=== PATIENT | male | born 1970 | race Two or more races ===

== ENCOUNTER 2023-09-15 13:00 | Emergency (ER) | payer SELFPAY ==
[2023-09-15 13:06] VITALS: BP 174/97; PULSE 98; RESP 18; TEMP 36.6; O2SAT 98; BMI 37.0
--- NOTE | 2023-09-15 13:21 | XR_ITS ---
[address] [address] Patient Name: SRIDEVI US MRN: [id number] date: 1970 Sex: M Assigned Patient Location: ER Current Patient Location: ER Accession/Order Number: [id number] Exam Date: 09/15/2023 13:40 Report Date: 09/15/2023 14:25 At the request of: SAM SPARKS Procedure: XR lumbar spine 2-3V IMAGES REVIEWED: XR lumbar spine 2-3V COMPARISON: None available. CLINICAL INDICATION: atraumatic left lower back pain FINDINGS/IMPRESSION: 1. Moderate degenerative disc disease from L4 through S1. 2. No evidence of acute osseous abnormality. 3. No spondylolisthesis. Electronically authenticated by: IONA REGAN Date: 09/15/2023 14:25
--- NOTE | 2023-09-15 13:22 | ED_ITS ---
HPI - Back Pain/Injury General Chief Complaint: Back Pain/Injury Stated Complaint: BACK PAIN Time Seen by Provider: 09/15/23 13:03 Source: patient Mode of arrival: Wheelchair History of Present Illness HPI Narrative: 53-year-old male presents for left lower back pain. It started about three days ago. Three weeks ago he was doing a lot of heavy lifting. He did not fall and nothing struck him in his back. It doesn't seem to radiate and it's worse in certain positions. No dysuria or hematuria. Related Data Home Medications Medication Instructions Recorded Confirmed metformin 500 mg tablet,extended 500 mg PO Q24H 09/15/23 09/15/23 release 24 hr Previous Rx's Medication Instructions Recorded hydrocodone 5 mg-acetaminophen 325 1 tab PO Q6H PRN pain 5 days #20 09/15/23 mg tablet tabs methocarbamol 750 mg tablet 750 mg PO Q6H pain #20 tabs 09/15/23 Allergies Allergy/AdvReac Type Severity Reaction Status Date / Time nalbuphine [From Nubain] Allergy Severe Verified 09/15/23 13:06 Review of Systems ROS Narrative A ten point review of systems is negative except as noted above. Exam Narrative Exam Narrative: Nurses note and vital signs reviewed and patient is not hypoxic. General: The patient appears well and in no apparent distress. Patient is resting comfortably on cart. Skin: Warm, dry, no pallor noted. There is no rash noted. Head: Normocephalic, atraumatic Eye: Normal conjunctiva, no drainage Ears, Nose, Mouth, and Throat: oral mucosa is moist. Nares patent. Cardiovascular: Regular Rate and Rhythm Respiratory: Patient is in no distress, no accessory muscle use, lungs are clear to auscultation, no wheezing, rales or rhonchi Back: no bruise on his back. He has no palpable tenderness. there is an erythematous rectangular area where he had a patch on. GI: soft and nontender Musculoskeletal: The patient has no evidence of calf tenderness, no pitting edema, symmetrical pulses noted bilaterally Neurological: A&O, normal speech Psychiatric: Cooperative Constitutional Vital Signs, click to edit/add: Last Vital Signs Temp 97.8 F 09/15/23 13:06 Pulse 98 H 09/15/23 13:06 Resp 18 09/15/23 13:06 BP 174/97 H 09/15/23 13:06 Pulse Ox 98 09/15/23 13:06 O2 Del Method Room Air 09/15/23 13:06 Course Vital Signs Vital signs: Vital Signs Temperature 97.8 F 09/15/23 13:06 Pulse Rate 98 H 09/15/23 13:06 Respiratory Rate 18 09/15/23 13:06 Blood Pressure 174/97 H 09/15/23 13:06 Pulse Oximetry 98 09/15/23 13:06 Oxygen Delivery Method Room Air 09/15/23 13:06 Temperature 97.8 F 09/15/23 13:06 Pulse Rate 98 H 09/15/23 13:06 Respiratory Rate 18 09/15/23 13:06 Blood Pressure 174/97 H 09/15/23 13:06 Pulse Oximetry 98 09/15/23 13:06 Oxygen Delivery Method Room Air 09/15/23 13:06 MDM - Back Pain/Injury MDM Narrative Medical decision making narrative: workup is negative. Blood sugar is somewhat elevated but his physician is aware and they are working on that issue. workup is otherwise negative and he'll be treated symptomatically. Treatment diagnosis and follow-up were discussed with the patient. Differential Diagnosis Differential diagnosis: Likely strain of lumbar region, renal colic and other (lumbar fracture, compression fracture) Lab Data Attestation: I reviewed the patient's lab results. Labs: Lab Results 09/15/23 09/15/23 Range/Units 13:17 13:42 WBC 8.1 (4.0-11.0) 10^3/uL RBC 5.09 (4.70-6.10) 10^6/uL Hgb 15.3 (14.0-18.0) g/dL Hct 45.0 (42.0-54.0) % MCV 88.4 (80.0-94.0) fL MCH 30.1 (25.9-34.0) pg MCHC 34.0 (29.9-35.2) g/dL RDW 12.9 (11.0-15.0) % Plt Count 256 (150-450) 10^3/uL MPV 10.1 (9.5-13.5) fL Neut % (Auto) 69.0 (43.0-75.0) % Lymph % (Auto) 22.1 (20.5-60.0) % Bartholomew % (Auto) 7.0 (1.7-12.0) % Eos % (Auto) 0.5 L (0.9-7.0) % Baso % (Auto) 0.5 (0.2-2.0) % Neut # (Auto) 5.6 (1.4-6.5) 10^3/uL Lymph # (Auto) 1.8 (1.2-3.8) 10^3/uL Bartholomew # (Auto) 0.6 (0.3-0.8) 10^3/uL Eos # (Auto) 0.0 (0.0-0.7) 10^3/uL Baso # (Auto) 0.0 (0.0-0.1) 10^3/uL Abs Immat Gran (auto) 0.07 H (0.00-0.03) 10^3/uL Imm/Tot Granulo (auto) 0.9 H (0.0-0.5) % Sodium 137 (136-145) mmol/L Potassium 4.3 (3.5-5.1) mmol/L Chloride 102 (98-107) mmol/L Carbon Dioxide 26.4 (21.0-32.0) mmol/L Anion Gap 12.9 BUN 18.0 (7.0-18.0) mg/dL Creatinine 0.81 (0.70-1.30) mg/dL Est GFR ( Amer) >60 (>=60) Est GFR (Non-Af Amer) >60 (>=60) BUN/Creatinine Ratio 22.2 Glucose 200 H (74-106) mg/dL Calcium 8.5 (8.5-10.1) mg/dL Urine Color Yellow (YELLOW) Urine Clarity Clear (CLEAR) Urine pH 5.5 (5.0-9.0) Ur Specific [place] >=1.030 A (1.005-1.025) Urine Protein Trace (NEG/TRACE) mg/dL Urine Glucose (UA) 500 A (NEGATIVE) mg/dL Urine Ketones Negative (NEGATIVE) mg/dL Urine Occult Blood Small A (NEGATIVE) Urine Nitrite Negative (NEGATIVE) Urine Bilirubin Negative (NEGATIVE) Urine Urobilinogen 0.2 (0.2-1.0) EU/dL Ur Leukocyte Esterase Negative (NEGATIVE) Urine RBC 2-5 A (0-2) #/HPF Urine WBC 0-2 A (NONE SEEN) #/HPF Ur Squamous Epith Cells Rare (NONE/RARE) #/LPF Urine Crystals None seen (None Seen) #/HPF Urine Bacteria None seen (NONE SEEN) #/HPF Urine Casts Seen A (NONE SEEN) #/LPF Hyaline Casts Rare Urine Mucus Small A (NONE SEEN) Imaging Data lumbar x-rays: Radiologist's impression: Procedure: XR lumbar spine 2-3V IMAGES REVIEWED: XR lumbar spine 2-3V COMPARISON: None available. CLINICAL INDICATION: atraumatic left lower back pain FINDINGS/IMPRESSION: 1. Moderate degenerative disc disease from L4 through S1. 2. No evidence of acute osseous abnormality. 3. No spondylolisthesis. Electronically authenticated by: IONA REGAN Date: 09/15/2023 14:25 Discharge Plan Discharge Chief Complaint: Back Pain/Injury Clinical Impression: Strain of lumbar region Patient Disposition: Home, Self-Care Time of Disposition Decision: 14:43 Condition: Good Mode of Transportation: Private Vehicle Prescriptions / Home Meds: New hydrocodone-acetaminophen 5-325 mg tablet 1 tab PO Q6H PRN (Reason: pain) 5 Days Qty: 20 0RF methocarbamol 750 mg tablet 750 mg PO Q6H Qty: 20 0RF No Action metformin 500 mg tablet extended release 24 hr 500 mg PO Q24H Instructions: Low Back Strain (ED) Stand Alone Forms: Portal Instructions Referrals: Physician,Non-Staff, MD [Primary Care Provider] - 1 week
[2023-09-15 13:28] LABS: Basophils Percent Auto 0.5 % (0.2-2.0); Eosinophils Percent Auto 0.5 % (0.9-7.0); Hemoglobin 15.3 g/dL (14.0-18.0); Immature Granulocytes Abs Auto 0.07 10^3/uL (0.00-0.03); Immature Granulocytes Pct Auto 0.9 % (0.0-0.5); Lymphocytes Absolute Auto 1.8 10^3/uL (1.2-3.8); Lymphocytes Percent Auto 22.1 % (20.5-60.0); Mean Corpuscular Hemoglobin 30.1 pg (25.9-34.0); Mean Corpuscular Volume 88.4 fL (80.0-94.0); Mean Platelet Volume 10.1 fL (9.5-13.5); Monocytes Absolute Auto 0.6 10^3/uL (0.3-0.8); Neutrophils Absolute Auto 5.6 10^3/uL (1.4-6.5); Platelet Count 256 10^3/uL (150-450); Red Blood Count 5.09 10^6/uL (4.70-6.10); Red Cell Distribution Width 12.9 % (11.0-15.0); White Blood Count 8.1 10^3/uL (4.0-11.0)
[2023-09-15] MEDS: ORPHENADRINE 60 MG/ 2 ML VIAL IV (13:34)
[2023-09-15] MEDS: KETOROLAC TROMETHAMINE 30 MG/ML VIAL IVP (13:34)
[2023-09-15 13:41] LABS: Anion Gap 12.9; BUN Creatinine Ratio 22.2; Calcium 8.5 mg/dL (8.5-10.1); Carbon Dioxide 26.4 mmol/L (21.0-32.0); Chloride 102 mmol/L (98-107); Estimated GFR (African America >60 (>=60); Estimated GFR (Non-African Ame >60 (>=60); Glucose 200 mg/dL (74-106); Potassium 4.3 mmol/L (3.5-5.1); Sodium 137 mmol/L (136-145)
[2023-09-15 13:49] LABS: Bilirubin Urine NEGATIVE (NEGATIVE); Blood Urine SMALL (NEGATIVE); Clarity Urine CLEAR (CLEAR); Color Urine YELLOW (YELLOW); Glucose Urine UA 500 mg/dL (NEGATIVE); Ketones Urine NEGATIVE (NEGATIVE); Leukocyte Esterase Urine NEGATIVE (NEGATIVE); Nitrite Urine NEGATIVE (NEGATIVE); Protein Urine TRACE mg/dL (NEG/TRACE); Specific Gravity Urine >=1.030 (1.005-1.025); Urobilinogen Urine 0.2 EU/dL (0.2-1.0); pH Urine 5.5 (5.0-9.0)
[2023-09-15 13:58] LABS: Bacteria Urine NONE SEEN #/HPF (NONE SEEN); Cast Seen? SEEN #/LPF (NONE SEEN); Crystals Seen? None Seen #/HPF (None Seen); Hyaline Casts Urine RARE; Mucus Urine SMALL (NONE SEEN); Squamous Epithelial Cell Urine RARE #/LPF (NONE/RARE); WBC Urine 0-2 #/HPF (NONE SEEN)
[2023-09-15] MEDS: HYDROCODONE/ACET 5-325 MG TABLET 1 TAB PO (14:59)
[2023-09-15] MEDS: MORPHINE SULFATE 4 MG/ML VIAL IV (14:59)
[2023-09-15 15:12] VITALS: BP 166/86; PULSE 86; RESP 16; O2SAT 98
== END 2023-09-15 15:14 | disposition home or self-care (01) ==
PROVIDERS: Emergency Provider Emergency Medicine
DX: S39.012A Strain of muscle, fascia and tendon of lower back, initial encounter (principal); X50.0XXA Overexertion from strenuous movement or load, initial encounter; Z79.84 Long term (current) use of oral hypoglycemic drugs
CPT/HCPCS: 36415; 72100; 80048; 81001; 85025; 96374; 96375; 99285

== ENCOUNTER 2024-04-19 10:38 | Outpatient (RCR) | payer OTHER, SELFPAY | END 2024-06-07 13:32 | disposition home or self-care (01) | LOC: PT 10:38 | DX: M16.12 Unilateral primary osteoarthritis, left hip (principal); R42 Dizziness and giddiness | CPT/HCPCS: 97110; 97112; 97162; 97530 ==

== ENCOUNTER 2024-06-26 16:31 | Outpatient (OUT) | payer OTHER, SELFPAY ==
--- NOTE | 2024-06-26 | XR_ITS ---
The [address] [address] Patient Name: SRIDEVI US MRN: [id number] date: 1970 Sex: M Assigned Patient Location: [facility] Current Patient Location: Accession/Order Number: [id number] Exam Date: 06/26/2024 16:45 Report Date: 06/27/2024 09:45 At the request of: ROCKY LEMON Procedure: XR lumbar spine 2-3V EXAM: XR lumbar spine 2-3V HISTORY: Lumber back pain M54.50 COMPARISON: Lumbar spine series dated 09/15/2023. TECHNIQUE: AP, lateral and coned-down lateral views of the lumbar spine performed. FINDINGS: The alignment is anatomic. There is no fracture. The vertebral body heights are normal. Stable mild discogenic degenerative changes with small endplate spurs at T12-L1 through L3-4. Stable mild to moderate discogenic degenerative changes at L4-5 and L5-S1 with disc space narrowing and endplate spurs. There is vacuum disc phenomenon at L4-5. The facet joints are unremarkable. The pedicles are intact. The sacrum and the bilateral sacral joints are unremarkable. XR/XR lumbar spine 2-3V IMPRESSION: There is no acute process. Stable discogenic degenerative changes, mild at T12-L1 through L3-4 and mild to moderate at L4-5 and L5-S1. Electronically authenticated by: ALLY PARKER Date: 06/27/2024 09:45
--- OUTSIDE RECORDS SUMMARY | 2024-06-26 16:49 | XMS_ITS | CCD ---
Author Organization [facility] Care Team Providers Care Acute Care Physician Name Role Phone DR ROCKY LEMON Primary Care Unavailable SAM SPARKS Attending Unavailable SAM SPARKS Admitting Unavailable TRICIA STERLING Consulting Unavailable Yao Strong Consulting Unavailable REQUEST, NONE LISTED Attending Unavaila memo REQUEST, NONE LISTED Consulting Unavaila memo LEMON, DR HIDALGO Primary Care Unavailable REQUEST, DR CASAS LISTED Admitting Unavaila Rocky Aguirre Unavailable Manuelito Arana Unavailable DO Rocky Lemon Primary Care Provider [phone] DO Rocky Lemon Attending Provider FELIX WRIGHT MD Attending Unavailable KIYA TORIBIO MD Consulting Unavailable FELIX WRIGHT MD Admitting Unavailable FELIX WRIGHT MD Attending Unavailable ADRIANA DASILVA, FELIX Attending Unavailable FELIX WRIGHT MD Referring Unavailable Rocky Lemon Admitting Unavailable Rocky Lemon Attending Unavailable Rocky Lemon Primary Care Unavailable Allergies Allergy Classification Reported Allergen(s) Allergy Type Date of Onset Reaction(s) Facility (20 sources) Nalbuphine Drug Allergy vomiting [facility] Repository (1 source) Nalbuphine Drug Allergy 12-12-2023 [facility] Repository Medications Current Medications Medication Drug Class(es) Dates Sig (Normalized) Sig (Original) acetaminophen 325 mg / HYDROcodone bitartrate 7.5 mg oral tablet (20 sources) Opioid Agonist Start: 12-12-2023 End: 03-26-2024 Hydrocodone-Acetam inophen Active 1 TAB PO .COMPLEX 13 05March 26, 2024 take 1 tablet by mouth every 8-12 hours as needed for pain Start: 03-15-2023 HYDROcodone-Ac etaminophen 7.5-325 MG take 1 tablet Orally q8- 12 hrs prn February, Active Start: 02-04-2023 HYDROcodone-Ac etaminophen 5-325 MG take 1 tablet Orally q8-12 hrs prn Jan, Active Start: 08-27-2021 HYDROcodone-Ac etaminophen 5-325 MG take 1 tablet Orally q8-12 hrs prn for 7 days prn Aug, Active amoxicillin 875 mg / clavulanate 125 mg oral tablet (2 sources) Penicillin-class Antibacterial Start: 12-29-2022 take 1 tablet by mouth every twelve hours Amoxicillin-Pot Clavulanate 875-125 MG 1 tablet Orally twice a day for 10 days Dec, Active aspirin 81 mg delayed release oral tablet (20 sources) Platelet Aggregation Inhibitor, Nonsteroidal Anti-inflammatory Drug Start: 12-12-2023 End: 03-26-2024 take 81 mg by mouth once daily Aspirin Active 81 MG PO Daily March 26, 2024 5:44pm take 1 tablet by chiara th every twenty-four hours Aspirin 81 81 MG 1 tablet Orally Once a day for 30 day(s) in the AM Active take 1 tablet by chiara th once daily in the morning Aspirin 81 81 MG 1 tablet Orally Once a day for 30 day(s) in the AM Active Losartan (9 sources) Angiotensin 2 Receptor Tashia Start: 02-20-2024 take 1 tablet by mouth once daily Losartan Active 0 .ROUTE .COMPLEX February 20, 2024 2:54pm TAKE 1 TABLET BY MOUTH DAILY Start: 12-12-2023 End: 02-20-2024 take 100 mg by mouth once daily Losartan Discontinued 100 MG PO Daily December 12, 2023 1:00am February 20, 2024 2:55pm Start: 02-10-2023 take 1 tablet by chiara th every twenty-four hours Losartan Potassium 100 MG 1 tablet Orally Once a day Jan, Active Start: 02-10-2023 take 1 tablet by chiara th every twenty-four hours Losartan Potassium 25 MG 1 tablet Orally Once a day for 30 days Jan, Active 24 hr metFORMIN hydrochloride 500 mg extended release oral tablet (20 sources) Biguanide Start: 02-08-2024 take 500 mg by mouth once daily in the morning Metformin Active 500 MG PO Every morning February 08, 2024 9:21am Start: 12-20-2023 End: 02-08-2024 take 1 tablet by mouth once daily in the morning Metformin Discontinued 0 .ROUTE .COMPLEX December 20, 2023 5:21pm February 08, 2024 9:23am TAKE 1 TABLET BY MOUTH EVERY MORNING WITH BREAKFAST Start: 08-24-2021 End: 12-20-2023 take 500 mg by mouth once daily Metformin Discontinued 500 MG PO Daily November 23, 2021 1:00am December 20, 2023 5:22pm tiZANidine 4 mg oral tablet (1 source) Central alpha-2 Adrenergic Agonist Start: 09-02-2023 take 1 tablet by mouth once daily at bedtime as needed for muscle spasms Zanaflex 4 MG 1 tablet Orally qd hs prn muscle spasm Aug, Active Completed/Discontinued Medications Medication Drug Class(es) Dates Sig (Normalized) Sig (Original) [id number] 200 actuat albuterol 0.09 mg/actuat metered dose inhaler (20 sources) beta2-Adrenergic Agonist Start: 12-12-2023 End: 03-26-2024 Albuterol Sulfate (Ventolin Hfa) 90 mcg/actuation HFA aerosol inhaler Discontinued INHALATION December 12, 2023 1:00am March 26, 2024 5:44pm FreeTextSi inhalations Inhalation q4 hrs prn; Note: Source Status: Not-Taking\PRNprn; Refills: 1; Provider: Mitch Hernandez Start: 12-12-2023 Albuterol Sulf ate (Ventolin Hfa) 90 mcg/actuation HFA aerosol inhaler Active INHALATION December 12, 2023 1:00am FreeTextSi inhalations Inhalation q4 hrs prn; Note: Source Status: Not-Taking\PRNprn; Refills: 1; Provider: Mitch Hernandez Start: 09-10-2020 Ventolin HFA 1 08 (90 Base) MCG/ACT 2 inhalations Inhalation q4 hrs prn prn Aug, Not-Taking/PRN azithromycin 250 mg oral tablet (7 sources) Macrolide Antimicrobial Start: 11-23-2021 End: 12-12-2023 Azithromycin Discontinued MG TABLET November 23, 2021 1:00am December 12, 2023 11:40am Start: 01-29-2019 Zithromax Z-Pa k 250 MG 2 tablets on the first day, then 1 tablet daily for 4 days Orally Once a day for 5 day(s) Jan, Active cefdinir 300 mg oral capsule (6 sources) Cephalosporin Antibacterial Start: 10-08-2022 take 2 capsules by mouth once daily at mealtime Cefdinir 300 MG 2 capsules Orally qd with food for 10 days Sep, Not-Taking gabapentin 600 mg oral tablet (20 sources) Anti-epileptic Agent Start: 02-08-2024 End: 02-08-2024 take 600 mg by mouth three times daily Gabapentin Discontinued 600 MG PO Three times daily February 08, 2024 9:20am February 08, 2024 9:54am Start: 12-20-2023 End: 02-08-2024 take 1 tablet by mouth three times daily Gabapentin Discontinued 0 .ROUTE .COMPLEX 90 December 20, 2023 5:21pm February 08, 2024 9:23am TAKE 1 TABLET BY MOUTH THREE TIMES DAILY Start: 12-12-2023 End: 12-20-2023 take 600 mg by mouth every twelve hours Gabapentin Discontinued 600 MG PO Every 12 hours December 12, 2023 11:40am December 20, 2023 5:22pm Start: 12-12-2023 End: 12-12-2023 take 1 tablet by mouth three times daily Gabapentin Discontinued 600 MG PO December 12, 2023 1:00am December 12, 2023 11:43am FreeTextSig: TAKE 1 TABLET BY MOUTH THREE TIMES DAILY; Note: Source Status: Taking; Refills: 2; Qty: 90 Tablet; Provider: Mitch Hidalgo ( ) Start: 11-23-2021 End: 12-12-2023 Gabapentin Discontinued MG J anuary 2021 1:00am December 12, 2023 11:42am Start: 08-17-2021 Gabapentin 100 MG 1 capsule in the AM, 1 capsule in the mid-afternoon Orally and take 3 capsules at bedtime Jul, Active take 1 tablet by chiara th three times daily Gabapentin 600 mg TAKE 1 TABLET BY MOUTH THREE TIMES DAILY for 30 Active take 1 capsule by mo uth three times daily Gabapentin 300 MG TAKE 1 CAPSULE BY MOUTH THREE TIMES DAILY for 30 day(s) Active meloxicam 15 mg oral tablet (15 sources) Nonsteroidal Anti-inflammatory Drug Start: 12-12-2023 End: 12-12-2023 take 1 tablet by mouth once daily at mealtime Meloxicam Discontinued 15 MG PO Daily December 12, 2023 1:00am December 12, 2023 11:43am FreeTextSig: TAKE 1 TABLET BY MOUTH ONCE DAILY WITH FOOD; Note: Source Status: Taking; Refills: 2; Qty: 30 Tablet; Provider: Mitch Hidalgo ( ) Start: 08-31-2022 take 1 tablet by chiara th once daily at mealtime Meloxicam 15 MG 1 tablet Orally once a day with food for 30 day(s) Aug, Active methocarbamol 750 mg oral tablet (5 sources) Muscle Relaxant Start: 12-12-2023 End: 02-08-2024 take 1 tablet by mouth every six hours as needed Methocarbamol Discontinued 750 MG PO Every 6 hours February 08, 2024 9:22am February 08, 2024 9:55am 1 tablet Orally q6 hrs prn; Note: Source Status: Start; Refills: 0; Provider: Mitch Hernandez Start: 11-07-2023 take 1 tablet by chiara th every six hours as needed Methocarbamol 750 MG 1 tablet Orally q6 hrs prn Oct, Active methylPREDNISolone 4 mg oral tablet (4 sources) Corticosteroid Start: 12-12-2023 End: 02-08-2024 take 1 tablet by mouth once at mealtime Methylprednisolone (Medrol (Zafar)) 4 mg tablets,dose pack Discontinued 0 PO per package directions December 12, 2023 12:20pm February 08, 2024 9:55am PO PER PKG DIR for 6 days with food predniSONE 20 mg oral tablet (16 sources) Start: 06-17-2023 predniSONE 20 MG 2 tablets Orally x5 days and then take 1 tablet a day x5 days with food or milk for 10 days May, Not-Taking/PRN Start: 10-08-2022 take 1 tablet by chiara th every twenty-four hours predniSONE 10 MG 1 tablet Orally Once a day for 7 days Sep, Not-Taking Start: 11-23-2021 End: 12-12-2023 Prednisone Discontinued MG T ABLET November 23, 2021 1:00am December 12, 2023 11:43am Start: 01-19-2021 predniSONE 20 MG take 3 tablets Orally x3 days, then 2 tabs x3 days then 1 tab a day x3 days with food or milk for 9 days Dec, Active sildenafil 100 mg oral tablet (20 sources) Phosphodiesterase 5 Inhibitor Start: 12-12-2023 End: 02-08-2024 take 1 tablet by mouth every hour, then take 1 tablet by mouth every twenty-four hours Sildenafil (Viagra) 100 mg tablet Discontinued 100 MG PO February 08, 2024 9:22am February 08, 2024 9:55am 1 tablet 1 hour prior to sexual activity Orally max 1 in 24 hours; Note: Source Status: Not-Taking\PRN; Refills: 5; Provider: Mitch Hernandez Start: 07-09-2022 take 1 tablet by chiara th every hour as needed, then take 1 tablet by mouth every twenty-four hours as needed Viagra 100 MG 1 tablet 1 hour prior to sexual activity Orally max 1 in 24 hours Jun, Not-Taking/PRN SZSTANDARD1-Topical Cream Baclofen 2%, Cyclobenzaprine HCL 2%, Diclofenac Na 3%, Gabapentin 6%, Lidocaine HCL 2% Cream (20 sources) Start: 10-26-2021 SZSTANDARD1-To pical Cream Baclofen 2%, Cyclobenzaprine HCL 2%, Diclofenac Na 3%, Gabapentin 6%, Lidocaine HCL 2% Cream NEEDED TOPICALLY APPLY 1-2 GRAMS FOR 2-3 MINUTES EVERY 6-8 HOURS for 30 days Oct, Not-Taking Start: 10-26-2021 SZSTANDARD1-To pical Cream Baclofen 2%, Cyclobenzaprine HCL 2%, Diclofenac Na 3%, Gabapentin 6%, Lidocaine HCL 2% Cream NEEDED TOPICALLY APPLY 1-2 GRAMS FOR 2-3 MINUTES EVERY 6-8 HOURS for 30 days Oct, Active Problems Active Problems Problem Classification Problem Date Documented Da te Episodic/Chronic Conditions associated with dizziness or vertigo (1 source) Dizziness and giddiness Episodic Diabetes mellitus with complications (5 sources) Type II diabetes mellitus uncontrolled; Translations: [Uncontrolled type 2 diabetes mellitus] 02-08-2024 Chronic Diabetes mellitus without complication (14 sources) Hyperglycemia, unspecified; Translations: [Acute hyperglycemia] Onset: 12-29-2021 Resolved: 07-09-2022 Episodic Essential hypertension (20 sources) Hypertensive disorder; Translations: [Essential (primary) hypertension] Chronic Headache; including migraine (4 sources) Headache; including migraine; Translations: [HEADACHE UNSPECIFIED] Onset: 08-10-2021 Osteoarthritis (20 sources) Osteoarthritis of left knee joint; Translations: [Unilateral primary osteoarthritis, left knee] 12-12-2023 Chronic Other and unspecified benign neoplasm (2 sources) Melanocytic nevi, unspecified Episodic Other circulatory disease (1 source) Elevated blood-pressure reading, without diagnosis of hypertension Episodic Other connective tissue disease (2 sources) Equipment finding; Translations: [Presence of other bone and tendon implants] 12-12-2023 Chronic Other connective tissue disease (2 sources) Pain in lower limb; Translations: [Pain in leg, unspecified] 12-12-2023 Episodic Other ear and sense organ disorders (12 sources) Otitis externa; Translations: [Unspecified otitis externa, unspecified ear] Chronic Other ear and sense organ disorders (2 sources) Unspecified otitis externa, unspecified ear Chronic Other ear and sense organ disorders (20 sources) Otalgia; Translations: [Otalgia, right ear] Episodic Other gastrointestinal disorders (1 source) Abdominal distension (gaseous) Episodic Other male genital disorders (20 sources) Male erectile dysfunction, unspecified; Translations: [Erectile dysfunction] Onset: 07-09-2022 Resolved: 07-09-2022 Chronic Other nervous system disorders (20 sources) Neuropathy; Translations: [Polyneuropathy, unspecified] 12-12-2023 Chronic Other nervous system disorders (20 sources) Chronic pain; Translations: [Other chronic pain] 12-12-2023 Chronic Other nervous system disorders (3 sources) Other chronic pain; Translations: [Other chronic pain] Onset: 10-26-2021 Resolved: 10-26-2021 Chronic Other nervous system disorders (6 sources) Polyneuropathy, unspecified; Translations: [Mononeuritis of unspecified site] Onset: 07-09-2022 Resolved: 07-09-2022 Chronic Other nervous system disorders (1 source) Paresthesia of skin; Translations: [PARESTHESIA OF SKIN] Onset: 10-20-2021 Episodic Other non-traumatic joint disorders (11 sources) Pain in left hip; Translations: [Pain in joint, pelvic region and thigh] Onset: 07-09-2022 Resolved: 07-09-2022 Episodic Other non-traumatic joint disorders (4 sources) Pain in left knee; Translations: [Left knee pain] Episodic Other non-traumatic joint disorders (2 sources) Hip pain; Translations: [Pain in left hip] 12-12-2023 Episodic Other screening for suspected conditions (not mental disorders or infectious disease) (6 sources) Encounter for screening for malignant neoplasm of colon; Translations: [Electrocardiogram abnormal] Episodic Other upper respiratory infections (2 sources) Viral upper respiratory tract infection; Translations: [Acute upper respiratory infection, unspecified] 11-23-2021 Episodic Poisoning by nonmedicinal substances (1 source) Toxic effect of unspecified spider venom, accidental (unintentional), initial encounter Episodic Residual codes; unclassified (6 sources) Amnesia; Translations: [Other amnesia] Episodic Residual codes; unclassified (2 sources) Other amnesia Episodic Residual codes; unclassified (2 sources) Memory impairment; Translations: [Other amnesia] 12-12-2023 Episodic Spondylosis; intervertebral disc disorders; other back problems (20 sources) Cervical spondylosis; Translations: [Spondylosis without myelopathy or radiculopathy, cervical region] Onset: 10-26-2021 Resolved: 05-03-2022 Chronic Spondylosis; intervertebral disc disorders; other back problems (20 sources) Neck pain; Translations: [Cervicalgia] Onset: 10-26-2021 Resolved: 10-26-2021 Episodic Past or Other Problems Problem Classification Problem Date Documented Da te Episodic/Chronic Acute bronchitis (1 source) Acute bronchitis, unspecified Onset: 11-19-2021 Resolved: 11-19-2021 Episodic Other connective tissue disease (2 sources) Pain in leg, unspecified; Translations: [Pain in limb] Onset: 12-19-2023 12-12-2023 Episodic Other connective tissue disease (1 source) Pain in left lower limb; Translations: [Pain in left leg] Onset: 12-19-2023 Episodic Other nutritional; endocrine; and metabolic disorders (1 source) Abnormal weight loss Onset: 04-08-2022 Resolved: 04-08-2022 Episodic Otitis media and related conditions (1 source) Other specified disorders of Eustachian tube, unspecified ear Onset: 11-19-2021 Resolved: 11-19-2021 Episodic Results Test Name Value Interpretation Reference Range Facility SURGICAL PATH REPORTon 04-21 SURGICAL PATH REPORT [facility] Department of Pathology [address] [place] [address] Name: DALI HUFFMAN : 1970 [facility] [id number] Number: [facility]; J532; 01 : n: Admit 54 years Attending FELIX WRIGHT MD Age: Provider: Ordering FELIX WRIGHT MD Provider: Consulti Surgical Pathology Report ng: ACCESSION: COLLECTED DATE/TIME: RECEIVED DATE/TIME: PATHOLOGIST: [id number] 04/17/2024 09:33 EDT 04/17/2024 10:48 EDT EVE CARVALHO MD Final Diagnosis LEFT FEMORAL HEAD BONE AND TISSUE; TOTAL HIP REPLACEMENT: - OSTEOCARTILAGE AND BONE MARROW TISSUE, WITH MILD DEGENERATIVE CHANGES. EVE CARVALHO PATHOLOGIST (Electronic Signature) Date Verified 04/21/2024 EK Clinical Data PREOP DIAGNOSIS: UNILATERAL PRIMARY OSTEOARTHRITIS LEFT HIP POSTOP DIAGNOSIS: UNILATERAL PRIMARY OSTEOARTHRITIS LEFT HIP PROCEDURE: LEFT TOTAL HIP REPLACEMENT SPECIMEN: LEFT HIP BONE AND TISSUE Gross Description Labeled left hip bone and tissue. Received in formalin is a 5.5 x 5.0 x 5.0 cm partially flattened femoral head and attached neck with a smooth resection margin. The articular surface is covered by irregularly surfaced cartilage with areas of cartilaginous loss and eburnation of the underlying bone. The eburnation is eccentric and measures up to 1.5 cm in greatest dimension. Multiple peripheral osteophytes are present. There are no areas of soft tissue present within the bone segment. Recovery Agent sections are submitted in two cassettes after decalcification. 04/17/2024 12:49:55 EDT Microscopic Diagnosis The final diagnosis is based on a microscopic exam of tour sales representative sections. ____ ____ Print 04/21/2024 11:16 EDT Number: Date/Time: [facility] Department of Pathology [id number] [place] [address] [phone] Name: DALI HUFFMAN : 1970 [facility] [id number] Number: Gender Male [facility]; J532; 01 : n: Admit 54 years Attending FELIX WRIGHT MD Age: Provider: Ordering FELIX WRIGHT MD Provider: Amisha Surgical Pathology Report ng: ACCESSION: COLLECTED DATE/TIME: RECEIVED DATE/TIME: PATHOLOGIST: [id number] 04/17/2024 09:33 EDT 04/17/2024 10:48 EDT MAIA DASILVA [facility] Codes CPT CODE: 98767, 34009 ____ ____ Print 04/21/2024 11:16 EDT Number: Date/Time: [facility] Comment on above: Performed By: #### 9 [id number] ####[facility] [id number] [place] [address] Medical Director: MD Zay Webb 04-18-2024 Calcium [Mass/Vol] 8.3 mg/dL Low 8.7-10.4 [facility] Comment on above: Performed By: #### 1 [id number], [id number] ####[facility] [address] [place] [address] Medical Director: Selvin Dillon MD Chloride [Moles/Vol] 108 mmol/L High 98-107 [facility] Comment on above: Performed By: #### 1 [id number], [id number] ####[facility] [address] [place], [place] [id number]) [phone] Director: Selvin Dillon MD CO2 [Moles/Vol] 25.0 mmol/L Normal 20.0-31.0 [facility] Comment on above: Performed By: #### 1 [id number], [id number] ####[facility] [address] [place], [place] [id number]) [phone] Director: Selvin Dillon MD Creatinine [Mass/Vol] 0.8 mg/dL Normal 0.6-1.1 [facility] Comment on above: Performed By: #### 1 50102, [id number] ####[facility] [address] [place] [address] Medical Director: Selvin Dillon MD GFR AA >60 Normal [facility] Comment on above: Result Comment: Afri can French GFR Calc Medical judgement is necessary to interpret GFR. The calculated GFR may not accurately reflect renal status in patients >70 years, women, acutely ill hospitalized patients and patients with acute renal failure or known renal disease. The MDRD GFR formula is valid only for adults greater than 18 years of age. Note: Creatinine clearance (not GFR) should be used for drug dosing. Performed By: #### 1 [id number], [id number] ####[facility] [address] [place], [place] [id number]) [phone] Director: Selvin Dillon MD Glomerular Filtration Rate >60 Normal [facility] Comment on above: Result Comment: Non- GFR Calc Medical judgement is necessary to interpret GFR. The calculated GFR may not accurately reflect renal status in patients >70 years, women, acutely ill hospitalized patients and patients with acute renal failure or known renal disease. The MDRD GFR formula is valid only for adults greater than 18 years of age. Note: Creatinine clearance (not GFR) should be used for drug dosing. Performed By: #### 1 [id number], [id number] ####[facility] [address] [place] [address] Medical Director: Selvin Dillon MD Glucose [Mass/Vol] 183 mg/dL High 74-106 [facility] Comment on above: Performed By: #### 1 [id number], [id number] ####[facility] [address] [place] [address] Medical Director: Selvin Dillon MD Osmolality [Osmolality] 286 mosm/kg Normal 275-295 [facility] Comment on above: Performed By: #### 1 69628, [id number] ####[facility] [address] [place] [address] Medical Director: Selvin Dillon MD Potassium [Moles/Vol] 4.2 mmol/L Normal 3.5-5.1 [facility] Comment on above: Performed By: #### 1 [id number], [id number] ####[facility] [address] [place] [address] Medical Director: Selvin Dillon MD Sodium [Moles/Vol] 140 mmol/L Normal 135-145 [facility] Comment on above: Performed By: #### 1 42757, [id number] ####[facility] [address] [place] [address] Medical Director: Selvin Dillon MD Urea nitrogen [Mass/Vol] 17 mg/dL Normal 9-23 [facility] Comment on above: Result Comment: - Ve nipuncture should occur prior to N-Acetyl Cysteine (NAC) or Metamizole (Sulpyrine) administration due to the potential for falsely depressed results. - Blood samples from some patients with monoclonal gammopathies may produce falsely elevated results Performed By: #### 1 07938, [id number] ####[facility] [address] [place] [address] Medical Director: Selvin Dillon MD Urea nitrogen/Creatinine [Mass ratio] 21.2 mg/mg Normal [facility] Comment on above: Performed By: #### 1 50400, [id number] ####[facility] [address] [place] [address] Medical Director: Selvin Dillon MD CBCNDon 04-18-2024 Erythrocyte distribution width (RBC) [Ratio] 14.2 % Normal 11.5-14.5 [facility] Comment on above: Performed By: #### 1 92995, [id number] ####[facility] [address] [place] [address] Medical Director: Selvin Dillon MD Hematocrit (Bld) [Volume fraction] 32.8 % Low 41.0-52.0 [facility] Comment on above: Performed By: #### 1 17818, [id number] ####[facility] [address] [place] [address] Medical Director: Selvin Dillon MD Hemoglobin (Bld) [Mass/Vol] 11.2 g/dL Low 13.5-17.5 [facility] Comment on above: Performed By: #### 1 53943, [id number] ####[facility] [address] [place] [address] Medical Director: Selvin Dillon MD Instr WBC ND 7.7 Normal [facility] Comment on above: Performed By: #### 1 62910, [id number] ####[facility] [address] [place] [address] Medical Director: Selvin Dillon MD MCH (RBC) [Entitic mass] 30.4 pg Normal 27.0-34.0 [facility] Comment on above: Performed By: #### 1 77916, [id number] ####[facility] [address] [place] [address] Medical Director: Selvin Dillon MD MCHC (RBC) [Mass/Vol] 34.1 g/dL Normal 32.0-37.0 [facility] Comment on above: Performed By: #### 1 [id number], [id number] ####[facility] [address] [place] [address] Medical Director: Selvin Dillon MD MCV (RBC) [Entitic vol] 89.1 fL Normal 80.0-100.0 [facility] Comment on above: Performed By: #### 1 57212, [id number] ####[facility] [address] [place] [address] Medical Director: Selvin Dillon MD Platelet 202 x10 Normal 150-450 [facility] Comment on above: Performed By: #### [id number], [id number] ####[facility] [id number] [place] [address] Medical Director: Selvin Dillon MD Platelet mean volume (Bld) [Entitic vol] 8.7 fL Normal 7.4-10.4 [facility] Comment on above: Performed By: #### 1 [id number], [id number] ####[facility] [id number] [place] [address] Medical Director: Selvin Dillon MD RBC 3.68 x10 Low 4.70-6.10 [facility] Comment on above: Result Comment: Note : RBC morphology is normal unless otherwise stated. Evaluation performed only if differential is requested. Performed By: #### 1 [id number], [id number] ####[facility] [id number] [place] [address] Medical Director: Selvin Dillon MD WBC 7.7 x10 Normal 4.5-11.0 [facility] Comment on above: Performed By: #### 1 [id number], [id number] ####[facility] [id number] [place] [address] Medical Director: Selvin Dillon MD HYDROCODONE 5MG/APAP 325MGon 06-26-2024 HYDROCODONE 5MG/APAP 325MG PRN Response Entered On: 04/18/2024 13:51 EDT Performed On: 04/18/2024 13:51 EDT by Sharmila Pantoja LPN Intervention Information: acetaminophen-hydrocod one Performed by Sharmila Pantoja LPN on 04/18/2024 13:46:00 EDT acetaminophen-hydrocod one,1tabs ORAL,Mild Pain(c) PRN Medication Response PRN Medication used for : Pain PRN Medication Effectiveness : Discharged PRN Response Pain Scales : Numeric (8yrs & older) Numeric Pain Scale Age : Numeric (8yrs & older) Actual time of reassessment : Yes Sharmila Pantoja LPN - 04/18/2024 13:51 EDT Numeric Pain Scale Numeric Pain Scale : 3 = Mild Pain Numeric Pain Score : 3 Sharmila Pantoja LPN - 04/18/2024 13:51 EDT [facility] Comment on above: Order Comment: For p ain level 1-3; May decrease to 1 tab if patient exhibits increased lethargy. IF ORDERED, DISCONTINUE AROUND THE CLOCK TYLENOL.Check for other orders containing acetaminophen before administering. Max total daily amount is 4000 mg. HYDROCODONE 5MG/APAP 325MG PRN Response Entered On: 04/18/2024 12:53 EDT Performed On: 04/18/2024 10:22 EDT by Sharmila Pantoja LPN Intervention Information: acetaminophen-hydrocod one Performed by Sharmila Pantoja LPN on 04/18/2024 09:22:00 EDT acetaminophen-hydrocod one,2tabs ORAL,Mild Pain PRN Medication Response PRN Medication used for : Pain PRN Medication Effectiveness : Yes PRN Response Pain Scales : Numeric (8yrs & older) Numeric Pain Scale Age : Numeric (8yrs & older) Actual time of reassessment : No (not needed time is correct) Sharmila Pantoja LPN - 04/18/2024 12:53 EDT Numeric Pain Scale Numeric Pain Scale : 3 = Mild Pain Numeric Pain Score : 3 Sharmila Pantoja LPN - 04/18/2024 12:53 EDT [facility] Comment on above: Order Comment: For p ain level 1-3; May decrease to 1 tab if patient exhibits increased lethargy. IF ORDERED, DISCONTINUE AROUND THE CLOCK TYLENOL.Check for other orders containing acetaminophen before administering. Max total daily amount is 4000 mg. HYDROCODONE 5MG/APAP 325MG PRN Response Entered On: 04/18/2024 6:08 EDT Performed On: 04/18/2024 5:26 EDT by Mervin Kinney RN Intervention Information: acetaminophen-hydrocod one Performed by Mervin Kinney RN on 04/18/2024 04:26:00 EDT acetaminophen-hydrocod one,2tabs ORAL,Mild Pain PRN Medication Response PRN Medication used for : Pain PRN Medication Effectiveness : Yes PRN Response Pain Scales : Numeric (8yrs & older) Numeric Pain Scale Age : Numeric (8yrs & older) Actual time of reassessment : No (not needed time is correct) Mervin Kinney RN - 04/18/2024 6:08 EDT Numeric Pain Scale Numeric Pain Scale : 3 = Mild Pain Numeric Pain Score : 3 Mervin Kinney RN - 04/18/2024 6:08 EDT [facility] Comment on above: Order Comment: For p ain level 1-3; May decrease to 1 tab if patient exhibits increased lethargy. IF ORDERED, DISCONTINUE AROUND THE CLOCK TYLENOL.Check for other orders containing acetaminophen before administering. Max total daily amount is 4000 mg. HYDROCODONE 5MG/APAP 325MG PRN Response Entered On: 04/18/2024 2:03 EDT Performed On: 04/18/2024 1:27 EDT by Mervin Kinney RN Intervention Information: acetaminophen-hydrocod one Performed by Mervin Kinney RN on 04/18/2024 00:27:00 EDT acetaminophen-hydrocod one,2tabs ORAL,Mild Pain PRN Medication Response PRN Medication used for : Pain PRN Medication Effectiveness : Yes PRN Response Pain Scales : Numeric (8yrs & older) Numeric Pain Scale Age : Numeric (8yrs & older) Actual time of reassessment : No (not needed time is correct) Mervin Kinney RN - 04/18/2024 2:03 EDT Numeric Pain Scale Numeric Pain Scale : 4 = Moderate Pain Numeric Pain Score : 4 Mervin Kinney RN - 04/18/2024 2:03 EDT [facility] Comment on above: Order Comment: For p ain level 1-3; May decrease to 1 tab if patient exhibits increased lethargy. IF ORDERED, DISCONTINUE AROUND THE CLOCK TYLENOL.Check for other orders containing acetaminophen before administering. Max total daily amount is 4000 mg. IBUPROFEN 600MG TABLETon IBUPROFEN 600MG TABLET PRN Response Entered On: 04/18/2024 13:13 EDT Performed On: 04/18/2024 13:13 EDT by Sharmila Pantoja LPN Intervention Information: ibuprofen Performed by Sharmila Pantoja LPN on 04/18/2024 12:16:00 EDT ibuprofen = Motrin, Advil,600mg ORAL PRN Medication Response PRN Medication used for : Pain PRN Medication Effectiveness : Yes PRN Response Pain Scales : Numeric (8yrs & older) Numeric Pain Scale Age : Numeric (8yrs & older) Actual time of reassessment : Yes Sharmila Pantoja LPN - 04/18/2024 13:13 EDT Numeric Pain Scale Numeric Pain Scale : 2 = Mild Pain Numeric Pain Score : 2 Sharmila Pantoja LPN - 04/18/2024 13:13 EDT Normal [facility] Comment on above: Order Comment: for i nflammation x 48 hours. Start after Toradol (Ketoralac) is discontinued Inpatient Patient Summaryon 04-18-2024 Inpatient Patient Summary [facility] Discharge Instructions [id number] [place] [address] (Patient Copy) Name: DALI HUFFMAN : 1970 Diagnosis: Acute post-operative pain; Diabetes; Unilateral primary osteoarthritis, left hip Allergies: Nikos Registration Date: 04/17/24 [facility]#: [id number] Current Date Time: 04/18/2024 13:16:16 Address: [place] [address] Phone: [phone] Primary Care Provider: Name: Phone: Thank you for choosing [facility] for your care. You are very important to us. Our goal is to demonstrate our high quality medical care and provide you with a very good patient experience. You may receive a survey about our service. Please take the time to complete the survey and return it so we can continue to enhance our service. Thank you again for allowing [facility] to care for your medical needs. If you have any questions about your care or follow up information please contact your doctor. Follow-up Instructions The following Appointments have been made for you: Please Note: the first letters listed in the order is the location code, followed by the appointment date, and scheduled provider Future Appointments [place] [facility] Appt. Date: 04/24/2024 2:30 PM Scheduled Provider: JUAN MANUEL Smith 1 ([place]) Phone: -- Fax: -- Provider Follow Ups: With: Address: When: FELIX WRIGHT, Orthopedic Surgery [address] [facility], [address] [place] [address] KeyMe (1) Comments: Follow up with therapy as scheduled at . Bring your prescription with you to your first outpatient appointment. Follow up with vascular lab as scheduled Follow up for staple removal in your doctor?s office 12-14 days from the date of your surgery ? call for appointment. Continue exercises as directed 3x daily - refer to [facility] binder for directions as well as therapy instructions Continue dressing changes daily as shown ? keep incision dry until after salma are removed ([facility] is ok with patients showering if dressing stays on and is wrapped with saran wrap and tape or press and seal saran wrap. After showering, remove wrap and dressing and put on a clean, dry dressing.) Continue to wear compression stockings for 1-2 weeks post-operatively, until mobility is no longer reduced. Wear throughout the day and night, removing for a few hours daily as needed. Apply ice to incision as directed (do not place on bare skin,) and use breathing mushroom grower as instructed Continue to follow precautions as instructed and use walker for safety until progressed by your therapy after discharge Refer to [facility] instructions sheet provided in blue folder Any questions or concerns, please call Dr. Wright If you have had an intravenous catheter (IV) during your stay, keep the dressing dry and do not remove it from the site for at least 24 hours or as instructed by your provider to prevent problems. Medication Information Only Take The Medicines On This List. Keep This List and Bring It To Your Next Appointment. Medicines To Take At Home: Medicine Name (Generic Name) Amount to Take How to Take it How Often to Take it Additional Instructions Next Dose Due [place] 5 mg-325 mg oral tablet * (acetaminophen-hydroco done) 1-2 tablets po q4-6 hrs prn orally Disclaimer- may need more than 30MED due to major orthopedic surgery 7 day supply hasn't gotten any prescribed since beginning of March and only 7 days worth. Take as needed for pain aspirin 81 mg oral delayed release tablet * (aspirin) 81 mg By Mouth DAILY WITH BREAKFAST take one tablet dialy for 30 days do not crush or chew losartan 100 mg oral tablet (losartan) 100 mg By Mouth DAILY MetFORMIN (Eqv-Glumetza) 500 mg oral tablet, extended release (metformin = glucophage) 500 mg By Mouth DAILY Centrum Silver oral tablet (multivitamin with minerals) 1 tabs By Mouth DAILY Ultram 50 mg oral tablet * (tramadol) 1-2 po 6 hrs prn pain Orally Disclaimer- Patient may require more than 30MED due to major Orthopedic surgery. 7 day supply Take as needed for Moderate Breakthrough Pain Understanding your home medicine is important to keeping you healthy. If you are taking medications that are not on the preceding list, please call your doctor to see if you are to continue taking that medication. It is important that you do not skip or make up doses. If you are ordered an antibiotic, finish taking all the medicine unless your doctor tells you otherwise. Call your doctor if you have any questions or problems. Take the medicine list with you to all follow up appointments. Patient education materials, if any, will display below Learning About Using an Incentive Spirometer What is an incentive spirometer? An incentive spirometer is a handheld device that exercises your lungs and measures how much air you can breathe in. It tells you and your doctor how well your lungs are (more content not included)... Normal [facility] Inpt OT Jnt Replacement Prot ocol-Texton 04-18-2024 Inpt OT Jnt Replacement Protocol-Text Inpatient OT Joint Replacement Protocol Entered On: 04/18/2024 12:05 EDT Performed On: 04/18/2024 10:18 EDT by Sofi Velez Joint Protocol OT Joint Replacement Protocol OT Session 1 OT Session 2 Date/Time : 04/17/2024 13:28 EDT 04/18/2024 10:18 EDT Pain : 5/10 4/10 Weight Bearing : FWB L LE FWB L LE Bed Mobility : supervision Transfers : Mod I Chair : CGA with FWW Mod I using FWW Toilet : CGA with FWW Mod I using 3:1 over standard commode, pt voicing no need to void Tub/Shower : NT. Pt uses walk-in shower with grab bars and hand held shower head. NT - pt declined trial, has walk-in shower and stating no concerns ADL : set up for grooming while seated. Grooming in standing at sink to complete hand hygiene at Mod I using FWW, G balance noted OT UB ADL : set up Set up to don shirt while seated LB ADL : Threads BLEs into shorts with supervision while seated using collection teller to comply with THP. CGA For clothing management up over hips in standing. Thread L LE through pants using collection teller while seated, hip/knee flexion to thread R, advance over B hips in standing at Mod I using FWW. Doff/don hospital socks at Mod I using collection teller/sock aid. Doff compression socks at Mod A using collection teller, don at Max A (Comment: (pt and spouse say plan is for spouse to assist donning/doffing compression socks). [Sofi Velez - 04/18/2024 11:58 EDT] ) Review Precautions : reviewed THP Reviewed Adaptive Equipment : Has: collection teller, FWW, crutches, toilet and shower grabbars, and ADA toilet. Needs sock aid, long shoe horn, and long handled sponge. Has: collection teller, FWW, crutches, toilet and shower grabbars, and ADA toilet Provided: Sock aid, LH shoe horn, LH sponge Recommendations : family assist PRN Family Assist OT Film Recordist : Sofi Velez OT Therapist 1 : Zee Rojas Randi - 04/18/2024 11:58 EDT Sofi Velez - 04/18/2024 11:58 EDT Additional Information OT : Pt seated in chair on arrival, pleasant and agreeable to therapy this AM. Spouse present throughout. Reviewed THP prior to activity, pt verbalized understanding. Sit<->Stand from chair and functional mobility in room at Mod I using FWW, no overt LOB or buckle observed. Educated pt on animal management, home/shower safety, pt verbalized understanding. Provided pt with LH shoe horn, LH sponge and sock aid in order to maximize independence/safety with ADLs upon home going, pt has collection teller. Pt returned to recliner at end of session with call light within reach, ice applied to L hip and all needs met post tx, nursing updated. [facility] 04/18[facility] 11:58 EDT AM-PAC 6 clicks Daily Activity How much help from another person does the patient currently need... Putting on and taking off regular lower body clothing? : A Little Bathing (including washing, rinsing, drying)? : A Little Toileting, which includes using toilet, bedpan, or urinal? : None Putting on and taking off regular upper body clothing? : None Taking care of personal grooming such as brushing teeth? : None Eating meals? : None [facility] 04/18/2024 11:58 EDT AM-PAC Raw Score : 22 Sofi Velez 04/18/2024 11:58 EDT Education OT Responsible Learner/s Present : Living Situation: Home Independently Performed by: Idania PT-Student [facility] 04/17/2024 13:28 Discharge To: Outpatient therapy Performed by: Sharmila Pantoja LPN 04/18/2024 10:00 Home Caregiver Name/Relationship: patient Performed by: Sharmila Pantoja LPN 04/18/2024 10:00 Price Learner/Caregiver Present for Session : Yes Barriers to Learning : None evident TeachBack Methodology : TeachBack, Demonstration, Explanation Sofi Velez 04/18/2024 11:58 EDT Occupational Therapy Education Grid Activity of Daily Living Training : Demonstrates Adaptive Equipment/DME : Demonstrates Home Safety : Verbalizes understanding Plan of Care : Verbalizes understanding Precautions : Verbalizes understanding Surgical Precautions : Verbalizes understanding Toilet Transfers : Demonstrates Tub / Shower Transfers : Needs practice/supervision Weightbearing Precautions : Verbalizes understanding Sofi Velez 04/18/2024 11:58 EDT Additional Session Learner/s Present : Spouse Sofi Velez 04/18/2024 11:58 EDT Time Spent with Patient OT Time In : 10:18 EST OT Time Out : 10:56 EST OT Self Care, Home Management Time : 38 minutes 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, Home Management Units : 3 units OT Total Timed Code Treatment Units : 3 units OT Total Timed Code Treatment Minutes : 38 minutes 8 Min Rule Unit Check OT IP : 3 units OT Total Treatment Time Rehab : 38 minutes 8 Min Rule Unit Difference OT IP : 0 PMR Chart Review - OT : Yes Sofi Velez - 04/18/2024 12:20 EDT Normal [facility] Intake and Output-Texton Intake and Output-Text Intake and Output Entered On: 04/18/2024 8:32 EDT Performed On: 04/18/2024 8:32 EDT by Joan Kaur I&O Urine Voided : 475 mL Joan Kaur - 04/18/2024 8:32 EDT Normal [facility] KETOROLAC 30MG/1ML INJon KETOROLAC 30MG/1ML INJ PRN Response Entered On: 04/18/2024 10:40 EDT Performed On: 04/18/2024 7:12 EDT by Sharmila Pantoja LPN Intervention Information: ketorolac Performed by Mervin Kinney RN on 04/18/2024 06:12:00 EDT ketorolac = Toradol,30mg IV Push,Left Arm PRN Medication Response PRN Medication used for : Pain PRN Medication Effectiveness : Yes PRN Response Pain Scales : Numeric (8yrs & older) Numeric Pain Scale Age : Numeric (8yrs & older) Actual time of reassessment : No (not needed time is correct) Sharmila Pantoja LPN - 04/18/2024 10:40 EDT Numeric Pain Scale Numeric Pain Scale : 3 = Mild Pain Numeric Pain Score : 3 Sharmila Pantoja LPN - 04/18/2024 10:40 EDT Normal [facility] Comment on above: Order Comment: Dose decreased by pharmacist to 15mg same schedule if renal function less than 30mL / min., age greater than 64 or weight less than 50 kgs. DO NOT GIVE CONCURRENTLY WITH OTHER NSAIDS, DO NOT GIVE IF PATIENT HAS CREATINE CLEARANCE LESS THAN 20 mL/min. KETOROLAC 30MG/1ML INJ PRN Response Entered On: 04/18/2024 2:03 EDT Performed On: 04/18/2024 1:27 EDT by Mervin Kinney RN Intervention Information: ketorolac Performed by Mervin Kinney RN on 04/18/2024 00:27:00 EDT ketorolac = Toradol,30mg IV Push,Left Arm PRN Medication Response PRN Medication used for : Pain PRN Medication Effectiveness : Yes PRN Response Pain Scales : Numeric (8yrs & older) Numeric Pain Scale Age : Numeric (8yrs & older) Actual time of reassessment : No (not needed time is correct) Mervin Kinney RN - 04/18/2024 2:02 EDT Numeric Pain Scale Numeric Pain Scale : 4 = Moderate Pain Numeric Pain Score : 4 Mervin Kinney RN - 04/18/2024 2:02 EDT Normal [facility] Comment on above: Order Comment: Dose decreased by pharmacist to 15mg same schedule if renal function less than 30mL / min., age greater than 64 or weight less than 50 kgs. DO NOT GIVE CONCURRENTLY WITH OTHER NSAIDS, DO NOT GIVE IF PATIENT HAS CREATINE CLEARANCE LESS THAN 20 mL/min. Neurovascular Assessment Low er Extremityon 04-18-2024 Neurovascular Assessment Lower Extremity Neurovascular Data Lower Extremity Entered On: 04/18/2024 12:53 EDT Performed On: 04/18/2024 12:53 EDT by Sharmila Pantoja LPN Lower Extremity Nail Bed Color Feet Grid Left Foot : [place] Right Foot : [place] Sharmila Pantoja LPN - 04/18/2024 12:53 EDT Capillary Refill Feet Grid Left Foot : Less than 2 seconds Right Foot : Less than 2 seconds Sharmila Pantoja LPN - 04/18/2024 12:53 EDT NV Lower Extremity Color Grid Left : [place] Right : [place] Sharmila Pantoja LPN - 04/18/2024 12:53 EDT NV Lower Extremity Temperature Grid Left : Warm Right : Warm Sharmila Pantoja LPN - 04/18/2024 12:53 EDT Lower Extremity Peripheral Pulses Grid Dorsalis Pedis Pulse, Left : 2+ Normal Dorsalis Pedis Pulse, Right : 2+ Normal Sharmila Pantoja LPN - 04/18/2024 12:53 EDT Lower Extremity II Lower Extremity Sensation NV Grid Medial/Lateral Surfaces Sole of Left Foot : Intact Medial/Lateral Surfaces Sole of Right Foot : Intact Web Space Between Great and Second Toe Left Foot : Intact Web Space Between Great and Second Toe Right Foot : Intact Scarlett VICENTENSharmila 04/18/2024 12:53 EDT Lower Extremity Strength NV Grid Plantar Flexion Left Foot : Normal 5 Plantar Flexion Right Foot : Normal 5 Dorsiflex Foot/Extend Toes Left : Normal 5 Dorsiflex Foot/Extend Toes Right : Normal 5 HeatLuz andersen LPNyl 04/18/2024 12:53 EDT NV Lower Extremity Edema Grid Pedal Edema Bilateral : None HeatLuz andersen LPNyl 04/18/2024 12:53 EDT Normal [facility] Neurovascular Assessment Lower Extremity Neurovascular Data Lower Extremity Entered On: 04/18/2024 10:43 EDT Performed On: 04/18/2024 9:00 EDT by Sharmila Pantoja LPN Lower Extremity Nail Bed Color Feet Grid Left Foot : [place] Right Foot : [place] SheltonLuz andersen LPNyl 04/18/2024 10:43 EDT Capillary Refill Feet Grid Left Foot : Less than 2 seconds Right Foot : Less than 2 seconds HeatLuz andersen LPNyl 04/18/2024 10:43 EDT NV Lower Extremity Color Grid Left : [place] Right : [place] Scarlett VICENTENishant Sharmila 04/18/2024 10:43 EDT NV Lower Extremity Temperature Grid Left : Warm Right : Warm Scarlett TELLEZLuzyl 04/18/2024 10:43 EDT Lower Extremity Peripheral Pulses Grid Dorsalis Pedis Pulse, Left : 2+ Normal Dorsalis Pedis Pulse, Right : 2+ Normal Heatganesh SEASONER HANDLuz Dillardyl 04/18/2024 10:43 EDT Lower Extremity II Lower Extremity Sensation NV Grid Medial/Lateral Surfaces Sole of Left Foot : Intact Medial/Lateral Surfaces Sole of Right Foot : Intact Web Space Between Great and Second Toe Left Foot : Intact Web Space Between Great and Second Toe Right Foot : Intact Heater Luz TELLEZyl 04/18/2024 10:43 EDT Lower Extremity Strength NV Grid Plantar Flexion Left Foot : Normal 5 Plantar Flexion Right Foot : Normal 5 Dorsiflex Foot/Extend Toes Left : Normal 5 Dorsiflex Foot/Extend Toes Right : Normal 5 Heater Luz TELLEZyl 04/18/2024 10:43 EDT NV Lower Extremity Edema Grid Pedal Edema Bilateral : None Sharmila Pantoja LPN - 04/18/2024 10:43 EDT Normal [facility] Neurovascular Assessment Lower Extremity Neurovascular Data Lower Extremity Entered On: 04/18/2024 4:31 EDT Performed On: 04/18/2024 4:31 EDT by Mervin Kinney RN Lower Extremity Nail Bed Color Feet Grid Left Foot : [place] Right Foot : Antionette Kinney RN, [facility] 04/18/2024 4:31 EDT Capillary Refill Feet Grid Left Foot : Less than 2 seconds Right Foot : Less than 2 seconds Nirmal STEVENSON, [facility] 04/18/2024 4:31 EDT NV Lower Extremity Color Grid Left : [place] Right : Antionette Kinney RN, [facility] 04/18/2024 4:31 EDT NV Lower Extremity Temperature Grid Left : Warm Right : Warm Nirmal STEVENSON, [facility] 04/18/2024 4:31 EDT Lower Extremity Peripheral Pulses Grid Dorsalis Pedis Pulse, Left : 2+ Normal Dorsalis Pedis Pulse, Right : 2+ Normal Nirmal STEVENSON, [facility] 04/18/2024 4:31 EDT Lower Extremity II Lower Extremity Sensation NV Grid Medial/Lateral Surfaces Sole of Left Foot : Intact Medial/Lateral Surfaces Sole of Right Foot : Intact Web Space Between Great and Second Toe Left Foot : Intact Web Space Between Great and Second Toe Right Foot : Intact Nirmal STEVENSON, [facility] 04/18/2024 4:31 EDT Lower Extremity Strength NV Grid Plantar Flexion Left Foot : Good 4 Plantar Flexion Right Foot : Normal 5 Dorsiflex Foot/Extend Toes Left : Good 4 Dorsiflex Foot/Extend Toes Right : Normal 5 Nirmal STEVENSON, [facility] 04/18/2024 4:31 EDT Normal [facility] Neurovascular Assessment Lower Extremity Neurovascular Data Lower Extremity Entered On: 04/18/2024 0:54 EDT Performed On: 04/18/2024 0:54 EDT by Mervin Kinney RN Lower Extremity Nail Bed Color Feet Grid Left Foot : [place] Right Foot : Antionette Kinney RN, [facility] 04/18/2024 0:54 EDT Capillary Refill Feet Grid Left Foot : Less than 2 seconds Right Foot : Less than 2 seconds Nirmal STEVENSON, [facility] 04/18/2024 0:54 EDT NV Lower Extremity Color Grid Left : [place] Right : Antionette Kinney RN, [facility] 04/18/2024 0:54 EDT NV Lower Extremity Temperature Grid Left : Warm Right : Warm Nirmal RN, [facility] 04/18/2024 0:54 EDT Lower Extremity Peripheral Pulses Grid Dorsalis Pedis Pulse, Left : 2+ Normal Dorsalis Pedis Pulse, Right : 2+ Normal Nirmal RN, [facility] 04/18/2024 0:54 EDT Lower Extremity II Lower Extremity Sensation NV Grid Medial/Lateral Surfaces Sole of Left Foot : Intact Medial/Lateral Surfaces Sole of Right Foot : Intact Web Space Between Great and Second Toe Left Foot : Intact Web Space Between Great and Second Toe Right Foot : Intact Nirmal RN, [facility] 04/18/2024 0:54 EDT Lower Extremity Strength NV Grid Plantar Flexion Left Foot : Good 4 Plantar Flexion Right Foot : Normal 5 Dorsiflex Foot/Extend Toes Left : Good 4 Dorsiflex Foot/Extend Toes Right : Normal 5 Nirmal RN, [facility] 04/18/2024 0:54 EDT Normal [facility] Nursing Clinical Noteon 03-25 Nursing Clinical Note Rn agrees with SEASONER HAND assessment. Normal [facility] Nursing Clinical Note c/o of being lightheaded, b/p 112/65 pulse ox 95 r/a concerned about pulse ox due to hx. states had just did inc spir. enc to do slowly and not so fast. safety maintained po fluids enc was up amb with staff in resendiz without dizziness this am Dr. Wright visited notified of earlier dizziness with relief at this time Normal [facility] PT Hip Replacement Protocol- Texton 04-18-2024 PT Hip Replacement Protocol-Text Inpatient PT Hip Replacement Protocol Entered On: 04/18/2024 12:00 EDT Performed On: 04/18/2024 11:22 EDT by Ciarra GRAPHIC COORDINATOR, Yamila Veronique Hip Protocol PT [facility] Hip Replacement Protocol PT Session 1 PT Session 2 Date/Time : 04/17/2024 13:28 EDT 04/18/2024 10:55 EDT Pain : 5/10 5/10 Gait (feet/assist) Goal: 200 ft Ind no rest : 75 ft using FWW and CGA 160' WW Mod Ind Transfers Goal: Ind : CGA Mod INd Bed Mobility Goal: Ind : Min Ax1 Ind Stairs Goal: Ind based on home needs : 4 w/cane and rail CS Ankle Pumps Goal: 10-20 reps : Reviewed 10 Quad Sets Goal: 10-20 reps : x10 10 Glut Sets Goal: 10-20 reps : x10 10 Heelslides Goal: 10-20 reps : 10 SAQ Goal: 10-20 reps : 10 LAQ Goal: 10-20 reps : 10 Standing Heel Raises Goal: 10-20 reps : 10 Mini Squats Goal: 10-20 reps : 0 Standing Hip Flexion, Goal: 10-20 : 10 Standing Hamstring Curl, Goal: 10-20 : 10 Review Precautions : Yes Yes ICE : Yes Yes Recommendation : LOW intensity LOW Film Recordist 1 : Yamila Lafleur PTA Therapist 1 : Hayder PT, ELLATMis Therapist 2 : Idania PT-Student, Yamila Ty PTA - 04/18/2024 11:56 EDT Yamila Lafleur PTA - 04/18/2024 11:56 EDT Additional Information PT : Patient may be up ad shellie with the WW. Car transfers reviewed. Patient okay for d/c to home today. Yamila Lafleur PTA - 04/18/2024 11:56 EDT AM-PAC 6 clicks Basic Mobility How much difficulty does the patient currently have... Turning over in bed(including adjusting bedclothes, sheets and blankets)? : None Sitting down on and Standing up from a chair with arms (e.g., wheelchair, bedside commode) : None Moving from lying on back to sitting on the side of the bed? : None Yamila Lafleur PTA - 04/18/2024 11:56 EDT How much help from another person does the patient currently need... Moving to and from a bed to a chair (including a wheelchair)? : None Need to walk in hospital room? : None Climbing 3-5 steps with a railing? : None Yamila Lafleur PTA - 04/18/2024 11:56 EDT AM-PAC Raw Score : 24 Yamila Lafleur PTA - 04/18/2024 11:56 EDT Education PT Responsible Learner/s Present : Living Situation: Home Independently Performed by: Idania PT-StudentAmmy - 04/17/2024 13:28 Discharge To: Outpatient therapy Performed by: Sharmila Pantoja LPN - 04/18/2024 10:00 Home Caregiver Name/Relationship: patient Performed by: Sharmila Pantoja LPN - 04/18/2024 10:00 Price Learner/Caregiver Present for Session : Yes Barriers to Learning : None evident TeachBack Methodology : TeachBack, Demonstration, Explanation Yamila Lafleur PTA - 04/18/2024 11:56 EDT Physical Therapy Education Grid Ambulation with Roller Walker : Demonstrates Bed Mobility : Demonstrates Bed to Chair Transfers : Demonstrates Car Transfers : Verbalizes understanding Exercise Program : Demonstrates Precautions : Verbalizes understanding Stairs : Demonstrates Yamila Lafleur PTA - 04/18/2024 11:56 EDT Time Spent with Patient PT Time In : 10:55 EST PT Time Out : 11:22 EST PT Therapeutic Exercise Time : 15 minutes GRAPHIC COORDINATOR Therapeutic Exercise Units : 1 units PT Functional Activity Time : 12 minutes GRAPHIC COORDINATOR Functional Activity Units : 1 units PT Total Timed Code Treatment Units : 2 units PT Total Timed Code Tx Minutes : 27 minutes 8 Min Rule Unit Check PT IP : 2 units PT Total Treatment Time Rehab : 27 minutes 8 Min Rule Unit Difference PT IP : 0 PMR Chart Review : Yes Yamila Lafleur PTA - 04/18/2024 11:56 EDT Normal [facility] Progress Note-Physicianprince Progress Note-Physician DALI HUFFMAN :1970 Registration Date:04/17/2024 Assessment/Plan Osteoarthritis of the left hip status post left hip arthroplasty Acute blood loss anemia due to surgery Hypertension, diabetes mellitus Plan: Postoperative management per orthopedic surgeon Monitor H&H and vital signs Continue home blood pressure medications with hold parameters Continue metformin, monitor Accu-Chek Pain control, DVT prophylaxis Subjective Complains of postoperative pain but acceptable Objective Vitals & Measurements T: 36.6 ?C (Oral) TMIN: 36.4 ?C (Oral) TMAX: 36.7 ?C (Oral) HR: 86 (Peripheral) RR: 16 BP: 112/69 SpO2: 95% Physical Exam General: No acute distress HEENT: Extraocular muscle movement intact, pupils reactive Neck: Supple, no JVD Respiratory: Diminished breath sounds bilaterally, no wheezes Cardiac: S1-S2, regular rate and rhythm, no murmurs Abdomen: Soft, bowel sounds present, no organomegaly or splenomegaly, nontender Extremities: No edema, no erythema, pulses bilateral equal, status post left hip surgery Neurological: Awake and alert, oriented x3, cranial nerves II to XII grossly intact, no focal neurological deficits Psychiatric: Coherent, pleasant Medications Inpatient acetaminophen(Tylenol) , 650 mg= 2 tabs, ORAL, H2YRSTS acetaminophen-hydrocod one(acetaminophen-HYDR Ocodone 325 mg-5 mg oral tablet), 2 tabs, ORAL, [id number], PRN Al hydroxide/Mg hydroxide/simethicone( Mylanta = aluminum hydroxide/magnesium hydroxide/simethicone 200 mg-200 mg-20 mg/5 mL oral susp), 30 mL, ORAL, G4AUBCX, PRN aspirin, 81 mg= 1 tabs, ORAL, DAILY WITH BREAKFAST benzocaine-menthol topical(Cepacol Sore Throat Pain Relief Garcia Lozenge), 1 lozenges, ORAL, C6ZESMM, PRN bisacodyl(Dulcolax Laxative), 10 mg= 1 supp, Rectal, DAILY, PRN diphenhydrAMINE(Benadr yl), 25 mg= 0.5 mL, IV Push, L9GIGIL, PRN diphenhydrAMINE(Benadr yl), 25 mg= 1 tabs, ORAL, C1YJMAP, PRN docusate-senna(Senokot S (docu 50mg/senna 8.6mg)), 1 tabs, ORAL, BID ibuprofen = Motrin, Advil, 600 mg= 1 tabs, ORAL, O9TQGAH ketorolac = Toradol, 30 mg= 1 mL, IV Push, O4QDNMJ, PRN losartan, 100 mg= 2 tabs, ORAL, DAILY magnesium hydroxide(Milk of Magnesia Conc 10ml =30ml MOM), 10 mL, ORAL, DAILY, PRN metFORMIN = Glucophage(metFORMIN extended release), 500 mg= 1 tabs, ORAL, DAILY morphine, 2 mg= 1 mL, IV Push, Q1HOUR, PRN ondansetron(Zofran), 8 mg= 4 mL, IV Push, F7FFQVU, PRN oxyCODONE(oxyCODONE 5 mg oral tablet (IR)), 10 mg= 2 tabs, ORAL, X7ESKOP, PRN pantoprazole, 40 mg= 1 tabs, ORAL, DAILY sodium biphosphate-sodium phosphate(Fleet Phospho Soda Enema), 1 bottles, Rectal, DAILY, PRN sodium chloride(Saline Flush), 3 mL, IV Push, [id number] sodium chloride(Saline Flush), 3 mL, IV Push, PRN, PRN tapentadol(Nucynta), 50 mg= 1 tabs, ORAL, L4HGXOB, PRN traMADol(Ultram), 50 mg= 1 tabs, ORAL, A9FNHXA, PRN Lab Results Test Name Test Result Date/Time BUN 17 mg/dL 04/18/2024 05:53 EDT Na 140 mmol/L 04/18/2024 05:53 EDT K4.2 mmol/L 04/18/2024 05:53 EDT Chloride 108 mmol/L 04/18/2024 05:53 EDT CO2, venous 25.0 mmol/L 04/18/2024 05:53 EDT Glucose 183 mg/dL 04/18/2024 05:53 EDT Creatinine 0.8 mg/dL 04/18/2024 05:53 EDT Estimated Creatinine Clearance 93.04 mL/min 04/18/2024 08:47 EDT Calcium 8.3 mg/dL 04/18/2024 05:53 EDT BUN/Creat Ratio 21.2 04/18/2024 05:53 EDT Calculated Osmolality 286 mOsm/kg 04/18/2024 05:53 EDT Glomerular Filtration Rate >60 mL/min/1.73m? 04/18/2024 05:53 EDT GFR AA >60 04/18/2024 05:53 EDT WBC 7.7 x103/uL 04/18/2024 05:53 EDT RBC 3.68 x106/uL 04/18/2024 05:53 EDT HGB 11.2 g/dL 04/18/2024 05:53 EDT HCT 32.8 % 04/18/2024 05:53 EDT MCV 89.1 fL 04/18/2024 05:53 EDT MCH 30.4 pg 04/18/2024 05:53 EDT MCHC 34.1 g/dL 04/18/2024 05:53 EDT RDW 14.2 % 04/18/2024 05:53 EDT Platelet 202 x103/uL 04/18/2024 05:53 EDT MPV 8.7 fL 04/18/2024 05:53 EDT Normal [facility] Rehabilitation Inpt - Assign ment - Texton 04-18-2024 Rehabilitation Inpt - Assignment - Text Rehabilitation Inpatient - Assignment Entered On: 04/18/2024 7:24 EDT Performed On: 04/18/2024 7:24 EDT by Marcie Pereira Rehabilitation Inpatient - Assignment Occupational Therapy : Sofi Velez Megan - 04/18/2024 7:24 EDT Normal [facility] Rehabilitation Inpt - Assignment - Text Rehabilitation Inpatient - Assignment Entered On: 04/18/2024 7:15 EDT Performed On: 04/18/2024 7:15 EDT by Mayra Pascual PTA Rehabilitation Inpatient - Assignment Physical Therapy : Yamila Lafleur PTA, PTA, Tammy K. - 04/18/2024 7:15 EDT Normal [facility] Rehabilitation Inpt - Assignment - Text Rehabilitation Inpatient - Assignment Entered On: 04/18/2024 7:05 EDT Performed On: 04/18/2024 7:05 EDT by Terry DUARTE, DPT, Summer Rehabilitation Inpatient - Assignment Physical Therapy : PMRPending , Resource Terry PT, DPT, Summer - 04/18/2024 7:05 EDT Normal [facility] Utilization Review Noteon Utilization Review Note 04/03 OUTPT PROC SEE ABOVE FOR DETAILS FROM [facility]ALA KD Reg as EXT REC, matches b slip. EXTENDED RECOVERY DAY 0. SCHEDULED PROCEDURE COMPLETED WITHOUT COMPLICATIONS NOTED. POST OP VSS. EXTENDED RECOVERY IS CORRECT. Discharge planned & written. Day 1 s/p GABE Normal [facility] Admission (Data) Adult-Texto n 04-17-2024 Admission (Data) Adult-Text Adult Admission Data Entered On: 04/17/2024 8:08 EDT Performed On: 04/17/2024 8:06 EDT by Venu Thibodeaux RN ID [facility] Patient Safety Grid ID Band on and Verified : Yes Allergy Radio Intelligence Operator : Yes Diabetic Radio Intelligence Operator : Yes Fall Risk Radio Intelligence Operator : Yes Venu Thibodeaux RN - 04/17/2024 8:06 EDT (As Of: 04/17/2024 08:38:43 EDT) Allergies (Active) Nubain Estimated Onset Date: Unspecified ; Reactions: passed out ; Created By: Husam Jones RN; Reaction Status: Active ; Category: Drug ; Substance: Nubain ; Type: Allergy ; Updated By: Husam Jones RN; Reviewed Date: 04/17/2024 8:07 EDT Subjective Pain Symptoms : No Numeric Pain Scale Acceptable Intensity : 3 = Mild Pain Question Ability to Self Report Pain : No Unable to Self Report Pain : No General Symptoms : None Sensory Deficits : None Cardiopulmonary Symptoms : None GI Symptoms : None Skin Symptoms : None Genitourinary Symptoms : None Neuromuscular Symptoms : None Abuse/Violence Concerns? : Patient denies Venu Thibodeaux RN - 04/17/2024 8:06 EDT Depression Screening Patient able to verbalize? : Yes Feeling Down, Depressed, Hopeless : Not at all Little Interest - Pleasure in Activities : Not at all Initial Depression Screen Score : 0 Depression Screening Score 0 : No IP Pt being evaluated or treated for BH conditions : No Carlos Eduardo STEVENSON, Venu 04/17/2024 8:06 EDT [place] Coma Eye Opening Response [place] : Spontaneously Best Verbal Response Timothy : Oriented Best Motor Response Timothy : Obeys simple commands Timothy Coma Score : 15 [facility] 04/17/2024 8:06 EDT Neuro Neurological Strengths Grid Left Upper Extremity Right Upper Extremity Left Lower Extremity Right Lower Extremity Strength : 5 able to move against full resistance 5 able to move against full resistance 5 able to move against full resistance 5 able to move against full resistance Sensation : Intact Intact Intact Intact Carlos Eduardo STEVENSON, [facility] 04/17/2024 8:36 EDT Carlos Eduardo STEVENSON Venu 04/17/2024 8:36 EDT Carlos Eduardo STEVENSON Venu 04/17/2024 8:36 EDT Carlos Eduardo STEVENSON Venu 04/17/2024 8:36 EDT Sensory Perception Joseph : No impairment Extremity Movement : Equal Gait : Steady Aspiration Risk : None CN VII Facial Expression and Symmetry : Facial movement symmetrical Carlos Eduardo STEVENSON Venu 04/17/2024 8:36 EDT Venu Thibodeaux RN 04/17/2024 8:36 EDT Pupil Assessment Grid Pupil, Left Pupil, Right Description : Regular Regular Reaction : Brisk Brisk Size (mm) : 3 mm 3 mm Carlos Eduardo STEVENSON Venu 04/17/2024 8:06 EDT Carlos Eduardo STEVENSON Venu 04/17/2024 8:06 EDT Characteristics of Speech : Clear Orientation : Oriented x 3 Level of Consciousness : Alert Affect / Behavior : Appropriate, Calm, Cooperative Carlos Eduardo STEVENSON Venu 04/17/2024 8:06 EDT CardioVascular Heart Rhythm : Regular Heart Sounds : S1S2 Capillary Refill : Less than 2 seconds Edema : None Venu Thibodeaux RN 04/17/2024 8:36 EDT Pulses Detailed Grid Radial Pulse, Left : 2+ Normal Radial Pulse, Right : 2+ Normal Dorsalis Pedis Pulse, Left : 2+ Normal Dorsalis Pedis Pulse, Right : 2+ Normal Venu Thibodeaux RN 04/17/2024 8:36 EDT Respiratory Respirations : Unlabored Respiratory Pattern Description : Regular Venu Thibodeaux RN 04/17/2024 8:36 EDT SHASHA : Clear LLL : Clear RUL : Clear RML : Clear RLL : Clear Venu Thibodeaux RN - 04/17/2024 8:36 EDT Cough : None Venu Thibodeaux RN - 04/17/2024 8:36 EDT Musculoskeletal Activity Joseph : Walks frequently Mobility Joseph : No limitations Ambulatory Devices : None Special Orthopedic Devices : None ADLs : Independent Venu Thibodeaux RN - 04/17/2024 8:36 EDT Bathing : Independent (2) Dressing : Independent (2) Toileting : Independent (2) Transferring Bed or Chair : Independent (2) Continence : Independent (2) Feeding : Independent (2) Venu Thibodeaux RN - 04/17/2024 8:36 EDT ADL Index Score : 12 Venu Thibodeaux RN - 04/17/2024 8:36 EDT GI Abdomen Description : Symmetric Abdomen Palpation : Soft Venu Thibodeaux RN 04/17/2024 8:36 EDT Bowel Sounds Grid LUQ : Present RUQ : Present LLQ : Present RLQ : Present Venu Thibodeaux RN - 04/17/2024 8:36 EDT Passing Flatus : Yes Bowel Movement Last Date Known : Yes Bowel Movement Last Date : 04/17/2024 EDT Venu Thibodeaux RN - 04/17/2024 8:36 EDT Bladder Distention : Absent Venu Thibodeaux RN 04/17/2024 8:36 EDT Integumentary Skin Integrity : Intact Skin Temperature : Warm Skin Color : Normal for ethnicity Skin Turgor : Elastic Mucous Membrane Color : [place] Mucous Membrane Description : Moist Skin Description : Dry Venu Thibodeaux RN - 04/17/2024 8:36 EDT Present on Admission Medical Devices : None Medical Devices for Med Administration : None Venu Thibodeaux RN 04/17/2024 8:36 EDT Education Responsible Learner/s Present : No Data Availab (more content not included)... Normal [facility] Admission Assessment Adulton 04-17-2024 Admission Assessment Adult Adult Admission Data Entered On: 04/17/2024 12:19 EDT Performed On: 04/17/2024 12:18 EDT by Janice Boucher RN Patient Safety Grid ID Band on and Verified : Yes Janice Boucher RN - 04/17/2024 12:18 EDT (As Of: 04/17/2024 12:19:53 EDT) Allergies (Active) Nubain Estimated Onset Date: Unspecified ; Reactions: passed out ; Created By: Husam Jones RN; Reaction Status: Active ; Category: Drug ; Substance: Nubain ; Type: Allergy ; Updated By: Husam Jones RN; Reviewed Date: 04/17/2024 8:07 EDT Subjective Pain Symptoms : Yes Numeric Pain Scale Acceptable Intensity : 4 = Moderate Pain Abuse/Violence Concerns? : Patient denies Janice Boucher RN - 04/17/2024 12:18 EDT Depression Screening Patient able to verbalize? : Yes Feeling Down, Depressed, Hopeless : Not at all [place] - Pleasure in Activities : Not at all Initial Depression Screen Score : 0 Depression Screening Score 0 : No IP Pt being evaluated or treated for BH conditions : No Janice Boucher RN - 04/17/2024 12:18 EDT Rapid Pain Data [id number] Primary Pain Location : Incisional Numeric Pain Scale : 4 = Moderate Pain Numeric Pain Score : 4 Janice Boucher RN 04/17/2024 12:18 EDT Timothy Coma Eye Opening Response Timothy : Spontaneously Best Verbal Response Timothy : Oriented Best Motor Response [place] : Obeys simple commands Timothy Coma Score : 15 Janice Boucher RN 04/17/2024 12:18 EDT Neuro Characteristics of Speech : Clear Orientation : Oriented x 3 Level of Consciousness : Alert Affect / Behavior : Appropriate, Calm Sensory Perception Joseph : Slightly limited Extremity Movement : Equal Gait : Unable to assess Aspiration Risk : None CN VII Facial Expression and Symmetry : Facial movement symmetrical Janice Boucher RN 04/17/2024 12:18 EDT CardioVascular Heart Rhythm : Regular Capillary Refill : Less than 2 seconds Edema : None Janice Boucher RN 04/17/2024 12:18 EDT Respiratory Respirations : Unlabored Respiratory Pattern Description : Regular Cough : None Janice Boucher RN 04/17/2024 12:18 EDT Musculoskeletal Activity Joseph : Walks occasionally Mobility Joseph : Slightly limited Ambulatory Devices : Walker Special Orthopedic Devices : None ADLs : Minimal assist Janice Boucher RN - 04/17/2024 12:18 EDT GI Abdomen Description : Symmetric Abdomen Palpation : Non-Tender, Soft Passing Flatus : No Bowel Movement Last Date Known : Yes Bowel Movement Last Date : 04/17/2024 EDT Janice Boucher RN - 04/17/2024 12:18 EDT Bladder Distention : Absent Janice Boucher RN - 04/17/2024 12:18 EDT Integumentary Skin Integrity : Intact Skin Temperature : Warm Skin Color : [place] Skin Turgor : Elastic Mucous Membrane Color : [place] Mucous Membrane Description : Moist Skin Description : Moist Janice Boucher RN - 04/17/2024 12:18 EDT Education Responsible Learner/s Present : No Data Available Barriers to Learning : None evident TeachBack Methodology : TeachBack Janice Boucher RN - 04/17/2024 12:18 EDT Pain Management : Verbalizes understanding Plan of Care : Verbalizes understanding Preoperative Instructions : Verbalizes understanding Safety, Fall : Verbalizes understanding Unit Procedures : Verbalizes understanding Janice Boucher RN - 04/17/2024 12:18 EDT Notifications PCP notified of your admission? : No Emergency Contact notified of your admission? : No Janice Boucher RN - 04/17/2024 12:18 EDT Normal [facility] Comment on above: Order Comment: Order entered secondary to admission Admission History Adulton Admission History Adult Patient History Model Entered On: 04/17/2024 12:09 EDT Performed On: 04/17/2024 12:07 EDT by Janice Boucher RN [facility] Info Preferred Verbal : Brazilian Contact Information : Robyn () [phone] Preferred Written : Brazilian Currently or : Not Applicable Is patient a dialysis patient? : No Janice Boucher RN - 04/17/2024 12:07 EDT Problem List Problem List obtained from : Patient Janice Boucher RN - 04/17/2024 12:07 EDT (As Of: 04/17/2024 12:09:04 EDT) Problems(Active) Diabetes (SNOMED CT :058867426 ) Name of Problem: Diabetes ; Recorder: ASHLEY KELLOGG CNP; Confirmation: Confirmed ; Classification: Medical ; Code: 633116158 ; Contributor System: Tenlegs ; Last Updated: 04/09/2024 11:06 EDT ; Life Cycle Date: 04/09/2024 ; Life Cycle Status: Active ; Responsible Provider: ASHLEY KELLOGG CNP; Vocabulary: SNOMED CT HTN (hypertension) (SNOMED CT :3472104192 ) Name of Problem: HTN (hypertension) ; Recorder: ASHLEY KELLOGG CNP; Confirmation: Confirmed ; Classification: Medical ; Code: 9864574227 ; Contributor System: GraematterChart ; Last Updated: 04/09/2024 11:04 EDT ; Life Cycle Date: 04/09/2024 ; Life Cycle Status: Active ; Responsible Provider: ASHLEY KELLOGG CNP; Vocabulary: SNOMED CT Unilateral primary osteoarthritis, left hip (SNOMED CT :4326420385 ) Name of Problem: Unilateral primary osteoarthritis, left hip ; Recorder: ASHLEY KELLOGG CNP; Confirmation: Confirmed ; Classification: Medical ; Code: [id number] ; Contributor System: Tenlegs ; Last Updated: 04/09/2024 10:33 EDT ; Life Cycle Date: 04/09/2024 ; Life Cycle Status: Active ; Responsible Provider: ASHLEY KELLOGG CNP; Vocabulary: SNOMED CT Diagnoses(Active) Diabetes Date: 04/09/2024 ; Diagnosis Type: Working ; Confirmation: Confirmed ; Clinical Dx: Diabetes ; Classification: Medical ; Clinical Service: Non-Specified ; Code: ICD-10-CM ; Probability: -1 ; Diagnosis Code: E11.9 Unilateral primary osteoarthritis, left hip Date: 04/09/2024 ; Diagnosis Type: Working ; Confirmation: Confirmed ; Clinical Dx: Unilateral primary osteoarthritis, left hip ; Classification: Medical ; Clinical Service: Non-Specified ; Code: ICD-10-CM ; Probability: -1 ; Diagnosis Code: M16.12 Procedure History Accept Blood Products if Necessary : Yes Janice Boucher RN - 04/17/2024 12:07 EDT - Procedure History (As Of: 04/17/2024 12:09:04 EDT) Anesthesia Minutes: 0 ; Procedure Name: Hand surgeries, tendon and trigger finger ; Procedure Minutes: 0 ; Comments: 02/06/2024 14:10 EDT - JOANNA STEVENS, MARCIE Right Anesthesia Minutes: 0 ; Procedure Name: Urology procedure ; Procedure Minutes: 0 ; Comments: 02/06/2024 14:10 EDT - JOANNA STEVENS, MARICE Penile yeast infection Anesthesia Minutes: 0 ; Procedure Name: 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 ; Procedure Minutes: 0 Anesthesia Minutes: 0 ; Procedure Name: Left knee surgery ; Procedure Minutes: 0 Procedure Dt/Tm: 04/17/2024 ; Provider: FELIX WRIGHT MD; Anesthesia Minutes: 0 ; Procedure Name: LEFT TOTAL HIP REPLACEMENT ; Procedure Minutes: 0 Social History Does pt have any alcohol,drugs or tobacco : No Do you consume Alcohol : No Has patient used tobacco in the last 30 days : Yes Janice Boucher RN - 04/17/2024 12:07 EDT Social History (As Of: 04/17/2024 12:09:04 EDT) Alcohol: Denies Alcohol Use (Last Updated: 02/06/2024 13:10:37 EDT by Husam Jones RN ) Tobacco: Former smoker, quit more than 30 days ago Tobacco Use:. Other Comments: 02/06/2024 13:11 - Husam Jones RN: Chewing tobacco used currently (Last Updated: 02/06/2024 13:11:05 EDT by Husam Jones RN) Substance Abuse: Denies Substance Abuse (Last Updated: 02/06/2024 13:11:09 EDT by Husam Jones RN ) Home/Environment: Lives with Children, Spouse. Living situation: Home/Independent. Home equipment: None. Home monitoring equipment: None. Special/Community resources: None. Mobility prior to admit: Independent. Home Barriers: None. Will patient require additional/new services upon discharge? No. (Last Updated: 02/06/2024 13:11:24 EDT by Husam Jones RN) Nutrition/Health Impaired nutrition intake > 3 days (NH) : No Unintentional weight chge > 15 lbs last 2 months : No Janice Boucher RN - 04/17/2024 12:07 EDT [facility] Clergy to Visit : Yes Janice Boucher RN - 04/17/2024 12:07 EDT Advance Directive Advanced Directives : No Advance Directive Additional Information : No Janice Boucher RN - 04/17/2024 12:07 EDT Infection Screening Travel outside of [place] within past 21 days? : No Positive COVID test in the last 10 days? : No Exposure to and/or close contact with a person who has a laboratory-confirmed COVID test within the last 48 hours. : No Janice Boucher RN - 04/17/2024 12:07 EDT [facility] Comment on above: Order Comment: Order entered secondary to admission Anesthesiaon 04-17-2024 Anesthesia Patient: DALI HUFFMAN Age: 54 years Sex: Male : 1970 Associated Diagnoses: None Author: STALIN DINERO MD Postoperative Information Time Seen: Date & Time 04/17/2024 15:00:00. Post Operative Info: Post operative day: Post Anesthesia Care Unit. Patient location: PACU. Assessment Postanesthesia assessment Vitals: Vital Signs (last value in last 48 hours) Temperature Oral: 36.4 degC (04/17/24 15:09:46) Temperature Temporal Artery: 36.5 degC (04/17/24 11:00:00) Respiratory Rate: 18 br/min (04/17/24 11:30:00) Peripheral Pulse Rate: 97 bpm (04/17/24 15:10:19) Heart Rate Monitored: 96 bpm (04/17/24 11:30:00) Systolic Blood Pressure: 134 mmHg (04/17/24 15:09:24) Diastolic Blood Pressure: 67 mmHg (04/17/24 15:09:24) Mean Arterial Pressure, Cuff: 90 mmHg (04/17/24 15:09:24) SpO2: 95 % (04/17/24 15:10:19). Mental status: at preoperative baseline. Respiratory support: normal oxygenation and ventilation. Pain: controlled. Nausea status: absence of nausea and vomiting. Postoperative hydration status: euvolemic. Notes: normothermia. [facility] Anesthesia Patient: DALI HUFFMAN Age: 54 years Sex: Male : 1970 Associated Diagnoses: None Author: STALIN DINERO MD DIAGNOSIS: left hip osteoarthritis Preoperative Information Procedure/ Case: left total hip arthroplasty Surgeon scheduled: ADRIANA DASILVA, FELIX NPO greater than 8 hours. Anesthesia history Patient's history: negative. Family's history: negative. Review of Systems ALL SYSTEMS REVIEWED: CV, PULM, GI, , NEURO, HEPATIC, HEME, ENDO, PSYCH, MS HISTORY/ROS:1. Hypertension 2. History of tuberculosis 3. Type 2 diabetes mellitus, [id number] 4. Anxiety/PTSD Health Status Allergies: Allergies (1) Active Severity Reaction Nubain passed out Current medications: Home Medications (5) Active Centrum Silver oral tablet 1 tabs, ORAL, DAILY losartan 100 mg oral tablet 100 mg = 1 tabs, ORAL, DAILY MetFORMIN (Eqv-Glumetza) 500 mg oral tablet, extended release 500 mg = 1 tabs, ORAL, DAILY Etna 5 mg-325 mg oral tablet 1 tabs, PRN, ORAL, [id number] Etna 7.5 mg-325 mg oral tablet 1 tabs, PRN, ORAL, [id number] LABORATORY DATA Chemistry BMP Plus Mag Glucose: 103 mg/dL (04/09/24) Calcium: 9.6 mg/dL (04/09/24) Na: 140 mmol/L (04/09/24) K: 4.4 mmol/L (04/09/24) CO2, venous: 28 mmol/L (04/09/24) Chloride: 105 mmol/L (04/09/24) BUN: 19 mg/dL (04/09/24) Creatinine: 0.8 mg/dL (04/09/24) Hematology CBC brief [address] WBC: 7.1 x103/uL (04/09/24) HGB: 13.9 g/dL (04/09/24) HCT: 41.3 % (04/09/24) Platelet: 256 x103/uL (04/09/24) Coagulation PT INR [address] APTT Patient: 39.1 seconds High (04/09/24) INR: 1 (04/09/24) Test No qualifying data available. Histories Past Medical History: No qualifying data available Procedure history: Hand surgeries, tendon and trigger finger. Comments: 02/06/2024 14:10 EDT - MARCIE MONTALVO CNP Right Urology procedure. Comments: 02/06/2024 14:10 EDT Shyam MONTALVO CNPMARCIE Penile yeast infection Left knee surgery. 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 Social History Social & Psychosocial History Social History Alcohol Denies Alcohol Use Home/Environment Lives with Children, Spouse. Living situation: Home/Independent. Home equipment: None. Home monitoring equipment: None. Special/Community resources: None. Mobility prior to admit: Independent. Home Barriers: None. Will patient require additional/new services upon discharge? No. Substance Abuse Denies Substance Abuse Tobacco Former smoker, quit more than 30 days ago Tobacco Use:. Other Comment: Chewing tobacco used currently (02/06/2024 13:11 - Robert STEVENSON, Husam Osorio) Psychosocial History No active psychosocial history has been recorded . Physical Examination VITALS Vital Signs (last value in last 48 hours) No qualifying data available.Height and Weight (last value in last 48 hours) Height/Length Dosin.64 cm (04/17/24 07:00:00) Weight Dosin.5 kg (04/17/24 07:00:00) General: Alert and oriented. Airway: Mallampati classification: II (soft palate, fauces, uvula visible). Respiratory: Lungs are clear to auscultation. Cardiovascular: Normal rate. Assessment and Plan [place] Society of Anesthesiologists (ASA) physical status classification: Class III. Anesthetic Preoperative Plan Premedication: versed 2 mg . Anesthetic technique: General anesthesia. Induction: intravenously. Maintenance airway: Oral endotracheal tube. Regional: more. Special monitoring: Standard ASA monitors.. Postoperative pain management: Per surgeon. Risks discussed: nausea, vomiting, headache, sore throat, dental injury, hypotension, allergic reaction, serious complications. Informed consent: signed by patient. MOISE Preanesthesia Assessment: MOISE Diagnosed: No. Normal [facility] Basic Admission Informationo n 04-17-2024 Basic Admission Information Basic Admission Information Entered On: 04/17/2024 12:07 EDT Performed On: 04/17/2024 12:07 EDT by Janice Boucher RN Admission Height/Weight Height/Length Measured : 167.64 cm(Converted to: 5.50 ft, 66.00 in) Height/Length Dosing : 167.64 cm(Converted to: 5.50 ft, 66.00 in) Weight Measured : 101.5 kg(Converted to: 223 lb 12 oz, 223.769 lb) Weight Dosing : 101.5 kg(Converted to: 3,580.308 oz, 223.769 lb) BSA Measured : 2.17 BSA Dosing : 2.17 Body Mass Index Measured : 36.12 kg/m2 Body Mass Index Dosing : 36 Weight Measured Type of Scale : Patient Stated Weight Last Documented Height/Length : Height/Length Measured: 167.64 cm 04/09/24 14:21:00 Height/Length Dosin.64 cm 04/17/24 07:00:00 Height/Length Estimated: No results available. 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 Velma Souza - 04/17/2024 12:26 EDT Room Orientation/Facility Policy Reviewed : Yes Room Orientation/Policy Reviewed With : Patient Patient Safety : Bed in low position, Call device within reach, Fall teacher selection specialist ID Band, ID band check, Mobility support items readily available, Non-Slip footwear, Personal items within reach, Upper/Half-length side-rails up, Traffic path in room free of clutter, Wheels locked Demonstrates Ability to Use Call Light Successfully : Yes Velma Souza - 04/17/2024 12:26 EDT Normal [facility] Comment on above: Order Comment: Order entered secondary to admission Consult Reporton 04-17-2024 Consult Report DALI HUFFMAN :1970 [facility]:[id number] Registration Date:04/17/2024 Chief Complaint Left hip arthroplasty Reason for Consultation Management of hypertension and diabetes mellitus History of Present Illness This is a 54-year-old male with history of diabetes mellitus and hypertension who has been having progressive pain in the left hip. Pain is worse with walking, standing, or prolonged sitting. Reports occasional instability of the hip. The patient underwent left hip arthroplasty. Denies any chest pain shortness of breath fever chills cough or dizziness. He is admitted for postoperative management Review of Systems Constitutional: Negative except HPI Eyes: Negative except HPI ENMT: Negative except HPI Respiratory: Negative except HPI Cardiovascular: Negative except HPI Gastrointestinal: Negative except HPI Genitourinary: Negative except HPI Heme: Negative except HPI Endocrine: Negative except HPI Integumentary: Negative except HPI Immunologic: Negative except HPI Musculoskeletal: Negative except HPI Neurologic: Negative except HPI Psychiatric: Negative except HPI Physical Exam Vitals & Measurements T: 36.3 ?C (Oral) TMIN: 36.3 ?C (Oral) TMAX: 36.6 ?C (Temporal Artery) HR: 96 (Peripheral) RR: 18 BP: 149/89 SpO2: 98% WT: 101.5 kg WT: 101.5 kg (Dosing) BMI: 36.12 General: No acute distress HEENT: Extraocular muscle movement intact, pupils reactive Neck: Supple, no JVD Respiratory: Diminished breath sounds bilaterally, no wheezes Cardiac: S1-S2, regular rate and rhythm, no murmurs Abdomen: Soft, bowel sounds present, no organomegaly or splenomegaly, nontender Extremities: No edema, no erythema, pulses bilateral equal, status post left hip surgery Neurological: Awake and alert, oriented x3, cranial nerves II to XII grossly intact, no focal neurological deficits Psychiatric: Coherent, pleasant Assessment/Plan Osteoarthritis of the left hip status post left hip arthroplasty Acute blood loss due to surgery Hypertension, diabetes mellitus Plan: Postoperative management per orthopedic surgeon Monitor H&H and vital signs Continue home blood pressure medications with hold parameters Continue metformin, monitor Accu-Chek Pain control, DVT prophylaxis Thank you for the consultation, we will continue to follow along Problem List/Past Medical History Ongoing Diabetes HTN (hypertension) Unilateral primary osteoarthritis, left hip Procedure/Surgical History LEFT TOTAL HIP REPLACEMENT (04/17/2024) 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 Left knee surgery Urology procedure Hand surgeries, tendon and trigger finger Medications Inpatient acetaminophen(Tylenol) , 650 mg= 2 tabs, ORAL, [id number] acetaminophen-hydrocod one(acetaminophen-HYDR Ocodone 325 mg-5 mg oral tablet), 2 tabs, ORAL, [id number], PRN Al hydroxide/Mg hydroxide/simethicone( Mylanta = aluminum hydroxide/magnesium hydroxide/simethicone 200 mg-200 mg-20 mg/5 mL oral susp), 30 mL, ORAL, N6ADSPI, PRN aspirin, 81 mg= 1 tabs, ORAL, DAILY WITH BREAKFAST benzocaine-menthol topical(Cepacol Sore Throat Pain Relief Garcia Lozenge), 1 lozenges, ORAL, W9RUSTZ, PRN bisacodyl(Dulcolax Laxative), 10 mg= 1 supp, Rectal, DAILY, PRN cefazolin = Ancef, 2 g= 50 mL, IV Piggyback, N8XUELF diphenhydrAMINE(Benadr yl), 25 mg= 0.5 mL, IV Push, R3FZZUI, PRN diphenhydrAMINE(Benadr yl), 25 mg= 1 tabs, ORAL, W2JGXMV, PRN docusate-senna(Senokot S (docu 50mg/senna 8.6mg)), 1 tabs, ORAL, BID ibuprofen = Motrin, Advil, 600 mg= 1 tabs, ORAL, L6FHGHF ketorolac = Toradol, 30 mg= 1 mL, IV Push, X8DNTUE ketorolac = Toradol, 30 mg= 1 mL, IV Push, L7XEDVQ, PRN losartan, 100 mg= 2 tabs, ORAL, DAILY magnesium hydroxide(Milk of Magnesia Conc 10ml =30ml MOM), 10 mL, ORAL, DAILY, PRN metFORMIN = Glucophage(metFORMIN extended release), 500 mg= 1 tabs, ORAL, DAILY morphine, 2 mg= 1 mL, IV Push, Q1HOUR, PRN ondansetron(Zofran), 8 mg= 4 mL, IV Push, C1CPPOJ, PRN oxyCODONE(oxyCODONE 5 mg oral tablet (IR)), 10 mg= 2 tabs, ORAL, F7PHCHE, PRN pantoprazole, 40 mg= 1 tabs, ORAL, DAILY sodium biphosphate-sodium phosphate(Fleet Phospho Soda Enema), 1 bottles, Rectal, DAILY, PRN sodium chloride(Saline Flush), 3 mL, IV Push, [id number] sodium chloride(Saline Flush), 3 mL, IV Push, PRN, PRN Sodium Chloride 0.9%(NS) 1,000 mL(NS 1,000 mL), 1000 mL, IV tapentadol(Nucynta), 50 mg= 1 tabs, ORAL, N3WOSVH, PRN traMADol(Ultram), 50 mg= 1 tabs, ORAL, O5JTTUB, PRN Home acetaminophen-hydrocod one(Etna 5 mg-325 mg oral tablet), 1 tabs, ORAL, U5SFVEJ, PRN acetaminophen-hydrocod one(Etna 7.5 mg-325 mg oral tablet), 1 tabs, ORAL, L41QDOBD, PRN losartan(losartan 100 mg oral tablet), 100 mg= 1 tabs, ORAL, DAILY metFORMIN = Glucophage(MetFORMIN (Eqv-Glumetza) 500 mg oral tablet, extended release), 500 mg= 1 tabs, ORAL, DAILY multivitamin with minerals(Centrum Silver oral tablet), 1 tabs, ORAL, DAILY Loco (more content not included)... Normal [facility] HYDROCODONE 5MG/APAP 325MGon 04-17-2024 HYDROCODONE 5MG/APAP 325MG PRN Response Entered On: 04/17/2024 22:30 EDT Performed On: 04/17/2024 21:13 EDT by Mervin Kinney RN Intervention Information: acetaminophen-hydrocod one Performed by Mervin Kinney RN on 04/17/2024 20:13:00 EDT acetaminophen-hydrocod one,2tabs ORAL,Mild Pain PRN Medication Response PRN Medication used for : Pain PRN Medication Effectiveness : Yes PRN Response Pain Scales : Numeric (8yrs & older) Numeric Pain Scale Age : Numeric (8yrs & older) Actual time of reassessment : No (not needed time is correct) Mervin Kinney RN - 04/17/2024 22:30 EDT Numeric Pain Scale Numeric Pain Scale : 4 = Moderate Pain Numeric Pain Score : 4 Mervin Kinney RN - 04/17/2024 22:30 EDT Normal [facility] Comment on above: Order Comment: For p ain level 1-3; May decrease to 1 tab if patient exhibits increased lethargy. IF ORDERED, DISCONTINUE AROUND THE CLOCK TYLENOL.Check for other orders containing acetaminophen before administering. Max total daily amount is 4000 mg. HYDROCODONE 5MG/APAP 325MG PRN Response Entered On: 04/17/2024 17:26 EDT Performed On: 04/17/2024 17:15 EDT by Janice Boucher RN Intervention Information: acetaminophen-hydrocod one Performed by Janice Boucher RN on 04/17/2024 16:15:00 EDT acetaminophen-hydrocod one,1tabs ORAL,Mild Pain PRN Medication Response PRN Medication used for : Pain PRN Medication Effectiveness : Yes PRN Response Pain Scales : Numeric (8yrs & older) Numeric Pain Scale Age : Numeric (8yrs & older) Actual time of reassessment : No (not needed time is correct) Janice Boucher RN - 04/17/2024 17:26 EDT Numeric Pain Scale Numeric Pain Scale : 3 = Mild Pain Numeric Pain Score : 3 Janice Boucher RN - 04/17/2024 17:26 EDT [facility] Comment on above: Order Comment: For p ain level 1-3; May decrease to 1 tab if patient exhibits increased lethargy. IF ORDERED, DISCONTINUE AROUND THE CLOCK TYLENOL.Check for other orders containing acetaminophen before administering. Max total daily amount is 4000 mg. HYDROCODONE 5MG/APAP 325MG PRN Response Entered On: 04/17/2024 13:13 EDT Performed On: 04/17/2024 13:14 EDT by Janice Boucher RN Intervention Information: acetaminophen-hydrocod one Performed by Janice oBucher RN on 04/17/2024 12:14:00 EDT acetaminophen-hydrocod one,1tabs ORAL,Mild Pain PRN Medication Response PRN Medication used for : Pain PRN Medication Effectiveness : Yes PRN Response Pain Scales : Numeric (8yrs & older) Numeric Pain Scale Age : Numeric (8yrs & older) Actual time of reassessment : No (not needed time is correct) Janice Boucher RN - 04/17/2024 13:13 EDT Numeric Pain Scale Numeric Pain Scale : 3 = Mild Pain Numeric Pain Score : 3 Janice Boucher RN - 04/17/2024 13:13 EDT [facility] Comment on above: Order Comment: For p ain level 1-3; May decrease to 1 tab if patient exhibits increased lethargy. IF ORDERED, DISCONTINUE AROUND THE CLOCK TYLENOL.Check for other orders containing acetaminophen before administering. Max total daily amount is 4000 mg. HYDROmorPHONE 0.5MG/0.5ML IN Melvin 04-17-2024 HYDROmorPHONE 0.5MG/0.5ML INJ PRN Response Entered On: 04/17/2024 13:14 EDT Performed On: 04/17/2024 12:29 EDT by Janice Boucher RN Intervention Information: hydromorphone Performed by Ammy Husain RN on 04/17/2024 11:29:00 EDT hydromorphone,0.5mg IV Push,Left Arm,Severe Pain PRN Medication Response PRN Medication used for : Pain PRN Medication Effectiveness : Yes PRN Response Pain Scales : Numeric (8yrs & older) Numeric Pain Scale Age : Numeric (8yrs & older) Actual time of reassessment : No (not needed time is correct) Janice Boucher RN - 04/17/2024 13:14 EDT Numeric Pain Scale Numeric Pain Scale : 4 = Moderate Pain Numeric Pain Score : 4 Janice Boucher RN - 04/17/2024 13:14 EDT [facility] Comment on above: Order Comment: Surge ry canceled. Blood Bank tube in 02/22/24 rack and card filed with 02/23/24 A&D by:SF Incentive Spirometryon 04-17 Incentive spirometry RT Incentive Spirometry Entered On: 04/17/2024 13:38 EDT Performed On: 04/17/2024 13:37 EDT by Cayla Rome RRT Spirometry Self Administration Frequency : q 1 hour while awake Cayla Rome RRT - 04/17/2024 13:37 EDT Education Responsible Learner/s Present : No Data Available Barriers to Learning : None evident TeachBack Methodology : Explanation Wild MCLAIN Cayla - 04/17/2024 13:37 EDT Respiratory Therapy Education Grid Incentive Spirometry : Verbalizes understanding, Demonstrates Tyron Rome RRTine - 04/17/2024 13:37 EDT Respiratory Therapy Charges Respiratory Therapy Main Fisher Charges : Incentive Spirometry Visit Charges Complete? : Yes Tyron Rome RRTine - 04/17/2024 13:37 EDT Normal [facility] Inpt OT Jnt Replacement Prot ocol-Texton 04-17-2024 Inpt OT Jnt Replacement Protocol-Text Inpatient OT Joint Replacement Protocol Entered On: 04/17/2024 15:42 EDT Performed On: 04/17/2024 13:28 EDT by Zee Rojas Joint Brendan OT Joint Replacement Protocol OT Session 1 Date/Time : 04/17/2024 13:28 EDT Pain : 5/10 Weight Bearing : FWB L LE Bed Mobility : supervision Chair : CGA with FWW Toilet : CGA with FWW Tub/Shower : NT. Pt uses walk-in shower with grab bars and hand held shower head. ADL : set up for grooming while seated. OT UB ADL : set up LB ADL : Threads BLEs into shorts with supervision while seated using collection teller to comply with THP. CGA For clothing management up over hips in standing. Review Precautions : reviewed THP Adaptive Equipment : Has: collection teller, FWW, crutches, toilet and shower grabbars, and ADA toilet. Needs sock aid, long shoe horn, and long handled sponge. Recommendations : family assist OT Therapist 1 : Zee Rojas Alyssa - 04/17/2024 15:40 EDT AM-PAC 6 clicks Daily Activity How much help from another person does the patient currently need... Putting on and taking off regular lower body clothing? : A Lot Bathing (including washing, rinsing, drying)? : A Lot Toileting, which includes using toilet, bedpan, or urinal? : A Little Putting on and taking off regular upper body clothing? : None Taking care of personal grooming such as brushing teeth? : A Little Eating meals? : None Pj Rojasyssa - 04/17/2024 15:40 EDT AM-PAC Raw Score : 18 Haile PRESCOTT, Zee - 04/17/2024 15:40 EDT Education OT Responsible Learner/s Present : Living Situation: Home Independently Performed by: Idania PT-Student [facility] 04/17/2024 13:28 Home Caregiver Name/Relationship: spouse Performed by: Zee Rojas 04/17/2024 13:28 Barriers to Learning : Other: see eval Haile PRESCOTT, Zee - 04/17/2024 15:40 EDT Time Spent with Patient OT Evaluation Units, Low Complexity : 0 units OT Individual Eval Time, Low Complexity : 0 minutes OT Time In : 13:28 EST OT Time Out : 13:52 EST OT Therapeutic Exercise Units : 0 units OT Therapeutic Exercise Time : 0 minutes OT Total Timed Code Treatment Units : 0 units OT Total Timed Code Treatment Minutes : 0 minutes 8 Min Rule Unit Check OT IP : 0 units OT Total Untimed Code Treatment Minutes : 0 minutes OT Total Treatment Time Rehab : 0 minutes 8 Min Rule Unit Difference OT IP : 0 Haile PRESCOTT, Zee - 04/17/2024 15:40 EDT Normal [facility] KETOROLAC 30MG/1ML INJon KETOROLAC 30MG/1ML INJ PRN Response Entered On: 04/17/2024 18:13 EDT Performed On: 04/17/2024 18:59 EDT by Janice Boucher RN Intervention Information: ketorolac Performed by Janice Boucher RN on 04/17/2024 17:59:00 EDT ketorolac = Toradol,30mg IV Push,Left Mid Forearm PRN Medication Response PRN Medication used for : Pain PRN Medication Effectiveness : Yes PRN Response Pain Scales : Numeric (8yrs & older) Numeric Pain Scale Age : Numeric (8yrs & older) Actual time of reassessment : No (not needed time is correct) Janice Boucher RN - 04/17/2024 18:13 EDT Numeric Pain Scale Numeric Pain Scale : 3 = Mild Pain Numeric Pain Score : 3 Janice Boucher RN - 04/17/2024 18:13 EDT Normal [facility] Comment on above: Order Comment: Dose decreased by pharmacist to 15mg same schedule if renal function less than 30mL / min., age greater than 64 or weight less than 50 kgs. DO NOT GIVE CONCURRENTLY WITH OTHER NSAIDS, DO NOT GIVE IF PATIENT HAS CREATINE CLEARANCE LESS THAN 20 mL/min. Neurovascular Assessment Low er Extremityon 04-17-2024 Neurovascular Assessment Lower Extremity Neurovascular Data Lower Extremity Entered On: 04/17/2024 22:28 EDT Performed On: 04/17/2024 21:00 EDT by Mervin Kinney RN Lower Extremity Nail Bed Color Feet Grid Left Foot : [place] Right Foot : Antionette Kinney RN, [facility] 04/17/2024 22:28 EDT Capillary Refill Feet Grid Left Foot : Less than 2 seconds Right Foot : Less than 2 seconds Nirmal STEVENSON, [facility] 04/17/2024 22:28 EDT NV Lower Extremity Color Grid Left : [place] Right : Antionette Kinney RN, [facility] 04/17/2024 22:28 EDT NV Lower Extremity Temperature Grid Left : Warm Right : Warm iNrmal STEVENSON, [facility] 04/17/2024 22:28 EDT Lower Extremity Peripheral Pulses Grid Dorsalis Pedis Pulse, Left : 2+ Normal Dorsalis Pedis Pulse, Right : 2+ Normal Nirmal STEVENSON, [facility] 04/17/2024 22:28 EDT Lower Extremity II Lower Extremity Sensation NV Grid Medial/Lateral Surfaces Sole of Left Foot : Intact Medial/Lateral Surfaces Sole of Right Foot : Intact Web Space Between Great and Second Toe Left Foot : Intact Web Space Between Great and Second Toe Right Foot : Intact Nirmal STEVENSON, Mervin - 04/17/2024 22:28 EDT Lower Extremity Strength NV Grid Plantar Flexion Left Foot : Good 4 Plantar Flexion Right Foot : Normal 5 Dorsiflex Foot/Extend Toes Left : Good 4 Dorsiflex Foot/Extend Toes Right : Normal 5 Mervin Kinney RN 04/17/2024 22:28 EDT Normal [facility] Neurovascular Assessment Lower Extremity Neurovascular Data Lower Extremity Entered On: 04/17/2024 16:33 EDT Performed On: 04/17/2024 17:00 EDT by Janice Boucher RN Lower Extremity Nail Bed Color Feet Grid Left Foot : [place] Right Foot : Janice See RN - 04/17/2024 16:32 EDT Capillary Refill Feet Grid Left Foot : Less than 2 seconds Right Foot : Less than 2 seconds Janice Boucher RN - 04/17/2024 16:32 EDT NV Lower Extremity Color Grid Left : [place] Right : [place] Citlaly STEVENSON, Janice - 04/17/2024 16:32 EDT NV Lower Extremity Temperature Grid Left : Warm Right : Warm Citlaly STEVENSON, Janice - 04/17/2024 16:32 EDT Lower Extremity Peripheral Pulses Grid Dorsalis Pedis Pulse, Left : 2+ Normal Dorsalis Pedis Pulse, Right : 2+ Normal Citlaly STEVENSON, Janice - 04/17/2024 16:32 EDT Normal [facility] Neurovascular Assessment Lower Extremity Neurovascular Data Lower Extremity Entered On: 04/17/2024 12:30 EDT Performed On: 04/17/2024 13:00 EDT by Janice Boucher RN Lower Extremity Nail Bed Color Feet Grid Left Foot : [place] Right Foot : [place] Citlaly STEVENSON, Janice - 04/17/2024 12:30 EDT Capillary Refill Feet Grid Left Foot : Less than 2 seconds Right Foot : Less than 2 seconds Citlaly STEVENSON, Janice - 04/17/2024 12:30 EDT NV Lower Extremity Color Grid Left : [place] Right : [place] Citlaly STEVENSON, Janice - 04/17/2024 12:30 EDT NV Lower Extremity Temperature Grid Left : Warm Right : Warm Janice Boucher RN - 04/17/2024 12:30 EDT Lower Extremity Peripheral Pulses Grid Dorsalis Pedis Pulse, Left : 2+ Normal Dorsalis Pedis Pulse, Right : 2+ Normal Citlaly STEVENSON, Janice - 04/17/2024 12:30 EDT Normal [facility] OR Nursing Record - Main Natali n 04-17-2024 OR Nursing Record - Main OR Normal [facility] Operative Reporton Operative Report Patient: DALI HUFFMAN Age: 54 years Sex: Male : 1970 Associated Diagnoses: None Author: FELIX WRIGHT MD Preop diagnosis: Left osteoarthritis of hip Postop diagnosis: Left osteoarthritis of hip Procedure: Left hip replacement Surgeon: Adriana Garcia.: Kaushal Pat Specimen: Bone Given the inherent complexity of this surgery, a second surgeon or a surgically skilled physician furniture removalist's assistant was necessary for the successful completion of this entire operative procedure. The surgical instrument technician was present for the entire operative procedure and participated in all aspects of patient care. This included transporting the patient to the operating room and entering room with the patient, assisting with preoperative positioning, first assisting throughout the entire surgical procedure by functioning as a second furniture removalist's assistant surgeon, assisting with surgical closure and finally accompanying the patient to recovery. Anesthesia: Block and general. EBL: 200 mL History: This is a patient failed an aggressive conservative care plan for osteoarthritis of the hip. It was thought that further conservative care would no longer benefit the patient. Operative note: The patient was brought to the operating room after given a regional anesthetic block in the preop holding. The patient was given general anesthesia and standard prep and drape performed after appropriate time out. The patient was placed in the right lateral decubitus, left side up. Standard posterolateral approach to the hip was performed. Deep fascia was released, and Charnley bow was used. The sciatic nerve was protected and the short rotators and capsule were released and later repaired through bone tunnels. A Steinmann pin was placed in the pelvis to help best re-create leg length at the end of the case. The femoral was dislocated and the femoral neck was cut per preoperative templating. The acetabulum was carefully cleaned of labrum and sequential reaming up to a size 55 was performed and a T6 millimeter [place] sector cup with gription was placed with very secure fixation. One screw was also placed. A 6 millimeter polyethylene liner was placed with good fixation. This was protected. The canal was approached with a box osteotome and canal finder. Sequential rasps performed up to a size 6 high from the [employer] system. With the size 6 high [address] stem in place with a 36 millimeter head of the metal type and a -2 millimeter neck length, there was good stability in all directions. The permanent components were removed. The permanent components were pounded into place. With the permanent components in place, there was good stability in all directions . There was good creation of leg lengths and good motion. Throughout the case. Copious irrigation was performed. We also used TXA intra-articularly. There was no excessive bleeding. The deep tissue was closed with #1 suture. The subcutaneous tissue with 2-0 suture and skin was closed with salma. A sterile bandage was applied and the patient was taken to recovery room in stable condition after an abduction pillow was placed in the operating room. Normal [facility] Fuse Coiler Detailson 2023 Fuse Coiler Details Fuse Coiler Details Entered On: 04/17/2024 22:30 EDT Performed On: 04/17/2024 22:29 EDT by Mervin Kinney RN Fuse Coiler Details Transport Mode Order Detail EV : Wheelchair Isolation Precautions RTF : Communication CONSTANT Order, 04/17/2024 07:55:00 EDT, Constant Order, Patients recovering in Critical Care, record vital signs Q10 min or more frequently for patient's condition or as per physician order. Patients do not require a PAR score (post anesthesia recovery)., Discontinued Consult Physician, 04/17/2024 07:55:00 EDT, METAL TREATER , 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, post op, Completed [facility] Nutrition Task to Nursing, 04/17/2024 07:55:00 EDT, Advance to House diet when bowel sounds return, Discontinue Full Liquid diet when able to advance, order House diet., 04/17/2024 07:55:00 EDT, Completed Oxygen Therapy, 04/17/2024 07:55:00 EDT, Nasal Cannula, 3L, Constant Order, overnight if SpO2 less than 95%, Ordered Oxygen Therapy, 04/17/2024 07:55:00 EDT, Simple Mask, 100%, Constant Order, in PACU, wean Oxygen to room air to baseline SpO2, Discontinued Post Procedure Location of Care, 04/17/2024 07:42:00 EDT, [facility], Ordered History and Physical by House Physician, 04/09/2024 13:57:00 EDT, 04/09/2024 13:57:00 EDT, Ordered Obtain Consent, 04/09/2024 13:57:00 EDT, Obtain Blood Transfusion Consent, Ordered Isolation Precaution Order Detail EV : NONE IV Order Detail - EV : Yes Oxygen Order Detail EV : No Order Detail EV : No Pacemaker Order Detail : 0 Fuse Coiler Details Review Status : Reviewed, changes made Nurse Collects Blood Specimens : No Mervin Kinney RN - 04/17/2024 22:29 EDT [facility] Comment on above: Order Comment: Order entered secondary to admission Fuse Coiler Details Fuse Coiler Details Entered On: 04/17/2024 12:09 EDT Performed On: 04/17/2024 12:09 EDT by Janice Boucher RN Fuse Coiler Details Transport Mode Order Detail EV : Wheelchair Isolation Precautions RTF : Communication CONSTANT Order, 04/17/2024 07:55:00 EDT, Constant Order, Patients recovering in Critical Care, record vital signs Q10 min or more frequently for patient's condition or as per physician order. Patients do not require a PAR score (post anesthesia recovery)., Discontinued Consult Physician, 04/17/2024 07:55:00 EDT, METAL TREATER , 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, post op, Ordered Misc Nutrition Task to Nursing, 04/17/2024 07:55:00 EDT, Advance to House diet when bowel sounds return, Discontinue Full Liquid diet when able to advance, order House diet., 04/17/2024 07:55:00 EDT, Completed Oxygen Therapy, 04/17/2024 07:55:00 EDT, Nasal Cannula, 3L, Constant Order, overnight if SpO2 less than 95%, Ordered Oxygen Therapy, 04/17/2024 07:55:00 EDT, Simple Mask, 100%, Constant Order, in PACU, wean Oxygen to room air to baseline SpO2, Discontinued Post Procedure Location of Care, 04/17/2024 07:42:00 EDT, [facility], Ordered History and Physical by House Physician, 04/09/2024 13:57:00 EDT, 04/09/2024 13:57:00 EDT, Ordered Obtain Consent, 04/09/2024 13:57:00 EDT, Obtain Blood Transfusion Consent, Ordered Isolation Precaution Order Detail EV : NONE IV Order Detail - EV : Yes Oxygen Order Detail EV : Yes Order Detail EV : No Pacemaker Order Detail : 0 Fuse Coiler Details Review Status : Reviewed, changes made Nurse Collects Blood Specimens : No Janice Boucher RN - 04/17/2024 12:09 EDT [facility] Comment on above: Order Comment: Order entered secondary to admission PACU Phase I - Main ORon PACU Phase I - Main OR PACU Phase I - Main OR Summary Primary Physician: FELIX WRIGHT MD Finalized Date/Time: 04/17/24 11:43:09 Pt. Name: DALI HUFFMAN /Sex: 1970 Male Med Rec #: [id number] Physician: FELIX WRIGHT MD Financial #: [id number] Pt. Type: E Room/Bed: [place] [address] Admit/Disch: 04/17/24 06:56:21 - Institution: PACU I - Case Times - Main OR Entry 1 In PACU I 04/17/24 10:40:00 Ready for Transfer 04/17/24 11:39:00 Last Modified By: Ammy Husain RN 04/17/24 11:43:04 Finalized By: Ammy Husain RN Document Signatures Signed By: Ammy Husain RN 04/17/24 11:43 Ammy Husain RN 04/17/24 11:43 Normal [facility] POC Glucoseon 04-17-2024 Glucose [Mass/Vol] 200 mg/dL High 72-100 [facility] Comment on above: Performed By: #### 1 [id number] ####[facility] [id number] [place] [address] Medical Director: Selvin Dillon MD PT Hip Replacement Protocol- Texton 04-17-2024 PT Hip Replacement Protocol-Text Inpatient PT Hip Replacement Protocol Entered On: 04/17/2024 15:28 EDT Performed On: 04/17/2024 13:28 EDT by Idania PT-Student, [facility] Hip Protocol PT [facility] Hip Replacement Protocol PT Session 1 Date/Time : 04/17/2024 13:28 EDT Pain : 5/10 Gait (feet/assist) Goal: 200 ft Ind no rest : 75 ft using FWW and CGA Transfers Goal: Ind : CGA Bed Mobility Goal: Ind : Min Ax1 Ankle Pumps Goal: 10-20 reps : Reviewed Quad Sets Goal: 10-20 reps : x10 Glut Sets Goal: 10-20 reps : x10 Review Precautions : Yes ICE : Yes Recommendation : LOW intensity Therapist 1 : Hayder DUARTE DPT, Jacquelyn Therapist 2 : Idania PT-Student, Ammy Idania PT-Student, [facility] 04/17/2024 15:26 EDT AM-PAC 6 clicks Basic Mobility How much difficulty does the patient currently have... Turning over in bed(including adjusting bedclothes, sheets and blankets)? : A Little Sitting down on and Standing up from a chair with arms (e.g., wheelchair, bedside commode) : A Little Moving from lying on back to sitting on the side of the bed? : A Little Idania PT-Student, [facility] 04/17/2024 15:26 EDT How much help from another person does the patient currently need... Moving to and from a bed to a chair (including a wheelchair)? : A Little Need to walk in hospital room? : A Little Climbing 3-5 steps with a railing? : A Lot Idania PT-Student, [facility] 04/17/2024 15:26 EDT AM-PAC Raw Score : 17 Idania PT-Student, [facility] 04/17/2024 15:26 EDT Education PT Responsible Learner/s Present : No Data Available Barriers to Learning : Acuity of illness TeachBack Methodology : Demonstration, Explanation Idania PT-Student, [facility] 04/17/2024 15:26 EDT Physical Therapy Education Grid Ambulation with Roller Walker : Needs further teaching, Needs practice/supervision Exercise Program : Needs further teaching, Needs practice/supervision Surgical Precautions : Needs practice/supervision, Needs further teaching Weightbearing Precautions : Needs further teaching, Needs practice/supervision Idania PT-Student, [facility] 04/17/2024 15:26 EDT Additional Session Learner/s Present : Spouse Idania PT-Student, [facility] 04/17/2024 15:26 EDT Time Spent with Patient PT Evaluation Units, Low Complexity : 0 units PT Individual Eval Time, Low Complexity : 0 minutes PT Time In : 13:28 EST PT Time Out : 13:57 EST PT Functional Activity Units : 0 units PT Functional Activity Time : 0 minutes PT Total Timed Code Treatment Units : 0 units PT Total Timed Code Tx Minutes : 0 minutes PT Total Untimed Code Treatment Minutes : 0 minutes 8 Min Rule Unit Check PT IP : 0 units PT Total Treatment Time Rehab : 0 minutes 8 Min Rule Unit Difference PT IP : 0 Idania PT-Student, Ammy - 04/17/2024 15:26 EDT Normal [facility] Rehabilitation Inpt - Assign ment - Texton 04-17-2024 Rehabilitation Inpt - Assignment - Text Rehabilitation Inpatient - Assignment Entered On: 04/17/2024 7:48 EDT Performed On: 04/17/2024 7:48 EDT by Surya OTR/LYoli Rehabilitation Inpatient - Assignment Occupational Therapy : Haile TOWNSENDR/Gena, Zee London OTR/L, Yoli Tobin - 04/17/2024 7:48 EDT Normal [facility] Rehabilitation Inpt - Assignment - Text Rehabilitation Inpatient - Assignment Entered On: 04/17/2024 7:12 EDT Performed On: 04/17/2024 7:12 EDT by Terry PT, DPT, [facility] Inpatient - Assignment Physical Therapy : Hayder DUARTE, DPT, Mis Stewart PT, DPT, [facility] - 04/17/2024 7:12 EDT Normal [facility] [place] Protocol/Pre-Proc TimeOut-Texton 04-17-2024 [place] Protocol/Pre-Proc TimeOut-Text [place] Protocol Entered On: 04/17/2024 8:07 EDT Performed On: 04/17/2024 8:06 EDT by Venu Thibodeaux RN All Procedures Procedure this U.P. is completed for: : Left Total Hip Replacement Procedure Location : Surgery Pre-Procedure Verification : Patient Identification (Name & Date), Informed Consent (Signed, Dated), Procedure Identified by Patient, Site Identified by Patient Venu Thibodeaux RN - 04/17/2024 8:06 EDT Allergy (As Of: 04/17/2024 08:07:25 EDT) Allergies (Active) Nubain Estimated Onset Date: Unspecified ; Reactions: passed out ; Created By: Husam Jones RN; Reaction Status: Active ; Category: Drug ; Substance: Nubain ; Type: Allergy ; Updated By: Husam Jones RN; Reviewed Date: 04/17/2024 8:07 EDT Beta Tashia Beta Tashia History : Patient does not take a Beta Tashia Venu Thibodeaux RN - 04/17/2024 8:06 EDT Site Marking Site Marking : Operative or Invasive Site / Side Marked Per Policy Laterality [place] Protocol : Left Site Verification Completed : By Provider, In Pre-op / Procedure Holding area Rhona Dinero RN - 04/17/2024 9:27 EDT Surgery / Sedation OR Procedure & Sedation Verification : History & Physical (within 30 days), Nursing Assessment Completed Relevant Images : Relevant Images / Diagrams Properly Labeled & Displayed Relevant Diagnostic Tests : Relevant Diagnostic Tests Available Blood Products : N/A Implants / Equiment : Required Implants & Special Equipment Available Correct Procedure : Accurate Procedure Consent Form, Correct Procedure, Correct Patient Position Antibiotics : Administration of Antibiotics or Fluids for Irrigation Purpose Safety Precautions : Safety Precautions Based on Patient Medication or History Date/Time of OR Procedure Sedation Checklist : 04/17/2024 08:30 EDT Rhona Dinero RN - 04/17/2024 9:27 EDT Final Verification Date/Time : 04/17/2024 09:25 EDT Verification : Patient Identified (Name and Date), Correct Procedure, Site / Side Marked & Visible toTeam, All Team Members are in Agreement Laterality : Left Osmany STEVENSON, Rhona - 04/17/2024 9:27 EDT Normal [facility] ABORHon 04-09-2024 ABORH Interpretation Positive Normal [facility] Comment on above: Performed By: #### C [id number], [id number] ####[facility] [id number] [place] [address] Medical Director: Selvin Dillon MD Patient History Check Previous Hx Normal [facility] Comment on above: Performed By: #### C [id number], [id number] ####[facility] [id number] [place] [id number] Medical Director: Selvin Dillon MD VS 0.8% a cells 3+ Normal [facility] Comment on above: Performed By: #### C [id number], [id number] ####[facility] [id number] [place] [id number] Medical Director: Selvin Dillon MD VS 0.8% b cells 3+ Normal [facility] Comment on above: Performed By: #### C [id number], [id number] ####[facility] [address] [place] [address] Medical Director: Selvin Dillon MD VS Anti-A Unit 0 Normal [facility] Comment on above: Performed By: #### C [id number], [id number] ####[facility] [address] [place] [address] Medical Director: Selvin Dillon MD VS Anti-B Unit 0 [facility] Comment on above: Performed By: #### C [id number], [id number] ####[facility] [address] [place] [address] Medical Director: Selvin Dillon MD VS Anti-D Unit 4+ [facility] Comment on above: Performed By: #### C [id number], [id number] ####[facility] [id number] [place] [address] Medical Director: Selvin Dillon MD ABSCon 04-09-2024 ABSC Final Interp Negative [facility] Comment on above: Performed By: #### C [id number], [id number] ####[facility] [address] [place] [address] Medical Director: Selvin Dillon MD Pt Hx check done? Yes [facility] Comment on above: Performed By: #### C [id number], [id number] ####[facility] [address] [place] [address] Medical Director: Selvin Dillon MD VS SCI Gel 0 [facility] Comment on above: Performed By: #### C [id number], [id number] ####[facility] [address] [place] [address] Medical Director: Selvin Dillon MD VS SCII Gel 0 Normal [facility] Comment on above: Performed By: #### C [id number], CD:[id number] ####[facility] [address] [place] [address] Medical Director: Selvin Dillon MD APTTon 04-09-2024 aPTT Coag (Bld) [Time] 39.1 s High 27.0-38.0 [facility] Comment on above: Result Comment: APTT Interpretation: This test has not been validated to monitor heparin therapy. APTT test is used as an initial test for suspected bleeding disorder. Anti-Xa UFH test is used to monitor heparin therapy. Performed By: #### 1 42853, 350145, [id number], [id number] #### [facility] [address] [place] [address] Senior Process Engineer: Selvin Dillon MD BASICMETAon 04-09-2024 Calcium [Mass/Vol] 9.6 mg/dL Normal 8.7-10.4 [facility] Comment on above: Performed By: #### 1 22005, 759857, 351279, 205620 #### [facility] [address] [place] [address] Senior Process Engineer: Selvin Dillon MD Chloride [Moles/Vol] 105 mmol/L Normal 98-107 [facility] Comment on above: Performed By: #### 1 10570, 324815, 981585, 968723 #### [facility] [address] [place] [address] Senior Process Engineer: Selvin Dillon MD CO2 [Moles/Vol] 28.0 mmol/L Normal 20.0-31.0 [facility] Comment on above: Performed By: #### 1 55269, 151270, 353747, 065186 #### [facility] [address] [place] [address] Senior Process Engineer: Selvin Dillon MD Creatinine [Mass/Vol] 0.8 mg/dL Normal 0.6-1.1 [facility] Comment on above: Performed By: #### 1 43226, 567026, 700083, 227493 #### [facility] [address] [place] [address] Senior Process Engineer: Selvin Dillon MD GFR AA >60 Normal [facility] Comment on above: Result Comment: Afri can French GFR Calc Medical judgement is necessary to interpret GFR. The calculated GFR may not accurately reflect renal status in patients >70 years, women, acutely ill hospitalized patients and patients with acute renal failure or known renal disease. The MDRD GFR formula is valid only for adults greater than 18 years of age. Note: Creatinine clearance (not GFR) should be used for drug dosing. Performed By: #### 1 91331, 189441, 856909, 389204 #### [facility] [address] [place] [address] Senior Process Engineer: Selvin Dillon MD Glomerular Filtration Rate >60 Normal [facility] Comment on above: Result Comment: Non- GFR Calc Medical judgement is necessary to interpret GFR. The calculated GFR may not accurately reflect renal status in patients >70 years, women, acutely ill hospitalized patients and patients with acute renal failure or known renal disease. The MDRD GFR formula is valid only for adults greater than 18 years of age. Note: Creatinine clearance (not GFR) should be used for drug dosing. Performed By: #### 1 70081, 709840, 796263, 380298 #### [facility] [address] [place] [address] Senior Process Engineer: Selvin Dillon MD Glucose [Mass/Vol] 103 mg/dL Normal 74-106 [facility] Comment on above: Performed By: #### 1 90574, 126071, 163440, 841930 #### [facility] [address] [place] [address] Senior Process Engineer: Selvin Dillon MD Osmolality [Osmolality] 282 mosm/kg Normal 275-295 [facility] Comment on above: Performed By: #### 1 22227, 729054, 052974, 652200 #### [facility] [address] [place] [address] Senior Process Engineer: Selvin Dillon MD Potassium [Moles/Vol] 4.4 mmol/L Normal 3.5-5.1 [facility] Comment on above: Performed By: #### 1 88126, 062851, 506848, 765505 #### [facility] [address] [place] [address] Senior Process Engineer: Selvin Dillon MD Sodium [Moles/Vol] 140 mmol/L Normal 135-145 [facility] Comment on above: Performed By: #### 1 54199, 469770, 645692, 118933 #### [facility] [address] [place] [address] Senior Process Engineer: Selvin Dillon MD Urea nitrogen [Mass/Vol] 19 mg/dL Normal 9-23 [facility] Comment on above: Result Comment: - Ve nipuncture should occur prior to N-Acetyl Cysteine (NAC) or Metamizole (Sulpyrine) administration due to the potential for falsely depressed results. - Blood samples from some patients with monoclonal gammopathies may produce falsely elevated results Performed By: #### 1 48372, 616803, 711849, 962407 #### [facility] [address] [place] [address] Senior Process Engineer: Selvin Dillon MD Urea nitrogen/Creatinine [Mass ratio] 23.8 mg/mg Normal [facility] Comment on above: Performed By: #### 1 91465, 240604, 393030, 270290 #### [facility] [address] [place] [address] Senior Process Engineer: Selvin Dillon MD CBCNDon 04-09-2024 Erythrocyte distribution width (RBC) [Ratio] 14.7 % High 11.5-14.5 [facility] Comment on above: Performed By: #### 1 13244, 485188, 049468, 132370 #### [facility] [address] [place] [address] Senior Process Engineer: Selvin Dillon MD Hematocrit (Bld) [Volume fraction] 41.3 % Normal 41.0-52.0 [facility] Comment on above: Performed By: #### 1 09043, 149214, 534892, 628946 #### [facility] [address] [place] [address] Senior Process Engineer: Selvin Dillon MD Hemoglobin (Bld) [Mass/Vol] 13.9 g/dL Normal 13.5-17.5 [facility] Comment on above: Performed By: #### 1 66205, 345538, 258898, 886913 #### [facility] [address] [place], [place] [address] Senior Process Engineer: Selvin Dillon MD Instr WBC ND 7.1 Normal [facility] Comment on above: Performed By: #### 1 22468, 099712, 118325, 201703 #### [facility] [address] [place] [address] Senior Process Engineer: Selvin Dillon MD MCH (RBC) [Entitic mass] 29.8 pg Normal 27.0-34.0 [facility] Comment on above: Performed By: #### 1 61349, 858100, 045749, 228137 #### [facility] [address] [place] [address] Senior Process Engineer: Selvin Dillon MD MCHC (RBC) [Mass/Vol] 33.7 g/dL Normal 32.0-37.0 [facility] Comment on above: Performed By: #### 1 82882, 303335, 909312, 094624 #### [facility] [address] [place] [address] Senior Process Engineer: Selvin Dillon MD MCV (RBC) [Entitic vol] 88.4 fL Normal 80.0-100.0 [facility] Comment on above: Performed By: #### 1 64741, 256798, 740789, 509587 #### [facility] [address] [place] [address] Senior Process Engineer: Selvin Dillon MD Platelet 256 x10 Normal 150-450 [facility] Comment on above: Performed By: #### 1 65824, 519221, 544718, 713471 #### [facility] [address] [place] [address] Senior Process Engineer: Selvin Dillon MD Platelet mean volume (Bld) [Entitic vol] 8.2 fL Normal 7.4-10.4 [facility] Comment on above: Performed By: #### 1 47971, 305064, 566632, 674132 #### [facility] [address] [place] [address] Senior Process Engineer: Selvin Dillon MD RBC 4.68 x10 Low 4.70-6.10 [facility] Comment on above: Result Comment: Note : RBC morphology is normal unless otherwise stated. Evaluation performed only if differential is requested. Performed By: #### 1 19781, 214058, 349449, 967740 #### [facility] [address] [place] [address] Senior Process Engineer: Selvin Dillon MD WBC 7.1 x10 Normal 4.5-11.0 [facility] Comment on above: Performed By: #### 1 81672, 133984, 097061, 536891 #### [facility] [address] [place] [address] Senior Process Engineer: Selvin Dillon MD PT INRon 04-09-2024 INR Coag (PPP) [Relative time] 1.0 {INR} Normal [facility] Comment on above: Result Comment: INR Reference Range: Normal reference range for INR on patients not on anticoagulant therapy: 0.9-1.1 General therapeutic range for patients on anticoagulant therapy: 2.0-3.5 Performed By: #### 1 38047, 988632, 993547, 092142 #### [facility] [address] [place] [address] Senior Process Engineer: Selvin Dillon MD Protime Patient 11.0 seconds Normal 9.8-12.8 [facility] Comment on above: Performed By: #### 1 69430, 580071, 603042, 464813 #### [facility] [address] [place] [address] Senior Process Engineer: Selvin Dillon MD Preadmission Testing Progres s Noteon 04-09-2024 Preadmission Testing Progress Note PREADMISSION TESTING (PAT) INSTRUCTION SHEET [ X] Bring your Surgery Guide with you on day of surgery [ X ] Read and complete your Discharge Planning Checklist [ X ] Take only highlighted medications on morning of surgery [ X ] Stop all vitamins and herbal supplements 7 days prior to surgery (unless otherwise instructed) [ X ] Bring on day of surgery: [ X ] Green blood band (in Surgery Guide) [ X ] Advanced Directive *Any major change in your medical condition, that was treated by your primary physician or the result of an Emergency Room visit, must be reported to your surgeon. Normal [facility] UAon 04-09-2024 U MICRO Not Indicated Normal [facility] Comment on above: Performed By: #### 1 [id number] #### [facility] [address] [place] [address] 44130 Senior Process Engineer: Selvin Dillon MD Appearance, U Clear Normal [facility] Comment on above: Performed By: #### 1 65460 #### [facility] [address] [place] [address] 44130 Senior Process Engineer: Selvin Dillon MD Bilirubin, U Negative Normal Negative [facility] Comment on above: Performed By: #### 1 [id number] #### [facility] [address] [place] [address] 25409 Senior Process Engineer: Selvin Dillon MD Blood, U Negative Normal Negative [facility] Comment on above: Performed By: #### 1 83591 #### [facility] [address] [place] [address] 20003 Senior Process Engineer: Selvin Dillon MD Color, U Yellow Normal [facility] Comment on above: Performed By: #### 1 98437 #### [facility] [address] [place] [address] 66306 Senior Process Engineer: Selvin Dillon MD Glucose Qual, U Negative Normal Negative [facility] Comment on above: Performed By: #### 1 10583 #### [facility] [address] [place] [address] 92517 Senior Process Engineer: Selvin Dillon MD Ketones, U Trace Abnormal Negative [facility] Comment on above: Performed By: #### 1 [id number] #### [facility] [address] [place] [address] 55458 Senior Process Engineer: Selvin Dillon MD Leukocyte Esterase, U Negative Normal Negative [facility] Comment on above: Performed By: #### 1 [id number] #### [facility] [address] [place] [address] 36204 Senior Process Engineer: Selvin Dillon MD Nitrite, U Negative Normal Negative [facility] Comment on above: Performed By: #### 1 71699 #### [facility] [address] [place] [address] 59036 Senior Process Engineer: Selvin Dillon MD pH, U 5.0 Normal 4.5-8.0 [facility] Comment on above: Performed By: #### 1 70869 #### [facility] [address] [place] [address] 88207 Senior Process Engineer: Selvin Dillon MD Protein, U Negative Normal Negative [facility] Comment on above: Performed By: #### 1 [id number] #### [facility] [address] [place] [address] 54826 Senior Process Engineer: Selvin Dillon MD Specific Mineral, U 1.015 Normal 1.001-1.035 [facility] Comment on above: Performed By: #### 1 61225 #### [facility] [address] [place] [address] 84923 Senior Process Engineer: Selvin Dillon MD Urobilinogen Qual, U <2.0 mg/dl Normal <2.0 mg/dl [facility] Comment on above: Result Comment: EU/d l and mg/dl are equivalent units. Performed By: #### 1 [id number] #### [facility] [address] [place], [place] [address] Senior Process Engineer: Selvin Dillon MD ABORHon 02-22-2024 ABORH CK Interp Positive Normal [facility] Comment on above: Order Comment: Surge ry canceled. Blood Bank tube in 02/22/24 rack and card filed with 02/23/24 A&D by:SF Performed By: #### C [id number], CD:[id number] #### [facility] [address] [place], [place] [address] Senior Process Engineer: Selvin Dillon MD Anti-A recheck 0 Normal [facility] Comment on above: Order Comment: Surge ry canceled. Blood Bank tube in 02/22/24 rack and card filed with 02/23/24 A&D by:SF Performed By: #### C [id number], CD:[id number] #### [facility] [address] [place] [address] 99227 Senior Process Engineer: Selvin Dillon MD Anti-B recheck 0 Normal [facility] Comment on above: Order Comment: Surge ry canceled. Blood Bank tube in 02/22/24 rack and card filed with 02/23/24 A&D by:SF Performed By: #### C [id number], CD:[id number] #### [facility] [address] [place], [place] [address] Senior Process Engineer: Selvin Dillon MD Anti-D recheck 4+ Normal [facility] Comment on above: Order Comment: Surge ry canceled. Blood Bank tube in 02/22/24 rack and card filed with 02/23/24 A&D by:SF Performed By: #### C [id number], CD:[id number] #### [facility] [address] [place], [place] [address] Senior Process Engineer: Selvin Dillon MD ABORHon 02-06-2024 ABORH Interpretation Positive Normal [facility] Comment on above: Order Comment: Surge ry canceled. Blood Bank tube in 02/22/24 rack and card filed with 02/23/24 A&D by:SF Performed By: #### C [id number], CD:[id number] #### [facility] [address] [place] [address] Senior Process Engineer: Selvin Dillon MD Patient History Check No Previous Hx Normal [facility] Comment on above: Order Comment: Surge ry canceled. Blood Bank tube in 02/22/24 rack and card filed with 02/23/24 A&D by:SF Result Comment: 01/22 15:10 [id number] ABO Recheck to be ordered on admit. Surgery Date: 02/23/24 Performed By: #### C [id number], CD:[id number] #### [facility] [address] [place], [place] [address] Senior Process Engineer: Selvin Dillon MD VS 0.8% a cells 3+ Normal [facility] Comment on above: Order Comment: Surge ry canceled. Blood Bank tube in 02/22/24 rack and card filed with 02/23/24 A&D by:SF Performed By: #### C [id number], CD:[id number] #### [facility] [address] [place] [address] 90494 Senior Process Engineer: Selvin Dillon MD VS 0.8% b cells 3+ Normal [facility] Comment on above: Order Comment: Surge ry canceled. Blood Bank tube in 02/22/24 rack and card filed with 02/23/24 A&D by:SF Performed By: #### C [id number], CD:[id number] #### [facility] [address] [place] [address] 55224 Senior Process Engineer: Selvin Dillon MD VS Anti-A Unit 0 Normal [facility] Comment on above: Order Comment: Surge ry canceled. Blood Bank tube in 02/22/24 rack and card filed with 02/23/24 A&D by:SF Performed By: #### C [id number], CD:[id number] #### [facility] [address] [place] [address] [id number] Senior Process Engineer: Selvin Dillon MD VS Anti-B Unit 0 Normal [facility] Comment on above: Order Comment: Surge ry canceled. Blood Bank tube in 02/22/24 rack and card filed with 02/23/24 A&D by:SF Performed By: #### C [id number], CD:[id number] #### [facility] [address] [place] [address] 41314 Senior Process Engineer: Selvin Dillon MD VS Anti-D Unit 4+ Normal [facility] Comment on above: Order Comment: Surge ry canceled. Blood Bank tube in 02/22/24 rack and card filed with 02/23/24 A&D by:SF Performed By: #### C [id number], CD:[id number] #### [facility] [address] [place] [address] 04966 Senior Process Engineer: Selvin Dillon MD ABSCon 02-06-2024 ABSC Final Interp Negative Normal [facility] Comment on above: Performed By: #### C [id number], CD:[id number] #### [facility] [address] [place] [address] 41512 Senior Process Engineer: Selvin Dillon MD Pt Hx check done? Yes Normal [facility] Comment on above: Performed By: #### C [id number], CD:[id number] #### [facility] [address] [place] [address] 65834 Senior Process Engineer: Selvin Dillon MD VS SCI Gel 0 [facility] Comment on above: Performed By: #### C [id number], CD:[id number] #### [facility] [address] [place] [address] 58592 Senior Process Engineer: Selvin Dillon MD VS SCII Gel 0 [facility] Comment on above: Performed By: #### C [id number], CD:[id number] #### [facility] [address] [place] [address] 13250 Senior Process Engineer: Selvin Dillon MD APTTon 02-06-2024 aPTT Coag (Bld) [Time] 32.8 s Normal 27.0-38.0 [facility] Comment on above: Result Comment: APTT Interpretation: This test has not been validated to monitor heparin therapy. APTT test is used as an initial test for suspected bleeding disorder. Anti-Xa UFH test is used to monitor heparin therapy. Performed By: #### 1 90563 #### [facility] [address] [place] [address] 23046 Senior Process Engineer: Selvin Dillon MD BASICMETAon 02-06-2024 Calcium [Mass/Vol] 9.6 mg/dL Normal 8.7-10.4 [facility] Comment on above: Performed By: #### 1 59101, 391824, 453289, 728908 #### [facility] [address] [place] [address] Senior Process Engineer: Selvin Dillon MD Chloride [Moles/Vol] 101 mmol/L Normal 98-107 [facility] Comment on above: Performed By: #### 1 57270, 944156, 522550, 828126 #### [facility] [address] [place] [address] 35266 Senior Process Engineer: Selvin Dillon MD CO2 [Moles/Vol] 26.0 mmol/L Normal 20.0-31.0 [facility] Comment on above: Performed By: #### 1 15480, 242363, 211106, 179220 #### [facility] [address] [place] [address] 26283 Senior Process Engineer: Selvin Dillon MD Creatinine [Mass/Vol] 0.9 mg/dL Normal 0.6-1.1 [facility] Comment on above: Performed By: #### 1 79267, 430325, 588811, 993558 #### [facility] [address] [place] [address] 02593 Senior Process Engineer: Selvin Dillon MD GFR AA >60 Normal [facility] Comment on above: Result Comment: Afri can French GFR Calc Medical judgement is necessary to interpret GFR. The calculated GFR may not accurately reflect renal status in patients >70 years, women, acutely ill hospitalized patients and patients with acute renal failure or known renal disease. The MDRD GFR formula is valid only for adults greater than 18 years of age. Note: Creatinine clearance (not GFR) should be used for drug dosing. Performed By: #### 1 37616, 128825, 829523, 718992 #### [facility] [address] [place] [address] 82892 Senior Process Engineer: Selvin Dillon MD Glomerular Filtration Rate >60 Normal [facility] Comment on above: Result Comment: Non- GFR Calc Medical judgement is necessary to interpret GFR. The calculated GFR may not accurately reflect renal status in patients >70 years, women, acutely ill hospitalized patients and patients with acute renal failure or known renal disease. The MDRD GFR formula is valid only for adults greater than 18 years of age. Note: Creatinine clearance (not GFR) should be used for drug dosing. Performed By: #### 1 45453, 703235, 395139, 896699 #### [facility] [address] [place] [address] 97542 Senior Process Engineer: Selvin Dillon MD Glucose [Mass/Vol] 346 mg/dL High 74-106 [facility] Comment on above: Performed By: #### 1 89400, 945368, 232017, 088645 #### [facility] [address] [place] [address] 95364 Senior Process Engineer: Selvin Dillon MD Osmolality [Osmolality] 285 mosm/kg Normal 275-295 [facility] Comment on above: Performed By: #### 1 73294, 157411, 970505, 977782 #### [facility] [address] [place] [address] 76192 Senior Process Engineer: Selvin Dillon MD Potassium [Moles/Vol] 4.5 mmol/L Normal 3.5-5.1 [facility] Comment on above: Performed By: #### 1 75939, 088890, 498791, 771301 #### [facility] [address] [place] [address] 18713 Senior Process Engineer: Selvin Dillon MD Sodium [Moles/Vol] 134 mmol/L Low 135-145 [facility] Comment on above: Performed By: #### 1 49468, 154179, 448875, 740128 #### [facility] [address] [place] [address] 69275 Senior Process Engineer: Selvin Dillon MD Urea nitrogen [Mass/Vol] 20 mg/dL Normal 9-23 [facility] Comment on above: Result Comment: - Ve nipuncture should occur prior to N-Acetyl Cysteine (NAC) or Metamizole (Sulpyrine) administration due to the potential for falsely depressed results. - Blood samples from some patients with monoclonal gammopathies may produce falsely elevated results Performed By: #### 1 69750, 087452, 722538, 488330 #### [facility] [address] [place] [address] 94947 Senior Process Engineer: Selvin Dillon MD Urea nitrogen/Creatinine [Mass ratio] 22.2 mg/mg Normal [facility] Comment on above: Performed By: #### 1 64572, 753015, 611601, 386007 #### [facility] [address] [place] [address] 36992 Senior Process Engineer: Selvin Dillon MD CBCNDon 02-06-2024 Erythrocyte distribution width (RBC) [Ratio] 13.9 % Normal 11.5-14.5 [facility] Comment on above: Performed By: #### 1 40567 #### [facility] [address] [place] [address] 25566 Senior Process Engineer: Selvin Dillon MD Hematocrit (Bld) [Volume fraction] 44.9 % Normal 41.0-52.0 [facility] Comment on above: Performed By: #### 1 25599 #### [facility] [address] [place] [address] 20282 Senior Process Engineer: Selvin Dillon MD Hemoglobin (Bld) [Mass/Vol] 15.2 g/dL Normal 13.5-17.5 [facility] Comment on above: Performed By: #### 1 72899 #### [facility] [address] [place] [address] 15598 Senior Process Engineer: Selvin Dillon MD Instr WBC ND 8.7 Normal [facility] Comment on above: Performed By: #### 1 43939 #### [facility] [address] [place] [address] 74636 Senior Process Engineer: Selvin Dillon MD MCH (RBC) [Entitic mass] 29.3 pg Normal 27.0-34.0 [facility] Comment on above: Performed By: #### 1 72541 #### [facility] [address] [place] [address] 08780 Senior Process Engineer: Selvin Dillon MD MCHC (RBC) [Mass/Vol] 33.9 g/dL Normal 32.0-37.0 [facility] Comment on above: Performed By: #### 1 89488 #### [facility] [address] [place] [address] 84641 Senior Process Engineer: Selvin Dillon MD MCV (RBC) [Entitic vol] 86.6 fL Normal 80.0-100.0 [facility] Comment on above: Performed By: #### 1 19410 #### [facility] [place] [phone] Senior Process Engineer: Selvin Dillon MD Platelet 245 x10 Normal 150-450 [facility] Comment on above: Performed By: #### 1 63897 #### [facility] [address] [place] [address] 37534 Senior Process Engineer: Selvin Dillon MD Platelet mean volume (Bld) [Entitic vol] 8.6 fL Normal 7.4-10.4 [facility] Comment on above: Performed By: #### 1 14100 #### [facility] [address] [place], [place] [address] Senior Process Engineer: Selvin Dillon MD RBC 5.18 x10 Normal 4.70-6.10 [facility] Comment on above: Result Comment: Note : RBC morphology is normal unless otherwise stated. Evaluation performed only if differential is requested. Performed By: #### 1 50270 #### [facility] [address] [place] [address] 84851 Senior Process Engineer: Selvin Dillon MD WBC 8.7 x10 Normal 4.5-11.0 [facility] Comment on above: Performed By: #### 1 06330 #### [facility] [address] [place] [address] Senior Process Engineer: Selvin Dillon MD HGB A1Con 02-06-2024 HbA1c (Bld) [Mass fraction] 10.1 % Normal [facility] Comment on above: Result Comment: Refe rence Range: Diabetic Greater than or equal to 6.5 % Prediabetic 5.7?6.4 % Normal Less than 5.7 % Performed By: #### 1 44809 #### [facility] [address] [place] [address] Senior Process Engineer: MD JOMAR Webb JR. Adult Hip Survey P re-Op - [employer] 02-06-2024 JR. JOMAR Adult Hip Survey Pre-Op - Macie HADLEY JR. Adult Hip Survey - Pre-op Entered On: 02/06/2024 16:05 EDT Performed On: 02/06/2024 15:30 EDT by Marcie Pereira JR. Adult Hip Survey 1. Going up or down stairs : Extreme 2. Walking on an uneven surface : Extreme 3. Rising from sitting : Extreme 4. Bending to floor/picker an object : Severe 5. Lying in bed (turning over, maintaining hip position) : Extreme 6. Sitting : Severe HOOS JR Raw Score (ref) : 22 HOOS JR Interval Score : 16 Marcie Pereira - 02/06/2024 16:05 EDT Normal [facility] OT PAT Instruction/Education -[employer] 02-06-2024 OT PAT Instruction/Educatio n-Text OT PAT Entered On: 02/06/2024 16:05 EDT Performed On: 02/06/2024 15:30 EDT by Marcie Preeira OT Surgery Date : 02/23/24 Prior Level of Function : Independent Printed Material Given to Patient : Total Hip Replacement Book Responsible Learner(s) : No Data Available Barriers To Learning : None evident TeachBack Methodology : Explanation, Printed Material, Video/Educational TV Marcie Pereira - 02/06/2024 16:03 EDT OT PAT Education Grid Activity of Daily Living Training : Needs practice/supervision Adaptive Equipment/DME : Needs practice/supervision Car Transfers : Needs practice/supervision Family Instructions : Needs practice/supervision Home Safety : Needs practice/supervision Plan of Care : Needs practice/supervision Toilet Transfers : Needs practice/supervision Tub / Shower Transfers : Needs practice/supervision Other : Needs practice/supervision Harriet BATISTA Marcie Howe 02/06/2024 16:03 EDT Additional Information OT : Pt planning for outpatient therapy post op. 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 Harriet BATISTAMarcie 02/06/2024 16:03 EDT Home Environment Living Environment : No Living Environment Information Available *Living Situation : Home with family care *Lives With : Spouse Lives In : Single level home Harriet BATISTAMarcie 02/06/2024 16:03 EDT Rehabilitation Stairs Grid Inside Stairs Outside Stairs Number of Stairs : 0 3 Stairs Rail : One Rail Harriet BATISTAMarcie 02/06/2024 16:03 EDT Harriet BATISTAMarcie 02/06/2024 16:03 EDT Primary Bedroom : 1st floor Primary Bathroom : 1st floor Kitchen : 1st floor Laundry : Basement (Comment: n/a [Harriet BATISTAMarcie 02/06/2024 16:03 EDT] ) Harriet BATISTAMarcie 02/06/2024 16:03 EDT Home Environment II Living Environment : No Living Environment Information Available Current Home Treatments : None Home Equipment Rehab : Grab bars, Lift chair Harriet BATISTAMarcie 02/06/2024 16:03 EDT Time Spent with Patient OT Time In : 14:30 EST OT Time Out : 15:30 EST OT Therapeutic Activities 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 Therapeutic Activities Units : 0 units OT Total Timed Code Treatment Units : 0 units OT Total Timed Code Treatment Minutes : 0 minutes 8 Min Rule Unit Check OT IP : 0 units OT Total Treatment Time Rehab : 0 minutes 8 Min Rule Unit Difference OT IP : 0 PMR Chart Review - OT : Yes Harriet BATISTAMarcie 02/06/2024 16:03 EDT Normal [facility] PT INRon 02-06-2024 INR Coag (PPP) [Relative time] 1.0 {INR} Normal [facility] Comment on above: Result Comment: INR Reference Range: Normal reference range for INR on patients not on anticoagulant therapy: 0.9-1.1 General therapeutic range for patients on anticoagulant therapy: 2.0-3.5 Performed By: #### 1 58415, 358195, 253412, 205961 #### [facility] [address] [place] [address] 44130 Senior Process Engineer: Selvin Dillon MD Protime Patient 10.9 seconds Normal 9.8-12.8 [facility] Comment on above: Performed By: #### 1 63863, 346577, 098434, 934786 #### [facility] [address] [place] [address] 44130 Senior Process Engineer: Selvin Dillon MD Preadmission Testing Progres s Noteon 02-06-2024 Preadmission Testing Progress Note PREADMISSION TESTING (PAT) INSTRUCTION SHEET [ X] Bring your Surgery Guide with you on day of surgery [ X ] Read and complete your Discharge Planning Checklist [ X ] Take only highlighted medications on morning of surgery [ X ] Stop all vitamins and herbal supplements 7 days prior to surgery (unless otherwise instructed) [ ] Call Surgeon when to stop taking the following: [X ] Total Joint Class: 02/06/24 at 2:30 (Herlinda Phi) [X ] Bring on day of surgery: Green blood band (in Surgery Guide) [X ] Additional instructions: No visitors will be allowed in pre-op or recovery on day of surgery *Any major change in your medical condition, that was treated by your primary physician or the result of an Emergency Room visit, must be reported to your surgeon. Normal [facility] UAon 02-06-2024 U MICRO Indicated Normal [facility] Comment on above: Performed By: #### 1 [id number] #### [facility] [address] [place] [address] 44130 Senior Process Engineer: Selvin Dillon MD Appearance, U Clear Normal [facility] Comment on above: Performed By: #### 1 [id number] #### [facility] [address] [place] [address] 19604 Senior Process Engineer: Selvin Dillon MD Bilirubin, U Negative Normal Negative [facility] Comment on above: Performed By: #### 1 96788 #### [facility] [address] [place] [address] 42737 Senior Process Engineer: Selvin Dillon MD Blood, U Small Abnormal Negative [facility] Comment on above: Performed By: #### 1 89866 #### [facility] [address] [place] [address] 32431 Senior Process Engineer: Selvin Dillon MD Color, U Yellow Normal [facility] Comment on above: Performed By: #### 1 77818 #### [facility] [address] [place] [id number] Senior Process Engineer: Selvin Dillon MD Glucose Qual, U >=500 mg/dl Abnormal Negative [facility] Comment on above: Performed By: #### 1 [id number] #### [facility] [address] [place] [id number] Senior Process Engineer: Selvin Dillon MD Ketones, U Negative Normal Negative [facility] Comment on above: Performed By: #### 1 [id number] #### [facility] [address] [place] [id number] Senior Process Engineer: Selvin Dillon MD Leukocyte Esterase, U Negative Normal Negative [facility] Comment on above: Performed By: #### 1 [id number] #### [facility] [address] [place] [address] Senior Process Engineer: Selvin Dillon MD Nitrite, U Negative Normal Negative [facility] Comment on above: Performed By: #### 1 [id number] #### [facility] [address] [place] [id number] Senior Process Engineer: Selvin Dillon MD pH, U 5.0 Normal 4.5-8.0 [facility] Comment on above: Performed By: #### 1 [id number] #### [facility] [address] [place] [id number] Senior Process Engineer: Selvin Dillon MD Protein, U Negative Normal Negative [facility] Comment on above: Performed By: #### 1 [id number] #### [facility] [address] [place] [address] 53263 Senior Process Engineer: Selvin Dillon MD RBC/HPF, U 2 #/HPF Normal 0-3 [facility] Comment on above: Performed By: #### 1 [id number] #### [facility] [address] [place], [place] [phone] Senior Process Engineer: Selvin Dillon MD Specific Mineral, U 1.028 Normal 1.001-1.035 [facility] Comment on above: Performed By: #### 1 [id number] #### [facility] [address] [place], [place] [phone] Senior Process Engineer: Selvin Dillon MD Urobilinogen Qual, U <2.0 mg/dl Normal <2.0 mg/dl [facility] Comment on above: Result Comment: EU/d l and mg/dl are equivalent units. Performed By: #### 1 [id number] #### [facility] [address] [place], [place] [phone] Senior Process Engineer: Selvin Dillon MD WBC/HPF, U <1 Normal 0-5 [facility] Comment on above: Performed By: #### 1 [id number] #### [facility] [address] [place] [phone] Senior Process Engineer: Selvin Dillon MD US venous duplex [facility] US venous duplex [facility] [address] [address] Ultrasound Report Signed Patient: Dali Huffman MR#: [id number] [birth year] : 1970 Acct:[id number] Age/Sex: 53 / M ADM Date: 12/19/23 Loc: Room: Type: [facility] Attending Dr: Rocky Lemon DO Ordering Provider: Rocky Lemon DO Date of Service: 12/19/23 US/US venous duplex LE LT: left lower extremity/ rule out blood clot Copies to: Rocky Lemon DO LEFT LOWER EXTREMITY VENOUS DUPLEX INDICATION: Left leg edema, pain and tenderness. Unilateral left lower extremity venous duplex Doppler study was obtained utilizing B-mode, color- flow and spectral Doppler. FINDINGS: The left common femoral, femoral, and popliteal veins showed adequate compressibility, color-flow and augmentation. The left posterior tibial and peroneal veins were compressible, as well as proximal greater saphenous vein. The contralateral right common femoral vein was compressible with color-flow and augmentation. US/US venous duplex LE LT IMPRESSION: NO EVIDENCE OF DEEP VENOUS THROMBOSIS IN THE LEFT LOWER EXTREMITY. NO SUPERFICIAL THROMBOPHLEBITIS WAS NOTED. Impression dictated by: Venu Islas MD12/20/2023 2:52 PM Dictation Location: [facility]- Tech: Laila Rafael Transcribed By: CHECO 12/20/23 145 Dictated By: Venu Islas MD 12/20/23 145 Signed By: 12/20/23 145 Normal [facility] GLYCOHEMOGLOBIN A1Con 2020 ADA RECOMMENDATION ADA THERAPEUTIC TARG ET 6.0 - 7.0 ACTION SUGGESTED > 7.0 Normal [facility] [place] Comment on above: Performed By: #### D ATA1C #### [facility] [address] [place] [address] Dr. Ahmet Mcghee Glucose [Mass/Vol] 283 mg/dL Normal [facility] Comment on above: Performed By: #### D ATA1C #### [facility] [address] [address] [address] Ahmet Mcghee HbA1c (Bld) [Mass fraction] 11.5 % Critically high <=6.0 [facility] [place] Comment on above: Performed By: #### D ATA1C #### [facility] [address] [address] [address] Ahmet Mcghee CBC AUTO DIFFon 08-10-2021 BASO # 0.1 103/ul Normal 0.0-0.1 [facility] [place] Comment on above: Performed By: #### C BC #### [facility] [address] [address] [address] Ahmet Mcghee Basophils/100 WBC (Bld) 0.9 % Normal 0.2-2.0 [facility] [place] Comment on above: Performed By: #### C BC #### [facility] [address] [address] [address] Ahmet Mcghee EO # 0.1 103/ul Normal 0.0-0.7 [facility] [place] Comment on above: Performed By: #### C BC #### [facility] [address] [place] [address] Dr. Ahmet Mcghee Eosinophils/100 WBC (Bld) 1.2 % Normal 0.9-7.0 [facility] [place] Comment on above: Performed By: #### C BC #### [facility] [address] [place] [address] Dr. Ahmet Mcghee Erythrocyte distribution width (RBC) [Ratio] 12.9 % Normal 11.0-15.0 [facility] [place] Comment on above: Performed By: #### C BC #### [facility] [address] [place] [address] Dr. Ahmet Mcghee Hematocrit (Bld) [Volume fraction] 46.7 % Normal 42.0-54.0 [facility] [place] Comment on above: Performed By: #### C BC #### [facility] [address] [place] [address] Dr. Ahmet Mcghee Hemoglobin (Bld) [Mass/Vol] 16.1 g/dL Normal 14.0-18.0 [facility] [place] Comment on above: Performed By: #### C BC #### [facility] [address] [place] [address] Dr. Ahmet Mcghee IG # 0.07 10e3/ul Critically high 0.00-0.03 [facility] Comment on above: Performed By: #### C BC #### [facility] [address] [place] [address] Dr. Ahmet Mcghee IG % 0.9 % Critically high 0.0-0.5 [facility] Comment on above: Performed By: #### C BC #### [facility] [address] [place] [address] Dr. Ahmet Mcghee LYMPH # 2.2 103/ul Normal 1.2-3.8 [facility] [place] Comment on above: Performed By: #### C BC #### [facility] [address] [place] [address] Dr. Ahmet Mcghee Lymphocytes/100 WBC (Bld) 30.3 % Normal 20.5-60.0 [facility] [place] Comment on above: Performed By: #### C BC #### [facility] [address] [place] [address] Dr. Ahmet Mcghee MANUAL DIFF REQ NO Normal [facility] Comment on above: Performed By: #### C BC #### [facility] [address] [place] [address] Dr. Ahmet Mcghee MCH (RBC) [Entitic mass] 29.3 pg Normal 25.9-34.0 [facility] [place] Comment on above: Performed By: #### C BC #### [facility] [address] [place] [address] Dr. Ahmet Mcghee MCHC (RBC) [Mass/Vol] 34.5 g/dL Normal 29.9-35.2 [facility] [place] Comment on above: Performed By: #### C BC #### [facility] [address] [place] [address] Dr. Ahmet Mcghee MCV (RBC) [Entitic vol] 84.9 fL Normal 80.0-94.0 [facility] [place] Comment on above: Performed By: #### C BC #### [facility] [address] [place] [address] Dr. Ahmet Mcghee MONO # 0.6 103/ul Normal 0.3-0.8 [facility] [place] Comment on above: Performed By: #### C BC #### [facility] [address] [place] [address] Dr. Ahmet Mcghee Monocytes/100 WBC (Bld) 8.0 % Normal 1.7-12.0 [facility] [place] Comment on above: Performed By: #### C BC #### [facility] [address] [place] [address] Dr. Ahmet Mcghee NEUT # 4.3 103/ul Normal 1.4-6.5 [facility] [place] Comment on above: Performed By: #### C BC #### [facility] [address] [place] [address] Dr. Ahmet Mcghee Neutrophils/100 WBC (Bld) 58.7 % Normal 43.0-75.0 [facility] [place] Comment on above: Performed By: #### C BC #### [facility] [address] [place] [address] Dr. Ahmet Mcghee Platelet mean volume (Bld) [Entitic vol] 10.7 fL Normal 9.5-13.5 [facility] Comment on above: Performed By: #### C BC #### [facility] [address] [place] [address] Dr. Ahmet Mcghee PLT 249 103/ul Normal 150-450 [facility] Comment on above: Performed By: #### C BC #### [facility] [address] [place] [address] Dr. Ahmet Mcghee RBC 5.50 106/ul Normal 4.70-6.10 [facility] Comment on above: Performed By: #### C BC #### [facility] [address] [place] [address] Dr. Ahmet Mcghee WBC 7.4 103/ul Normal 4.0-11.0 [facility] Comment on above: Performed By: #### C BC #### [facility] [address] [place] [address] Dr. Ahmet Mcghee CPKon 08-10-2021 CK [Catalytic activity/Vol] 49 U/L Critically low 55-170 [facility] Comment on above: Performed By: #### C K #### [facility] [address] [place] [address] HEAD WO CONon 08-10-[address] CT HEAD WO CON CT HEAD WO CON, CT CSPINE WO CON CLINICAL HISTORY: Head pain/headache for 3 weeks. Blurred vision. Tingling in toes and fingers. COMPARISON: None Available. CT HEAD TECHNIQUE: Noncontrast axial CT images of the brain were obtained from the vertex through the skull base. Sagittal and coronal reconstructions. Bone and brain windows are provided for review. Dose reduction techniques were achieved by using automated exposure control and/or adjustment of mA and/or kV according to patient size and/or use of iterative reconstruction technique. CT HEAD FINDINGS: Ventricles and sulci are unremarkable for patient age. No mass, midline shift, acute bleed, or extra-axial fluid collection. No CT evidence of acute large territorial infarction. Visualized paranasal sinuses are clear. Mastoid air cells are well aerated. The scalp, calvarium and orbital contents are free of disease. CT CERVICAL TECHNIQUE: Noncontrast axial CT images of the cervical spine were obtained. Sagittal and coronal reconstructions were provided for review. CT CERVICAL FINDINGS: Cervical spine is intact with no fracture. Minimal degenerative grade 1 anterolisthesis 4 on C5. Normal prevertebral soft tissue thickness. Slight posterior ridging at a few levels but patent central canal. Mild uncovertebral spurring and right early facet arthropathy at a few levels but patent bilateral foramina. Temporomandibular joints maintained. Lower mastoid air cells are aerated. Carotid artery calcifications. Visualized lung apices clear. IMPRESSION: No acute process noncontrast head CT. No acute cervical spine trauma. Degenerative changes as above. Electronically authenticated by: YAO STRONG Date: 2021-08-10 18:17 Normal [facility] PROF 14(COMP METB)on 021 Albumin [Mass/Vol] 3.6 g/dL Normal 3.5-5.0 [facility] Comment on above: Performed By: #### C WILFRED HSTROPN #### [facility] [address] [address] [address] Ahmet Mcghee Albumin/Globulin [Mass ratio] 0.9 {ratio} Normal [facility] [place] Comment on above: Performed By: #### C WILFRED, HSTROPN #### [facility] [address] [place], [place] [address] Dr. Ahmet Mcghee ALP [Catalytic activity/Vol] 120 U/L Normal 38-126 [facility] Comment on above: Performed By: #### C WILFRED, HSTROPN #### [facility] [address] [place] [address] Dr. Ahmet Mcghee ALT [Catalytic activity/Vol] 26 U/L Normal 21-72 [facility] Comment on above: Performed By: #### C WILFRED, HSTROPN #### [facility] [address] [place] [address] Dr. Ahmet Mcghee Anion gap [Moles/Vol] 13.4 mmol/L Normal [facility] Comment on above: Performed By: #### C WILFRED, HSTROPN #### [facility] [address] [place] [address] Dr. Ahmet Mcghee AST [Catalytic activity/Vol] 10 U/L Critically low 17-59 [facility] [place] Comment on above: Performed By: #### C WILFRED, HSTROPN #### [facility] [address] [place] [address] Dr. Ahmet Mcghee Bilirubin [Mass/Vol] 0.3 mg/dL Normal 0.2-1.3 [facility] Comment on above: Performed By: #### C WILFRED, HSTROPN #### [facility] [address] [place] [address] Dr. Ahmet Mcghee Calcium [Mass/Vol] 9.2 mg/dL Normal 8.4-10.2 [facility] Comment on above: Performed By: #### C WILFRED, HSTROPN #### [facility] [address] [place] [address] Dr. Ahmet Mcghee Chloride [Moles/Vol] 98 mmol/L Normal 98-107 [facility] Comment on above: Performed By: #### C WILFRED, HSTROPN #### [facility] [address] [place] [address] Dr. Ahmet Mcghee CO2 [Moles/Vol] 26.6 mmol/L Normal 22.0-30.0 [facility] Comment on above: Performed By: #### C WILFRED, HSTROPN #### [facility] [address] [address] [address] Ahmet Mcghee Creatinine [Mass/Vol] 0.85 mg/dL Normal 0.66-1.25 [facility] [place] Comment on above: Performed By: #### C MP, HSTROPN #### [facility] [address] [address] [address] Ahmet Mcghee EGFR-AF NEPALESE >60 Normal >=60 [facility] Comment on above: Performed By: #### C MP, HSTROPN #### [facility] [address] [address] [address] Ahmet Mcghee EGFR-NON AF NEPALESE >60 Normal >=60 [facility] [place] Comment on above: Performed By: #### C MP, HSTROPN #### [facility] [address] [place] [address] Dr. Ahmet Mcghee Globulin (S) [Mass/Vol] 4.1 g/dL Normal [facility] [place] Comment on above: Performed By: #### C MP, HSTROPN #### [facility] [address] [address] [address] Ahmet Mcghee Glucose [Mass/Vol] 392 mg/dL Critically high 74-106 T [facility] Comment on above: Performed By: #### C WILFRED, HSTROPN #### [facility] [address] [address] [address] Ahmet Mcghee Potassium [Moles/Vol] 4.0 mmol/L Normal 3.4-5.0 [facility] Comment on above: Performed By: #### C MP, HSTROPN #### [facility] [address] [address] [address] Ahmet Mcghee Protein [Mass/Vol] 7.7 g/dL Normal 6.1-8.2 [facility] Comment on above: Performed By: #### C MP, HSTROPN #### [facility] [address] [address] [address] Ahmet Mcghee Sodium [Moles/Vol] 134 mmol/L Critically low 137-145 [facility] Comment on above: Performed By: #### C MP, HSTROPN #### [facility] [address] [place], [place] [address] Dr. Ahmet Mcghee Urea nitrogen [Mass/Vol] 14.0 mg/dL Normal 9.0-20.0 [facility] Comment on above: Performed By: #### C MP, HSTROPN #### [facility] [address] [address] [address] Ahmet Mcghee Urea nitrogen/Creatinine [Mass ratio] 16.5 mg/mg Normal [facility] Comment on above: Performed By: #### C MP, HSTROPN #### [facility] [address] [address] [address] Ahmet Mcghee TROPONIN, HIGH SENSITIVITYon 08-10-2021 HSTROP 7.6 pg/mL Normal 4.0-42.2 [facility] [place] Comment on above: Result Comment: CUT- OFF POINTS HAVE BEEN ESTABLISHED BASED ON THE FOURTH UNIVERSAL DEFINITIONS OF MYOCARDIAL INFARCTION. THE UPPER REFERENCE LIMIT (URL) OF TROPONIN, DEFINED THE 99TH PERCENTILE OF cTnI DISTRIBUTION IN A REFERENCE POPULATION, HAS BEEN CONFIRMED THE DECISION THRESHOLD FOR NC DIAGNOSIS. Performed By: #### C MP, HSTROPN #### [facility] [address] [address] [address] Ahmet Mcghee Vital Signs Date Time Vital Sign Value Performing Clinician Facility 03-26-2024 17:35-0400 Body height 170.18 cm [facility] 03-26-2024 17:35-0400 Body mass index (BMI) [Ratio] 36.5 kg/m2 [facility] 03-26-2024 17:35-0400 Body temperature 97.2 [degF] [facility] 03-26-2024 17:35-0400 Body weight 105.68 kg [facility] 03-26-2024 17:35-0400 Diastolic blood pressure 88 mm[Hg] [facility] 03-26-2024 17:35-0400 Heart rate 95 /min [facility] 03-26-2024 17:35-0400 SaO2% (BldA) [Mass fraction] 98 % [facility] 03-26-2024 17:35-0400 Systolic blood pressure 138 mm[Hg] [facility] 02-08-2024 09:47-0400 Body height 170.18 cm DO Rocky Lemon Work Phone: [facility] 02-08-2024 09:47-0400 Body mass index (BMI) [Ratio] 36.6 kg/m2 DO Rocky Lemon Work Phone: [facility] 02-08-2024 09:47-0400 Body temperature 97.5 [degF] DO Rocky Lemon Work Phone: [facility] 02-08-2024 09:47-0400 Body weight 106.14 kg DO Rocky Lemon Work Phone: [facility] 02-08-2024 09:47-0400 Diastolic blood pressure 82 mm[Hg] DO Rocky Lemon Work Phone: [facility] 02-08-2024 09:47-0400 Heart rate 84 /min DO Rocky Lemon Work Phone: [facility] 02-08-2024 09:47-0400 SaO2% (BldA) [Mass fraction] 98 % DO Rocky Lemon Work Phone: [facility] 02-08-2024 09:47-0400 Systolic blood pressure 130 mm[Hg] DO Rocky Lemon Work Phone: [facility] 12-12-2023 10:31-0500 Body temperature 98.2 [degF] DO Rocky Lemon Work Phone: [facility] 12-12-2023 10:31-0500 Body weight 109.76 kg DO Rocky Lemon Work Phone: [facility] 12-12-2023 10:31-0500 Diastolic blood pressure 94 mm[Hg] DO Rocky Lemon Work Phone: [facility] 12-12-2023 10:31-0500 SaO2% (BldA) [Mass fraction] 95 % DO Rocky Lemon Work Phone: [facility] 12-12-2023 10:31-0500 Systolic blood pressure 146 mm[Hg] DO Rocky Lemon Work Phone: [facility] 02-10-2023 09:10-0400 Body height 170.18 cm Rocky Lemon Other [facility] [employer] Other 02-10-2023 09:10-0400 Body mass index (BMI) [Ratio] 38.82 kg/m2 Rocky Lemon Other [facility] Other 02-10-2023 09:10-0400 Body temperature 97.3 [degF] Rocky Lemon Other [facility] Other 02-10-2023 09:10-0400 Body weight 112.45 kg Rocky Lemon Other [facility] Other 02-10-2023 09:10-0400 Diastolic blood pressure 104 mm[Hg] Rocky Lemon Other [facility] Other 02-10-2023 09:10-0400 Respiratory rate 18 /min Rocky Lemon Other [facility] Other 02-10-2023 09:10-0400 SaO2% (BldA) [Mass fraction] 98 % Rocky Lemon Other [facility] Other 02-10-2023 09:10-0400 Systolic blood pressure 148 mm[Hg] Rocky Lemon Other [facility] Other 11-19-2022 13:50-0500 Body height 170.18 cm Rocky Lemon Other [facility] Other 11-19-2022 13:50-0500 Body mass index (BMI) [Ratio] 38.52 kg/m2 Rocky Lemon Other [facility] Other 11-19-2022 13:50-0500 Body temperature 96.9 [degF] Rocky Nayanbaldemar Other [facility] Other 11-19-2022 13:50-0500 Body weight 111.59 kg Rocky Lemon Other [facility] Other 11-19-2022 13:50-0500 Diastolic blood pressure 100 mm[Hg] Rocky Nayanbaldemar Other [facility] Other 11-19-2022 13:50-0500 Respiratory rate 18 /min Rocky Nayanbaldemar Other [facility] Other 11-19-2022 13:50-0500 SaO2% (BldA) [Mass fraction] 99 % Rocky Mitch Other [facility] Other 11-19-2022 13:50-0500 Systolic blood pressure 148 mm[Hg] Rocky Nayanbaldemar Other [facility] Other 10-08-2022 10:10-0500 Body height 170.18 cm Rocky Lemon Other [facility] Other 10-08-2022 10:10-0500 Body mass index (BMI) [Ratio] 37.9 kg/m2 Rocky Nayanbaldemar Other [facility] Other 10-08-2022 10:10-0500 Body temperature 96.8 [degF] Rocky Lemon Other [facility] Other 10-08-2022 10:10-0500 Body weight 109.77 kg Rocky Lemon Other [facility] Other 10-08-2022 10:10-0500 Diastolic blood pressure 96 mm[Hg] Rocky Nayanbaldemar Other [facility] Other 10-08-2022 10:10-0500 Respiratory rate 18 /min Rocky Nayanbaldemar Other [facility] Other 10-08-2022 10:10-0500 SaO2% (BldA) [Mass fraction] 96 % Rocky Nayanbaldemar Other [facility] Other 10-08-2022 10:10-0500 Systolic blood pressure 144 mm[Hg] Rocky Lemon Other [facility] Other 07-09-2022 09:30-0400 Body height 170.18 cm Rocky Lemon Other [facility] Other 10-26-2021 11:00-0500 Body height 170.18 cm Manuelito Arana Other [facility] Other 10-26-2021 11:00-0500 Body mass index (BMI) [Ratio] 38.68 kg/m2 Manuelito Arana Other [facility] Other 10-26-2021 11:00-0500 Body weight 112.04 kg Manuelito Arana Other [facility] Other 10-26-2021 11:00-0500 Diastolic blood pressure 80 mm[Hg] Manuelito Arana Other [facility] Other 10-26-2021 11:00-0500 Systolic blood pressure 140 mm[Hg] Manuelito Arana Other [facility] Other Encounters Encounter Date Encounter Type Care Provider Facility Start: 04-24-2024 End: 04-24-2024 ambulatory FELIX WRIGHT MD Facility:[id number] Start: 04-17-2024 End: 04-18-2024 ambulatory FELIX WRIGHT MD Facility:[id number] Start: 03-26-2024 End: 03-26-2024 ambulatory [facility] Work Phone: Start: 03-26-2024 End: 03-26-2024 Patient encounter procedure [facility] Work Phone: Start: 03-24-2024 End: 03-24-2024 ambulatory FELIX WRIGHT MD Facility:[id number] Start: 02-08-2024 Patient encounter status DO Terell Lemon Work Phone: [facility] Start: 02-08-2024 End: 02-08-2024 ambulatory DO Rocky Lemon Work Phone: [facility] Work Phone: Start: 02-08-2024 End: 02-08-2024 Patient encounter procedure DO Rocky Lemon Work Phone: [facility] Work Phone: Start: 12-19-2023 End: 12-19-2023 Patient encounter procedure DO Rocky Lemon Work Phone: [facility] Work Phone: Start: 12-19-2023 End: 12-19-2023 ambulatory Rocky Lemon Facility:[facility] Start: 12-12-2023 End: 12-12-2023 Patient encounter procedure DO Rocky Lemon Work Phone: [facility] Work Phone: Start: 11-07-2023 End: 11-07-2023 ambulatory Rocky Lemon Other [facility] Other Start: 11-07-2023 Telephone encounter Rocky Lemon [facility] [place] Start: 09-02-2023 End: 09-02-2023 ambulatory Rocky Lemon Other [facility] Other Start: 09-02-2023 Telephone encounter Rocky Lemon [facility] Start: 06-17-2023 End: 06-17-2023 ambulatory Rocky Lemon Other [facility] Other Start: 06-17-2023 Telephone encounter Rocky Lemon [facility] Start: 05-27-2023 End: 05-27-2023 ambulatory Rocky Lemon Other [facility] Other Start: 05-27-2023 Telephone encounter Rocky Lemon [facility] [place] Start: 02-23-2023 End: 02-23-2023 ambulatory Rocky Lemon Other [facility] Other Start: 02-23-2023 Telephone encounter Rocky Lemon [facility] [place] Start: 02-10-2023 End: 02-10-2023 ambulatory Rocky Lemon Other [facility] Other Start: 02-10-2023 Office outpatient vi sit 15 minutes Rocky Lemon [facility] [place] Start: 02-04-2023 End: 02-04-2023 ambulatory Rocky Lemon Other [place] Other Start: 02-04-2023 Telephone encounter Rocky Lemon [facility] [place] Start: 12-29-2022 End: 12-29-2022 ambulatory Rocky Lemon Other [place] Other Start: 12-29-2022 Telephone encounter Rocky Lemon [facility] [place] Start: 11-29-2022 End: 11-29-2022 ambulatory Rocky Lemon Other [place] Other Start: 11-29-2022 Telephone encounter Rocky Lemon [facility] [place] Start: 11-19-2022 End: 11-19-2022 ambulatory Rocky Mitch Other [place] Other Start: 11-19-2022 Patient encounter procedure Rocky Lemon [facility] [place] Start: 10-08-2022 End: 10-08-2022 ambulatory Rocky Lemon Other [place] Other Start: 10-08-2022 Office outpatient vi sit 10 minutes Rocky Nayanbaldemar [facility] [place] Start: 10-08-2022 Telephone encounter Rocky Lemon [facility] [place] Start: 08-31-2022 End: 08-31-2022 ambulatory Rocky Lemon Other [place] Other Start: 08-31-2022 Telephone encounter Rocky Lemon [facility] [place] Start: 08-09-2022 End: 08-09-2022 ambulatory Rocky Lemon Other [place] Other Start: 08-09-2022 Telephone encounter Rocky Lemon [facility] [place] Start: 07-09-2022 End: 07-09-2022 ambulatory Rocky Lemon Other [place] Other Start: 07-09-2022 Telephone encounter Rocky Lemon [facility] [place] Start: 06-04-2022 End: 06-04-2022 ambulatory Rocky Lemon Other [place] Other Start: 06-04-2022 Telephone encounter Rocky Lemon [facility] [place] Start: 05-03-2022 End: 05-03-2022 ambulatory Rocky Lemon Other [place] Other Start: 05-03-2022 Telephone encounter Rocky Spicerbaldemar [facility] [place] Start: 04-08-2022 End: 04-08-2022 ambulatory Rocky Lemon Other [place] Other Start: 04-08-2022 Telephone encounter Rocky Lemon [facility] [place] Start: 03-23-2022 End: 03-23-2022 ambulatory Rocky Lemon Other [place] Other Start: 03-23-2022 Telephone encounter Rocky Lemon [facility] [place] Start: 12-29-2021 End: 12-29-2021 ambulatory Rocky Lemon Other [place] Other Start: 12-29-2021 Telephone encounter Rocky Lemon [facility] [place] Start: 11-30-2021 End: 11-30-2021 ambulatory Rocky Lemon Other [place] Other Start: 11-30-2021 Telephone encounter Rocky Lemon [facility] [place] Start: 11-19-2021 End: 11-19-2021 ambulatory Rocky Lemon Other [place] Other Start: 11-19-2021 Telephone encounter Rocky Lemon [facility] [place] Start: 11-11-2021 End: 11-11-2021 ambulatory Rocky Lemon Other [place] Other Start: 11-11-2021 Telephone encounter Rocky Lemon [facility] [place] Start: 10-30-2021 End: 10-30-2021 ambulatory Rocky Nayanbaldemar Other [place] Other Start: 10-30-2021 Telephone encounter Rocky Lemon [facility] [place] Start: 10-26-2021 End: 10-26-2021 ambulatory Manuelito Arana Other [place] Other Start: 10-26-2021 Office consultation new/estab patient 60 min Manuelito Arana [facility] Start: 08-20-2021 End: 08-21-[address] NONE LISTED REQUEST Facility: Start: 08-10-2021 End: 08-10-[address] ROCKY LEMON Facility:[facility]1 Procedures Date Procedure Procedure Detail Performing Clinician Start: 12-19-2023 Duplex scan of lower limb veins DO Rocky Lemon Work Phone: Payers Date Payer Category Payer Self-pay [id number] 2023 Unknown [id number] 1970 Unknown [id number] 1970 Unknown [id number] 1970 Unknown [id number] [id number] 1970 Unknown [id number] [id number] 1961 Self-pay [id number] Medicaid Medicaid [id number] Unknown [id number] [id number] Unknown Unknown [id number] [id number] Social History Date Type Detail Facility Unknown if ever smoked [place] Other Sex Assigned At Sex Assigned At Bir th [place] Other Start: 02-08-2024 Tobacco smoking status NHIS Never smoked tobacco (finding) [facility] Start: 1970 Sex Assigned At Male F [facility] Clinical Notes 10-26-2021 to 05-03-2024 Note Date & Type Note Facility 05-03-2024 Note Patient: DALI HUFFMAN Age: 54 years Sex: Male : 1970 Associated Diagnoses: None Author: VINCENT ALVARENGA PA-C Results Review Labs (Last four charted values) WBC 7.7 (APR 18) 7.1 (APR 09) Hgb L 11.2 (APR 18) 13.9 (APR 09) Hct L 32.8 (APR 18) 41.3 (APR 09) Plt 202 (APR 18) 256 (APR 09) Na 140 (APR 18) 140 (APR 09) K 4.2 (APR 18) 4.4 (APR 09) CO2 25.0 (APR 18) 28.0 (APR 09) Cl H 108 (APR 18) 105 (APR 09) Cr 0.8 (APR 18) 0.8 (APR 09) BUN 17 (APR 18) 19 (APR 09) Glucose Random H 183 (APR 18) 103 (APR 09) Ca L 8.3 (APR 18) 9.6 (APR 09) INR 1.0 (APR 09) Subjective Pt reports pain controlled. No current complaints. Objective LLE: dressing c/d/i, able to flex and extend foot and toes Assessment POD#1 s/p Left Total Hip Arthroplasty Plan 1. Patient recovered faster than to be expected. D/C home today. F/U in two weeks. As expected postop anemia. Wheeled walker needed for stability with ambulation. Electronically Co-Signed by: FELIX WRIGHT MD on 05/03/2024 15:03 EDT [facility] 04-18-2024 Note Education Diabetes E ntered On: 04/17/2024 17:26 EDT Performed On: 04/17/2024 17:26 EDT by Barron Castañead RPh Education Barriers to Learning : None evident TeachBack Methodology : TeachBack TeachBack Notes : no changes to diabetic meds, pt dc today 04/17 dk: a1c from january 31., on metformin. no endo consult as of now Barron Castañeda RPh - 04/18/2024 14:04 EDT [facility] 04-18-2024 Note Patient Education Ma ally Learning About Using an Incentive Spirometer What is an incentive spirometer? An incentive spirometer is a handheld device that exercises your lungs and measures how much air you can breathe in. It tells you and your doctor how well your lungs are working. The spirometer can help you practice taking deep breaths. Deep breaths can help open your airways and prevent fluid or mucus from building up in your lungs, and make it easier for you to breathe. Using the device can help prevent serious lung infections like pneumonia, improve your breathing after you've had pneumonia or surgery, and keep your airways open and lungs active if you can't get out of bed. How do you use an incentive spirometer? When you use an incentive spirometer, you breathe in air through a tube that is connected to a large air column containing a piston or ball. As you breathe in, the piston or ball inside the column moves up. The height of the piston or ball shows how much air you breathed in. You may feel lightheaded when you breathe in deeply for this exercise. If you feel dizzy or feel like you're going to pass out, stop the exercise and rest. Each time you do this exercise, keep track of your progress by writing down how high the piston or ball moves up the column. 1. Move the slider on the outside of the large column to the level that you want to reach or that your doctor recommended. 2. Sit or stand up straight, and hold the spirometer in front of you. Be sure to keep it level. 3. To start, breathe out normally. Then close your lips tightly around the mouthpiece. Make sure that you don't block the mouthpiece with your tongue. 4. Take a slow, deep breath. Breathe in as deeply as you can. As you breathe in, the piston or ball inside the large column will move up. 1. Try to move the piston or ball as high up as you can or to the level your doctor recommended. 2. When you can't breathe in anymore, hold your breath for 2 to 5 seconds. 5. Relax, take the mouthpiece out of your mouth, and breathe out normally. 6. Repeat steps 1 through 5 as many times as your doctor tells you to. 7. After you've taken the recommended number of breaths, try to cough a few times. This will help loosen any mucus that has built up in your lungs. It will make it easier for you to breathe. If you just had surgery on your belly or chest, hold a pillow over your cut (incision) when you cough. Follow-up care is a price part of your treatment and safety. Be sure to make and go to all appointments, and call your doctor if you are having problems. It's also a good idea to know your test results and keep a list of the medicines you take. Where can you learn more? Go to https://www.[employer].net/patientEd Enter B979 in the search box to learn more about Learning About Using an Incentive Spirometer. Current as of: December 30, 2021 Content Version: 13.3 ? [employer]. Care instructions adapted under license by your healthcare professional. If you have questions about a medical condition or this instruction, always ask your healthcare professional. [employer] disclaims any warranty or liability for your use of this information. Pulmonology Learning About Using an Incentive Spirometer What is an incentive spirometer? An incentive spirometer is a handheld device that exercises your lungs and measures how much air you can breathe in. It tells you and your doctor how well your lungs are working. The spirometer can help you practice taking deep breaths. Deep breaths can help open your airways and prevent fluid or mucus from building up in your lungs, and make it easier for you to breathe. Using the device can help prevent serious lung infections like pneumonia, improve your breathing after you've had pneumonia or surgery, and keep your airways open and lungs active if you can't get out of bed. How do you use an incentive spirometer? When you use an incentive spirometer, you breathe in air through a tube that is connected to a large air column containing a piston or ball. As you breathe in, the piston or ball inside the column moves up. The height of the piston or ball shows how much air you breathed in. You may feel lightheaded when you breathe in deeply for this exercise. If you feel dizzy or feel like you're going to pass out, stop the exercise and rest. Each time you do this exercise, keep track of your progress by writing down how high the piston or ball moves up the column. 1. Move the slider on the outside of the large column to the level that you want to reach or that your doctor recommended. 2. Sit or stand up straight, and hold the spirometer in front of you. Be sure to keep it level. 3. To start, breathe out normally. Then close your lips tightly around the mouthpiece. Make sure that you don't block the mouthpiece with your tongue. 4. Take a slow, deep breath. Breathe in as deeply as you can. As you breathe in, the (more content not included)... [facility] 04-18-2024 Note Nursing Discharge Grace mmary Entered On: 04/18/2024 12:03 EDT Performed On: 04/18/2024 12:03 EDT by Sharmila Pantoja LPN, [place] Information Discharged to : Home Mode of Discharge : Wheelchair Discharge Transportation : Private vehicle Belongings Sent Home With : clothes and all other personal belongings Reg VTE Warfarin at Discharge : No Sharmila Pantoja LPN 04/18/2024 13:14 EDT *Home Equipment : Walker Sharmila Pantoja LPN 04/18/2024 12:03 EDT Education Instructions given to : Patient TeachBack Methodology : TeachBack, Demonstration, Explanation, Printed Material Barriers to Learning : None evident Sharmila Pantoja LPN 04/18/2024 13:14 EDT Post-Hospital Education Adult Grid Bladder Management : Verbalizes understanding Bowel Management : Verbalizes understanding Diagnostic Results : Verbalizes understanding Disease Process : Verbalizes understanding Equipment/Devices : Verbalizes understanding Importance of Follow-Up Visits : Verbalizes understanding Invasive Line Care : Verbalizes understanding Pain Management : Verbalizes understanding Physical Limitations : Verbalizes understanding Plan of Care : Verbalizes understanding Sharmila Pantoja LPN 04/18/2024 13:14 EDT Health Maintenance Education Adult Grid Bathing/Hygiene : Verbalizes understanding Diet/Nutrition : Verbalizes understanding Exercise : Verbalizes understanding Sharmila Pantoja LPN 04/18/2024 13:14 EDT Medication Education Adult Grid Med Generic/Brand Name, Purpose, Action : Verbalizes understanding Sharmila Pantoja LPN 04/18/2024 13:14 EDT Safety Education Adult Grid Safety, Fall : Verbalizes understanding Sharmila Pantoja LPN 04/18/2024 13:14 EDT Additional Session Learner/s Present : Spouse Sharmila Pantoja LPN 04/18/2024 13:14 EDT [facility] 04-17-2024 Note OT Inpatient Evaluat ion Acute Entered On: 04/17/2024 15:40 EDT Performed On: 04/17/2024 13:28 EDT by Zee Rojas Reason for Treatment Past Medical History OT : HTN, 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 Patients do not require a PAR score (post anesthesia recovery)., Discontinued Consult Physician, 04/17/2024 07:55:00 EDT, METAL TREATER , 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, post op, Completed [facility] Nutrition Task to Nursing, 04/17/2024 07:55:00 EDT, Advance to House diet when bowel sounds return, Discontinue Full Liquid diet when able to advance, order House diet., 04/17/2024 07:55:00 EDT, Completed Oxygen Therapy, 04/17/2024 07:55:00 EDT, Nasal Cannula, 3L, Constant Order, overnight if SpO2 less than 95%, Ordered Oxygen Therapy, 04/17/2024 07:55:00 EDT, Simple Mask, 100%, Constant Order, in PACU, wean Oxygen to room air to baseline SpO2, Discontinued Post Procedure Location of Care, 04/17/2024 07:42:00 EDT, [facility], Ordered History and Physical by House Physician, 04/09/2024 13:57:00 EDT, 04/09/2024 13:57:00 EDT, Ordered Obtain Consent, 04/09/2024 13:57:00 EDT, Obtain Blood Transfusion Consent, Ordered Pain Present : Yes actual or suspected pain Orientation Assessment : Oriented x 4 Affect/Behavior : Appropriate, Alert, Calm, Cooperative, Oriented Ability to Make Needs Known OT : Yes Safety/Judgment : Intact Basic Command Following : Intact AR LE Weight Bearing : Full weight bearing AR LE Laterality : Left Culture/Spiritual Beliefs to Incorporate : No Juliette Rojas04/17/2024 15:21 EDT Pain Assessment Pain Location : Incisional Laterality : Left Quality : Incisional Time Pattern : Acute Question Ability to Self Report Pain : No Self Report Pain : Numeric rating scale Numeric Pain Scale : 5 = Moderate pain Numeric Pain Score : 5 Zee Rojas 04/17/2024 15:21 EDT Home Environment Living Environment : Home Environment Sensory Deficits: None Performed By: Venu Thibodeaux RN 04/17/2024 *Living Situation : Home Independently *Lives With : Child(vernon), Spouse Lives In : Single level home Zee Rojas 04/17/2024 15:21 EDT Rehabilitation Stairs Grid Outside Stairs Number of Stairs : 3 Rail : Rail on right going up Zee Rojas 04/17/2024 15:21 EDT Home Setup Grid Primary Bedroom : 1st floor Primary Bathroom : 1st floor Kitchen : 1st floor Laundry : Basement Haile PRESCOTT Zee 04/17/2024 15:21 EDT Patient's Responsibilities 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, 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, 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, 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, 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, Laundry, Leisure/Play/Hobbies, Manage Medications, Meal preparation, Personal ADL, Shopping, Social participation 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 [employer] Zee Rojas 04/17/2024 15:21 EDT Home Environment II Living Environment : Home Environment Sensory Deficits: None Performed By: Venu Thibodeaux RN 04/17/2024 Devices/Equipment at Home : Axillary crutches, Grab bars - shower, Grab bars - toilet, Handheld Shower Head, Lift chair, Grid Casting Machine Operator Helper, Rolling walker, Shower - walk-in, Toilet - high Zee Rojas 04/17/2024 15:21 EDT Prior Functional Status Grid ADL : Independent Mobility : Independent Instrumental ADL : Independent Cognitive-Communication Skills : Independent Haile DESAI/L, Zee - 04/17/2024 15:21 EDT Additional Information : Pt reports spouse is able to assist prn upon d/c. Denies falls. Haile MOTR/L, Zee - 04/17/2024 15:21 EDT Basic ADL Basic ADL Grid Eating : Complete I Grooming : Setup (Comment: seated/simulated [Haile MOTR/L, 04/17/2024 15:21 EDT] ) Bathing : Mod A (Comment: without DME [Haile MOTR/L, Zee - 04/17/2024 15:21 EDT] ) UE Dressing : Setup LE Dressing : Mod A (Comment: without DME [Haile MOTR/L, Zee - 04/17/2024 15:21 EDT] ) Transfer Toilet : CGA (Comment: with FWW [Haile MOTR/L, Zee - 04/17/2024 15:21 EDT] ) Haile MOTR/L, Zee 04/17/2024 15:21 EDT Limiting Factors : Motor, Pain Haile MOTR/L, Zee 04/17/2024 15:21 EDT Balance Balance Tests Performed : [employer] balance scale Sitting Balance Score : 5 Standing Balance Score : 5 Haile MOTR/L, Zee - 04/17/2024 15:21 EDT UE ROM/Strength Overall Range of Motion Left Upper Extremity Active Range : Within functional limits Right Upper Extremity Active Range : Within functional limits Haile MOTR/L, [facility] 04/17/2024 15:21 EDT Lt Upper Extremity Strength OT : With (more content not included)... [facility] 04-17-2024 Note PT Inpatient Evaluat ion Acute Entered On: 04/17/2024 15:25 EDT Performed On: 04/17/2024 13:28 EDT by Idania PT-StudentAmmy Reason for Treatment Past Medical History PT : HTN, hx of tuberculosis, DM type II, anxiety, PTSD, OA Chief Complaint PT : 54 y/o male s/p L GABE performed by Dr. Wright 04/17/2024 Precautions : Posterior hip precautions, FWB LLE, IV, supplemental O2 Idania PT-Student, [facility] 04/17/2024 15:04 EDT General Info Precautions RTF : Communication CONSTANT Order, 04/17/2024 07:55:00 EDT, Constant Order, Patients recovering in Critical Care, record vital signs Q10 min or more frequently for patient's condition or as per physician order. Patients do not require a PAR score (post anesthesia recovery)., Discontinued Consult Physician, 04/17/2024 07:55:00 EDT, METAL TREATER , 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, post op, Completed [facility] Nutrition Task to Nursing, 04/17/2024 07:55:00 EDT, Advance to House diet when bowel sounds return, Discontinue Full Liquid diet when able to advance, order House diet., 04/17/2024 07:55:00 EDT, Completed Oxygen Therapy, 04/17/2024 07:55:00 EDT, Nasal Cannula, 3L, Constant Order, overnight if SpO2 less than 95%, Ordered Oxygen Therapy, 04/17/2024 07:55:00 EDT, Simple Mask, 100%, Constant Order, in PACU, wean Oxygen to room air to baseline SpO2, Discontinued Post Procedure Location of Care, 04/17/2024 07:42:00 EDT, [facility], Ordered History and Physical by House Physician, 04/09/2024 13:57:00 EDT, 04/09/2024 13:57:00 EDT, Ordered Obtain Consent, 04/09/2024 13:57:00 EDT, Obtain Blood Transfusion Consent, Ordered Basic Command Following : Intact Safety/Judgment : Intact Pain Present : Yes actual or suspected pain Ability to Make Needs Known PT : Yes Orientation Assessment : Oriented x 4 Affect/Behavior : Alert, Calm, Cooperative Idania PT-Student, [facility] 04/17/2024 15:04 EDT History, Problems History of Comorbidities,Personal Factor : 1-2 personal factors and/or comorbidities Idania PT-Student, [facility] 04/17/2024 15:04 EDT Pain Assessment Pain Location : Hip Laterality : Left Self Report Pain : Numeric rating scale Numeric Pain Scale : 5 = Moderate pain Numeric Pain Score : 5 Idania PT-Student, [facility] 04/17/2024 15:04 EDT Home Environment Living Environment : Home Environment Sensory Deficits: None Performed By: Venu Thibodeaux RN 04/17/2024 *Living Situation : Home Independently *Lives With : Spouse Lives In : Single level home Idania PT-Student, [facility] 04/17/2024 15:04 EDT Stairs Inside Stairs Outside Stairs Number of Stairs : 0 3 Rail : Rail on right going up Idania Jimenez, [facility] 04/17/2024 15:04 EDT Idania Jimenez, [facility] 04/17/2024 15:04 EDT Home Setup Primary Bedroom : 1st floor Primary Bathroom : 1st floor Kitchen : 1st floor Laundry : Basement Idania Jimenez, [facility] 04/17/2024 15:04 EDT Stairs - Additional Information : 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, 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, 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, 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, Personal ADL, Social participation Idania Jimenez, [facility] 04/17/2024 15:04 EDT Home Environment II Living Environment : Home Environment Sensory Deficits: None Performed By: Venu Thibodeaux RN 04/17/2024 Devices/Equipment : Axillary crutches, Grab bars - shower, Grab bars - toilet, Handheld Shower Head, Shower - walk-in, Standard walker, Toilet - standard Idania Jimenez, [facility] 04/17/2024 15:04 EDT Prior Functional Status ADL : Independent Mobility : Independent Instrumental ADL : Independent Cognitive-Communication Skills : Independent Idania LARKINStudent, [facility] 04/17/2024 15:04 EDT Additional Information : Pt lives in a ranch style home with his , 3 steps to enter with R sided rail. Laundry in basement, completes task. Prior to admit, pt IND with I/ADLs. Denies use of AD, but has access to standard walker and axillary crutches. Pt is currently employed, will be taking time off during recovery. Denies recent fall. Idania LARKINStudent, [facility] 04/17/2024 15:04 EDT LE Range/Strength LE Overall Range of Motion Grid Left Lower Extremity Active Range : Impaired (Comment: D/t acute surgical intervention [Idania PT-Student, [facility] 04/17/2024 15:04 EDT] ) Right Lower Extremity Active Range : Within functional limits Idania Jimenez, [facility] 04/17/2024 15:04 EDT Lt Lower Extremity Strength : Other: Grossly WFL via functional observation, able to ambulate and WB with minimal note of buckling Rt Lower Extremity Strength : Other: Grossly 3/5 via functional observation, no note of knee buckling Idania PT-Student, Ammy - 04/17/2024 15:04 EDT UE ROM/Strength Overall Range of Motion Left Upper Extremity Active Range : Within functional limits Right Upper Extremity Active Range : Within functional limits Idania PT-Student, Ammy - 04/17/2024 15:04 EDT Left Upper Extremity Strength : Other: Grossly 3/5 via functional observation, able to use FWW appropriately Right Upper Extremity Strength : Other: Karen (more content not included)... [facility] 04-17-2024 Note Communication Log En tered On: 04/17/2024 12:30 EDT Performed On: 04/17/2024 12:30 EDT by Namrata Agustin Call Log Physician Call Log Physician requesting : FELIX WRIGHT MD Patient Location : [facility] Physician being called : KIYA TORIBIO MD Reason : Consult Time Call Placed : 12:29 EST Comment : Josephine message sent 04/17 Namrata Toth - 04/17/2024 12:30 EDT [facility] 04-17-2024 Note Immunization Screeni ng Entered On: 04/17/2024 12:07 EDT Performed On: 04/17/2024 12:07 EDT by Janice Boucher RN Immunization Screening Immunizations Current : Yes Last Tetanus : Less than 5 years COVID-19 Fully Vaccinated : No Janice Boucher RN - 04/17/2024 12:07 EDT [facility] Comment on above: Order Comment: Order entered secondary to inpatient admission. Result Comment: 04-17-2024 Note PROCEDURE: XR PELVIS 1-2 VIEWS TECHNIQUE: Pelvis radiograph, one view. HISTORY: Postop COMPARISONS: None FINDINGS: There has been left hip arthroplasty. No acute fracture or dislocation is seen. Lumbar spine degenerative changes. IMPRESSION: Status post left hip arthroplasty. Electronically signed by: Kamini Wasserman MD 04/17/2024 11:18 AM EDT RP Technologist: Dictated By: KAMINI WASSERMAN MD Signed By: KAMINI WASSERMAN MD Signed Out: 04/17/24 11:18:45 [facility] 04-17-2024 Note Preprocedure Checkli st Entered On: 04/09/2024 14:24 EDT Performed On: 04/17/2024 7:59 EDT by Emily Lynch RN Infection Screening Last Physical Overnight Location of the Patient : Personal Residence Discharge from Other Facility in past 4 weeks : No Travel outside [place] within past 30 days : No History of Recent Diarrhea : No Concern possible Infectious Disease : No Exposure AND/OR close contact with a person under investigation or laboratory-confirmed COVID-19 individual within 14 days of symptom onset AND/OR any of the following: : No Do you live/work in a high risk situation (congregated living, hemodialysis, infusion clinic, jail, assisted living, nursing home, homeless nursing home, etc.)? : No Venu Thibodeaux RN - 04/17/2024 7:57 EDT Checklist NPO Since : 04/17/2024 06:00 EDT Last Food Intake : 04/16/2024 18:00 EDT Venu Thibodeaux RN - 04/17/2024 7:57 EDT Valuables Prechecklist Grid Valuables with Patient Clothes : Pants, Shirt, Shoes, Undergarments (Comment: to locker [Venu Thibodeaux RN - 04/17/2024 7:57 EDT] ) Personal Items : Cell phone (Comment: to pacu [Venu Thibodeaux RN - 04/17/2024 7:57 EDT] ) Venu Thibodeaux RN - 04/17/2024 7:57 EDT Procedure Location : Surgery Venu Thibodeaux RN 04/17/2024 7:57 EDT Surgery Prep Grid Home Bowel Prep Complete : N/A Home CHG Prep Complete : N/A Inpatient PreSurgery Regular Shower/Bath : N/A Inpatient CHG Bath Complete within 12 hours : N/A CHG Cloth Prep in JEF : Yes Makeup and Jewelry Removed : Yes Nail Estonian Removed : Yes Wearing Patient Gown/Street Clothes Removed : Yes Venu Thibodeaux RN - 04/17/2024 7:57 EDT Patient Rights Grid Anesthesia Consent Signed : Yes Surgical Consent Signed : Yes Syed STEVENSON Emily - 04/17/2024 7:57 EDT Blood Consent Signed : Yes Syed STEVENSON [facility] 04/09/2024 14:22 EDT Procedure Checklist is completed for: : LEFT TOTAL HIP REPLACEMENT Syed STEVENSON Emily - 04/09/2024 14:22 EDT Allergy (As Of: 04/17/2024 07:59:52 EDT) Allergies (Active) Nubain Estimated Onset Date: Unspecified ; Reactions: passed out ; Created By: Husam Jones RN; Reaction Status: Active ; Category: Drug ; Substance: Nubain ; Type: Allergy ; Updated By: Husam Jones RN; Reviewed Date: 04/17/2024 7:59 EDT Beta Tashia Beta Tashia History : Patient does not take a Beta Tashia Carlos Eduardo STEVENSON Venu - 04/17/2024 7:57 EDT Protocols Patient Safety Grid ID Band on and Verified : Yes Allergy Radio Intelligence Operator : Yes Diabetic Radio Intelligence Operator : Yes Fall Risk Radio Intelligence Operator : Yes Venu Thibodeaux RN - 04/17/2024 7:57 EDT Current ECG in Medical Record : Yes (Comment: NATHANAEL 02-06-24 [Syed STEVENSON, [facility] 04/09/2024 14:22 EDT] ) Medical Clearance : Yes (Comment: DR. LEMON, COPY 02-20-24 [Syed STEVENSON, [facility] 04/09/2024 14:22 EDT] ) HgA1C : Yes (Comment: COPY 03-20-24 [Syed STEVENSON [facility] 04/09/2024 14:22 EDT] ) Syed STEVENSON [facility] 04/09/2024 14:22 EDT Current H&P in Medical Record : Yes Zulema Ortiz RN - 04/11/2024 15:33 EDT CBCND : Yes Basic [place] : Yes Type and Crossmatch : Yes UA : Yes Prox / APTT : Yes Syed STEVENSON Emily - 04/09/2024 15:47 EDT Verification Sleep Apnea : No Prosthesis/Metal : na Pacemaker/AICD : na Preoperative Orders Complete : Yes Blood Glucose : 129 Anesthesia Notified of Blood Glucose : Not applicable Mode of Arrival : Ambulatory Venu Thibodeaux RN - 04/17/2024 7:57 EDT DCP GENERIC CODE H&P Update Within 24 hrs on New Admits : Yes KHARI Hose : Yes Sequential Compression Device : Yes Sleep Apnea : No CPAP / BiPAP Machine : No Electrical Safety Check Done : No Clipper Prep : Yes Family Waiting : Yes Can Surgeon Speak With Family : Yes Venu Thibodeaux RN - 04/17/2024 7:57 EDT Anesthesia/Transfusions Anesthesia/Transfusions : Prior anesthesia, Prior anesthesia reaction Type of Anesthesia Reaction : SLOW TO WAKE Accept Blood Products if Necessary : Yes Emily Lynch RN - 04/09/2024 14:22 EDT Advance Directive Advanced Directives : No Advance Directive Additional Information : No Emily Lynch RN - 04/09/2024 14:22 EDT [facility] 04-10-2024 Note Patient: DALI HUFFMAN [facility]: [id number] Age: 53 years Sex: Male : 1970 Associated Diagnoses: None Author: ASHLEY KELLOGG CNP Basic Information Source of history: Self. Chief Complaint Left hip pain Patient presents for presurgical evaluation per basic anesthesia protocol for upcoming left total hip replacement History of Present Illness This pleasant 53-year-old male reports a several year history of progressively worsening left hip pain. He describes pain in the left groin, lateral hip, and buttock. This pain is aggravated with walking, standing, or prolonged sitting. He reports occasional instability of the hip. Sleep can be interrupted due to pain. He takes ibuprofen or hydrocodone as needed for pain. Most recent imaging revealed advanced osteoarthritis of the left hip. Dr. Wright is recommending a left total hip replacement. The patient is agreeable. The patient denies any personal or known family history of anesthesia problems, including malignant hyperthermia or pseudocholinesterase deficiency. Histories Past Medical History: 1. Hypertension 2. History of tuberculosis 3. Type 2 diabetes mellitus, [id number] 4. Anxiety/PTSD Family History: Father: () Age at unknown. Liver cirrhosis.. Mother: () Age at unknown. COPD (chronic obstructive pulmonary disease).. Procedure history: Hand surgeries, tendon and trigger finger. Comments: 02/06/2024 14:10 MARCIE HYMAN CNP Right Urology procedure. Comments: 02/06/2024 14:10 MARCIE HYMAN CNP Penile yeast infection Left knee surgery. 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 Social History Social & Psychosocial History Social History Alcohol Denies Alcohol Use Home/Environment Lives with Children, Spouse. Living situation: Home/Independent. Home equipment: None. Home monitoring equipment: None. Special/Community resources: None. Mobility prior to admit: Independent. Home Barriers: None. Will patient require additional/new services upon discharge? No. Substance Abuse Denies Substance Abuse Tobacco Former smoker, quit more than 30 days ago Tobacco Use:. Other Comment: Chewing tobacco used currently (02/06/2024 13:11 - Robert STEVENSON, Husam Osorio) Psychosocial History No active psychosocial history has been recorded . Patient is with 3 children. He works with [employer] . Patient will need home health therapy or outpatient physical therapy after surgery.. Health Status Include (Selected) Allergic Reactions (All) Severity Not Documented Nubain- passed out.. Current medications: Home Meds (ST) Centrum Silver oral tablet 1 tabs, ORAL, DAILY cholecalciferol 25 mcg (1000 intl units) oral tablet 25 mcg = 1 tabs, ORAL, DAILY losartan 100 mg oral tablet 100 mg = 1 tabs, ORAL, DAILY Metformin ER 500 mg daily Acetaminophen hydrocodone 325/7.5 mg every 8-12 hours as needed Review of Systems Constitutional: No fever. Ear/Nose/Mouth/Throat: Patient has a broken right upper tooth, No nasal congestion, No sore throat. Respiratory: No shortness of breath, No cough. Cardiovascular: No chest pain, No peripheral edema. Gastrointestinal: No diarrhea, No constipation, No heartburn, No abdominal pain. Genitourinary: No dysuria, No hematuria. Hematology/Lymphatics: No bleeding tendency. Endocrine: No cold intolerance, No heat intolerance. Immunologic: No recurrent fevers. Musculoskeletal: Negative except as documented in history of present illness, No back pain, No muscle pain. Integumentary: No rash, No breakdown, No skin lesion. Neurologic: Alert and oriented X4. Psychiatric: Anxiety. Physical Examination VS/Measurements Vital Signs (last 24 hrs) Last Charted Heart Rate Peripheral 96 bpm (APR 09 14:21) Resp Rate 16 br/min (APR 09:) SBP 118 mmHg (APR 09:) DBP 70 mmHg (APR 09:) BMI 37.22 (APR 09:) General: Alert and oriented. Eye: Pupils are equal, round and reactive to light. HENT: Normocephalic, Normal hearing. Neck: Supple, Non-tender. Respiratory: Lungs are clear to auscultation, Respirations are non-labored, Breath sounds are equal. Cardiovascular: Normal rate, Regular rhythm, No murmur, Good pulses equal in all extremities, Normal peripheral perfusion. Gastrointestinal: Soft, Non-tender, Non-distended, Normal bowel sounds. Genitourinary: No costovertebral angle tenderness. Lymphatics: No lymphadenopathy neck, axilla, groin. Musculoskeletal: No swelling, No deformity, Normal gait. Lower extremity exam: Hip ( Left, Range of motion ( Restricted by pain ) ). Integumentary: Warm, Dry, [place]. Neurologic: Alert, Oriented, Normal sensory, Normal motor function. Cognition and Speech: Oriented, Speech clear and coherent. Psychiatric: Cooperative, Appropriate mood & affect. Review / Management Laboratory Results Today's Lab (more content not included)... [facility] 04-09-2024 Note JEF Education Entere d On: 04/09/2024 14:22 EDT Performed On: 04/09/2024 14:22 EDT by Emily Lynch RN General / Required Barriers to Learning : None evident TeachBack Methodology : Explanation, Printed Material Additional Session Learner/s Present : Spouse Emily Lynch RN - 04/09/2024 14:22 EDT Education Nursing General Required GRID Pain Management : Verbalizes understanding Speakup : Verbalizes understanding Emily Lynch RN - 04/09/2024 14:22 EDT Topic Specific Education Medication Management GRID Pain Can Be Managed,Relieved : Verbalizes understanding Emily Lynch RN - 04/09/2024 14:22 EDT Infection Control Education Dialysis Surgery - Hospital form # [id number] : Verbalizes understanding Emily Lynch RN - 04/09/2024 14:22 EDT Pain Pain Education Topics Grid Pain Assessment Tool : Verbalizes understanding Pain Can Be Managed/Relieved : Verbalizes understanding Syed STEVENSON, Emily - 04/09/2024 14:22 EDT Pre Procedure / Surgery Education Procedures Tests Exams GRID NPO : Verbalizes understanding Preoperative Instructions : Verbalizes understanding Preprocedure Tests/Labs : Verbalizes understanding Preprocedure Diet : Verbalizes understanding Syed STEVENSON, Emily - 04/09/2024 14:22 EDT [facility] 02-20-2024 Note Medical Clearance re quested by Mylene Montalvo CNP. Clearance request letter and H&P by Mylene Montalvo CNP faxed to Dr Lemon's office. Dr Lemon's office ([facility]) notified of clearance request and fax. Notification that clearance has been requested and H&P by Mylene Montalvo CNP faxed to Dr Wright's office. Voicemail left with Dr Wright's office ([facility]) regarding clearance request and fax. Received notification that Patient's surgery has been cancelled. At this time PAT will no longer follow clearance. Clearance received from Dr Lemon dated 02/20/24. Copy/scanned. Faxed to Dr Wright's office. [facility] 02-08-2024 Evaluation note Authored February 08, 2024 10:41am The above note written by __ _Jane Garcia____ acting as human recorder, note dictated by Dr. Cadena .I performed the above HPI, ROS, and Examination. I formulated and dictated the treatment plan and was present for entire encounter. Rocky Lemon D.O. [facility] Work Phone: 1(289) 261-700004-16-2024 NotePatient: DALI HUFFMAN Age: 53 years Sex: Male : 1970 Associated Diagnoses: None Author: MARICE MONTALVO CNP Basic Information Source of history: Self. Chief Complaint Preoperative Examination History of Present Illness 53 year old male patient presents today with unilateral primary osteoarthritis of left hip. Patientwith left hip since age 15. 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 He describes his current pain as constant, aching pain, aggravated with increased activity and at night. Using Hydrocodone and Advil prn. Previous treatment include prednisone. He uses crutches intermittent when pain issevere. Current job includes heavy lifting which exacerbates his symptoms. Pain will intermittent radiate down left thigh and into his buttocks. Denies any other joint pain, muscle pain or lower extremity swelling. As next step in treatment Dr. Wright is recommending left total hip replacement. P atient is agreeable and would like to proceed. The patient denies any anesthesia problems. Histories Past Medical History: 1. OA 2. Tobacco use, chew- 1 pack every 2 days 3. Obesity 4. HTN Family History: No family history items have been selected or recorded. Procedure history: Hand surgeries, tendon and trigger finger. Comments: 02/06/2024 14:10 MARCIE HYMAN CNP Right Left knee surgery. 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 Urology procedure. Comments: 02/06/2024 14:10 MARCIE HYMAN CNP Penile yeast infection Social History Social & Psychosocial History Social History Alcohol Denies Alcohol Use Home/Environment Lives with Children, Spouse. Living situation: Home/Independent. Home equipment: None. Home monitoring equipment: None. Special/Community resources: None. Mobility prior to admit: Independent. Home Barriers: None. Will patient require additional/new services upon discharge? No. Substance Abuse Denies Substance Abuse Tobacco Former smoker, quit more than 30 days ago Tobacco Use:. Other Comment: Chewing tobacco used currently (02/06/2024 13:11 - Robert STEVENSON, Husam Osorio) Psychosocial History No active psychosocial history has been recorded . Health Status Include (Selected) Allergic Reactions (All) Severity Not Documented Nubain- passed out.. Current medications: Home Meds (ST) Prednisone 5mg oral 8 day series Losartan Potassium 100mg oral daily Hydrocodone APAP 5-325 every 6 hours for pain Hydrocodone APAP 7.5-325mg oral every 8-12 hrs for pain Centrum Silver Men 50+ oral daily Vitamin D3 100-200 iu daily Review of Systems Constitutional: No fever, No chills. Ear/Nose/Mouth/Throat: No nasal congestion, No sore throat. Respiratory: No shortness of breath, No cough. Cardiovascular: +HTN, No chest pain, No peripheral edema. Gastrointestinal: No nausea, No vomiting, No heartburn. Genitourinary: No dysuria, No hematuria. Musculoskeletal: Negative except as documented in history of present illness, No joint pain, No muscle pain. Integumentary: No rash, No skin lesion. Neurologic: Alert and oriented X4. Physical Examination VS/Measurements Vital Signs (last 24 hrs) Last Charted Heart Rate Peripheral 95 bpm (FEB 05:) Resp Rate 16 br/min (FEB 05:) SBP H 142mmHg (FEB 05:) DBP 84 mmHg (FEB 05:) BMI 38.37 (FEB 05) General: Alert and oriented, No acute distress. Eye: Pupils are equal, round and reactive to light. HENT: Normal hearing, + MP III. Neck: Supple, Non-tender. Respiratory: Lungs are clear to auscultation, Respirations are non-labored. Cardiovascular: Normal rate, Regular rhythm. Gastrointestinal: Soft, Non-tender. Lymphatics: No lymphadenopathy neck, axilla, groin. Musculoskeletal: Normal range of motion, Normal strength, No tenderness, No swelling. Lower extremity exam: Hip ( Range of motion ( Not restricted by pain ) ). Integumentary: Warm, [place]. Neurologic: Alert, Oriented. Cognition and Speech: Oriented, Speech clear and coherent. Psychiatric: Cooperative, Appropriate mood & affect. Review / Management Laboratory Results Today's Lab Results : Laboratory 02/06/2024 12:48 EDT BUN 20 mg/dL NORMAL Na 134 mmol/L LOW K 4.5 mmol/L NORMAL Chloride 101 mmol/L NORMAL CO2, venous 26.0 mmol/L NORMAL Glucose 346 mg/dL HI Creatinine 0.9 mg/dL NORMAL Calcium 9.6 mg/dL NORMAL BUN/Creat Ratio 22.2 NA Calculated Osmolality 285 mOsm/kg NORMAL Glomerular Filtration Rate >60 mL/min/1.73m? NA GFR AA >60 NA Protime Patient 10.9 seconds NORMAL INR 1.0 NA APTT Patient 32.8 seconds NORMAL WBC 8.7 x103/uL NORMAL RBC 5.18 x106/uL NORMAL HGB 15.2 g/dL NORMAL HCT 44.9 % NORMAL MCV 86.6 fL NORMAL MCH 29.3 pg NORMAL MCHC 33.9 g/dL NORMAL RDW 13.9 % NORMAL Platelet 245 x103/uL NORMAL MPV 8.6 fL NORMAL Color, U Yellow Appearance, U Clear Specifi (more content not included)...[facility]04-15-2024 NotePAA Education Entered On: 02/06/2024 12:45 EDT Performed On: 02/06/2024 12:44 EDT by Husam Jones RN General / Required Barriers to Learning : None evident TeachBack Methodology : Explanation, Printed Material Husam Jones RN - 02/06/2024 12:44 EDT Education Nursing General Required GRID Pain Management : Verbalizes understanding Speakup : Verbalizes understanding Husam Jones RN - 02/06/2024 12:44 EDT Topic Specific Education Medication Management GRID Pain Can Be Managed,Relieved : Verbalizes understanding Husam Jones RN - 02/06/2024 12:44 EDT Education Respiratory Care Nursing GRID Cough/Deep Breathing : Verbalizes understanding Husam Jones RN - 02/06/2024 12:44 EDT Infection Control Education Dialysis Surgery - Hospital form # [id number] : Verbalizes understanding Husam Jones RN - 02/06/2024 12:44 EDT Pain Pain Education Topics Grid Pain Assessment Tool : Verbalizes understanding Pain Can Be Managed/Relieved : Verbalizes understanding Husam Jones RN - 02/06/2024 12:44 EDT Pre Procedure / Surgery Education Procedures Tests Exams GRID Anesthesia/Sedation : Verbalizes understanding NPO : Verbalizes understanding Preoperative Instructions : Verbalizes understanding Preprocedure Tests/Labs : Verbalizes understanding Preprocedure Diet : Verbalizes understanding Joint Replacement Class : Verbalizes understanding Husam Jones RN - [facility]* Author Rocky Lemon [facility] Authored December 12, 2023 12:33pm The above note written by __ _Jane Garcia____ acting as human recorder, note dictated by Dr. Cadena .I performed the above HPI, ROS, and Examination. I formulated and dictated the treatment plan and was present for entire encounter. Rocky Lemon D.O. [facility] Work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 Rocky Lemon DO Primary Care Provide r, Attending Provider Active Start: March 26, 2024 End: March 26, 2024 Goals (unrecognized section and content) Goals may be documented in a n alternate section FOR RECORDS PERTAINING TO PATIENTS WHO ARE OR HAVE BEEN ENROLLED IN A CHEMICAL DEPENDENCY/SUBSTANCEABUSE PROGRAM, SOME INFORMATION MAY BE OMITTED. This clinical summary was aggregated from multiple sources. Caution should be exercised in using it in the provision of clinical care. This summary normalizes information from multiple sources, and as a consequence, information in this document may materially change the coding, format and clinical context of patient data. In addition, data may be omitted in some cases. CLINICAL DECISIONS SHOULD BE BASED ON THE PRIMARY CLINICAL RECORDS. [employer] [facility]. provides no warranty or guarantee of the accuracy or completeness of information in this document.
== END 2024-06-26 16:32 | disposition home or self-care (01) ==
LOC: RAD 16:31
PROVIDERS: PCP Family Medicine; Visit Provider Family Medicine
DX: M54.50 Low back pain, unspecified (principal); M51.36 Other intervertebral disc degeneration, lumbar region
CPT/HCPCS: 72100

== ENCOUNTER 2024-08-31 16:38 | Emergency (ER) | payer OTHER, SELFPAY ==
--- OUTSIDE RECORDS SUMMARY | 2024-08-31 17:01 | XMS_ITS | CCD ---
Author Organization [facility] Care Team Providers Care Vegetable Specker Name Role Phone DR ROCKY LEMON Primary Care Unavailable SAM SPARKS Attending Unavailable SAM SPARKS Admitting Unavailable TRICIA STERLING Consulting Unavailable Yao Strong Consulting Unavailable REQUEST, NONE LISTED Attending Unavailmacy hampton REQUEST, NONE LISTED Consulting Unavailmacy LEMON, DR HIDALGO Primary Care Unavailable REQUEST, NONE LISTED Admitting UnavailRocky Ardon Unavailable SumitPepe garcíaif Unavailable DO Rocky Lemon Primary Care Provider DO Rocky Lemon Attending Provider ADRIANA DASILVA, FELIX Attending Unavailable KIYA TORIBIO MD Consulting Unavailable ADRIANA DASILVA, FELIX Admitting Unavailable FELIX WRIGHT MD Attending Unavailable ADRIANA DASILVA, FELIX Attending Unavailable ADRIANA DASILVA, FELIX Referring Unavailable Rocky Lemon Admitting Unavailable Rocky Lemon Attending Unavailable Rocky Lemon Primary Care Unavailable Allergies Allergy Classification Reported Allergen(s) Allergy Type Date of Onset Reaction(s) Facility (20 sources) Nalbuphine Drug Allergy vomiting [facility] Repository (1 source) Nalbuphine Drug Allergy 12-12-2023 [facility] Repository Medications Current Medications Medication Drug Class(es) Dates Sig (Normalized) Sig (Original) Azithromycin (10 sources) Macrolide Antimicrobial Start: 08-21-2024 Azithromycin Active 0 PO .COMPLEX August 21, 2024 12:00am For 250 mg dose pack: take 500 mg today (day 1), then 250 mg for 4 days (days 2-5) PO Start: 11-23-2021 End: 12-12-2023 Azithromycin Discontinued MG TABLET November 23, 2021 1:00am December 12, 2023 11:40am Start: 01-29-2019 Zithromax Z-Pa k 250 MG 2 tablets on the first day, then 1 tablet daily for 4 days Orally Once a day for 5 day(s) Jan, Active losartan potassium 100 mg oral tablet (16 sources) Angiotensin 2 Receptor Tashia Start: 08-20-2024 take 1 tablet by mouth once daily Losartan Active 0 .ROUTE .COMPLEX August 20, 2024 11:02am TAKE 1 TABLET BY MOUTH DAILY Start: 05-31-2024 End: 08-20-2024 take 1 tablet by mouth once daily Losartan Discontinued 0 .ROUTE .COMPLEX May 31, 2024 12:32pm August 20, 2024 11:02am TAKE 1 TABLET BY MOUTH DAILY Start: 05-31-2024 take 1 tablet by chiara th once daily Losartan Active 0 .ROUTE .COMPLEX May 31, 2024 12:32pm TAKE 1 TABLET BY MOUTH DAILY Start: 02-20-2024 End: 05-31-2024 take 1 tablet by mouth once daily Losartan Discontinued 0 .ROUTE .COMPLEX February 20, 2024 2:54pm May 31, 2024 12:32pm TAKE 1 TABLET BY MOUTH DAILY Start: 02-20-2024 take 1 tablet by chiara th once daily Losartan Active 0 .ROUTE .COMPLEX [...] release oral tablet (20 sources) Biguanide Start: 07-18-2024 take 1 tablet by mouth in the morning Metformin Active 0 .ROUTE .COMPLEX July 18, 2024 8:53am TAKE 1 TABLET BY MOUTH IN THE MORNING WITH BREAKFAST Start: 04-23-2024 End: 07-18-2024 take 1 tablet by mouth once daily in the morning Metformin Discontinued 0 .ROUTE .COMPLEX April 23, 2024 2:37pm July 18, 2024 8:53am TAKE 1 TABLET BY MOUTH EVERY MORNING WITH BREAKFAST Start: 02-08-2024 End: 04-23-2024 take 500 mg by mouth once daily in the morning Metformin Discontinued 500 MG PO Every morning February 08, 2024 9:21am April 23, 2024 2:37pm Start: 12-20-2023 End: 02-08-2024 take 1 tablet by mouth once daily in the morning Metformin Discontinued 0 .ROUTE .COMPLEX December 20, 2023 5:21pm February 08, 2024 9:23am TAKE 1 TABLET BY MOUTH EVERY MORNING WITH BREAKFAST Start: 08-24-2021 End: 12-20-2023 take 500 mg by mouth once daily Metformin Discontinued 500 MG PO Daily November 23, 2021 1:00am December 20, 2023 5:22pm predniSONE 20 mg oral tablet (20 sources) Start: 06-27-2024 End: 08-21-2024 take 3 tablets by mouth once daily at mealtime, then take 2 tablets by mouth once daily, then take 1 tablet by mouth once daily at mealtime Prednisone Active 0 PO .with food or milk 11 07August 21, 2024 12:00am take 3 tablets a day x3 days, 2 tabs a day x3 days and then 1 tab a day x3 days orally WITH FOOD OR MILK; Start: 06-17-2023 predniSONE 20 MG 2 tablets [...] or milk for 9 days Dec, Active tiZANidine 4 mg oral tablet (1 source) [...] sources) Opioid Agonist Start: 12-12-2023 End: 03-26-2024 Hydrocodone-Acetami nophen Discontinued 1 TAB PO .prn 13 05February 01, 2024 March 26, 2024 6:10pm FreeTextSig: take 1 tablet Orally q8-12 hrs prn; Note: Source Status: Taking; Refills: 0; Provider: Mitch Hernandez Start: 03-15-2023 HYDROcodone-Ac etaminophen 7.5-325 MG take 1 tablet Orally q8- 12 hrs prn February, Active Start: 02-04-2023 HYDROcodone-Ac etaminophen 5-325 MG take 1 tablet Orally q8-12 hrs prn Jan, Active Start: 08-27-2021 HYDROcodone-Ac etaminophen 5-325 MG take 1 tablet Orally q8-12 hrs prn for 7 days prn Aug, Active [id number] 200 actuat albuterol 0.09 mg/actuat metered dose [...] Inhalation q4 hrs prn prn Aug, Not-Taking/PRN amoxicillin 875 mg / clavulanate 125 mg oral tablet (3 sources) Penicillin-class Antibacterial Start: 07-31-2024 End: 08-21-2024 take 1 tablet by mouth twice daily at mealtime Amoxicillin-Pot Clavulanate Discontinued 1 TAB PO Twice daily 12 08July 31, 2024 12:00am August 21, 2024 8:57am with food Start: 12-29-2022 take 1 tablet by chiara th every twelve hours Amoxicillin-Pot Clavulanate 875-125 MG 1 tablet Orally twice a day for 10 days Dec, Active aspirin 81 mg delayed release oral tablet (20 sources) Platelet Aggregation Inhibitor, Nonsteroidal Anti-inflammatory Drug Start: 12-12-2023 End: 03-26-2024 take 1 tablet by mouth once daily at mealtime Aspirin Discontinued 0 PO Daily December 12, 2023 12:17pm March 26, 2024 5:45pm 81 MG (2 tablets) with food orally daily; take 1 tablet by chiara th every twenty-four hours Aspirin 81 81 MG 1 tablet Orally Once a day for 30 day(s) in the AM Active take 1 tablet by chiara th once daily in the morning Aspirin 81 81 MG 1 tablet Orally Once a day for 30 day(s) in the AM Active cefdinir 300 mg oral capsule (6 [...] day(s) Active meloxicam 15 mg oral tablet (17 sources) Nonsteroidal Anti-inflammatory Drug Start: 12-12-2023 End: [...] Aug, Active methocarbamol 750 mg oral tablet (11 sources) Muscle Relaxant Start: 06-13-2024 End: 06-27-2024 take 750 mg by mouth every six hours Methocarbamol Discontinued 750 MG PO Every 6 hours June 13, 2024 12:00am June 27, 2024 1:31pm Start: 12-12-2023 End: 02-08-2024 take 1 tablet [...] Oct, Active methylPREDNISolone 4 mg oral tablet (8 sources) Corticosteroid Start: 12-12-2023 End: 02-08-2024 take 1 tablet by mouth once at mealtime Methylprednisolone (Medrol (Zafar)) 4 mg tablets,dose pack Discontinued 0 PO per package directions December 12, 2023 12:20pm February 08, 2024 9:55am PO PER PKG DIR for 6 days with food sildenafil 100 mg oral tablet (20 sources) [...] and giddiness Episodic Diabetes mellitus with complications (7 sources) Type II diabetes mellitus uncontrolled; Translations: [Uncontrolled type 2 diabetes mellitus] 02-08-2024 Chronic Diabetes mellitus without complication (18 sources) Hyperglycemia, unspecified; Translations: [Acute hyperglycemia] Onset: [...] of hypertension Episodic Other connective tissue disease (4 sources) Equipment finding; Translations: [Presence of other bone and tendon implants] 12-12-2023 Chronic Other connective tissue disease (4 sources) Pain in lower limb; Translations: [Pain [...] (1 source) Abdominal distension (gaseous) Episodic Other lower respiratory disease (2 sources) Cough; Translations: [Acute cough] 08-21-2024 Episodic Other male genital disorders (20 sources) [...] of skin; Translations: [PARESTHESIA OF SKIN] Onset: 08-12-2021 Episodic Other non-traumatic joint disorders (11 sources) Pain in left hip; Translations: [Pain in joint, pelvic region and thigh] Onset: 07-09-2022 Resolved: 07-09-2022 Episodic Other non-traumatic joint disorders (6 sources) Pain in left knee; Translations: [Left knee pain] Episodic Other non-traumatic joint disorders (4 sources) Hip pain; Translations: [Pain in left hip] 12-12-2023 Episodic Other screening for suspected conditions (not mental disorders or infectious disease) (10 sources) Encounter for screening for malignant neoplasm of colon; Translations: [Electrocardiogram abnormal] Episodic Other upper respiratory disease (1 source) Rhinitis; Translations: [Chronic rhinitis] 08-21-2024 Chronic Other upper respiratory disease (1 source) Chronic rhinitis; Translations: [Chronic rhinitis] 08-21-2024 Chronic Other upper respiratory infections (4 sources) Viral upper respiratory tract infection; Translations: [Acute upper respiratory infection, unspecified] 11-23-2021 Episodic Otitis media and related conditions (3 sources) Other specified disorders of Eustachian tube, unspecified ear; Translations: [Otitis media] Onset: 11-19-2021 Resolved: 11-19-2021 Episodic Poisoning by nonmedicinal substances (1 source) Toxic effect of unspecified spider venom, accidental (unintentional), initial encounter Episodic Residual codes; unclassified (6 sources) Amnesia; Translations: [Other amnesia] Episodic Residual codes; unclassified (2 sources) Other amnesia Episodic Residual codes; unclassified (4 sources) Memory impairment; Translations: [Other amnesia] 12-12-2023 [...] weight loss Onset: 04-08-2022 Resolved: 04-08-2022 Episodic Results Test Name Value Interpretation Reference Range Facility SURGICAL PATH REPORTon 04-21 SURGICAL PATH REPORT [facility] Department of Pathology [address] [place] [id number] Name: DALI HUFFMAN : 1970 [facility] [id number] Number: Gender Male [facility]; J532; 01 : n: Admit 54 years Attending FELIX WRIGHT MD Age: Provider: Ordering FELIX WRIGHT MD Provider: Consulti Surgical Pathology Report ng: ACCESSION: COLLECTED DATE/TIME: RECEIVED DATE/TIME: PATHOLOGIST: [id number] 04/17/2024 09:33 EDT 04/17/2024 10:48 JOSET EVE CARVALHO MD Final Diagnosis LEFT FEMORAL [...] soft tissue present within the bone segment. Drawing Kiln Operator sections are submitted in two cassettes after decalcification. 04/17/2024 12:49:55 EDT Microscopic Diagnosis The final diagnosis is based on a microscopic exam of promotional representative sections. ____ ____ Print 04/21/2024 11:16 EDT Number: Date/Time: [facility] Department of Pathology [address] [place] [id number] Name: DALI HUFFMAN : 1970 [facility] [id number] Number: Gender Male [facility]; J532; 01 : n: Admit 54 years Attending FELIX WRIGHT MD Age: Provider: Ordering FELIX WRIGHT MD Provider: Consulti Surgical Pathology Report ng: ACCESSION: COLLECTED DATE/TIME: RECEIVED DATE/TIME: PATHOLOGIST: [id number] 04/17/2024 09:33 EDT 04/17/2024 10:48 EDT EVE CARVALHO MD Codes CPT CODE: 66027, [id number] ____ ____ Print 04/21/2024 11:16 EDT Number: Date/Time: Normal [facility] Comment on above: Performed By: #### 9 [id number] ####[facility] [address] [place], [place] [id number]) [phone] Director: Selvin Dillon MD BASICMETAon 04-18-2024 Calcium [Mass/Vol] 8.3 mg/dL Low 8.7-10.4 [facility] Comment on above: Performed By: #### 1 15621, 536178 ####[facility] [address] [place], [place] [id number]) [phone] Director: Selvin Dillon MD Chloride [Moles/Vol] 108 mmol/L High 98-107 [facility] Comment on above: Performed By: #### 1 28763, 832745 ####[facility] [address] [place], [place] [id number]) [phone] Director: Selvin Dillon MD CO2 [Moles/Vol] 25.0 mmol/L Normal 20.0-31.0 [facility] Comment on above: Performed By: #### 1 73825, 780153 ####[facility] [address] [place], [place] [id number]) [phone] Director: Selvin Dillon MD Creatinine [Mass/Vol] 0.8 mg/dL Normal 0.6-1.1 [facility] Comment on above: Performed By: #### 1 66841, 656081 ####[facility] [address] [place], [place] [id number]) [phone] Director: Selvin Dillon MD GFR AA >60 Normal [facility] Comment on above: Result Comment: Afri can Ghanaian GFR Calc Medical judgement is necessary to [...] for drug dosing. Performed By: #### 1 79191, 970700 ####[facility] [address] [place] [address] Medical Director: Selvin Dillon MD Glomerular Filtration Rate >60 Normal [facility] Comment on above: Result Comment: Non- GFR [...] for drug dosing. Performed By: #### 1 03438, 513755 ####[facility] [address] [place] [address] Medical Director: Selvin Dillon MD Glucose [Mass/Vol] 183 mg/dL High 74-106 [facility] Comment on above: Performed By: #### 1 06093, 359862 ####[facility] [address] [place], [place] [address]) [phone] Director: Selvin Dillon MD Osmolality [Osmolality] 286 mosm/kg Normal 275-295 [facility] Comment on above: Performed By: #### 1 44427, 824640 ####[facility] [address] [place] [address] Medical Director: Selvin Dillon MD Potassium [Moles/Vol] 4.2 mmol/L Normal 3.5-5.1 [facility] Comment on above: Performed By: #### 1 10005, 882727 ####[facility] [address] [place] [address] Medical Director: Selvin Dillon MD Sodium [Moles/Vol] 140 mmol/L Normal 135-145 [facility] Comment on above: Performed By: #### 1 78463, 831405 ####[facility] [address] [place], [place] [id number]) [phone] Director: Selvin Dillon MD Urea nitrogen [Mass/Vol] 17 mg/dL Normal 9-23 [facility] Comment on above: Result Comment: - Ve nipuncture should occur prior to N-Acetyl Cysteine (NAC) or Metamizole (Sulpyrine) administration due to the potential for falsely depressed results. - Blood samples from some patients with monoclonal gammopathies may produce falsely elevated results Performed By: #### 1 82139, 013765 ####[facility] [address] [place] [id number]) [phone] Director: Selvin Dillon MD Urea nitrogen/Creatinine [Mass ratio] 21.2 mg/mg Normal [facility] Comment on above: Performed By: #### 1 32470, 043159 ####[facility] [address] [place] [id number] Medical Director: Selvin Dillon MD CBCNDon 04-18-2024 Erythrocyte distribution width (RBC) [Ratio] 14.2 % Normal 11.5-14.5 [facility] Comment on above: Performed By: #### 1 06421, 366934 ####[facility] [address] [place] [address] Medical Director: Selvin Dillon MD Hematocrit (Bld) [Volume fraction] 32.8 % Low 41.0-52.0 [facility] Comment on above: Performed By: #### 1 84413, 280340 ####[facility] [address] [place] [id number]) [phone] Director: Selvin Dillon MD Hemoglobin (Bld) [Mass/Vol] 11.2 g/dL Low 13.5-17.5 [facility] Comment on above: Performed By: #### 1 71554, 960552 ####[facility] [address] [place], [place] [address]) [phone] Director: Selvin Dillon MD Instr WBC ND 7.7 Normal [facility] Comment on above: Performed By: #### 1 03148, 321349 ####[facility] [address] [place] [id number]) [phone] Director: Selvin Dillon MD MCH (RBC) [Entitic mass] 30.4 pg Normal 27.0-34.0 [facility] Comment on above: Performed By: #### 1 21870, 922487 ####[facility] [address] [place] [id number]) [phone] Director: Selvin Dillon MD MCHC (RBC) [Mass/Vol] 34.1 g/dL Normal 32.0-37.0 [facility] Comment on above: Performed By: #### 1 98116, 478803 ####[facility] [address] [place], [place] [id number]) [phone] Director: Selvin Dillon MD MCV (RBC) [Entitic vol] 89.1 fL Normal 80.0-100.0 [facility] Comment on above: Performed By: #### 1 93486, 873266 ####[facility] [address] [place] [id number]) [phone] Director: Selvin Dillon MD Platelet 202 x10 Normal 150-450 [facility] Comment on above: Performed By: #### 1 26793, 253976 ####[facility] [address] [place] [id number]) [phone] Director: Selvin Dillon MD Platelet mean volume (Bld) [Entitic vol] 8.7 fL Normal 7.4-10.4 [facility] Comment on above: Performed By: #### 1 88193, 518539 ####[facility] [address] [place] [address] Medical Director: Selvin Dillon MD RBC 3.68 x10 Low 4.70-6.10 [facility] Comment on above: Result Comment: Note : RBC morphology is normal unless otherwise stated. Evaluation performed only if differential is requested. Performed By: #### 1 03140, 912880 ####[facility] [address] [place] [address] Medical Director: Selvin Dillon MD WBC 7.7 x10 Normal 4.5-11.0 [facility] Comment on above: Performed By: #### 1 65084, 455048 ####[facility] [address] [place] [address] [facility] Director: Selvin Dillon MD HYDROCODONE 5MG/APAP 325MGon 04-18-2024 HYDROCODONE 5MG/APAP 325MG PRN Response Entered On: [...] Sharmila Pantoja LPN - 04/18/2024 13:51 EDT Normal [facility] Comment on above: Order Comment: For p [...] Sharmila Pantoja LPN - 04/18/2024 12:53 EDT [facility] Comment on above: Order Comment: For p [...] Mervin Kinney RN - 04/18/2024 6:08 EDT [facility] Comment on above: Order Comment: For p [...] Mervin Kinney RN - 04/18/2024 2:03 EDT Normal [facility] Comment on above: Order Comment: For p [...] Actual time of reassessment : Yes Sharmila Pantjoa LPN - 04/18/2024 13:13 EDT Numeric Pain Scale Numeric Pain Scale : 2 = Mild Pain Numeric Pain Score : 2 Sharmila Pantoja LPN - 04/18/2024 13:13 EDT [facility] Comment on above: Order Comment: for i nflammation x 48 hours. Start after Toradol (Ketoralac) is discontinued Inpatient Patient Summaryon 06-26-2024 Inpatient Patient Summary [facility] Discharge Instructions [address] [place] [address] (Patient Copy) Name: DALI HUFFMAN : 1970 Diagnosis: Acute post-operative pain; Diabetes; Unilateral primary osteoarthritis, left hip Allergies: Nikos Registration Date: 04/17/24 [facility]#: [id number] Current Date Time: 04/18/2024 13:16:16 Address: [facility] [place] [address] Phone: [phone] Primary Care Provider: Name: Phone: Thank you for choosing [facility] for your care. You are very important to us. Our goal is to demonstrate our high quality medical care and provide you with a very good patient experience. You may receive a survey about our service. Please take the time to complete the survey and return it so we can continue to enhance our service. Thank you again for allowing [facility] to care for your medical needs. If you have any questions about your care or follow up information please contact your doctor. Follow-up Instructions The following Appointments have been made for you: Please Note: the first letters listed in the order is the location code, followed by the appointment date, and scheduled provider Future Appointments [facility] Appt. Date: 04/24/2024 2:30 PM Scheduled Provider: JUAN MANUEL Smith 1 () Phone: -- Fax: -- Provider Follow Ups: With: Address: When: FELIX WRIGHT, Orthopedic Surgery [address], [address] [place] [address] Business (1) Comments: Follow up with therapy as [...] place on bare skin,) and use breathing cementer as instructed Continue to follow precautions as [...] Take it Additional Instructions Next Dose Due [place] 5 mg-325 mg oral tablet * (acetaminophen-hydroco [...] lungs are (more content not included)... Normal [facility] Inpt OT Jnt Replacement Prot ocol-Texton 04-18-2024 Inpt OT Jnt Replacement Protocol-Text Inpatient OT Joint Replacement Protocol Entered On: 04/18/2024 12:05 EDT Performed On: 04/18/2024 10:18 EDT by Sofi Velez Joint Protocol OT Joint Replacement Protocol OT Session 1 OT Session 2 Date/Time : 04/17/2024 13:28 EDT 04/18/2024 10:18 EDT Pain : 03/02 4 Weight Bearing : FWB L LE FWB [...] into shorts with supervision while seated using vegetable preparer to comply with THP. CGA For clothing management up over hips in standing. Thread L LE through pants using vegetable preparer while seated, hip/knee flexion to thread R, advance over B hips in standing at Mod I using FWW. Doff/don hospital socks at Mod I using vegetable preparer/sock aid. Doff compression socks at Mod A using vegetable preparer, don at Max A (Comment: (pt and spouse say plan is for spouse to assist donning/doffing compression socks). [Sofi Velez - 04/18/2024 11:58 EDT] ) Review Precautions : reviewed THP Reviewed Adaptive Equipment : Has: vegetable preparer, FWW, crutches, toilet and shower grabbars, and ADA toilet. Needs sock aid, long shoe horn, and long handled sponge. Has: vegetable preparer, FWW, crutches, toilet and shower grabbars, and ADA toilet Provided: Sock aid, LH shoe horn, LH sponge Recommendations : family assist PRN Family Assist OT Gang Drill Press Operator : Sofi Velez OT Therapist 1 : Haile PRESCOTT, Zee BATISTA, [facility] - 04/18/2024 11:58 EDT Sadi BATISTA [facility] 04/18/2024 11:58 EDT Additional Information OT : [...] with ADLs upon home going, pt has vegetable preparer. Pt returned to recliner at end of session with call light within reach, ice applied to L hip and all needs met post tx, nursing updated. Sadi BATISTA [facility] - 04/18/2024 11:58 EDT AM-PAC 6 clicks Daily [...] teeth? : None Eating meals? : None Sadi BATISTA [facility] - 04/18/2024 11:58 EDT AM-PAC Raw Score : 22 Sadi BATISTA [facility] 04/18/2024 11:58 EDT Education OT Responsible Learner/s Present : Living Situation: Home Independently Performed by: Idania PT-Student, [facility] - 04/17/2024 13:28 Discharge To: Outpatient therapy Performed by: Sharmila Pantoja LPN - 04/18/2024 10:00 Home Caregiver Name/Relationship: patient Performed by: Sharmila Pantoja LPN - 04/18/2024 10:00 Price Learner/Caregiver Present for Session : Yes Barriers to Learning : None evident TeachBack Methodology : TeachBack, Demonstration, Explanation Sadi BATISTA Sofi - 04/18/2024 11:58 EDT Occupational Therapy Education Grid Activity of Daily Living Training : Demonstrates Adaptive Equipment/DME : Demonstrates Home Safety : Verbalizes understanding Plan of Care : Verbalizes understanding Precautions : Verbalizes understanding Surgical Precautions : Verbalizes understanding Toilet Transfers : Demonstrates Tub / Shower Transfers : Needs practice/supervision Weightbearing Precautions : Verbalizes understanding Sadi HENDERSONACarmenSofi - 04/18/2024 11:58 EDT Additional Session Learner/s Present : Spouse Sadi BATISTASofi - 04/18/2024 11:58 EDT Time Spent with Patient OT Time In : 10:18 EST OT Time Out : 10:56 EST OT Self Care, Home Management Time : 38 minutes CAT WAGON OPERATOR Self Care, Home Management Units : 3 units OT Total Timed Code Treatment Units : 3 units OT Total Timed Code Treatment Minutes : 38 minutes 8 Min Rule Unit Check OT IP : 3 units OT Total Treatment Time Rehab : 38 minutes 8 Min Rule Unit Difference OT IP : 0 PMR Chart Review - OT : Yes Sadi HENDERSONAMiriam Moralesi - 04/18/2024 12:20 EDT Normal [facility] Intake and Output-Texton Intake and Output-Text Intake and Output Entered On: 04/18/2024 8:32 EDT Performed On: 04/18/2024 8:32 EDT by Joan Kaur I&O Urine Voided : 475 mL Joan Kaur - 04/18/2024 8:32 EDT Normal [facility] KETOROLAC 30MG/1ML INJon KETOROLAC 30MG/1ML INJ PRN [...] : No (not needed time is correct) Scarlett SHEET MILL SUPERVISOR Sharmila - 04/18/2024 10:40 EDT Numeric Pain Scale Numeric Pain Scale : 3 = Mild Pain Numeric Pain Score : 3 SheltonSharmila andersen LPN - 04/18/2024 10:40 EDT Normal [facility] Comment on above: Order Comment: Dose decreased [...] Mervin Kinney RN - 04/18/2024 2:02 EDT [facility] Comment on above: Order Comment: Dose decreased [...] EDT Performed On: 04/18/2024 12:53 EDT by HeatSharmila andersen LPN Lower Extremity Nail Bed Color Feet Grid Left Foot : Ama Right Foot : Ama Heater Sharmila TELLEZ - 04/18/2024 12:53 EDT Capillary Refill Feet Grid Left Foot : Less than 2 seconds Right Foot : Less than 2 seconds Heater Sharmila TELLEZ - 04/18/2024 12:53 EDT NV Lower Extremity Color Grid Left : Ama Right : Ama Heater Sharmila TELLEZ 04/18/2024 12:53 EDT NV Lower Extremity Temperature Grid Left : Warm Right : Warm Heater Sharmila TELLEZ 04/18/2024 12:53 EDT Lower Extremity Peripheral Pulses Grid Dorsalis Pedis Pulse, Left : 2+ Normal Dorsalis Pedis Pulse, Right : 2+ Normal Heater Sharmila TELLEZ - 04/18/2024 12:53 EDT Lower Extremity II Lower Extremity Sensation NV Grid Medial/Lateral Surfaces Sole of Left Foot : Intact Medial/Lateral Surfaces Sole of Right Foot : Intact Web Space Between Great and Second Toe Left Foot : Intact Web Space Between Great and Second Toe Right Foot : Intact Heater Sharmila TELLEZ - 04/18/2024 12:53 EDT Lower Extremity Strength NV Grid Plantar Flexion Left Foot : Normal 5 Plantar Flexion Right Foot : Normal 5 Dorsiflex Foot/Extend Toes Left : Normal 5 Dorsiflex Foot/Extend Toes Right : Normal 5 Heater Sharmila TELLEZ - 04/18/2024 12:53 EDT NV Lower Extremity Edema Grid Pedal Edema Bilateral : None Heater ROSALINDASharmila 04/18/2024 12:53 EDT Normal [facility] Neurovascular Assessment Lower Extremity Neurovascular Data Lower Extremity Entered On: 04/18/2024 10:43 EDT Performed On: 04/18/2024 9:00 EDT by Sharmila Pantoja LPN Lower Extremity Nail Bed Color Feet Grid Left Foot : Ama Right Foot : Ama Heatganesh VICENTEN Sharmila 04/18/2024 10:43 EDT Capillary Refill Feet Grid Left Foot : Less than 2 seconds Right Foot : Less than 2 seconds HeatSharmila andersen LPN - 04/18/2024 10:43 EDT NV Lower Extremity Color Grid Left : Ama Right : Ama Heater Sharmila TELLEZ 04/18/2024 10:43 EDT NV Lower Extremity Temperature Grid Left : Warm Right : Warm Heater SHEET MILL SUPERVISOR, [facility] 04/18/2024 10:43 EDT Lower Extremity Peripheral Pulses Grid Dorsalis Pedis Pulse, Left : 2+ Normal Dorsalis Pedis Pulse, Right : 2+ Normal Heater SHEET MILL SUPERVISOR, [facility] 04/18/2024 10:43 EDT Lower Extremity II Lower Extremity Sensation NV Grid Medial/Lateral Surfaces Sole of Left Foot : Intact Medial/Lateral Surfaces Sole of Right Foot : Intact Web Space Between Great and Second Toe Left Foot : Intact Web Space Between Great and Second Toe Right Foot : Intact Heater SHEET MILL SUPERVISOR, [facility] 04/18/2024 10:43 EDT Lower Extremity Strength NV Grid Plantar Flexion Left Foot : Normal 5 Plantar Flexion Right Foot : Normal 5 Dorsiflex Foot/Extend Toes Left : Normal 5 Dorsiflex Foot/Extend Toes Right : Normal 5 Heater ROSALINDA, [facility] 04/18/2024 10:43 EDT NV Lower Extremity Edema Grid Pedal Edema Bilateral : None Heater SHEET MILL SUPERVISOR, [facility] 04/18/2024 10:43 EDT Normal [facility] Neurovascular Assessment Lower Extremity Neurovascular Data Lower Extremity Entered On: 04/18/2024 4:31 EDT Performed On: 04/18/2024 4:31 EDT by Mervin Kinney RN Lower Extremity Nail Bed Color Feet Grid Left Foot : Ama Right Foot : Mervin Doyle RN 04/18/2024 4:31 EDT Capillary Refill Feet Grid Left Foot : Less than 2 seconds Right Foot : Less than 2 seconds Nirmal STEVENSON, Mervin 04/18/2024 4:31 EDT NV Lower Extremity Color Grid Left : Ama Right : Antionette Kinney RN, [facility] 04/18/2024 4:31 EDT NV Lower Extremity Temperature Grid Left : Warm Right : Warm Nirmal STEVENSON, [facility] 04/18/2024 4:31 EDT Lower Extremity Peripheral Pulses Grid Dorsalis Pedis Pulse, Left : 2+ Normal Dorsalis Pedis Pulse, Right : 2+ Normal Nirmal STEVENSON, [facility] 04/18/2024 4:31 EDT Lower Extremity II Lower Extremity Sensation NV Grid Medial/Lateral Surfaces Sole of Left Foot : Intact Medial/Lateral Surfaces Sole of Right Foot : Intact Web Space Between Great and Second Toe Left Foot : Intact Web Space Between Great and Second Toe Right Foot : Intact Nirmal STEVENSON, [facility] 04/18/2024 4:31 EDT Lower Extremity Strength NV Grid Plantar Flexion Left Foot : Good 4 Plantar Flexion Right Foot : Normal 5 Dorsiflex Foot/Extend Toes Left : Good 4 Dorsiflex Foot/Extend Toes Right : Normal 5 Nirmal STEVENSON, [facility] 04/18/2024 4:31 EDT Normal [facility] Neurovascular Assessment Lower Extremity Neurovascular Data Lower Extremity Entered On: 04/18/2024 0:54 EDT Performed On: 04/18/2024 0:54 EDT by Mervin Kinney RN Lower Extremity Nail Bed Color Feet Grid Left Foot : Ama Right Foot : Ama Nirmal STEVENSON, [facility] 04/18/2024 0:54 EDT Capillary Refill Feet Grid Left Foot : Less than 2 seconds Right Foot : Less than 2 seconds Nirmal STEVENSON, [facility] 04/18/2024 0:54 EDT NV Lower Extremity Color Grid Left : Ama Right : Ama Nirmal STEVENSON, [facility] 04/18/2024 0:54 EDT NV Lower Extremity Temperature Grid Left : Warm Right : Warm Nirmal STEVENSON, [facility] 04/18/2024 0:54 EDT Lower Extremity Peripheral Pulses Grid Dorsalis Pedis Pulse, Left : 2+ Normal Dorsalis Pedis Pulse, Right : 2+ Normal Nirmal STEVENSON, [facility] 04/18/2024 0:54 EDT Lower Extremity II Lower Extremity Sensation NV Grid Medial/Lateral Surfaces Sole of Left Foot : Intact Medial/Lateral Surfaces Sole of Right Foot : Intact Web Space Between Great and Second Toe Left Foot : Intact Web Space Between Great and Second Toe Right Foot : Intact Nirmal STEVENSON, [facility] 04/18/2024 0:54 EDT Lower Extremity Strength NV Grid Plantar Flexion Left Foot : Good 4 Plantar Flexion Right Foot : Normal 5 Dorsiflex Foot/Extend Toes Left : Good 4 Dorsiflex Foot/Extend Toes Right : Normal 5 Nirmal STEVENSON, [facility] 04/18/2024 0:54 EDT Normal [facility] Nursing Clinical Noteon 03-25 Nursing Clinical Note Rn agrees with SHEET MILL SUPERVISOR assessment. Normal [facility] Nursing Clinical Note c/o of being lightheaded, b/p 112/65 pulse ox 95 r/a concerned about pulse ox due to hx. states had just did inc spir. enc to do slowly and not so fast. safety maintained po fluids enc was up amb with staff in resendiz without dizziness this am Dr. Wright visited notified of earlier dizziness with relief at this time Normal [facility] PT Hip Replacement Protocol- Texton 04-18-2024 PT Hip Replacement Protocol-Text Inpatient PT Hip Replacement Protocol Entered On: 04/18/2024 12:00 EDT Performed On: 04/18/2024 11:22 EDT by Yamila Lafleur PTA Hip Protocol PT [facility] Hip Replacement Protocol [...] Yes Yes Recommendation : LOW intensity LOW Gang Drill Press Operator 1 : Yamila Lafleur PTA Therapist 1 : Hayder PT, DPTMis Therapist 2 : Idania PT-Student, Yamila yT PTA - 04/18/2024 11:56 EDT Ciarra RAJ Yamila Magañae 04/18/2024 11:56 EDT Additional Information PT : Patient may be up ad shellie with the WW. Car transfers reviewed. Patient okay for d/c to home today. Ciarra RAJYamila 04/18/2024 11:56 EDT AM-PAC 6 clicks Basic Mobility How much difficulty does the patient currently have... Turning over in bed(including adjusting bedclothes, sheets and blankets)? : None Sitting down on and Standing up from a chair with arms (e.g., wheelchair, bedside commode) : None Moving from lying on back to sitting on the side of the bed? : None Ciarra ANTHONY Yamila Veronique - 04/18/2024 11:56 EDT How much help from another person does the patient currently need... Moving to and from a bed to a chair (including a wheelchair)? : None Need to walk in hospital room? : None Climbing 3-5 steps with a railing? : None Yamila Lafleur PTA Veronique - 04/18/2024 11:56 EDT AM-PAC Raw Score : 24 Ciarra ANTHONY Yamila Veronique 04/18/2024 11:56 EDT Education PT Responsible Learner/s Present : Living Situation: Home Independently Performed by: Idania PT-Student, Ammy - 04/17/2024 13:28 Discharge To: Outpatient therapy [...] understanding Stairs : Demonstrates Yamila Lafleur PTA 04/18/2024 11:56 EDT Time Spent with Patient PT Time In : 10:55 EST PT Time Out : 11:22 EST PT Therapeutic Exercise Time : 15 minutes COMPARISON SHOPPER Therapeutic Exercise Units : 1 units PT Functional Activity Time : 12 minutes COMPARISON SHOPPER Functional Activity Units : 1 units PT [...] Lafleur PTA - 04/18/2024 11:56 EDT Normal [facility] Progress Note-Physicianon Progress Note-Physician DALI HUFFMAN :1970 Registration Date:04/17/2024 [...] acetaminophen(Tylenol) , 650 mg= 2 tabs, ORAL, [id number] acetaminophen-hydrocod one(acetaminophen-HYDR Ocodone 325 mg-5 mg oral tablet), 2 tabs, ORAL, [id number], PRN Al hydroxide/Mg hydroxide/simethicone( Mylanta = aluminum hydroxide/magnesium hydroxide/simethicone 200 mg-200 mg-20 mg/5 mL oral susp), 30 mL, ORAL, [id number], PRN aspirin, 81 mg= 1 tabs, ORAL, DAILY WITH BREAKFAST benzocaine-menthol topical(Cepacol Sore Throat Pain Relief Garcia Lozenge), 1 lozenges, ORAL, H1CUMJK, PRN bisacodyl(Dulcolax Laxative), 10 mg= 1 supp, Rectal, DAILY, PRN diphenhydrAMINE(Benadr yl), 25 mg= 0.5 mL, IV Push, [id number], PRN diphenhydrAMINE(Benadr yl), 25 mg= 1 tabs, ORAL, [id number], PRN docusate-senna(Senokot S (docu 50mg/senna 8.6mg)), 1 tabs, ORAL, BID ibuprofen = Motrin, Advil, 600 mg= 1 tabs, ORAL, X2GHHAV ketorolac = Toradol, 30 mg= 1 mL, IV Push, G6UMRMJ, PRN losartan, 100 mg= 2 tabs, ORAL, DAILY magnesium hydroxide(Milk of Magnesia Conc 10ml =30ml MOM), 10 mL, ORAL, DAILY, PRN metFORMIN = Glucophage(metFORMIN extended release), 500 mg= 1 tabs, ORAL, DAILY morphine, 2 mg= 1 mL, IV Push, Q1HOUR, PRN ondansetron(Zofran), 8 mg= 4 mL, IV Push, Y9EREVK, PRN oxyCODONE(oxyCODONE 5 mg oral tablet (IR)), 10 mg= 2 tabs, ORAL, D0SZUJV, PRN pantoprazole, 40 mg= 1 tabs, ORAL, DAILY sodium biphosphate-sodium phosphate(Fleet Phospho Soda Enema), 1 bottles, Rectal, DAILY, PRN sodium chloride(Saline Flush), 3 mL, IV Push, [id number] sodium chloride(Saline Flush), 3 mL, IV Push, PRN, PRN tapentadol(Nucynta), 50 mg= 1 tabs, ORAL, G7WHBSK, PRN traMADol(Ultram), 50 mg= 1 tabs, ORAL, [id number], PRN Lab Results Test Name Test Result [...] MPV 8.7 fL 04/18/2024 05:53 EDT Normal [facility] Rehabilitation Inpt - Assign ment - Texton 04-18-2024 Rehabilitation Inpt - Assignment - Text Rehabilitation Inpatient - Assignment Entered On: 04/18/2024 7:24 EDT Performed On: 04/18/2024 7:24 EDT by Marcie Pereira Rehabilitation Inpatient - Assignment Occupational Therapy : Sofi Velez Megan - 04/18/2024 7:24 EDT Normal [facility] Rehabilitation Inpt - Assignment - Text Rehabilitation Inpatient - Assignment Entered On: 04/18/2024 7:15 EDT Performed On: 04/18/2024 7:15 EDT by Mayra Pascual PTA Rehabilitation Inpatient - Assignment Physical Therapy : Yamila Lafleur PTA, PTA, Tammy K. - 04/18/2024 7:15 EDT Normal [facility] Rehabilitation Inpt - Assignment - Text Rehabilitation Inpatient - Assignment Entered On: 04/18/2024 7:05 EDT Performed On: 04/18/2024 7:05 EDT by Terry PT, DPT, Summer Rehabilitation Inpatient - Assignment Physical Therapy : PMRPending , Jerry Stewart PT, DPT, Summer - 04/18/2024 7:05 EDT Normal [facility] Utilization Review Noteon Utilization Review Note 04/03 OUTPT PROC SEE ABOVE FOR DETAILS FROM [facility] KD Reg as EXT REC, matches b slip. EXTENDED RECOVERY DAY 0. SCHEDULED PROCEDURE COMPLETED WITHOUT COMPLICATIONS NOTED. POST OP VSS. EXTENDED RECOVERY IS CORRECT. Discharge planned & written. Day 1 s/p GABE [facility] Admission (Data) Adult-Texto n 04-17-2024 Admission (Data) Adult-Text Adult Admission Data Entered On: 04/17/2024 8:08 EDT Performed On: 04/17/2024 8:06 EDT by Venu Thibodeaux RN Patient Safety Grid ID Band on and Verified : Yes Allergy Wood Barker : Yes Diabetic Wood Barker : Yes Fall Risk Wood Barker : Yes Venu Thibodeaux RN - 04/17/2024 [...] or treated for BH conditions : No Venu Thibodeaux RN - 04/17/2024 8:06 EDT Timothy Coma Eye Opening Response Timothy : Spontaneously Best Verbal Response Swisher : Oriented Best Motor Response Swisher : Obeys simple commands Timothy Coma Score : 15 Venu Thibodeaux RN 04/17/2024 8:06 EDT Neuro Neurological Strengths Grid Left Upper Extremity Right Upper Extremity Left Lower Extremity Right Lower Extremity Strength : 5 able to move against full resistance 5 able to move against full resistance 5 able to move against full resistance 5 able to move against full resistance Sensation : Intact Intact Intact Intact Venu Thibodeaux RN - 04/17/2024 8:36 EDT Venu Thibodeaux RN 04/17/2024 8:36 EDT Venu Thibodeaux RN 04/17/2024 8:36 EDT Venu Thibodeaux RN 04/17/2024 8:36 EDT Sensory Perception Joseph : No impairment Extremity Movement : Equal Gait : Steady Aspiration Risk : None CN VII Facial Expression and Symmetry : Facial movement symmetrical Venu Thibodeaux RN 04/17/2024 8:36 EDT Venu Thibodeaux RN 04/17/2024 8:36 EDT Pupil Assessment Grid Pupil, Left Pupil, Right Description : Regular Regular Reaction : Brisk Brisk Size (mm) : 3 mm 3 mm Venu Thibodeaux RN - 04/17/2024 8:06 EDT Venu Thibodeaux RN 04/17/2024 8:06 EDT Characteristics of Speech : Clear Orientation : Oriented x 3 Level of Consciousness : Alert Affect / Behavior : Appropriate, Calm, Cooperative Venu Thibodeaux RN 04/17/2024 8:06 EDT CardioVascular Heart Rhythm : Regular Heart Sounds : S1S2 Capillary Refill : Less than 2 seconds Edema : None Venu Thibodeaux RN - 04/17/2024 8:36 EDT Pulses Detailed Grid Radial [...] Clear RLL : Clear Venu Thibodeaux RN 04/17/2024 8:36 EDT Cough : None Venu Thibodeaux RN 04/17/2024 8:36 EDT Musculoskeletal Activity Joseph : Walks frequently Mobility Joseph : No limitations Ambulatory Devices : None Special Orthopedic Devices : None ADLs : Independent Venu Thibodeaux RN 04/17/2024 8:36 EDT Bathing : Independent (2) Dressing : Independent (2) Toileting : Independent (2) Transferring Bed or Chair : Independent (2) Continence : Independent (2) Feeding : Independent (2) Venu Thibodeaux RN - 04/17/2024 8:36 EDT ADL Index Score : 12 Venu Thibodeaux RN 04/17/2024 8:36 EDT GI Abdomen Description : Symmetric Abdomen Palpation : Soft Venu Thibodeaux RN 04/17/2024 8:36 EDT Bowel Sounds Grid LUQ : Present RUQ : Present LLQ : Present RLQ : Present Venu Thibodeaux RN 04/17/2024 8:36 EDT Passing Flatus : Yes Bowel Movement Last Date Known : Yes Bowel Movement Last Date : 04/17/2024 EDT Venu Thibodeaux RN - 04/17/2024 8:36 EDT Bladder Distention : Absent Venu Thibodeaux RN - 04/17/2024 8:36 EDT Integumentary Skin Integrity : Intact Skin Temperature : Warm Skin Color : Normal for ethnicity Skin Turgor : Elastic Mucous Membrane Color : Ama Mucous Membrane Description : Moist Skin Description : Dry Venu Thibodeaux RN - 04/17/2024 8:36 EDT Present on Admission Medical Devices : None Medical Devices for Med Administration : None Venu Thibodeaux RN - 04/17/2024 8:36 EDT Education Responsible Learner/s Present : No Data Availab (more content not included)... Normal [facility] Admission Assessment Adulton 04-17-2024 Admission Assessment Adult Adult Admission Data Entered On: 04/17/2024 12:19 EDT Performed On: 04/17/2024 12:18 EDT by Janice Boucher RN Bracelets Patient Safety Grid ID Band on and [...] - 04/17/2024 12:18 EDT Rapid Pain Data [id number] Primary Pain Location : Incisional Numeric Pain Scale : 4 = Moderate Pain Numeric Pain Score : 4 Janice Boucher RN - 04/17/2024 12:18 EDT Timothy Coma Eye Opening Response Swisher : Spontaneously Best Verbal Response Swisher : Oriented Best Motor Response Timothy : [...] : Facial movement symmetrical Janice Boucher RN - 04/17/2024 12:18 EDT CardioVascular Heart Rhythm : [...] ADLs : Minimal assist Janice Boucher RN 04/17/2024 12:18 EDT GI Abdomen Description : Symmetric Abdomen Palpation : Non-Tender, Soft Passing Flatus : No Bowel Movement Last Date Known : Yes Bowel Movement Last Date : 04/17/2024 EDT Janice Boucher RN 04/17/2024 12:18 EDT Bladder Distention : Absent Janice Boucher RN 04/17/2024 12:18 EDT Integumentary Skin Integrity : Intact Skin Temperature : Warm Skin Color : Ama Skin Turgor : Elastic Mucous Membrane Color : Ama Mucous Membrane Description : Moist Skin Description [...] Procedures : Verbalizes understanding Janice Boucher RN 04/17/2024 12:18 EDT Notifications PCP notified of your admission? : No Emergency Contact notified of your admission? : No Chantek RN, Janice - 04/17/2024 12:18 EDT Normal [facility] Comment on above: Order Comment: Order entered secondary to admission Admission History Adulton Admission History Adult Patient History Model Entered On: 04/17/2024 12:09 EDT Performed On: 04/17/2024 12:07 EDT by Janice Boucher RN General Info Preferred Verbal : Beninese Contact Information : Robyn () [phone] Preferred Written : Beninese Currently or : Not Applicable Is patient a dialysis patient? : No Janice Boucher RN - 04/17/2024 12:07 EDT Problem List Problem List obtained from : Patient Janice Boucher RN - 04/17/2024 12:07 EDT (As Of: 04/17/2024 12:09:04 EDT) Problems(Active) Diabetes (SNOMED CT :228850857 ) Name of Problem: Diabetes ; Recorder: ASHLEY KELLOGG CNP; Confirmation: Confirmed ; Classification: Medical ; Code: [id number] ; Contributor System: [employer] ; Last Updated: 04/09/2024 11:06 EDT ; Life Cycle Date: 04/09/2024 ; Life Cycle Status: Active ; Responsible Provider: ASHLEY KELLOGG CNP; Vocabulary: SNOMED CT HTN (hypertension) (SNOMED CT :5621924565 ) Name of Problem: HTN (hypertension) ; Recorder: ASHLEY KELLOGG CNP; Confirmation: Confirmed ; Classification: Medical ; Code: [id number] ; Contributor System: [employer] ; Last Updated: 04/09/2024 11:04 EDT ; Life Cycle Date: 04/09/2024 ; Life Cycle Status: Active ; Responsible Provider: ASHLEY KELLOGG CNP; Vocabulary: SNOMED CT Unilateral primary osteoarthritis, left hip (SNOMED CT :9158268213 ) Name of Problem: Unilateral primary osteoarthritis, left hip ; Recorder: ASHLEY KELLOGG CNP; Confirmation: Confirmed ; Classification: Medical ; Code: [id number] ; Contributor System: [employer] ; Last Updated: 04/09/2024 10:33 EDT ; [...] 0 ; Comments: 02/06/2024 14:10 EDT - MARCIE MONTALVO CNP Right Anesthesia Minutes: 0 ; Procedure Name: Urology procedure ; Procedure Minutes: 0 ; Comments: 02/06/2024 14:10 EDT MARCIE STAPLES CNP Penile yeast infection Anesthesia Minutes: 0 ; [...] Tobacco Use:. Other Comments: 02/06/2024 13:11 - Robert RN, Husam K.: Chewing tobacco used currently (Last Updated: 02/06/2024 [...] Janice Boucher RN - 04/17/2024 12:07 EDT Normal [facility] Comment on above: Order Comment: Order entered [...] vomiting. Postoperative hydration status: euvolemic. Notes: normothermia. Normal [facility] Anesthesia Patient: DALI HUFFMAN Age: 54 years Sex: Male : 1970 Associated Diagnoses: None Author: STALIN DINERO MD DIAGNOSIS: left hip osteoarthritis Preoperative Information Procedure/ Case: left total hip arthroplasty Surgeon scheduled: FELIX WRIGHT MD greater than 8 hours. Anesthesia history Patient's history: negative. Family's history: negative. Review of Systems ALL SYSTEMS REVIEWED: CV, PULM, GI, , NEURO, HEPATIC, HEME, ENDO, PSYCH, MS HISTORY/ROS:1. Hypertension 2. History of tuberculosis 3. Type 2 diabetes mellitus, [id number] 4. Anxiety/PTSD Health Status Allergies: Allergies (1) Active Severity Reaction Nubain passed out Current medications: Home Medications (5) Active Centrum Silver oral tablet 1 tabs, ORAL, DAILY losartan 100 mg oral tablet 100 mg = 1 tabs, ORAL, DAILY MetFORMIN (Eqv-Glumetza) 500 mg oral tablet, extended release 500 mg = 1 tabs, ORAL, DAILY [place] 5 mg-325 mg oral tablet 1 tabs, PRN, ORAL, [id number] [place] 7.5 mg-325 mg oral tablet 1 tabs, PRN, ORAL, [id number] LABORATORY DATA Chemistry BMP Plus Mag Glucose: [...] auscultation. Cardiovascular: Normal rate. Assessment and Plan [place] [employer] (ASA) physical status classification: [...] MOISE Preanesthesia Assessment: MOISE Diagnosed: No. Normal [facility] Basic Admission Informationo n 04-17-2024 Basic Admission [...] Dosin.5 kg 04/17/24 07:00:00 Janice Boucher RN 04/17/2024 12:07 EDT Belongings Valuables/Belongings Grid Valuables at Bedside Clothes : Jacket, Pants, Shirt, Shoes Electronic Devices : Cell phone, Cell phone architectural drafting instructor ArnoldMaricarmen eucedayla - 04/17/2024 12:26 EDT Room Orientation/Facility Policy Reviewed : Yes Room Orientation/Policy Reviewed With : Patient Patient Safety : Bed in low position, Call device within reach, Fall personal security specialist ID Band, ID band check, Mobility support items readily available, Non-Slip footwear, Personal items within reach, Upper/Half-length side-rails up, Traffic path in room free of clutter, Wheels locked Demonstrates Ability to Use Call Light Successfully : Yes Libby Velma - 04/17/2024 12:26 EDT Normal [facility] Comment on above: Order Comment: Order entered secondary to admission Consult Reporton 04-17-2024 Consult Report DALI HUFFMAN :1970 Registration Date:04/17/2024 Chief Complaint Left hip arthroplasty [...] acetaminophen(Tylenol) , 650 mg= 2 tabs, ORAL, [id number] acetaminophen-hydrocod one(acetaminophen-HYDR Ocodone 325 mg-5 mg oral tablet), 2 tabs, ORAL, [id number], PRN Al hydroxide/Mg hydroxide/simethicone( Mylanta = aluminum hydroxide/magnesium hydroxide/simethicone 200 mg-200 mg-20 mg/5 mL oral susp), 30 mL, ORAL, S0ZIUJD, PRN aspirin, 81 mg= 1 tabs, ORAL, DAILY WITH BREAKFAST benzocaine-menthol topical(Cepacol Sore Throat Pain Relief Garcia Lozenge), 1 lozenges, ORAL, [id number], PRN bisacodyl(Dulcolax Laxative), 10 mg= 1 supp, Rectal, DAILY, PRN cefazolin = Ancef, 2 g= 50 mL, IV Piggyback, [id number] diphenhydrAMINE(Benadr yl), 25 mg= 0.5 mL, IV Push, V0MKTYZ, PRN diphenhydrAMINE(Benadr yl), 25 mg= 1 tabs, ORAL, S1HNITR, PRN docusate-senna(Senokot S (docu 50mg/senna 8.6mg)), 1 tabs, ORAL, BID ibuprofen = Motrin, Advil, 600 mg= 1 tabs, ORAL, B2FDRDA ketorolac = Toradol, 30 mg= 1 mL, IV Push, N1SIFBN ketorolac = Toradol, 30 mg= 1 mL, IV Push, E8CRAPB, PRN losartan, 100 mg= 2 tabs, ORAL, DAILY magnesium hydroxide(Milk of Magnesia Conc 10ml =30ml MOM), 10 mL, ORAL, DAILY, PRN metFORMIN = Glucophage(metFORMIN extended release), 500 mg= 1 tabs, ORAL, DAILY morphine, 2 mg= 1 mL, IV Push, Q1HOUR, PRN ondansetron(Zofran), 8 mg= 4 mL, IV Push, [id number], PRN oxyCODONE(oxyCODONE 5 mg oral tablet (IR)), 10 mg= 2 tabs, ORAL, K2TLAFG, PRN pantoprazole, 40 mg= 1 tabs, ORAL, DAILY sodium biphosphate-sodium phosphate(Fleet Phospho Soda Enema), 1 bottles, Rectal, DAILY, PRN sodium chloride(Saline Flush), 3 mL, IV Push, [id number] sodium chloride(Saline Flush), 3 mL, IV Push, PRN, PRN Sodium Chloride 0.9%(NS) 1,000 mL(NS 1,000 mL), 1000 mL, IV tapentadol(Nucynta), 50 mg= 1 tabs, ORAL, N0WRQBQ, PRN traMADol(Ultram), 50 mg= 1 tabs, ORAL, D5KGFRI, PRN Home acetaminophen-hydrocod one([place] 5 mg-325 mg oral tablet), 1 tabs, ORAL, J9XPVCS, PRN acetaminophen-hydrocod one([place] 7.5 mg-325 mg oral tablet), 1 tabs, ORAL, [id number], PRN losartan(losartan 100 mg oral tablet), 100 mg= 1 tabs, ORAL, DAILY metFORMIN = Glucophage(MetFORMIN (Eqv-Glumetza) 500 mg oral tablet, extended release), 500 mg= 1 tabs, ORAL, DAILY multivitamin with minerals(Centrum Silver oral tablet), 1 tabs, ORAL, DAILY Loco (more content not included)... Normal [facility] HYDROCODONE 5MG/APAP 325MGon 04-17-2024 HYDROCODONE 5MG/APAP 325MG [...] Mervin Kinney RN - 04/17/2024 22:30 EDT [facility] Comment on above: Order Comment: For p [...] Janice Boucher RN - 04/17/2024 17:26 EDT [facility] Comment on above: Order Comment: For p [...] Performed by Janice Boucher RN on 04/17/2024 12:14:00 EDT acetaminophen-hydrocod one,1tabs [...] Janice Boucher RN - 04/17/2024 13:13 EDT Normal [facility] Comment on above: Order Comment: For p [...] Janice Boucher RN - 04/17/2024 13:14 EDT Normal [facility] Comment on above: Order Comment: Surge ry canceled. Blood Bank tube in 02/22/24 rack and card filed with 02/23/24 A&D by:HEATHER Incentive Spirometryon 04-17 Incentive spirometry RT Incentive Spirometry Entered On: 04/17/2024 13:38 EDT Performed On: 04/17/2024 13:37 EDT by Cayla Rome RRT Spirometry Self Administration Frequency : q 1 hour while awake Cayla Rome RRT - 04/17/2024 13:37 EDT Education Responsible Learner/s Present : No Data Available Barriers to Learning : None evident TeachBack Methodology : Explanation Cayla Rome RRT - 04/17/2024 13:37 EDT Respiratory Therapy Education Grid Incentive Spirometry : Verbalizes understanding, Demonstrates Cayla Rome RRT - 04/17/2024 13:37 EDT Respiratory Therapy Charges Respiratory Therapy Main Bozman Charges : Incentive Spirometry Visit Charges Complete? : Yes Cayla Rome RRT - 04/17/2024 13:37 EDT Normal [facility] Inpt OT Jnt Replacement Prot ocol-Texton 04-17-2024 Inpt OT Jnt Replacement Protocol-Text Inpatient OT Joint Replacement Protocol Entered On: 04/17/2024 15:42 EDT Performed On: 04/17/2024 13:28 EDT by Zee Rojas Joint Protocol OT Joint Replacement Protocol OT [...] into shorts with supervision while seated using vegetable preparer to comply with THP. CGA For clothing management up over hips in standing. Review Precautions : reviewed THP Adaptive Equipment : Has: vegetable preparer, FWW, crutches, toilet and shower grabbars, and ADA toilet. Needs sock aid, long shoe horn, and long handled sponge. Recommendations : family assist OT Therapist 1 : Zee Rojas, Zee - 04/17/2024 15:40 EDT AM-PAC 6 clicks [...] : A Little Eating meals? : None [facility] 04/17/2024 15:40 EDT AM-PAC Raw Score : 18 Juliette [facility] 04/17/2024 15:40 EDT Education OT Responsible Learner/s Present : Living Situation: Home Independently Performed by: Idania PT-Student [facility] 04/17/2024 13:28 Home Caregiver Name/Relationship: spouse Performed by: Zee Rojas 04/17/2024 13:28 Barriers to Learning : Other: see eval Haile PRESCOTT Zee - 04/17/2024 15:40 EDT Time Spent [...] Rule Unit Difference OT IP : 0 Juliette [facility] 04/17/2024 15:40 EDT Normal [facility] KETOROLAC 30MG/1ML INJon 06- 25-2024 KETOROLAC 30MG/1ML INJ PRN Response Entered On: [...] Boucher RN - 04/17/2024 18:13 EDT Normal [facility] Comment on above: Order Comment: Dose decreased [...] Bed Color Feet Grid Left Foot : Ama Right Foot : Mervin Doyle RN - 04/17/2024 22:28 EDT Capillary Refill Feet Grid Left Foot : Less than 2 seconds Right Foot : Less than 2 seconds Nirmal STEVENSON, Mervin - 04/17/2024 22:28 EDT NV Lower Extremity Color Grid Left : Ama Right : Antionette Kinney RN, Mervin - 04/17/2024 22:28 EDT NV Lower Extremity Temperature Grid Left : Warm Right : Warm Mervin Kinney RN 04/17/2024 22:28 EDT Lower Extremity Peripheral Pulses Grid Dorsalis Pedis Pulse, Left : 2+ Normal Dorsalis Pedis Pulse, Right : 2+ Normal Mervin Kinney RN - 04/17/2024 22:28 EDT Lower Extremity II Lower Extremity Sensation NV Grid Medial/Lateral Surfaces Sole of Left Foot : Intact Medial/Lateral Surfaces Sole of Right Foot : Intact Web Space Between Great and Second Toe Left Foot : Intact Web Space Between Great and Second Toe Right Foot : Intact Mervin Kinney RN - 04/17/2024 22:28 EDT Lower Extremity Strength NV Grid Plantar Flexion Left Foot : Good 4 Plantar Flexion Right Foot : Normal 5 Dorsiflex Foot/Extend Toes Left : Good 4 Dorsiflex Foot/Extend Toes Right : Normal 5 Mervin Kinney RN - 04/17/2024 22:28 EDT Normal [facility] Neurovascular Assessment Lower Extremity Neurovascular Data Lower Extremity Entered On: 04/17/2024 16:33 EDT Performed On: 04/17/2024 17:00 EDT by Janice Boucher RN Lower Extremity Nail Bed Color Feet Grid Left Foot : Ama Right Foot : Ama Janice Boucher RN - 04/17/2024 16:32 EDT Capillary Refill Feet Grid Left Foot : Less than 2 seconds Right Foot : Less than 2 seconds Janice Boucher RN - 04/17/2024 16:32 EDT NV Lower Extremity Color Grid Left : Ama Right : Ama Janice Boucher RN - 04/17/2024 16:32 EDT NV Lower Extremity Temperature Grid Left : Warm Right : Warm Janice Boucher RN - 04/17/2024 16:32 EDT Lower Extremity Peripheral Pulses Grid Dorsalis Pedis Pulse, Left : 2+ Normal Dorsalis Pedis Pulse, Right : 2+ Normal Janice Boucher RN - 04/17/2024 16:32 EDT Normal [facility] Neurovascular Assessment Lower Extremity Neurovascular Data Lower Extremity Entered On: 04/17/2024 12:30 EDT Performed On: 04/17/2024 13:00 EDT by Janice Boucher RN Lower Extremity Nail Bed Color Feet Grid Left Foot : Ama Right Foot : Ama Janice Boucher RN - 04/17/2024 12:30 EDT Capillary Refill Feet Grid Left Foot : Less than 2 seconds Right Foot : Less than 2 seconds Janice Boucher RN - 04/17/2024 12:30 EDT NV Lower Extremity Color Grid Left : Ama Right : Ama Citlaly STEVENSON, Janice - 04/17/2024 12:30 EDT NV Lower Extremity Temperature Grid Left : Warm Right : Warm Citlaly STEVENSON, Janice - 04/17/2024 12:30 EDT Lower Extremity Peripheral Pulses Grid Dorsalis Pedis Pulse, Left : 2+ Normal Dorsalis Pedis Pulse, Right : 2+ Normal Citlaly STEVENSON, Janice - 04/17/2024 12:30 EDT Normal [facility] OR Nursing Record - Main Natali n 04-17-2024 OR Nursing Record - Main OR Normal [facility] Operative Reporton Operative Report Patient: DALI HUFFMAN Age: 54 years Sex: Male : 1970 Associated Diagnoses: None Author: FELIX WRIGHT MD Preop diagnosis: Left osteoarthritis of hip Postop diagnosis: Left osteoarthritis of hip Procedure: Left hip replacement Surgeon: Adriana Asst.: Kaushal Colón and Lexii Pat Specimen: Bone Given the inherent complexity of this surgery, a second surgeon or a surgically skilled physician bacteriology research assistant was necessary for the successful completion of this entire operative procedure. The nurses assistant was present for the entire operative procedure and participated in all aspects of patient care. This included transporting the patient to the operating room and entering room with the patient, assisting with preoperative positioning, first assisting throughout the entire surgical procedure by functioning as a second bacteriology research assistant surgeon, assisting with surgical closure and [...] 55 was performed and a T6 millimeter Dixon sector cup with gription was placed with very secure fixation. One screw was also placed. A 6 millimeter polyethylene liner was placed with good fixation. This was protected. The canal was approached with a box osteotome and canal finder. Sequential rasps performed up to a size 6 high from the Clerkyuy Trilock system. With the size 6 high trilock [...] was placed in the operating room. Normal [facility] Car Shagger Detailson 2023 Car Shagger Details Car Shagger Details Entered On: 04/17/2024 22:30 EDT Performed On: 04/17/2024 22:29 EDT by Mervin Kinney RN Car Shagger Details Transport Mode Order Detail EV : Wheelchair Isolation Precautions RTF : Communication CONSTANT Order, 04/17/2024 07:55:00 EDT, Constant Order, Patients recovering in Critical Care, record vital signs Q10 min or more frequently for patient's condition or as per physician order. Patients do not require a PAR score (post anesthesia recovery)., Discontinued Consult Physician, 04/17/2024 07:55:00 EDT, CUSTOMER SUPPORT CONSULTANT , 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, post op, Completed [facility] Nutrition Task to Nursing, 04/17/2024 07:55:00 EDT, [...] : No Pacemaker Order Detail : 0 Car Shagger Details Review Status : Reviewed, changes made Nurse Collects Blood Specimens : Mervin Monique RN - 04/17/2024 22:29 EDT Normal [facility] Comment on above: Order Comment: Order entered secondary to admission Car Shagger Details Car Shagger Details Entered On: 04/17/2024 12:09 EDT Performed On: 04/17/2024 12:09 EDT by Janice Boucher RN Car Shagger Details Transport Mode Order Detail EV : Wheelchair Isolation Precautions RTF : Communication CONSTANT Order, 04/17/2024 07:55:00 EDT, Constant Order, Patients recovering in Critical Care, record vital signs Q10 min or more frequently for patient's condition or as per physician order. Patients do not require a PAR score (post anesthesia recovery)., Discontinued Consult Physician, 04/17/2024 07:55:00 EDT, CUSTOMER SUPPORT CONSULTANT , 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, post op, Ordered [facility] Nutrition Task to Nursing, 04/17/2024 07:55:00 EDT, [...] : No Pacemaker Order Detail : 0 Car Shagger Details Review Status : Reviewed, changes made Nurse Collects Blood Specimens : Janice Bearden RN - 04/17/2024 12:09 EDT [facility] Comment on above: Order Comment: Order entered secondary to admission PACU Phase I - Main ORon PACU Phase I - Main OR PACU Phase I - Main OR Summary Primary Physician: FELIX WRIGHT MD Finalized Date/Time: 04/17/24 11:43:09 Pt. Name: DALI HUFFMAN/Sex: 1970 Male Med Rec #: [id number] Physician: FELIX WRIGHT MD Financial #: [id number] Pt. Type: E Room/Bed: [place] [address] Admit/Disch: 04/17/24 06:56:21 - Institution: PACU I - Case Times - Main OR Entry 1 In PACU I 04/17/24 10:40:00 Ready for Transfer 04/17/24 11:39:00 Last Modified By: Ammy Husain RN 04/17/24 11:43:04 Finalized By: Ammy Husain RN Document Signatures Signed By: Ammy Husain RN 04/17/24 11:43 Ammy Husain RN 04/17/24 11:43 [facility] POC Glucoseon 04-17-2024 Glucose [Mass/Vol] 200 mg/dL High 72-100 [facility] Comment on above: Performed By: #### 1 [id number] ####[facility] [id number] [place] [id number] Medical Director: Selvin Dillon MD PT Hip Replacement Protocol- Macieon 04-17-2024 PT Hip Replacement Protocol-Text Inpatient PT Hip Replacement Protocol Entered On: 04/17/2024 15:28 EDT Performed On: 04/17/2024 13:28 EDT by Idania PT-Student Ammy Hip Protocol PT [facility] Hip Replacement Protocol [...] : LOW intensity Therapist 1 : Hayder PT, ELLATMis Therapist 2 : Idania PT-Student Ammy Idania PT-Student, [facility] 04/17/2024 15:26 EDT AM-PAC 6 clicks Basic Mobility How much difficulty does the patient currently have... Turning over in bed(including adjusting bedclothes, sheets and blankets)? : A Little Sitting down on and Standing up from a chair with arms (e.g., wheelchair, bedside commode) : A Little Moving from lying on back to sitting on the side of the bed? : A Little Idania PT-Student [facility] 04/17/2024 15:26 EDT How much help from another person does the patient currently need... Moving to and from a bed to a chair (including a wheelchair)? : A Little Need to walk in hospital room? : A Little Climbing 3-5 steps with a railing? : A Lot Idania DUARTE-Student [facility] 04/17/2024 15:26 EDT AM-PAC Raw Score : 17 Idania DUARTE-Alicia [facility] 04/17/2024 15:26 EDT Education PT Responsible Learner/s Present : No Data Available Barriers to Learning : Acuity of illness TeachBack Methodology : Demonstration, Explanation Edisverito PT-Student, [facility] 04/17/2024 15:26 EDT Physical Therapy Education Grid Ambulation with Roller Walker : Needs further teaching, Needs practice/supervision Exercise Program : Needs further teaching, Needs practice/supervision Surgical Precautions : Needs practice/supervision, Needs further teaching Weightbearing Precautions : Needs further teaching, Needs practice/supervision Idania PT-Student, [facility] 04/17/2024 15:26 EDT Additional Session Learner/s Present : Spouse Idania PT-Student, [facility] 04/17/2024 15:26 EDT Time Spent with Patient [...] Difference PT IP : 0 Idania PT-Student, [facility] 04/17/2024 15:26 EDT Normal [facility] Rehabilitation Inpt - Assign ment - Text 04-17-2024 Rehabilitation Inpt - Assignment - Text Rehabilitation Inpatient - Assignment Entered On: 04/17/2024 7:48 EDT Performed On: 04/17/2024 7:48 EDT by Surya OTR/LYoli Rehabilitation Inpatient - Assignment Occupational Therapy : Haile TOWNSENDR/Gena, Zee London OTR/L, Yoli Tobin - 04/17/2024 7:48 EDT Normal [facility] Rehabilitation Inpt - Assignment - Text Rehabilitation Inpatient - Assignment Entered On: 04/17/2024 7:12 EDT Performed On: 04/17/2024 7:12 EDT by Teryr PT, DPT, Summer Rehabilitation Inpatient - Assignment Physical Therapy : Hayder PT, DPT, Mis Stewart PT, DPT, Summer - 04/17/2024 7:12 EDT Normal [facility] Poth Protocol/Pre-Proc TimeOut-Texton 04-17-2024 Poth Protocol/Pre-Proc TimeOut-Text Poth Protocol Entered On: 04/17/2024 8:07 EDT Performed [...] Site / Side Marked Per Policy Laterality Poth Protocol : Left Site Verification Completed : [...] Members are in Agreement Laterality : Left Rhona Dinero RN - 04/17/2024 9:27 EDT Normal [facility] ABORHon 04-09-2024 ABORH Interpretation Positive Normal [facility] Comment on above: Performed By: #### C [id number], CD:[id number] ####[facility] [address] [place] [address] Medical Director: Selvin Dillon MD Patient History Check Previous Hx Normal [facility] Comment on above: Performed By: #### C [id number], CD:[id number] ####[facility] [address] [place] [address] Medical Director: Selvin Dillon MD VS 0.8% a cells 3+ [facility] Comment on above: Performed By: #### C [id number], CD:[id number] ####[facility] [address] [place] [address] Medical Director: Selvin Dillon MD VS 0.8% b cells 3+ [facility] Comment on above: Performed By: #### C [id number], CD:[id number] ####[facility] [address] [place] [address] Medical Director: Selvin Dillon MD VS Anti-A Unit 0 [facility] Comment on above: Performed By: #### C [id number], CD:[id number] ####[facility] [address] [place] [address] Medical Director: Selvin Dillon MD VS Anti-B Unit 0 [facility] Comment on above: Performed By: #### C [id number], CD:[id number] ####[facility] [address] [place] [address] Medical Director: Selvin Dillon MD VS Anti-D Unit 4+ [facility] Comment on above: Performed By: #### C [id number], CD:[id number] ####[facility] [address] [place] [address] Medical Director: Selvin Dillon MD ABSCon 04-09-2024 ABSC Final Interp Negative Normal [facility] Comment on above: Performed By: #### C [id number], [id number] ####[facility] [address] [place] [address] Medical Director: Selvin Dillon MD Pt Hx check done? Yes Normal [facility] Comment on above: Performed By: #### C [id number], CD:[id number] ####[facility] [address] [place] [address] Medical Director: Selvin Dillon MD VS SCI Gel 0 [facility] Comment on above: Performed By: #### C [id number], CD:[id number] ####[facility] [address] [place] [address] Medical Director: Selvin Dillon MD VS SCII Gel 0 [facility] Comment on above: Performed By: #### C [id number], CD:[id number] ####[facility] [address] [place] [address] Medical Director: Selvin Dillon MD APTTon 04-09-2024 aPTT Coag (Bld) [Time] 39.1 s High 27.0-38.0 [facility] Comment on above: Result Comment: APTT Interpretation: This test has not been validated to monitor heparin therapy. APTT test is used as an initial test for suspected bleeding disorder. Anti-Xa UFH test is used to monitor heparin therapy. Performed By: #### 1 28507, 377242, 353499, 998019 #### [facility] [address] [place] [address] Caseworker: Selvin Dillon MD BASICMETAon 04-09-2024 Calcium [Mass/Vol] 9.6 mg/dL Normal 8.7-10.4 [facility] Comment on above: Performed By: #### 1 19808, 430535, 063281, 450909 #### [facility] [address] [place] [address] Caseworker: Selvin Dillon MD Chloride [Moles/Vol] 105 mmol/L Normal 98-107 [facility] Comment on above: Performed By: #### 1 76160, 364754, 684021, 765793 #### [facility] [address] [place] [address] Caseworker: Selvin Dillon MD CO2 [Moles/Vol] 28.0 mmol/L Normal 20.0-31.0 [facility] Comment on above: Performed By: #### 1 46377, 219548, 251225, 647557 #### [facility] [address] [place] [address] Caseworker: Selvin Dillon MD Creatinine [Mass/Vol] 0.8 mg/dL Normal 0.6-1.1 [facility] Comment on above: Performed By: #### 1 10051, 065279, 227197, 078890 #### [facility] [address] [place] [address] Caseworker: Selvin Dillon MD GFR AA >60 Normal [facility] Comment on above: Result Comment: Afri can Ghanaian GFR Calc Medical judgement is necessary to [...] for drug dosing. Performed By: #### 1 92876, 649907, 164610, 380324 #### [facility] [address] [place] [address] Caseworker: Selvin Dillon MD Glomerular Filtration Rate >60 Normal [facility] Comment on above: Result Comment: Non- GFR [...] for drug dosing. Performed By: #### 1 74826, 930624, 271080, 435889 #### [facility] [address] [place] [address] Caseworker: Selvin Dillon MD Glucose [Mass/Vol] 103 mg/dL Normal 74-106 [facility] Comment on above: Performed By: #### 1 24606, 213295, 075129, 293624 #### [facility] [address] [place] [address] Caseworker: Selvin Dillon MD Osmolality [Osmolality] 282 mosm/kg Normal 275-295 [facility] Comment on above: Performed By: #### 1 11661, 330866, 394822, 501219 #### [facility] [address] [place] [address] Caseworker: Selvin Dillon MD Potassium [Moles/Vol] 4.4 mmol/L Normal 3.5-5.1 [facility] Comment on above: Performed By: #### 1 59867, 151564, 609636, 227189 #### [facility] [address] [place] [address] Caseworker: Selvin Dillon MD Sodium [Moles/Vol] 140 mmol/L Normal 135-145 [facility] Comment on above: Performed By: #### 1 05321, 502202, 857852, 274654 #### [facility] [address] [place] [address] Caseworker: Selvin Dillon MD Urea nitrogen [Mass/Vol] 19 mg/dL Normal 9-23 [facility] Comment on above: Result Comment: - Ve nipuncture should occur prior to N-Acetyl Cysteine (NAC) or Metamizole (Sulpyrine) administration due to the potential for falsely depressed results. - Blood samples from some patients with monoclonal gammopathies may produce falsely elevated results Performed By: #### 1 29476, 614955, 335069, 229643 #### [facility] [address] [place] [address] Caseworker: Selvin Dillon MD Urea nitrogen/Creatinine [Mass ratio] 23.8 mg/mg Normal [facility] Comment on above: Performed By: #### 1 94478, 917825, 093658, 763288 #### [facility] [address] [place] [address] Caseworker: [facility] Dillon [facility] Erythrocyte distribution width (RBC) [Ratio] 14.7 % High 11.5-14.5 [facility] Comment on above: Performed By: #### 1 75232, 536130, 687092, 197182 #### [facility] [address] [place] [address] Caseworker: Selvin Dillon MD Hematocrit (Bld) [Volume fraction] 41.3 % Normal 41.0-52.0 [facility] Comment on above: Performed By: #### 1 63573, 058959, 166494, 706394 #### [facility] [address] [place] [address] Caseworker: Selvin Dillon MD Hemoglobin (Bld) [Mass/Vol] 13.9 g/dL Normal 13.5-17.5 [facility] Comment on above: Performed By: #### 1 32842, 238410, 262363, 707859 #### [facility] [address] [place] [address] Caseworker: Selvin Dillon MD Instr WBC ND 7.1 Normal [facility] Comment on above: Performed By: #### 1 28380, 280346, 818076, 541466 #### [facility] [address] [place] [address] Caseworker: Selvin Dillon MD MCH (RBC) [Entitic mass] 29.8 pg Normal 27.0-34.0 [facility] Comment on above: Performed By: #### 1 36651, 720356, 785388, 467985 #### [facility] [address] [place] [address] Caseworker: Selvin Dillon MD MCHC (RBC) [Mass/Vol] 33.7 g/dL Normal 32.0-37.0 [facility] Comment on above: Performed By: #### 1 39696, 706745, 325976, 182993 #### [facility] [address] [place] [address] Caseworker: Selvin Dillon MD MCV (RBC) [Entitic vol] 88.4 fL Normal 80.0-100.0 [facility] Comment on above: Performed By: #### 1 94973, 713974, 691023, 580546 #### [facility] [address] [place] [address] Caseworker: Selvin Dillon MD Platelet 256 x10 Normal 150-450 [facility] Comment on above: Performed By: #### 1 30817, 071470, 564978, 964997 #### [facility] [address] [place] [address] Caseworker: Selvin Dillon MD Platelet mean volume (Bld) [Entitic vol] 8.2 fL Normal 7.4-10.4 [facility] Comment on above: Performed By: #### 1 07670, 970160, 846653, 245820 #### [facility] [address] [place] [address] Caseworker: Selvin Dillon MD RBC 4.68 x10 Low 4.70-6.10 [facility] Comment on above: Result Comment: Note : RBC morphology is normal unless otherwise stated. Evaluation performed only if differential is requested. Performed By: #### 1 06131, 532615, 438711, 942644 #### [facility] [address] [place] [address] Caseworker: Selvin Dillno MD WBC 7.1 x10 Normal 4.5-11.0 [facility] Comment on above: Performed By: #### 1 39281, 162092, 053591, 407281 #### [facility] [address] [place] [address] Caseworker: Selvin Dillon MD PT INRon 04-09-2024 INR Coag (PPP) [Relative time] 1.0 {INR} Normal [facility] Comment on above: Result Comment: INR Reference Range: Normal reference range for INR on patients not on anticoagulant therapy: 0.9-1.1 General therapeutic range for patients on anticoagulant therapy: 2.0-3.5 Performed By: #### 1 67259, 981773, 149840, 218990 #### [facility] [address] [place] [address] Caseworker: Selvin Dillon MD Protime Patient 11.0 seconds Normal 9.8-12.8 [facility] Comment on above: Performed By: #### 1 19926, 940812, 106027, 721986 #### [facility] [address] [place] [address] Caseworker: Selvin Dillon MD Preadmission Testing Progres s [...] must be reported to your surgeon. Normal [facility] UAon 04-09-2024 U MICRO Not Indicated Normal [facility] Comment on above: Performed By: #### 1 85763 #### [facility] [address] [place] [address] Caseworker: Selvin Dillon MD Appearance, U Clear Normal [facility] Comment on above: Performed By: #### 1 68921 #### [facility] [address] [place] [address] Caseworker: Selvin Dillon MD Bilirubin, U Negative Normal Negative [facility] Comment on above: Performed By: #### 1 01223 #### [facility] [facility] [address] [place] [address] 15336 Caseworker: Selvin Dillon MD Blood, U Negative Normal Negative [facility] Comment on above: Performed By: #### 1 62967 #### [facility] [address] [place] [address] 19826 Caseworker: Selvin Dillon MD Color, U Yellow Normal [facility] Comment on above: Performed By: #### 1 [id number] #### [facility] [address] [place] [address] 63504 Caseworker: Selvin Dillon MD Glucose Qual, U Negative Normal Negative [facility] Comment on above: Performed By: #### 1 38085 #### [facility] [address] [place] [address] 92546 Caseworker: Selvin Dillon MD Ketones, U Trace Abnormal Negative [facility] Comment on above: Performed By: #### 1 89125 #### [facility] [address] [place] [address] 16755 Caseworker: Selvin Dillon MD Leukocyte Esterase, U Negative Normal Negative [facility] Comment on above: Performed By: #### 1 40348 #### [facility] [address] [place] [address] 26614 Caseworker: Selvin Dillon MD Nitrite, U Negative Normal Negative [facility] Comment on above: Performed By: #### 1 96298 #### [facility] [address] [place] [address] 28763 Caseworker: Selvin Dillon MD pH, U 5.0 Normal 4.5-8.0 [facility] Comment on above: Performed By: #### 1 11628 #### [facility] [address] [place] [address] 26704 Caseworker: Selvin Dillon MD Protein, U Negative Normal Negative [facility] Comment on above: Performed By: #### 1 50549 #### [facility] [address] [place] [address] 80922 Caseworker: Selvin Dillon MD Specific [place], U 1.015 Normal 1.001-1.035 [facility] Comment on above: Performed By: #### 1 07889 #### [facility] [address] [place] [address] 42177 Caseworker: Selvin Dillon MD Urobilinogen Qual, U <2.0 mg/dl Normal <2.0 mg/dl [facility] Comment on above: Result Comment: EU/d l and mg/dl are equivalent units. Performed By: #### 1 68936 #### [facility] [address] [place] [address] 84599 Caseworker: Selvin Dillon MD ABORHon 02-22-2024 ABORH CK Interp Positive Normal [facility] Comment on above: Order Comment: Surge ry canceled. Blood Bank tube in 02/22/24 rack and card filed with 02/23/24 A&D by:SF Performed By: #### C [id number], CD:[id number] #### [facility] [address] [place] [address] [phone] Caseworker: Selvin Dillon MD Anti-A recheck 0 [facility] Comment on above: Order Comment: Surge ry canceled. Blood Bank tube in 02/22/24 rack and card filed with 02/23/24 A&D by:SF Performed By: #### C [id number], CD:[id number] #### [facility] [address] [place], [place] [address] Caseworker: Selvin Dillon MD Anti-B recheck 0 [facility] Comment on above: Order Comment: Surge ry canceled. Blood Bank tube in 02/22/24 rack and card filed with 02/23/24 A&D by:SF Performed By: #### C [id number], CD:[id number] #### [facility] [place] [id number] Caseworker: Selvin Dillon MD Anti-D recheck 4+ [facility] Comment on above: Order Comment: Surge ry canceled. Blood Bank tube in 02/22/24 rack and card filed with 02/23/24 A&D by:SF Performed By: #### C [id number], CD:[id number] #### [facility] [address] [place], [place] [address] Caseworker: Selvin Dillon MD ABORHon 02-06-2024 ABORH Interpretation Positive Normal [facility] Comment on above: Order Comment: Surge ry canceled. Blood Bank tube in 02/22/24 rack and card filed with 02/23/24 A&D by:SF Performed By: #### C [id number], CD:[id number] #### [facility] [address] [place], [place] [phone] Caseworker: Selvin Dillon MD Patient History Check No Previous Hx Normal [facility] Comment on above: Order Comment: Surge ry canceled. Blood Bank tube in 02/22/24 rack and card filed with 02/23/24 A&D by:HEATHER Result Comment: 01/22 15:10 17541 ABO Recheck to be ordered on admit. Surgery Date: 02/23/24 Performed By: #### C [id number], CD:[id number] #### [facility] [address] [place], [place] [phone] Caseworker: Selvin Dillon MD VS 0.8% a cells 3+ Normal [facility] Comment on above: Order Comment: Surge ry canceled. Blood Bank tube in 02/22/24 rack and card filed with 02/23/24 A&D by:SF Performed By: #### C [id number], CD:[id number] #### [facility] [address] [place], [place] [address] Caseworker: Selvin Dillon MD VS 0.8% b cells 3+ Normal [facility] Comment on above: Order Comment: Surge ry canceled. Blood Bank tube in 02/22/24 rack and card filed with 02/23/24 A&D by:SF Performed By: #### C [id number], CD:[id number] #### [facility] [address] [place], [place] [address] Caseworker: Selvin Dillon MD VS Anti-A Unit 0 Normal [facility] Comment on above: Order Comment: Surge ry canceled. Blood Bank tube in 02/22/24 rack and card filed with 02/23/24 A&D by:SF Performed By: #### C [id number], CD:[id number] #### [facility] [address] [place], [place] [address] Caseworker: Selvin Dillon MD VS Anti-B Unit 0 [facility] Comment on above: Order Comment: Surge ry canceled. Blood Bank tube in 02/22/24 rack and card filed with 02/23/24 A&D by:SF Performed By: #### C [id number], CD:[id number] #### [facility] [address] [place] [address] 00179 Caseworker: Selvin Dillon MD VS Anti-D Unit 4+ [facility] Comment on above: Order Comment: Surge ry canceled. Blood Bank tube in 02/22/24 rack and card filed with 02/23/24 A&D by:SF Performed By: #### C [id number], CD:[id number] #### [facility] [address] [place] [address] 47413 Caseworker: Selvin Dillon MD ABSCon 02-06-2024 ABSC Final Interp Negative [facility] Comment on above: Performed By: #### C [id number], CD:[id number] #### [facility] [address] [place] [address] 61413 Caseworker: Selvin Dillon MD Pt Hx check done? Yes [facility] Comment on above: Performed By: #### C [id number], CD:[id number] #### [facility] [address] [place] [address] 77585 Caseworker: Selvin Dillon MD VS SCI Gel 0 [facility] Comment on above: Performed By: #### C [id number], CD:[id number] #### [facility] [address] [place] [address] 80005 Caseworker: Selvin Dillon MD VS SCII Gel 0 [facility] Comment on above: Performed By: #### C [id number], CD:[id number] #### [facility] [address] [place] [address] 60476 Caseworker: Selvin Dillon MD APTTon 02-06-2024 aPTT Coag (d) [Time] 32.8 s Normal 27.0-38.0 [facility] Comment on above: Result Comment: APTT Interpretation: This test has not been validated to monitor heparin therapy. APTT test is used as an initial test for suspected bleeding disorder. Anti-Xa UFH test is used to monitor heparin therapy. Performed By: #### 1 81157 #### [facility] [address] [place] [address] 80447 Caseworker: Selvin Dillon MD BASICMETAon 02-06-2024 Calcium [Mass/Vol] 9.6 mg/dL Normal 8.7-10.4 [facility] Comment on above: Performed By: #### 1 97841, 786011, 720630, 525774 #### [facility] [address] [place], [place] [address] Caseworker: Selvin Dillon MD Chloride [Moles/Vol] 101 mmol/L Normal 98-107 [facility] Comment on above: Performed By: #### 1 63530, 854991, 851597, 860722 #### [facility] [address] [place], [place] [address] Caseworker: Selvin Dillon MD CO2 [Moles/Vol] 26.0 mmol/L Normal 20.0-31.0 [facility] Comment on above: Performed By: #### 1 11433, 036350, 031828, 903543 #### [facility] [address] [place] [address] 96917 Caseworker: Selvin Dillon MD Creatinine [Mass/Vol] 0.9 mg/dL Normal 0.6-1.1 [facility] Comment on above: Performed By: #### 1 85356, 688756, 835700, 804495 #### [facility] [address] [place] [address] Caseworker: Selvin Dillon MD GFR AA >60 Normal [facility] Comment on above: Result Comment: Afri can Ghanaian GFR Calc Medical judgement is necessary to [...] for drug dosing. Performed By: #### 1 43008, 721289, 728128, 758092 #### [facility] [address] [place] [address] Caseworker: Selvin Dillon MD Glomerular Filtration Rate >60 Normal [facility] Comment on above: Result Comment: Non- GFR [...] for drug dosing. Performed By: #### 1 04015, 439382, 548838, 176771 #### [facility] [address] [place] [address] 19443 Caseworker: Selvin Dillon MD Glucose [Mass/Vol] 346 mg/dL High 74-106 [facility] Comment on above: Performed By: #### 1 97371, 778580, 521600, 935038 #### [facility] [address] [place] [address] Caseworker: Selvin Dillon MD Osmolality [Osmolality] 285 mosm/kg Normal 275-295 [facility] Comment on above: Performed By: #### 1 34272, 330398, 043012, 026421 #### [facility] [address] [place] [address] Caseworker: Selvin Dillon MD Potassium [Moles/Vol] 4.5 mmol/L Normal 3.5-5.1 [facility] Comment on above: Performed By: #### 1 53506, 621070, 174014, 165385 #### [facility] [address] [place] [address] 38404 Caseworker: Selvin Dillon MD Sodium [Moles/Vol] 134 mmol/L Low 135-145 [facility] Comment on above: Performed By: #### 1 02286, 206215, 387823, 943238 #### [facility] [address] [place] [address] 91318 Caseworker: Selvin Dillon MD Urea nitrogen [Mass/Vol] 20 mg/dL Normal 9-23 [facility] Comment on above: Result Comment: - Ve nipuncture should occur prior to N-Acetyl Cysteine (NAC) or Metamizole (Sulpyrine) administration due to the potential for falsely depressed results. - Blood samples from some patients with monoclonal gammopathies may produce falsely elevated results Performed By: #### 1 25288, 843945, 985177, 187549 #### [facility] [address] [place] [address] 07477 Caseworker: Selvin Dillon MD Urea nitrogen/Creatinine [Mass ratio] 22.2 mg/mg Normal [facility] Comment on above: Performed By: #### 1 35743, 486763, 297210, 473061 #### [facility] [address] [place] [address] 05769 Caseworker: Selvin Dillon MD CBCNDon 02-06-2024 Erythrocyte distribution width (RBC) [Ratio] 13.9 % Normal 11.5-14.5 [facility] Comment on above: Performed By: #### 1 12736 #### [facility] [address] [place] [address] 95378 Caseworker: Selvin Dillon MD Hematocrit (Bld) [Volume fraction] 44.9 % Normal 41.0-52.0 [facility] Comment on above: Performed By: #### 1 53125 #### [facility] [address] [place] [address] 05149 Caseworker: Selvin Dillon MD Hemoglobin (Bld) [Mass/Vol] 15.2 g/dL Normal 13.5-17.5 [facility] Comment on above: Performed By: #### 1 56352 #### [facility] [address] [place] [address] 23601 Caseworker: Selvin Dillon MD Instr WBC ND 8.7 Normal [facility] Comment on above: Performed By: #### 1 65845 #### [facility] [address] [place], [place] [address] Caseworker: Selvin Dillon MD MCH (RBC) [Entitic mass] 29.3 pg Normal 27.0-34.0 [facility] Comment on above: Performed By: #### 1 65112 #### [facility] [address] [place] [address] 15701 Caseworker: Selvin Dillon MD MCHC (RBC) [Mass/Vol] 33.9 g/dL Normal 32.0-37.0 [facility] Comment on above: Performed By: #### 1 80065 #### [facility] [address] [place], [place] [address] Caseworker: Selvin Dillon MD MCV (RBC) [Entitic vol] 86.6 fL Normal 80.0-100.0 [facility] Comment on above: Performed By: #### 1 14685 #### [facility] [address] [place] [address] 86628 Caseworker: Selvin Dillon MD Platelet 245 x10 Normal 150-450 [facility] Comment on above: Performed By: #### 1 30793 #### [facility] [address] [place] [address] 65298 Caseworker: Selvin Dillon MD Platelet mean volume (Bld) [Entitic vol] 8.6 fL Normal 7.4-10.4 [facility] Comment on above: Performed By: #### 1 27314 #### [facility] [address] [place] [address] 52437 Caseworker: Selvin Dillon MD RBC 5.18 x10 Normal 4.70-6.10 [facility] Comment on above: Result Comment: Note : RBC morphology is normal unless otherwise stated. Evaluation performed only if differential is requested. Performed By: #### 1 04884 #### [facility] [address] [place] [address] 07567 Caseworker: Selvin Dillon MD WBC 8.7 x10 Normal 4.5-11.0 [facility] Comment on above: Performed By: #### 1 87802 #### [facility] [address] [place], [place] [address] Caseworker: Selvin Dillon MD HGB A1Con 02-06-2024 HbA1c (Bld) [Mass fraction] 10.1 % Normal [facility] Comment on above: Result Comment: Refe rence Range: Diabetic Greater than or equal to 6.5 % Prediabetic 5.7?6.4 % Normal Less than 5.7 % Performed By: #### 1 31853 #### [facility] [address] [place], [place] [address] Caseworker: MD JOMAR Webb JR. Adult Hip Survey [...] from sitting : Extreme 4. Bending to floor/makeup artist an object : Severe 5. Lying in bed (turning over, maintaining hip position) : Extreme 6. Sitting : Severe HOOS JR Raw Score (ref) : 22 HOOS JR Interval Score : 16 Harriet MITTALCarmenMarcie - 02/06/2024 16:05 EDT Normal [facility] OT PAT Instruction/Education -Texton 02-06-2024 OT PAT Instruction/Educatio n-Text OT PAT Entered On: 02/06/2024 16:05 EDT Performed On: 02/06/2024 15:30 EDT by Marcie Pereira OT DAY Surgery Date : 02/23/24 Prior Level of Function : Independent Printed Material Given to Patient : Total Hip Replacement Book Responsible Learner(s) : No Data Available Barriers To Learning : None evident TeachBack Methodology : Explanation, Printed Material, Video/Educational TV Harrietnarciso CASASGenaMarcie 02/06/2024 16:03 EDT OT PAT Education Grid Activity of Daily Living Training : Needs practice/supervision Adaptive Equipment/DME : Needs practice/supervision Car Transfers : Needs practice/supervision Family Instructions : Needs practice/supervision Home Safety : Needs practice/supervision Plan of Care : Needs practice/supervision Toilet Transfers : Needs practice/supervision Tub / Shower Transfers : Needs practice/supervision Other : Needs practice/supervision Marcie Pereira 02/06/2024 16:03 EDT Additional Information OT : Pt planning for outpatient therapy post op. 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 Harriet YESSENIAGenaMarcie 02/06/2024 16:03 EDT Home Environment Living Environment : No Living Environment Information Available *Living Situation : Home with family care *Lives With : Spouse Lives In : Single level home Harriet YESSENIAGenaMarcie 02/06/2024 16:03 EDT Rehabilitation Stairs Grid Inside Stairs Outside Stairs Number of Stairs : 0 3 Stairs Rail : One Rail Marcie Pereira 02/06/2024 16:03 EDT Marcie Pereira 02/06/2024 16:03 EDT Primary Bedroom : 1st floor Primary Bathroom : 1st floor Kitchen : 1st floor Laundry : Basement (Comment: n/a [Marcie Pereira 02/06/2024 16:03 EDT] ) Marcie Pereira - 02/06/2024 16:03 EDT Home Environment II Living Environment : No Living Environment Information Available Current Home Treatments : None Home Equipment Rehab : Grab bars, Lift chair Marcie Pereira - 02/06/2024 16:03 EDT Time Spent with Patient OT Time In : 14:30 EST OT Time Out : 15:30 EST OT Therapeutic Activities Time : 0 minutes CHAZ Therapeutic Activities Units : 0 units OT Total Timed Code Treatment Units : 0 units OT Total Timed Code Treatment Minutes : 0 minutes 8 Min Rule Unit Check OT IP : 0 units OT Total Treatment Time Rehab : 0 minutes 8 Min Rule Unit Difference OT IP : 0 PMR Chart Review - OT : Yes Marcie Pereira - 02/06/2024 16:03 EDT Normal [facility] PT INRon 02-06-2024 INR Coag (PPP) [Relative time] 1.0 {INR} Normal [facility] Comment on above: Result Comment: INR Reference Range: Normal reference range for INR on patients not on anticoagulant therapy: 0.9-1.1 General therapeutic range for patients on anticoagulant therapy: 2.0-3.5 Performed By: #### 1 65035, 340660, 357071, 406508 #### [facility] [address] [place], [place] [address] Caseworker: Selvin Dillon MD Protime Patient 10.9 seconds Normal 9.8-12.8 [facility] Comment on above: Performed By: #### 1 50153, 116525, 641917, 151154 #### [facility] [address] [place], [place] [address] Caseworker: Selvin Dillon MD Preadmission Testing Progres s [...] ] Total Joint Class: 02/06/24 at 2:30 (Phi Pate) [X ] Bring on day of surgery: Green blood band (in Surgery Guide) [X ] Additional instructions: No visitors will be allowed in pre-op or recovery on day of surgery *Any major change in your medical condition, that was treated by your primary physician or the result of an Emergency Room visit, must be reported to your surgeon. Normal [facility] UAon 02-06-2024 U MICRO Indicated Normal [facility] Comment on above: Performed By: #### 1 71553 #### [facility] [address] [place], [place] [address] Caseworker: Selvin Dillon MD Appearance, U Clear Normal [facility] Comment on above: Performed By: #### 1 86184 #### [facility] [address] [place], [place] [address] Caseworker: Selvin Dillon MD Bilirubin, U Negative Normal Negative [facility] Comment on above: Performed By: #### 1 34348 #### [facility] [address] [place], [place] [address] Caseworker: Selvin Dillon MD Blood, U Small Abnormal Negative [facility] Comment on above: Performed By: #### 1 81636 #### [facility] [address] [place], [place] [address] Caseworker: Selvin Dillon MD Color, U Yellow Normal [facility] Comment on above: Performed By: #### 1 29637 #### [facility] [address] [place], [place] [address] Caseworker: Selvin Dillon MD Glucose Qual, U >=500 mg/dl Abnormal Negative [facility] Comment on above: Performed By: #### 1 10995 #### [facility] [address] [place], [place] [address] Caseworker: Selvin Dillon MD Ketones, U Negative Normal Negative [facility] Comment on above: Performed By: #### 1 63306 #### [facility] [address] [place] [address] 29869 Caseworker: Selvin Dillon MD Leukocyte Esterase, U Negative Normal Negative [facility] Comment on above: Performed By: #### 1 92314 #### [facility] [address] [place], [place] [address] Caseworker: Selvin Dillon MD Nitrite, U Negative Normal Negative [facility] Comment on above: Performed By: #### 1 67324 #### [facility] [address] [place], [place] [address] Caseworker: Selvin Dillon MD pH, U 5.0 Normal 4.5-8.0 [facility] Comment on above: Performed By: #### 1 10267 #### [facility] [address] [place], [place] [address] Caseworker: Selvin Dillon MD Protein, U Negative Normal Negative [facility] Comment on above: Performed By: #### 1 59659 #### [facility] [address] [place], [place] [address] Caseworker: Selvin Dillon MD RBC/HPF, U 2 #/HPF Normal 0-3 [facility] Comment on above: Performed By: #### 1 66654 #### [facility] [address] [place], [place] [address] Caseworker: Selvin Dillon MD Specific [place], U 1.028 Normal 1.001-1.035 [facility] Comment on above: Performed By: #### 1 11055 #### [facility] [address] [place], [place] [address] Caseworker: Selvin Dillon MD Urobilinogen Qual, U <2.0 mg/dl Normal <2.0 mg/dl [facility] Comment on above: Result Comment: EU/d l and mg/dl are equivalent units. Performed By: #### 1 84829 #### [facility] [address] [place] [address] Caseworker: Selvin Dillon MD WBC/HPF, U <1 Normal 0-5 [facility] Comment on above: Performed By: #### 1 02152 #### [facility] [address] [place] [address] Caseworker: Selvin Dillon MD US venous duplex LE LTon US venous duplex LE LT [facility] [address] [place] [address] Ultrasound Report Signed Patient: Dali Huffman MR#: [id number] 11 : 1970 Acct:[id number] Age/Sex: 53 / M ADM Date: 12/19/23 Loc: Room: Type: [facility] Attending Dr: Rocky Lemon DO Ordering Provider: [...] Venu Islas MD12/20/2023 2:52 PM Dictation Location: [place] [address] Tech: Laila Hall Transcribed By: CHECO 12/20/23 145 Dictated By: Venu Islas MD 12/20/231451 Signed By: 12/20/23 1452 Normal [facility] GLYCOHEMOGLOBIN A1Con 2020 ADA RECOMMENDATION ADA THERAPEUTIC TARG ET 6.0 - 7.0 ACTION SUGGESTED > 7.0 Normal [facility] Comment on above: Performed By: #### D ATA1C #### [facility] [address] [place] [address] Dr. Ahmet Mcghee Glucose [Mass/Vol] 283 mg/dL Normal [facility] Comment on above: Performed By: #### D ATA1C #### [facility] [address] [place] [address] Dr. Ahmet Mcghee HbA1c (Bld) [Mass fraction] 11.5 % Critically high <=6.0 [facility] Comment on above: Performed By: #### D ATA1C #### [facility] [address] [place] [address] Dr. Ahmet Mcghee CBC AUTO DIFFon 08-10-2021 BASO # 0.1 103/ul Normal 0.0-0.1 [facility] Comment on above: Performed By: #### C BC #### [facility] [address] [place] [address] [address] Ahmet Mcghee Basophils/100 WBC (Bld) 0.9 % Normal 0.2-2.0 [facility] Comment on above: Performed By: #### C BC #### [facility] [address] [place] [address] Dr. Ahmet Mcghee EO # 0.1 103/ul Normal 0.0-0.7 [facility] Comment on above: Performed By: #### C BC #### [facility] [address] [place] [address] Dr. Ahmet Mcghee Eosinophils/100 WBC (Bld) 1.2 % Normal 0.9-7.0 [facility] Comment on above: Performed By: #### C BC #### [facility] [address] [place] [address] Dr. Ahmet Mcghee Erythrocyte distribution width (RBC) [Ratio] 12.9 % Normal 11.0-15.0 [facility] Comment on above: Performed By: #### C BC #### [facility] [address] [place] [address] Dr. Ahmet Mcghee Hematocrit (Bld) [Volume fraction] 46.7 % Normal 42.0-54.0 [facility] Comment on above: Performed By: #### C BC #### [facility] [address] [place] [address] Dr. Ahmet Mcghee Hemoglobin (Bld) [Mass/Vol] 16.1 g/dL Normal 14.0-18.0 [facility] Comment on above: Performed By: #### C BC #### [facility] [address] [place] [address] Dr. Ahmet Mcghee IG # 0.07 10e3/ul Critically high 0.00-0.03 [facility] Comment on above: Performed By: #### C BC #### [facility] [address] [place] [address] Dr. Ahmet Mcghee IG % 0.9 % Critically high 0.0-0.5 [facility] Comment on above: Performed By: #### C BC #### [facility] [address] [place] [address] Dr. Ahmet Mcghee LYMPH # 2.2 103/ul Normal 1.2-3.8 [facility] Comment on above: Performed By: #### C BC #### [facility] [address] [place] [address] Dr. Ahmet Mcghee Lymphocytes/100 WBC (Bld) 30.3 % Normal 20.5-60.0 [facility] Comment on above: Performed By: #### C BC #### [facility] [address] [place] [address] Dr. Ahmet Mcghee MANUAL DIFF REQ NO Normal [facility] Comment on above: Performed By: #### C BC #### [facility] [address] [place] [address] Dr. Ahmet Mcghee MCH (RBC) [Entitic mass] 29.3 pg Normal 25.9-34.0 [facility] Comment on above: Performed By: #### C BC #### [facility] [address] [place] [address] Dr. Ahmet Mcghee MCHC (RBC) [Mass/Vol] 34.5 g/dL Normal 29.9-35.2 [facility] Comment on above: Performed By: #### C BC #### [facility] [address] [place] [address] Dr. Ahmet Mcghee MCV (RBC) [Entitic vol] 84.9 fL Normal 80.0-94.0 [facility] Comment on above: Performed By: #### C BC #### [facility] [address] [place] [address] Dr. Ahmet Mcghee MONO # 0.6 103/ul Normal 0.3-0.8 [facility] Comment on above: Performed By: #### C BC #### [facility] [address] [place] [address] Dr. Ahmet Mcghee Monocytes/100 WBC (Bld) 8.0 % Normal 1.7-12.0 [facility] Comment on above: Performed By: #### C BC #### [facility] [address] [place] [address] Dr. Ahmet Mcghee NEUT # 4.3 103/ul Normal 1.4-6.5 [facility] Comment on above: Performed By: #### C BC #### [facility] [address] [place] [address] Dr. Ahmet Mcghee Neutrophils/100 WBC (Bld) 58.7 % Normal 43.0-75.0 [facility] Comment on above: Performed By: #### C BC #### [facility] [address] [place] [address] Dr. Ahmet Mcghee Platelet mean volume (Bld) [Entitic vol] 10.7 fL Normal 9.5-13.5 [facility] Comment on above: Performed By: #### C BC #### [facility] [address] [place] [address] Dr. Ahmet Mcghee PLT 249 103/ul Normal 150-450 [facility] Comment on above: Performed By: #### C BC #### [facility] [address] [place] [address] Dr. Ahmet Mcghee RBC 5.50 106/ul Normal 4.70-6.10 [facility] Comment on above: Performed By: #### C BC #### [facility] [address] [address] [address] Ahmet Mcghee WBC 7.4 103/ul Normal 4.0-11.0 [facility] Comment on above: Performed By: #### C BC #### [facility] [address] [address] [address] Ahmet Mcghee CPKon 08-10-2021 CK [Catalytic activity/Vol] 49 U/L Critically low 55-170 [facility] Comment on above: Performed By: #### C K #### [facility] [address] [place] [address] HEAD WO CONon [...] YAO STRONG Date: 2021-08-10 18:17 Normal [facility] PROF 14(COMP METB)on 08-10-2 021 Albumin [Mass/Vol] 3.6 g/dL Normal 3.5-5.0 [facility] Comment on above: Performed By: #### C WILFRED, HSTROPN #### [facility] [address] [address] [address] Ahmet Mcghee Albumin/Globulin [Mass ratio] 0.9 {ratio} Normal [facility] Comment on above: Performed By: #### C WILFRED, HSTROPN #### [facility] [address] [address] [address] Ahmet Mcghee ALP [Catalytic activity/Vol] 120 U/L Normal 38-126 [facility] Comment on above: Performed By: #### C WILFRED, HSTROPN #### [facility] [address] [address] [address] Ahmet Mcghee ALT [Catalytic activity/Vol] 26 U/L Normal 21-72 [facility] Comment on above: Performed By: #### C WILFRED, HSTROPN #### [facility] [address] [address] [address] Ahmet Mcghee Anion gap [Moles/Vol] 13.4 mmol/L Normal [facility] Comment on above: Performed By: #### C WILFRED, HSTROPN #### [facility] [address] [address] [address] Ahmet Mcghee AST [Catalytic activity/Vol] 10 U/L Critically low 17-59 [facility] Comment on above: Performed By: #### C WILFRED, HSTROPN #### [facility] [address] [address] [address] Ahmet Mcghee Bilirubin [Mass/Vol] 0.3 mg/dL Normal 0.2-1.3 [facility] Comment on above: Performed By: #### C WILFRED, HSTROPN #### [facility] [address] [address] [address] Ahmet Mcghee Calcium [Mass/Vol] 9.2 mg/dL Normal 8.4-10.2 [facility] Comment on above: Performed By: #### C MP, HSTROPN #### [facility] [address] [address] [address] Ahmet Mcghee Chloride [Moles/Vol] 98 mmol/L Normal 98-107 [facility] Comment on above: Performed By: #### C MP, HSTROPN #### [facility] [address] [address] [address] Ahmet Mcghee CO2 [Moles/Vol] 26.6 mmol/L Normal 22.0-30.0 [facility] Comment on above: Performed By: #### C MP, HSTROPN #### [facility] [address] [place] [address] Dr. Ahmet Mcghee Creatinine [Mass/Vol] 0.85 mg/dL Normal 0.66-1.25 [facility] Comment on above: Performed By: #### C MP, HSTROPN #### [facility] [address] [place] [address] Dr. Ahmet Mcghee EGFR-AF BURMESE >60 Normal >=60 [facility] Comment on above: Performed By: #### C MP, HSTROPN #### [facility] [address] [place] [address] Dr. Ahmet Mcghee EGFR-NON AF BURMESE >60 Normal >=60 [facility] Comment on above: Performed By: #### C MP, HSTROPN #### [facility] [address] [address] [address] Ahmet Mcghee Globulin (S) [Mass/Vol] 4.1 g/dL Normal [facility] Comment on above: Performed By: #### C MP, HSTROPN #### [facility] [address] [address] [address] Ahmet Mcghee Glucose [Mass/Vol] 392 mg/dL Critically high 74-106 [facility] Comment on above: Performed By: #### C MP, HSTROPN #### [facility] [address] [place] [address] Dr. Ahmet Mcghee Potassium [Moles/Vol] 4.0 mmol/L Normal 3.4-5.0 [facility] Comment on above: Performed By: #### C MP, HSTROPN #### [facility] [address] [place] [address] Dr. Ahmet Mcghee Protein [Mass/Vol] 7.7 g/dL Normal 6.1-8.2 [facility] Comment on above: Performed By: #### C MP, HSTROPN #### [facility] [address] [place] [address] Dr. Ahmet Mcghee Sodium [Moles/Vol] 134 mmol/L Critically low 137-145 [facility] Comment on above: Performed By: #### C MP, HSTROPN #### [facility] [address] [place] [address] Dr. Ahmet Mcghee Urea nitrogen [Mass/Vol] 14.0 mg/dL Normal 9.0-20.0 [facility] Comment on above: Performed By: #### C MP, HSTROPN #### [facility] [address] [place] [address] Dr. Ahmet Mcghee Urea nitrogen/Creatinine [Mass ratio] 16.5 mg/mg Normal [facility] Comment on above: Performed By: #### C MP, HSTROPN #### [facility] [address] [place] [address] Dr. Ahmet Mcghee TROPONIN, HIGH SENSITIVITYon 08-10-2021 HSTROP 7.6 pg/mL Normal 4.0-42.2 [facility] Comment on above: Result Comment: CUT- OFF POINTS HAVE BEEN ESTABLISHED BASED ON THE FOURTH UNIVERSAL DEFINITIONS OF MYOCARDIAL INFARCTION. THE UPPER REFERENCE LIMIT (URL) OF TROPONIN, DEFINED THE 99TH PERCENTILE OF cTnI DISTRIBUTION IN A REFERENCE POPULATION, HAS BEEN CONFIRMED THE DECISION THRESHOLD FOR OR DIAGNOSIS. Performed By: #### C MP, HSTROPN #### [facility] [address] [place] [address] Dr. Ahmet Mcghee Vital Signs Date Time Vital Sign Value Performing Clinician Facility 08-21-2024 08:19-0400 Body height 170.18 cm [facility] 08-21-2024 08:19-0400 Body mass index (BMI) [Ratio] 37 kg/m2 [facility] 08-21-2024 08:19-0400 Body temperature 97.2 [degF] [facility] 08-21-2024 08:19-0400 Body weight 107.5 kg [facility] 08-21-2024 08:19-0400 Diastolic blood pressure 78 mm[Hg] [facility] 08-21-2024 08:19-0400 Heart rate 84 /min [facility] 08-21-2024 08:19-0400 Systolic blood pressure 132 mm[Hg] [facility] 06-27-2024 13:18-0400 Body height 170.18 cm [facility] 06-27-2024 13:18-0400 Body mass index (BMI) [Ratio] 35.9 kg/m2 [facility] 06-27-2024 13:18-0400 Body temperature 97.8 [degF] [facility] 06-27-2024 13:18-0400 Body weight 103.87 kg [facility] 06-27-2024 13:18-0400 Diastolic blood pressure 86 mm[Hg] [facility] 06-27-2024 13:18-0400 Heart rate 97 /min [facility] 06-27-2024 13:18-0400 SaO2% (BldA) [Mass fraction] 98 % [facility] 06-27-2024 13:18-0400 Systolic blood pressure 130 mm[Hg] [facility] 03-26-2024 17:35-0400 Body height 170.18 cm [facility] 03-26-2024 17:35-0400 Body mass index (BMI) [Ratio] 36.5 kg/m2 [facility] 03-26-2024 17:35-0400 Body temperature 97.2 [degF] [facility] 03-26-2024 17:35-0400 Body weight 105.68 kg [facility] 03-26-2024 17:35-0400 Diastolic blood pressure 88 mm[Hg] [facility] 03-26-2024 17:35-0400 Heart rate 95 /min [facility] 03-26-2024 17:35-0400 SaO2% (BldA) [Mass fraction] 98 % [facility] 03-26-2024 17:35-0400 Systolic blood pressure 138 mm[Hg] [facility] 02-08-2024 09:47-0400 Body height 170.18 cm DO Rocky Lemon Work Phone: [facility] 02-08-2024 09:47-0400 Body mass index (BMI) [Ratio] 36.6 kg/m2 DO Rocky Lemon Work Phone: [facility] 02-08-2024 09:47-0400 Body temperature 97.5 [degF] DO Rocky Lemon Work Phone: [facility] 02-08-2024 09:47-0400 Body weight 106.14 kg DO Rocky Lemon Work Phone: [facility] 02-08-2024 09:47-0400 Diastolic blood pressure 82 mm[Hg] DO Rocky Lemon Work Phone: [facility] 02-08-2024 09:47-0400 Heart rate 84 /min DO Rocky Lemon Work Phone: [facility] 02-08-2024 09:47-0400 SaO2% (BldA) [Mass fraction] 98 % DO Rocky Lemon Work Phone: [facility] 02-08-2024 09:47-0400 Systolic blood pressure 130 mm[Hg] DO Rocky Lemon Work Phone: [facility] 12-12-2023 10:31-0500 Body temperature 98.2 [degF] DO Rocky Lemon Work Phone: [facility] 12-12-2023 10:31-0500 Body weight 109.76 kg DO Rocky Lemon Work Phone: [facility] 12-12-2023 10:31-0500 Diastolic blood pressure 94 mm[Hg] DO Rocky Lemon Work Phone: [facility] 12-12-2023 10:31-0500 SaO2% (BldA) [Mass fraction] 95 % DO Rocky Lemon Work Phone: [facility] 12-12-2023 10:31-0500 Systolic blood pressure 146 mm[Hg] DO Rocky Lemon Work Phone: [facility] 02-10-2023 09:10-0400 Body height 170.18 cm Rocky Lemon Other [facility] [employer] Other 02-10-2023 09:10-0400 Body mass index (BMI) [Ratio] 38.82 kg/m2 Rocky Lemon Other [employer] Other 02-10-2023 09:10-0400 Body temperature 97.3 [degF] Rocky Lemon Other [employer] Other 02-10-2023 09:10-0400 Body weight 112.45 kg Rocky Mitch Other [employer] Other 02-10-2023 09:10-0400 Diastolic blood pressure 104 mm[Hg] Rocky Lemon Other [employer] Other 02-10-2023 09:10-0400 Respiratory rate 18 /min Rocky Lemon Other [employer] Other 02-10-2023 09:10-0400 SaO2% (BldA) [Mass fraction] 98 % Rocky Lemon Other [employer] Other 02-10-2023 09:10-0400 Systolic blood pressure 148 mm[Hg] Rocky Lemon Other [employer] Other 11-19-2022 13:50-0500 Body height 170.18 cm Rocky Lemon Other [employer] Other 11-19-2022 13:50-0500 Body mass index (BMI) [Ratio] 38.52 kg/m2 Rocky Lemon Other [employer] Other 11-19-2022 13:50-0500 Body temperature 96.9 [degF] Rocky Lemon Other [employer] Other 11-19-2022 13:50-0500 Body weight 111.59 kg Rocky Lemon Other [employer] Other 11-19-2022 13:50-0500 Diastolic blood pressure 100 mm[Hg] Rocky Lemon Other [employer] Other 11-19-2022 13:50-0500 Respiratory rate 18 /min Rocky Lemon Other [employer] Other 11-19-2022 13:50-0500 SaO2% (BldA) [Mass fraction] 99 % Rocky Lemon Other [employer] Other 11-19-2022 13:50-0500 Systolic blood pressure 148 mm[Hg] Rocky Lemon Other [employer] Other 10-08-2022 10:10-0500 Body height 170.18 cm Rocky Lemon Other [employer] Other 10-08-2022 10:10-0500 Body mass index (BMI) [Ratio] 37.9 kg/m2 Rocky Lemon Other [employer] Other 10-08-2022 10:10-0500 Body temperature 96.8 [degF] Rocky Lemon Other [employer] Other 10-08-2022 10:10-0500 Body weight 109.77 kg Rocky Lemon Other [employer] Other 10-08-2022 10:10-0500 Diastolic blood pressure 96 mm[Hg] Rocky Lemon Other [employer] Other 10-08-2022 10:10-0500 Respiratory rate 18 /min Rocky Lemon Other [employer] Other 10-08-2022 10:10-0500 SaO2% (BldA) [Mass fraction] 96 % Rocky Lemon Other [employer] Other 10-08-2022 10:10-0500 Systolic blood pressure 144 mm[Hg] Rocky Lemon Other [employer] Other 07-09-2022 09:30-0400 Body height 170.18 cm Rocky Lemon Other [employer] Other 10-26-2021 11:00-0500 Body height 170.18 cm Manuelito Arana Other [employer] Other 10-26-2021 11:00-0500 Body mass index (BMI) [Ratio] 38.68 kg/m2 Manuelito Arana Other [employer] Other 10-26-2021 11:00-0500 Body weight 112.04 kg Manuelito Arana Other [employer] Other 10-26-2021 11:00-0500 Diastolic blood pressure 80 mm[Hg] Manuelito Arana Other [facility] [employer] Other 10-26-2021 11:00-0500 Systolic blood pressure 140 mm[Hg] Manuelito Arana Other [facility] [employer] Other Encounters Encounter Date Encounter Type Care Provider Facility Start: 08-21-2024 End: 08-21-2024 ambulatory [facility] Work Phone: Start: 08-21-2024 End: 08-21-2024 Patient encounter procedure [facility] [place] Work Phone: Start: 06-27-2024 End: 06-27-2024 ambulatory [facility] Work Phone: Start: 06-27-2024 End: 06-27-2024 Patient encounter procedure [facility] [place] Work Phone: Start: 04-24-2024 End: 04-24-2024 ambulatory FELIX WRIGHT MD Facility:[id number] Start: 04-17-2024 End: 04-18-2024 ambulatory FELIX WRIGHT MD Facility:[id number] Start: 03-26-2024 End: 03-26-2024 ambulatory [facility] Work Phone: Start: 03-26-2024 End: 03-26-2024 Patient encounter procedure [facility] [place] Work Phone: Start: 03-24-2024 End: 03-24-2024 ambulatory FELIX WRIGHT MD Facility:[id number] Start: 02-08-2024 Patient encounter status DO Terell Lemon Work Phone: [facility] Start: 02-08-2024 Preoperative state [facility] Start: 02-08-2024 End: 02-08-2024 ambulatory DO Rocky Lemon Work Phone: [facility] Work Phone: Start: 02-08-2024 End: 02-08-2024 Patient encounter procedure DO Rocky Lemon Work Phone: [facility] [place] Work Phone: Start: 12-19-2023 End: 12-19-2023 Patient encounter procedure DO Rocky Lemon Work Phone: [facility] [place] Work Phone: Start: 12-19-2023 End: 12-19-2023 ambulatory Rocky Lemon Facility:[facility] Start: 12-12-2023 End: 12-12-2023 Patient encounter procedure DO Rocky Lemon Work Phone: [facility] [place] Work Phone: Start: 11-07-2023 End: 11-07-2023 ambulatory Rocky Lemon Other [employer] Other Start: 11-07-2023 Telephone encounter Rocky Lemon [facility] [place] Start: 09-02-2023 End: 09-02-2023 ambulatory Rocky Lemon Other [employer] Other Start: 09-02-2023 Telephone encounter Rocky Lemon [facility] [place] Start: 06-17-2023 End: 06-17-2023 ambulatory Rocky Lemon Other [employer] Other Start: 06-17-2023 Telephone encounter Rocky Lemon [facility] [place] Start: 05-27-2023 End: 05-27-2023 ambulatory Rocky Lemon Other [employer] Other Start: 05-27-2023 Telephone encounter Rocky Lemon [facility] [place] Start: 02-23-2023 End: 02-23-2023 ambulatory Rocky Lemon Other [employer] Other Start: 02-23-2023 Telephone encounter Rocky Lemon [facility] [place] Start: 02-10-2023 End: 02-10-2023 ambulatory Rocky Lemon Other [employer] Other Start: 02-10-2023 Office outpatient vi sit 15 minutes Rocky Lemon [facility] [place] Start: 02-04-2023 End: 02-04-2023 ambulatory Rocky Lemon Other [employer] Other Start: 02-04-2023 Telephone encounter Rocky Lemon [facility] [place] Start: 12-29-2022 End: 12-29-2022 ambulatory Rocky Lemon Other [employer] Other Start: 12-29-2022 Telephone encounter Rocky Lemon [facility] [place] Start: 11-29-2022 End: 11-29-2022 ambulatory Rocky Lemon Other [employer] Other Start: 11-29-2022 Telephone encounter Rocky Lemon [facility] [place] Start: 11-19-2022 End: 11-19-2022 ambulatory Rocky Lemon Other [employer] Other Start: 11-19-2022 Patient encounter procedure Rocky Lemon [facility] [place] Start: 10-08-2022 End: 10-08-2022 ambulatory Rocky Lemon Other [employer] Other Start: 10-08-2022 Office outpatient vi sit 10 minutes Rocky Lemon [facility] [place] Start: 10-08-2022 Telephone encounter Rocky Lemon [facility] [place] Start: 08-31-2022 End: 08-31-2022 ambulatory Rocky Lemon Other [employer] Other Start: 08-31-2022 Telephone encounter Rocky Lemon [facility] [place] Start: 08-09-2022 End: 08-09-2022 ambulatory Rocky Lemon Other [employer] Other Start: 08-09-2022 Telephone encounter Rocky Lemon [facility] [place] Start: 07-09-2022 End: 07-09-2022 ambulatory Rocky Lemon Other [employer] Other Start: 07-09-2022 Telephone encounter Rocky Nayanbaldemar [facility] [place] Start: 06-04-2022 End: 06-04-2022 ambulatory Rocky Lemon Other [employer] Other Start: 06-04-2022 Telephone encounter Rocky Lemon [facility] [place] Start: 05-03-2022 End: 05-03-2022 ambulatory Rocky Lemon Other [employer] Other Start: 05-03-2022 Telephone encounter Rocky Lemon [facility] [place] Start: 04-08-2022 End: 04-08-2022 ambulatory Rocky Lemon Other [employer] Other Start: 04-08-2022 Telephone encounter Rocky Lemon [facility] [place] Start: 03-23-2022 End: 03-23-2022 ambulatory Rocky Lemon Other [employer] Other Start: 03-23-2022 Telephone encounter Rocky Nayanbaldemar [facility] [place] Start: 12-29-2021 End: 12-29-2021 ambulatory Rocky Lemon Other [employer] Other Start: 12-29-2021 Telephone encounter Rocky Mitch [facility] [place] Start: 11-30-2021 End: 11-30-2021 ambulatory Rocky Lemon Other [employer] Other Start: 11-30-2021 Telephone encounter Rocky Lemon [facility] [place] Start: 11-19-2021 End: 11-19-2021 ambulatory Rocky Lemon Other [employer] Other Start: 11-19-2021 [facility] Start: 11-11-2021 End: 11-11-2021 ambulatory Rocky Lemon Other [employer] Other Start: 11-11-2021 Tele[facility] encounter [facility] Start: 10-30-2021 End: 10-30-2021 ambulatory Rocky Lemon Other [employer] Other Start: 10-30-2021 Telephone encounter Rocky Lemon [facility] Start: 10-26-2021 End: 10-26-2021 ambulatory Manuelito Arana Other [employer] Other Start: 10-26-2021 Office consultation new/estab patient 60 min Manuelito Arana [facility] Start: 08-20-2021 End: 08-21-[address] CASAS LISTED REQUEST Facility:[id number] Start: 08-10-2021 End: 08-10-[address] ROCKY LEMON Facility: Procedures Date Procedure Procedure Detail Performing Clinician Start: 12-19-2023 Duplex scan of lower limb veins DO Rocky Lemon Work Phone: Plan of Treatment Date Care Activity Detail Author Patient Education Low back pain in adults [facility] Work Phone: Payers Date Payer Category Payer Self-pay [id number] 2023 Unknown [id number] 1970 Unknown [id number] [id number] 1970 Unknown [id number] [id number] 1970 Unknown [id number] [id number] [id number] 1970 Unknown [id number] [id number] 1961 Self-pay [id number] Medicaid Medicaid [id number] Unknown [id number] [id number] [id number] Unknown Unknown [id number] 2.16.8 [id number] Social History Date Type Detail Facility Unknown if ever smoked [facility] [employer] Other Sex Assigned At Sex Assigned At Bir th [facility] [employer] Other Start: 02-08-2024 Tobacco smoking status NHIS Never smoked tobacco (finding) [facility] Start: 1970 Sex Assigned At Male F [facility] Clinical Notes 10-26-2021 to 06-27-2024 Note Date & Type Note Facility 06-27-2024 Evaluation note Authored June 27, 2024 2:30pm I performed the above HPI, R OS, and Examination. I formulated and dictated the treatment plan and was present for entire encounter. Rocky Lemon D.O. [facility] Work Phone: 1(652) 273-736107-11-2024 NotePatient: DALI HUFFMAN Age: 54 years Sex: Male : 1970 Associated Diagnoses: None Author: VINCENT ALVARENGA PA-C Results Review Labs (Last four charted values) WBC 7.7 (APR 18) 7.1 (APR 09) Hgb L 11.2 (APR 18) 13.9 (MIGUE 17) Hct L 32.8 (APR 18) 41.3 (MIGUE 17) Plt 202 (APR 18) 256 (MIGUE 17) Na 140 (APR 18) 140 (MIGUE 17) K 4.2 (APR 18) 4.4 (MAR 17) CO2 25.0 (APR 18) 28.0 (APR 09) [...] by: FELIX WRIGHT MD on 05/03/2024 15:03 [facility]06-26-2024 NoteEducation Diabetes Entered On: 04/17/2024 17:26 EDT Performed On: 04/17/2024 17:26 EDT by Barron Castañeda RPh Education Barriers to Learning : None evident [employer] Methodology : [employer] Te[employer] Notes : no changes to diabetic meds, pt dc today 04/17 dk: a1c from january 31., on metformin. no endo consult as of now Barron Castañeda RPh - 04/18/2024 14:04 [facility] 04-18-2024 NotePatient Education Material Learning About Using an Incentive Spirometer What [...] piston or ball inside the large column willmove up. 1. Try to move the piston [...] hold a pillow over your cut (incision) whenyou cough. Follow-up care is a price part of your treatment and safety. Be sure to make and go to all appointments, and call your doctor if you are having problems. It's also a good idea to know your test resultsand keep a list of the medicines you take. Where can you learn more? Go to https://www.healthwise.net/patientEd Enter B979 in the search box to learn more about Learning About Using an Incentive Spirometer. Current as of: December 30, 2021 Content Version: 13.3 ? [employer]. Care instructions adapted under license by your healthcare professional. If you have questions about a medical condition or this instruction, always ask your healthcare professional. [employer] disclaims any warranty or liability for your [...] you breathe in, the (more content not included)...[facility]06-26-2024 NoteNursing Discharge Summary Entered On: 04/18/2024 12:03 EDT Performed On: 04/18/2024 12:03 EDT by Sharmila Pnatoja LPN, [place] Information Discharged to : Home Mode of Discharge : Wheelchair Discharge Transportation : Private vehicle Belongings Sent Home With : clothes and all other personal belongings Reg VTE Warfarin at Discharge : No SheltonSharmila andersen LPN 04/18/2024 13:14 EDT *Home Equipment : Walker SheltonSharmila andersen LPN 04/18/2024 12:03 EDT Education Instructions given to : Patient TeachBack Methodology : TeachBack, Demonstration, Explanation, Printed Material Barriers to Learning : None evident SheltonSharmila andersen LPN 04/18/2024 13:14 EDT Post-Hospital Education Adult [...] : Verbalizes understanding Exercise : Verbalizes understanding SheltonSharmila andersen LPN 04/18/2024 13:14 EDT Medication Education Adult Grid Med Generic/Brand Name, Purpose, Action : Verbalizes understanding SheltonSharmila andersen LPN 04/18/2024 13:14 EDT Safety Education Adult Grid Safety, Fall : Verbalizes understanding SheltonSharmila andersen LPN 04/18/2024 13:14 EDT Additional Session Learner/s Present : Spouse Scarlett Sharmila TELLEZ 04/18/2024 13:[facility] NoteOT Inpatient Evaluation Acute Entered On: 04/17/2024 15:40 EDT Performed On: 04/17/2024 13:28 EDT by Zee Rojas Reason for Treatment Past Medical History OT : HTN, 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 Patients do not require a PAR score (post anesthesia recovery)., Discontinued Consult Physician, 04/17/2024 07:55:00 EDT, CUSTOMER SUPPORT CONSULTANT , 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, post op, Completed [facility] Nutrition Task to Nursing, 04/17/2024 07:55:00 EDT, Advance to House diet when bowel sounds return, Discontinue Full Liquid diet when able to advance, order House diet., 04/17/2024 07:55:00 EDT,Completed Oxygen Therapy, 04/17/2024 07:55:00 EDT, Nasal Cannula, 3L, Constant Order, overnight if SpO2 less than 95%, Ordered Oxygen Therapy, 04/17/2024 07:55:00 EDT, Simple Mask, 100%, Constant Order, in PACU, wean Oxygen toroom air to baseline SpO2, Discontinued Post Procedure [...] Left Culture/Spiritual Beliefs to Incorporate : No Zee Rojas - 04/17/2024 15:21 EDT Pain Assessment Pain Location : Incisional Laterality : Left Quality : Incisional Time Pattern : Acute Question Ability to Self Report Pain : No Self Report Pain : Numeric rating scale Numeric Pain Scale : 5 = Moderate pain Numeric Pain Score : 5 Zee Rojas - 04/17/2024 15:21 EDT Home Environment Living Environment [...] Kitchen : 1st floor Laundry : Basement Zee Rojas 04/17/2024 15:21 EDT Patient's Responsibilities 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, 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, 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, 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, 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, Laundry, Leisure/Play/Hobbies, Manage Medications, Meal preparation, Personal ADL, Shopping, Social participation 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 [employer] Haile DESAI/Zee Avery 04/17/2024 15:21 EDT Home Environment II Living Environment : Home Environment Sensory Deficits: None Performed By: Venu Thibodeaux RN 04/17/2024 Devices/Equipment at Home : Axillary crutches, Grab bars - shower, Grab bars - toilet, Handheld Shower Head, Lift chair, Fundraising Specialist, Rolling walker, Shower - walk-in, Toilet - high Haile DESAI/Juliette Averysa Shyam 04/17/2024 15:21 EDT Prior Functional Status Grid ADL : Independent Mobility : Independent Instrumental ADL : Independent Cognitive-Communication Skills : Independent Haile DESAI/Zee Avery 04/17/2024 15:21 EDT Additional Information : Pt reports spouse is able to assist prn upon d/c. Denies falls. Haile DESAI/Gena Zee - 04/17/2024 15:21 EDT Basic ADL Basic ADL Grid Eating : Complete I Grooming : Setup (Comment: seated/simulated [Haile DESAI/Zee Avery 04/17/2024 15:21 EDT] ) Bathing : Mod A (Comment: without DME [Haile DESAI/Gena, Zee 04/17/2024 15:21 EDT] ) UE Dressing : Setup LE Dressing : Mod A (Comment: without DME [Haile MOTR/L, Zee - 04/17/2024 15:21 EDT] ) Transfer Toilet : CGA (Comment: with FWW [Haile MOTR/L, Zee 04/17/2024 15:21 EDT] ) Haile MOTR/L, Zee - 04/17/2024 15:21 EDT Limiting Factors : Motor, Pain Haile MOTR/L, Zee 04/17/2024 15:21 EDT Balance Balance Tests Performed : [employer] balance scale Sitting Balance Score : 5 Standing Balance Score : 5 Haile MOTR/L, [facility] 04/17/2024 15:21 EDT UE ROM/Strength Overall Range of Motion Left Upper Extremity Active Range : Within functional limits Right Upper Extremity Active Range : Within functional limits Haile MOTR/L, [facility] 04/17/2024 15:21 EDT Lt Upper Extremity Strength OT : With (more content not included)...[facility]06-25-2024 NotePT Inpatient Evaluation Acute Entered On: 04/17/2024 15:25 EDT Performed On: 04/17/2024 13:28 EDT by Idania PT-StudentAmmy Reason for Treatment Past Medical History PT : HTN, hx of tuberculosis, DM type II, anxiety, PTSD, OA Chief Complaint PT : 54 y/o male s/p L GABE performed by Dr. Wright 04/17/2024 Precautions : Posterior hip precautions, FWB LLE, IV, supplemental O2 Idania PT-Student, Ammy - 04/17/2024 15:04 EDT General Info Precautions RTF : Communication CONSTANT Order, 04/17/2024 07:55:00 EDT, Constant Order, Patients recovering in Critical Care, record vital signs Q10 min or more frequently for patient's condition oras per physician order. Patients do not require a PAR score (post anesthesia recovery)., Discontinued Consult Physician, 04/17/2024 07:55:00 EDT, CUSTOMER SUPPORT CONSULTANT , 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, post op, Completed [facility] Nutrition Task to Nursing, 04/17/2024 07:55:00 EDT, Advance to House diet when bowel sounds return, Discontinue Full Liquid diet when able to advance, order House diet., 04/17/2024 07:55:00 EDT,Completed Oxygen Therapy, 04/17/2024 07:55:00 EDT, Nasal Cannula, 3L, Constant Order, overnight if SpO2 less than 95%, Ordered Oxygen Therapy, 04/17/2024 07:55:00 EDT, Simple Mask, 100%, Constant Order, in PACU, wean Oxygen toroom air to baseline SpO2, Discontinued Post Procedure [...] Affect/Behavior : Alert, Calm, Cooperative Idania PT-Student, [facility] 04/17/2024 15:04 EDT History, Problems History of Comorbidities,Personal Factor : 1-2 personal factors and/or comorbidities Idania PT-Student, [facility] 04/17/2024 15:04 EDT Pain Assessment Pain Location : Hip Laterality : Left Self Report Pain : Numeric rating scale Numeric Pain Scale : 5 = Moderate pain Numeric Pain Score : 5 Idania PT-Student, [facility] 04/17/2024 15:04 EDT Home Environment Living Environment : Home Environment Sensory Deficits: None Performed By: Venu Thibodeaux RN 04/17/2024 *Living Situation : Home Independently *Lives With : Spouse Lives In : Single level home Idania PT-Student, [facility] 04/17/2024 15:04 EDT Stairs Inside Stairs Outside Stairs Number of Stairs : 0 3 Rail : Rail on right going up Idania PT-Student, [facility] 04/17/2024 15:04 EDT Idania Jimenez [facility] 04/17/2024 15:04 EDT Home Setup Primary Bedroom : 1st floor Primary Bathroom : 1st floor Kitchen : 1st floor Laundry : Basement Idania PT-Student, [facility] 04/17/2024 15:04 EDT Stairs - 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, 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, 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, 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, Personal 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, Social participation Idania PT-Student, [facility] 04/17/2024 15:04 EDT Home Environment II Living Environment : Home Environment Sensory Deficits: None Performed By: Venu Thibodeaux RN 04/17/2024 Devices/Equipment : Axillary crutches, Grab bars - shower, Grab bars - toilet, Handheld Shower Head, Shower - walk-in, Standard walker, Toilet - standard Idania PT-Student, [facility] 04/17/2024 15:04 EDT Prior Functional Status ADL : Independent Mobility : Independent Instrumental ADL : Independent Cognitive-Communication Skills : Independent Idania PT-Student, [facility] 04/17/2024 15:04 EDT Additional Information : Pt lives in a ranch style home with his , 3 steps to enter with R sided rail. Laundry in basement, completes task. Prior to admit, pt IND with I/ADLs. Denies use of AD, but has access to standard walker and axillary crutches. Pt is currently employed, will be taking time off during recovery. Denies recent fall. Edisverito PT-Student, [facility] 04/17/2024 15:04 EDT LE Range/Strength LE Overall Range of Motion Grid Left Lower Extremity Active Range : Impaired (Comment: D/t acute surgical intervention [Idania PT-Student, [facility] 04/17/2024 15:04 EDT] ) Right Lower Extremity Active Range : Within functional limits Idania PT-Student, [facility] 04/17/2024 15:04 EDT Lt Lower Extremity Strength : Other: Grossly WFL via functional observation, able to ambulate and WB with minimal note of buckling Rt Lower Extremity Strength : Other: Grossly 3/5 via functional observation, no note of knee buckling Idania PT-Student, [facility] 04/17/2024 15:04 EDT UE ROM/Strength Overall Range of Motion Left Upper Extremity Active Range : Within functional limits Right Upper Extremity Active Range : Within functional limits Idania PT-Student, [facility] 04/17/2024 15:04 EDT Left Upper Extremity Strength : Other: Grossly 3/5 via functional observation, able to use FWW appropriately Right Upper Extremity Strength : Other: Karen (more content not included)... [facility]06-25-2024 NoteCommunication Log Entered On: 04/17/2024 12:30 EDT Performed On: 04/17/2024 12:30 EDT by Vamsi Namrata Call Log Physician Call Log Physician requesting : FELIX WRIGHT MD Patient Location : [facility] Physician being called : KIYA TORIBIO MD Reason : Consult Time Call Placed : 12:29 EST Comment : [place] message sent 04/17 Namraat Toth - 04/17/2024 12:30 [facility]06-25-2024 NoteImmunization Screening Entered On: 04/17/2024 12:07 EDT Performed On: 04/17/2024 12:07 EDT by Janice Boucher RN Immunization Screening Immunizations Current : Yes Last Tetanus : Less than 5 years COVID-19 Fully Vaccinated : No Janice Boucher RN - 04/17/2024 12:07 [facility] Comment on above:Order Comment: Order entered secondary to inpatient admission. Result Comment: [phone] NotePROCEDURE: XR PELVIS 1-2 VIEWS TECHNIQUE: Pelvis radiograph, one view. HISTORY: Postop COMPARISONS: None FINDINGS: There has been left hip arthroplasty. No acute fracture or dislocation is seen. Lumbar spine degenerative changes. IMPRESSION: Status post left hip arthroplasty. Electronically signed by: Kamini Wasserman MD 04/17/2024 11:18 AM EDT Technologist: Dictated By: KAMINI WASSERMAN MD Signed By: KAMINI WASSERMAN MD Signed Out: 04/17/24 11:18:45[facility]06[facility]25[facility] Note Preprocedure Checklist Entered On: 04/09/2024 14:24 EDT Performed On: 04/17/2024 7:59 EDT by Syed STEVENSON, Emily Infection Screening Last Physical Overnight Location of [...] risk situation (congregated living, hemodialysis, infusion clinic, senior living, assisted living, retirement, homeless long-term, etc.)? : No Venu Thibodeaux RN - 04/17/2024 7:57 EDT Checklist NPO Since : 04/17/2024 06:00 EDT Last Food Intake : 04/16/2024 18:00 EDT Venu Thibodeaux RN 04/17/2024 7:57 EDT Valuables Prechecklist Grid Valuables with Patient Clothes : Pants, Shirt, Shoes, Undergarments (Comment: to locker [Venu Thibodeaux RN 47:57 EDT] ) Personal Items : Cell phone (Comment: to pacu [Venu Thibodeaux RN 04/17/2024 7:57 EDT] ) Venu Thibodeaux RN 04/17/2024 7:57 EDT Procedure Location : Surgery Venu Thibodeaux RN 04/17/2024 7:57 EDT Surgery Prep Grid Home Bowel Prep Complete : N/A Home CHG Prep Complete : N/A Inpatient PreSurgery Regular Shower/Bath : N/A Inpatient CHG Bath Complete within 12 hours : N/A CHG Cloth Prep in JEF : Yes Makeup and Jewelry Removed : Yes Nail Zimbabwean Removed : Yes Wearing Patient Gown/Street Clothes Removed : Yes Venu Thibodeaux RN 04/17/2024 7:57 EDT Patient Rights Grid Anesthesia Consent Signed : Yes Surgical Consent Signed : Yes Emily Lynch RN 04/17/2024 7:57 EDT Blood Consent Signed : Yes Emily Lynch RN 04/09/2024 14:22 EDT Procedure Checklist is completed for: : LEFT TOTAL HIP REPLACEMENT Emily Lynch RN 04/09/2024 14:22 EDT Allergy (As Of: 04/17/2024 [...]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
[2024-08-31 17:09] VITALS: BP 160/95; PULSE 108; TEMP 37.1; O2SAT 96; BMI 36.8
--- NOTE | 2024-08-31 17:31 | XR_ITS ---
The [address] [address] Patient Name: SRIDEVI US MRN: [id number] date: 1970 Sex: M Assigned Patient Location: ED.MAIN Current Patient Location: ER Accession/Order Number: [id number] Exam Date: 08/31/2024 17:45 Report Date: 08/31/2024 18:55 At the request of: JESSICA STERLING Procedure: XR hip LT 2V w/ pelvis EXAM: XR hip LT 2V w/ pelvis HISTORY: pain COMPARISON: None. TECHNIQUE: 3 views of left hip FINDINGS: Status post left hip total arthroplasty. No hardware complication. There is no acute fracture or dislocation. The soft tissue is unremarkable. XR/XR hip LT 2V w/ pelvis IMPRESSION: No acute process. Electronically authenticated by: ELROY ARENAS Date: 08/31/2024 18:55
[2024-08-31] MEDS: KETOROLAC TROMETHAMINE 60 MG/2 ML VIAL IM (18:06)
--- NOTE | 2024-08-31 19:05 | ED.GENADUL1 ---
HPI HPI - General Adult General Chief complaint: Extremity Injury, Lower Stated complaint: HIP PAIN, REPLACEMENT 03-28-24 Time Seen by Provider: 08/31/24 17:31 Source: patient and family Mode of arrival: Wheelchair History of Present Illness HPI narrative: 54-year-old male presents here with chief complaint of left hip pain. Walking at a store and his leg gave out. Patient had a total hip replacement in March. He states he was going to drive home but had increased pain after the incident occurred he did not fall. He is able to ambulate but has tenderness to the left hip. Related Data Home Medications ?Medication ?Instructions ?Recorded ?Confirmed metformin 500 mg tablet,extended 500 mg PO Q24H 09/15/23 08/31/24 release 24 hr losartan 100 mg tablet mg 08/31/24 Allergies Allergy/AdvReac Type Severity Reaction Status Date / Time nalbuphine (From Nubain) Allergy Severe Verified 09/15/23 13:06 Opioid HPI Opioid Management Most Recent Opioid Data: Last Pain Scale 7 08/31/24 18:06 08/31/24 Last MAR Pain Assessment 08/31/24 18:06 Review of Systems ROS Narrative All Systems are negative except as noted/marked.All systems reviewed and otherwise negative PFSH PFSH Social History Little interest or pleasure in doing things: not at all Feeling down, depressed, or hopeless: not at all Exam Narrative Exam Narrative: Nurses note and vital signs reviewed and patient is not hypoxic. General: The patient appears well and in no apparent distress. Patient is resting comfortably on cart. Skin: Warm, dry, no pallor noted. There is no rash noted. Head: Normocephalic, atraumatic Ears, Nose, Mouth, and Throat: oral mucosa is moist. Nares patent. Mouth without vesicles. Ear canals patent. Tm's without Erythema Cardiovascular: Regular Rate and Rhythm Respiratory: Patient is in no distress, no accessory muscle use, lungs are clear to auscultation, no wheezing, rales or rhonchi Musculoskeletal:, No leg shortening, incision is healing has healed well some scabbing is noted, the patient has no evidence of calf tenderness, no pitting edema, symmetrical pulses noted bilaterally Neurological: A&O x4, normal speech Psychiatric: Cooperative Constitutional Vital Signs, click to edit/add: Last Vital Signs Temp 98.7 F 08/31/24 17:09 Pulse 108 H 08/31/24 17:09 Resp 16 08/31/24 17:09 BP 160/95 H 08/31/24 17:09 Pulse Ox 96 08/31/24 17:09 O2 Del Method Room Air 08/31/24 17:09 Course Vital Signs Vital signs: Vital Signs Temperature 98.7 F 08/31/24 17:09 Pulse Rate 108 H 08/31/24 17:09 Respiratory Rate 16 08/31/24 17:09 Blood Pressure 160/95 H 08/31/24 17:09 Pulse Oximetry 96 08/31/24 17:09 Oxygen Delivery Method Room Air 08/31/24 17:09 Temperature 98.7 F 08/31/24 17:09 Pulse Rate 108 H 08/31/24 17:09 Respiratory Rate 16 08/31/24 17:09 Blood Pressure 160/95 H 08/31/24 17:09 Pulse Oximetry 96 08/31/24 17:09 Oxygen Delivery Method Room Air 08/31/24 17:09 Medical Decision Making Differential Diagnosis Differential Diagnosis: Dislocation, muscle strain Medical Records Medical records reviewed: Yes I reviewed the patient's medical records Medical records narrative: Here chief complaint left hip pain x-ray was performed showed no acute dislocation. Read negative by radiology. I believe patient's pain is due to the recent hip replacement and pain with ambulation. He states his leg gave out and he felt a pulling sensation. Patient has a follow-up appoint with his orthopedic physician on Tuesday from now. Patient agrees with plan of care and he has pain medication at home. With his walker. Imaging Data hip: Radiologist's impression: ITS Impressions Hip/Pelvis X-Ray 08/31/24 17:31 IMPRESSION: No acute process. Electronically authenticated by: ELROY ARENAS Date: 08/31/2024 18:55 Discharge Plan Discharge Chief Complaint: Extremity Injury, Lower Clinical Impression: Acute hip pain Patient Disposition: Home, Self-Care Time of Disposition Decision: 19:03 Condition: Good Prescriptions / Home Meds: No Action metformin 500 mg tablet extended release 24 hr 500 mg PO Q24H losartan 100 mg tablet Print Language: Hungarian Instructions: Hip Pain (ED), Total Hip Replacement (DC) Additional Instructions: follow up with your orthopedic doctor as scheduled Referrals: ROCKY LEMON [Primary Care Provider] - 1 week
[2024-08-31 19:16] VITALS: BP 117/74; PULSE 96; O2SAT 96
== END 2024-08-31 19:18 | disposition home or self-care (01) ==
PROVIDERS: Emergency Provider Emergency Medicine; PCP Family Medicine
DX: M25.552 Pain in left hip (principal); Z96.642 Presence of left artificial hip joint
CPT/HCPCS: 73502; 96372; 99284; J1885

== ENCOUNTER 2024-10-09 20:03 | Emergency (ER) | payer OTHER, SELFPAY ==
[2024-10-09 20:07] VITALS: BP 177/91; PULSE 94; TEMP 36.6; O2SAT 97; BMI 36.8
--- OUTSIDE RECORDS SUMMARY | 2024-10-09 20:12 | XMS_ITS | CCD ---
Author Organization [facility]iniSyak Care Team Providers Care Public Affairs Director Name Role Phone DR ROCKY LEMON Primary Care Unavailable SAM SPARKS Attending Unavailable SAM SPARKS Admitting Unavailable TRICIA STERLING Consulting Unavailable Yao Strong Consulting Unavailable REQUEST, NONE LISTED Attending Unavaila ble REQUEST, NONE LISTED Consulting Unavaila ble ION, DR HIDALGO Primary Care Unavailable REQUEST, NONE LISTED Admitting Unavaila Rocky Aguirre Unavailable Manuelito Arana Unavailable DO Rocky Lemon Primary Care Provider DO Rocky Lemon Attending Provider ADRIANA DASILVA, FELIX Attending Unavailable KIYA TORIBIO MD Consulting Unavailable ADRIANA DASILVA, FELIX Admitting Unavailable ADRIANA DASILVA, FELIX Attending Unavailable ADRIANA DASILVA, FELIX Attending Unavailable ADRIANA DASILVA, FELIX Referring Unavailable Rocky Lemon Admitting Unavailable Rocky Lemon Attending Unavailable Rocky Lemon Primary Care Unavailable Rocky Lemon MD Primary Care Provider CLARITZA SPENCER Attending Unavailable Allergies Allergy Classification Reported Allergen(s) Allergy Type Date of Onset Reaction(s) Facility (20 sources) [facility]al[facility]hine Drug Allergy vomiting [facility] Repository (1 source) Nal[place]uphine Drug Allergy 4 [facility] Repository (2 sources) Nalbuphine Drug Allergy 4 GI intolerance [facility] Medications Current Medications Medication Drug Class(es) Dates Sig (Normalized) Sig (Original) fluticasone propionate 0.05 mg/actuat metered dose nasal spray (2 sources) Corticosteroid Start: 09-19-2024 End: 09-19-2025 take 2 spray(s) nasal route once daily fluticasone (Flonase) 50 MCG/ACT nasal spray Indications: OME (otitis media with effusion), bilateral Administer 2 sprays into each nostril Daily Shake gently. Before first use, prime pump. After use, clean tip and replace cap. 48 g 3 09/19/2024 09/19/2025 Active losartan potassium 100 mg oral tablet (20 sources) Angiotensin 2 Receptor Tashia Start: 05-31-2024 End: 08-20-2024 take 1 tablet by mouth once daily Losartan Discontinued 0 .ROUTE .COMPLEX May 31, 2024 12:32pm August 20, 2024 11:02am TAKE 1 TABLET BY MOUTH DAILY Start: 05-31-2024 take 1 tablet by chiara th once daily Losartan Active 0 .ROUTE .COMPLEX May 31, 2024 12:32pm TAKE 1 TABLET BY MOUTH DAILY Start: 02-20-2024 End: 08-20-2024 take 1 tablet by mouth once daily Losartan 100 mg tablet Active 0 .ROUTE .COMPLEX August 20, 2024 10:02am TAKE 1 TABLET BY MOUTH DAILY Start: 02-20-2024 End: 05-31-2024 take 1 tablet by mouth once daily Losartan Discontinued 0 .ROUTE .COMPLEX February 20, 2024 2:54pm May 31, 2024 12:32pm TAKE 1 TABLET BY MOUTH DAILY Start: 02-20-2024 take 1 tablet by chiara th once daily Losartan Active 0 .ROUTE .COMPLEX February 20, 2024 2:54pm TAKE 1 TABLET BY MOUTH DAILY Start: 02-10-2023 take 1 tablet by chiara th every twenty-four hours Losartan Potassium 25 MG 1 tablet Orally Once a day for 30 days Jan, Active Start: 02-10-2023 End: 02-20-2024 take 1 tablet by mouth once daily Losartan 100 mg tablet Discontinued 100 MG PO Daily December 12, 2023 12:00am February 20, 2024 1:55pm 24 hr metFORMIN hydrochloride 500 mg extended release oral tablet (20 sources) Biguanide Start: 07-18-2024 take 1 tablet by mouth every twenty-four hours in the morning Metformin 500 mg tablet extended release 24 hr Active 0 .ROUTE .COMPLEX July 18, 2024 7:53am TAKE 1 TABLET BY MOUTH IN THE MORNING WITH BREAKFAST Start: 07-18-2024 take 1 tablet by chiara th in the morning Metformin Active 0 .ROUTE .COMPLEX July 18, 2024 8:53am TAKE 1 TABLET BY MOUTH IN THE MORNING WITH BREAKFAST Start: 04-23-2024 End: 07-18-2024 take 1 tablet by mouth once daily in the morning Metformin 500 mg tablet extended release 24 hr Discontinued 0 .ROUTE .COMPLEX April 23, 2024 1:37pm July 18, 2024 7:53am TAKE 1 TABLET BY MOUTH EVERY MORNING WITH BREAKFAST Start: 02-08-2024 End: 04-23-2024 take 1 tablet by mouth once daily in the morning Metformin 500 mg tablet extended release 24 hr Discontinued 500 MG PO Every morning February 08, 2024 8:21am April 23, 2024 1:37pm Start: 12-20-2023 End: 02-08-2024 take 1 tablet by mouth once daily in the morning Metformin 500 mg tablet extended release 24 hr Discontinued 0 .ROUTE .COMPLEX December 20, 2023 4:21pm February 08, 2024 8:23am TAKE 1 TABLET BY MOUTH EVERY MORNING WITH BREAKFAST Start: 08-24-2021 End: 12-20-2023 take 1 tablet by mouth once daily Metformin 500 mg tablet extended release 24 hr Discontinued 500 MG PO Daily November 23, 2021 12:00am December 20, 2023 4:22pm take 1 tablet by chiara th at mealtime metFORMIN (Glucophage) 500 MG tablet Take 500 mg by mouth in the morning. Take with meals. Active predniSONE 20 mg oral tablet (20 sources) Start: 09-19-2024 End: 09-25-2024 take 1 tablet by mouth in the morning predniSONE (Deltasone) 20 MG tablet Indications: OME (otitis media with effusion), bilateral Take 1 tablet (20 mg) by mouth in the morning and 1 tablet (20 mg) before bedtime. Do all this for 6 days. 12 tablet 09/19/2024 09/25/2024 Active Start: 06-27-2024 End: 09-13-2024 take 3 tablets by mouth once daily at mealtime, then take 2 tablets by mouth once daily, then take 1 tablet by mouth once daily at mealtime Prednisone 20 mg tablet Discontinued 0 PO .with food or milk 11 07August 20, 2024 11:00pm September 13, 2024 12:30pm take 3 tablets a day x3 days, [...] Sep, Not-Taking Start: 11-23-2021 End: 12-12-2023 Prednisone 20 mg tablet Discontinued MG TABLET November 23, 2021 12:00am December 12, 2023 10:43am Start: 11-23-2021 End: 12-12-2023 Prednisone Discontinued MG [...] Agonist Start: 12-12-2023 End: 03-26-2024 Hydrocodone-Acetami nophen 7.5-325 mg tablet Discontinued 1 TAB PO .prn 13 05February 01, 2024 March 26, 2024 5:10pm FreeTextSig: take 1 tablet Orally q8-12 hrs prn; Note: Source Status: Taking; Refills: 0; Provider: Ion Hernandez Start: 03-15-2023 HYDROcodone-Ac etaminophen 7.5-325 MG take 1 tablet Orally q8- 12 hrs prn February, Active Start: 02-04-2023 HYDROcodone-Ac etaminophen 5-325 MG take 1 tablet Orally q8-12 hrs prn Jan, Active Start: 08-27-2021 HYDROcodone-Ac etaminophen 5-325 MG take 1 tablet Orally q8-12 hrs prn for 7 days prn Aug, Active [id number] 200 actuat albuterol 0.09 mg/actuat metered dose inhaler (20 sources) beta2-Adrenergic Agonist Start: 12-12-2023 End: 03-26-2024 Albuterol Sulfate (Ventolin Hfa) 90 mcg/actuation HFA aerosol inhaler Discontinued INHALATION December 12, 2023 12:00am March 26, 2024 4:44pm FreeTextSi inhalations Inhalation q4 hrs prn; Note: Source Status: Not-TakingundefinedPRNprn; Refills: 1; Provider: Ion Hernandez Start: 12-12-2023 Albuterol Sulf ate (Ventolin Hfa) 90 mcg/actuation HFA aerosol inhaler Active INHALATION December 12, 2023 1:00am FreeTextSi inhalations Inhalation q4 hrs prn; Note: Source Status: Not-Taking\PRNprn; Refills: 1; Provider: Ion Hernandez Start: 09-10-2020 Ventolin HFA 1 08 (90 Base) MCG/ACT 2 inhalations Inhalation q4 hrs prn prn Aug, Not-Taking/PRN amoxicillin 875 mg / clavulanate 125 mg oral tablet (4 sources) Penicillin-class Antibacterial Start: 07-31-2024 End: 08-21-2024 take 1 tablet by mouth twice daily at mealtime Amoxicillin-Pot Clavulanate 875-125 mg tablet Discontinued 1 TAB PO Twice daily 12 08July 30, 2024 11:00pm August 21, 2024 7:57am with food Start: 12-29-2022 take 1 tablet by chiara th every twelve hours Amoxicillin-Pot Clavulanate 875-125 MG 1 tablet Orally twice a day for 10 days Dec, Active aspirin 81 mg delayed release oral tablet (20 sources) Platelet Aggregation Inhibitor, Nonsteroidal Anti-inflammatory Drug Start: 12-12-2023 End: 03-26-2024 take 1 tablet by mouth once daily at mealtime Aspirin 81 mg tablet,delayed release (DR/EC) Discontinued 0 PO Daily December 12, 2023 11:17am March 26, 2024 4:45pm 81 MG (2 tablets) with food orally daily; take 1 tablet by chiara th every twenty-four hours Aspirin 81 81 MG 1 tablet Orally Once a day for 30 day(s) in the AM Active take 1 tablet by chiara th once daily in the morning Aspirin 81 81 MG 1 tablet Orally Once a day for 30 day(s) in the AM Active azithromycin 250 mg oral tablet (12 sources) Macrolide Antimicrobial Start: 08-21-2024 End: 09-13-2024 Azithromycin 250 mg tablet Discontinued 0 PO .COMPLEX August 20, 2024 11:00pm September 13, 2024 12:30pm For 250 mg dose pack: take 500 mg today (day 1), then 250 mg for 4 days (days 2-5) PO Start: 08-21-2024 Azithromycin A ctive 0 PO .COMPLEX August 21, 2024 12:00am For 250 mg dose pack: take 500 mg today (day 1), then 250 mg for 4 days (days 2-5) PO Start: 11-23-2021 End: 12-12-2023 Azithromycin 250 mg tablet D iscontinued MG TABLET November 23, 2021 12:00am December 12, 2023 10:40am Start: 11-23-2021 End: 12-12-2023 Azithromycin Discontinued MG [...] Anti-epileptic Agent Start: 02-08-2024 End: 02-08-2024 take 1 tablet by mouth three times daily Gabapentin 600 mg tablet Discontinued 600 MG PO Three times daily February 08, 2024 8:20am February 08, 2024 8:54am Start: 12-20-2023 End: 02-08-2024 take 1 tablet by mouth three times daily Gabapentin 600 mg tablet Discontinued 0 .ROUTE .COMPLEX 90 December 20, 2023 4:21pm February 08, 2024 8:23am TAKE 1 TABLET BY MOUTH THREE TIMES DAILY Start: 12-12-2023 End: 12-20-2023 take 1 tablet by mouth every twelve hours Gabapentin 600 mg tablet Discontinued 600 MG PO Every 12 hours December 12, 2023 10:40am December 20, 2023 4:22pm Start: 12-12-2023 End: 12-12-2023 take 1 tablet by mouth three times daily Gabapentin 600 mg tablet Discontinued 600 MG PO December 12, 2023 12:00am December 12, 2023 10:43am FreeTextSig: TAKE 1 TABLET BY MOUTH THREE TIMES DAILY; Note: Source Status: Taking; Refills: 2; Qty: 90 Tablet; Provider: Ion Hidalgo ( ) Start: 11-23-2021 End: 12-12-2023 Gabapentin Discontinued MG J anuary 2021 1:00am December 12, 2023 11:42am Start: 08-17-2021 End: 12-12-2023 Gabapentin 100 mg capsule Discontinued MG November 23, 2021 12:00am December 12, 2023 10:42am take 1 tablet by chiara th three times daily Gabapentin 600 mg TAKE 1 TABLET BY MOUTH THREE TIMES DAILY for 30 Active take 1 capsule by mo uth three times daily Gabapentin 300 MG TAKE 1 CAPSULE BY MOUTH THREE TIMES DAILY for 30 day(s) Active meloxicam 15 mg oral tablet (18 sources) Nonsteroidal Anti-inflammatory Drug Start: 12-12-2023 End: 12-12-2023 take 1 tablet by mouth once daily at mealtime Meloxicam 15 mg tablet Discontinued 15 MG PO Daily December 12, 2023 12:00am December 12, 2023 10:43am FreeTextSig: TAKE 1 TABLET BY MOUTH ONCE DAILY WITH FOOD; Note: Source Status: Taking; Refills: 2; Qty: 30 Tablet; Provider: Ion Hidalgo ( ) Start: 08-31-2022 take 1 tablet by chiara th once daily at mealtime Meloxicam 15 MG 1 tablet Orally once a day with food for 30 day(s) Aug, Active methocarbamol 750 mg oral tablet (14 sources) Muscle Relaxant Start: 06-13-2024 End: 06-27-2024 take 1 tablet by mouth every six hours Methocarbamol 750 mg tablet Discontinued 750 MG PO Every 6 hours June 12, 2024 11:00pm June 27, 2024 12:31pm Start: 12-12-2023 End: 02-08-2024 take 1 tablet by mouth every six hours as needed Methocarbamol 750 mg tablet Discontinued 750 MG PO Every 6 hours February 08, 2024 8:22am February 08, 2024 8:55am 1 tablet Orally q6 hrs prn; Note: Source Status: Start; Refills: 0; Provider: Ion Hernandez Start: 11-07-2023 take 1 tablet by chiara th every six hours as needed Methocarbamol 750 MG 1 tablet Orally q6 hrs prn Oct, Active methylPREDNISolone 4 mg oral tablet (10 sources) Corticosteroid Start: 12-12-2023 End: 02-08-2024 take 1 tablet by mouth once at mealtime Methylprednisolone (Medrol (Zafar)) 4 mg tablets,dose pack Discontinued 0 PO per package directions December 12, 2023 11:20am February 08, 2024 8:55am PO PER PKG DIR for 6 days with food sildenafil 100 mg oral tablet (20 sources) Phosphodiesterase 5 Inhibitor Start: 12-12-2023 End: 02-08-2024 take 1 tablet by mouth every hour, then take 1 tablet by mouth every twenty-four hours Sildenafil (Viagra) 100 mg tablet Discontinued 100 MG PO February 08, 2024 8:22am February 08, 2024 8:55am 1 tablet 1 hour prior to sexual activity Orally max 1 in 24 hours; Note: Source Status: Not-TakingundefinedP RN; Refills: 5; Provider: Ion Hernandze Start: 07-09-2022 take 1 tablet by chiara [...] and giddiness Episodic Diabetes mellitus with complications (8 sources) Type II diabetes mellitus uncontrolled; Translations: [Uncontrolled type 2 diabetes mellitus] 02-08-2024 Chronic Diabetes mellitus without complication (20 sources) Hyperglycemia, unspecified; Translations: [Acute hyperglycemia] Onset: [...] of hypertension Episodic Other connective tissue disease (5 sources) Equipment finding; Translations: [Presence of other bone and tendon implants] 12-12-2023 Chronic Other connective tissue disease (5 sources) Pain in lower limb; Translations: [Pain [...] distension (gaseous) Episodic Other lower respiratory disease (4 sources) Cough; Translations: [Acute cough] 08-21-2024 Episodic [...] Resolved: 07-09-2022 Episodic Other non-traumatic joint disorders (7 sources) Pain in left knee; Translations: [Left knee pain] Episodic Other non-traumatic joint disorders (5 sources) Hip pain; Translations: [Pain in left hip] 12-12-2023 Episodic Other screening for suspected conditions (not mental disorders or infectious disease) (12 sources) Encounter for screening for malignant neoplasm of colon; Translations: [Electrocardiogram abnormal] Episodic Other upper respiratory disease (2 sources) Rhinitis; Translations: [Chronic rhinitis] 08-21-2024 Chronic Other upper respiratory disease (2 sources) Chronic rhinitis; Translations: [Chronic rhinitis] 08-21-2024 Chronic Other upper respiratory infections (5 sources) Viral upper respiratory tract infection; Translations: [Acute upper respiratory infection, unspecified] 11-23-2021 Episodic Otitis media and related conditions (9 sources) Other specified disorders of Eustachian tube, unspecified ear; Translations: [Otitis media] Onset: 11-19-2021 Resolved: 11-19-2021 Episodic Comment on above: bilateral right wors e than left Poisoning by nonmedicinal substances (1 source) Toxic effect of unspecified spider venom, accidental (unintentional), initial encounter Episodic Residual codes; unclassified (6 sources) Amnesia; Translations: [Other amnesia] Episodic Residual codes; unclassified (2 sources) Other amnesia Episodic Residual codes; unclassified (5 sources) Memory impairment; Translations: [Other amnesia] 12-12-2023 [...] SURGICAL PATH REPORTon 04-21 SURGICAL PATH REPORT [facility] Department of Pathology [address] [place] [id number] Name: DALI HUFFMAN : 1970 [facility] [id number] Number: [facility]; [id number]; 01 : n: Admit 54 years Attending FELIX WRIGHT MD Age: Provider: Ordering FELIX WRIGHT MD Provider: Consulti Surgical Pathology Report ng: ACCESSION: COLLECTED DATE/TIME: RECEIVED DATE/TIME: PATHOLOGIST: [id number] 04/17/2024 09:33 EDT 04/17/2024 10:48 EDT EVE [...] soft tissue present within the bone segment. Education Specialist sections are submitted in two cassettes after decalcification. 04/17/2024 12:49:55 EDT Microscopic Diagnosis The final diagnosis is based on a microscopic exam of financial representative sections. ____ ____ Print 04/21/2024 11:16 EDT Number: Date/Time: [facility] Department of Pathology [address] [place] [id number] [phone] Name: DALI HUFFMAN : 1970 [facility] [id number] Number: Gender Male Karine [facility]; [id number]; 01 : n: Admit 54 years Attending FELIX WRIGHT MD Age: Provider: Ordering FELIX WRIGHT MD Provider: Consulti Surgical Pathology Report ng: ACCESSION: COLLECTED DATE/TIME: RECEIVED DATE/TIME: PATHOLOGIST: [id number] 04/17/2024 09:33 EDT 04/17/2024 10:48 EDT MAIA DASILVA, [facility] Codes CPT CODE: 23021, 95195 ____ ____ Print 04/21/2024 11:16 EDT Number: Date/Time: Normal [facility] Comment on above: Performed By: #### 9 [id number] ####[facility] Laboratory [address] [place] [address] Medical Director: Selvin Dillon MD BASICMETAon 04-18-2024 Calcium [Mass/Vol] 8.3 mg/dL Low 8.7-10.4 [facility] Comment on above: Performed By: #### 1 [id number], [id number] ####[facility] Laboratory [address] [place] [address] Medical Director: Selvin Dillon MD Chloride [Moles/Vol] 108 mmol/L High 98-107 [facility] Comment on above: Performed By: #### 1 [id number], [id number] ####[facility] Laboratory [address] [place] [address] Medical Director: Selvin Dillon MD CO2 [Moles/Vol] 25.0 mmol/L Normal 20.0-31.0 [facility] Comment on above: Performed By: #### 1 71420, [id number] ####[facility] Laboratory [address]ja[address] [place] [address] Medical Director: Selvin Dillon MD Creatinine [Mass/Vol] 0.8 mg/dL Normal 0.6-1.1 [facility] Comment on above: Performed By: #### 1 48621, [id number] ####[facility] Laboratory [address]ax[address] [place] [address] Medical Director: Selvin Dillon MD GFR AA >60 Normal [facility] Comment on above: Result Comment: Afri can Guatemalan GFR Calc Medical judgement is necessary to [...] for drug dosing. Performed By: #### 1 [id number], [id number] ####[facility] Laboratory Oxidnjrl[address]179 [place] [address] Medical Director: Selvin Dillon MD Glomerular Filtration Rate >60 Normal [facility] Comment on above: Result Comment: Non- GFR [...] for drug dosing. Performed By: #### 1 48096, [id number] ####[facility] Laboratory [address]aurvtt[address] [place] [address] Medical Director: Selvin Dillon MD Glucose [Mass/Vol] 183 mg/dL High 74-106 [facility] Comment on above: Performed By: #### 1 47176, [id number] ####[facility] Laboratory [address]uxc[address] [place] [address] Medical Director: Selvin Dillon MD Osmolality [Osmolality] 286 mosm/kg Normal 275-295 [facility] Comment on above: Performed By: #### 1 47886, [id number] ####[facility] Laboratory [address]tgfs[address]596 [place] [address] Medical Director: Selvin Dillon MD Potassium [Moles/Vol] 4.2 mmol/L Normal 3.5-5.1 [facility] Comment on above: Performed By: #### 1 71452, [id number] ####[facility] Laboratory [address]hi[address]49[address] [place], [place] [id number]) [phone] Director: Selvin Diloln MD Sodium [Moles/Vol] 140 mmol/L Normal 135-145 [facility] Comment on above: Performed By: #### 1 93649, [id number] ####[facility] Laboratory [address]jh[address]83[address] [place], [place] [id number]) [phone] Director: Selvin Dillon MD Urea nitrogen [Mass/Vol] 17 mg/dL Normal 9-23 [facility] Comment on above: Result Comment: - Ve nipuncture should occur prior to N-Acetyl Cysteine (NAC) or Metamizole (Sulpyrine) administration due to the potential for falsely depressed results. - Blood samples from some patients with monoclonal gammopathies may produce falsely elevated results Performed By: #### 1 70046, [id number] ####[facility] Laboratory [address] [place], [place] [id number]) [phone] Director: Selvin Dillon MD Urea nitrogen/Creatinine [Mass ratio] 21.2 mg/mg Normal [facility] Comment on above: Performed By: #### 1 09686, [id number] ####[facility] Laboratory [address]oszn22467 [place], [place] [id number]) [phone] Director: Selvin Dillon MD CBCNDon 04-18-2024 Erythrocyte distribution width (RBC) [Ratio] 14.2 % Normal 11.5-14.5 [facility] Comment on above: Performed By: #### 1 89963, 089244 ####[facility] Laboratory Ew[address]chhr05993 [place], [place] [id number]) [phone] Director: Selvin Dillon MD Hematocrit (Bld) [Volume fraction] 32.8 % Low 41.0-52.0 [facility] Comment on above: Performed By: #### 1 67697, 240546 ####[facility] Laboratory [address]tu738[address] [place], [place] [id number]) [phone] Director: Selvin Dillon MD Hemoglobin (Bld) [Mass/Vol] 11.2 g/dL Low 13.5-17.5 [facility] Comment on above: Performed By: #### 1 51151, [id number] ####[facility] Laboratory [address]xts[address]65[address] [place] [address] Medical Director: Selvin Dillon MD Instr WBC ND 7.7 Normal [facility] Comment on above: Performed By: #### 1 62852, [id number] ####[facility] Laboratory [address]wvuit[address] [place] [address] Medical Director: Selvin Dillon MD MCH (RBC) [Entitic mass] 30.4 pg Normal 27.0-34.0 [facility] Comment on above: Performed By: #### 1 45040, 089793 ####[facility] Laboratory [address]yoq[address]33 [place] [address] Medical Director: Selvin Dillon MD MCHC (RBC) [Mass/Vol] 34.1 g/dL Normal 32.0-37.0 [facility] Comment on above: Performed By: #### 1 17938, 568014 ####[facility] Laboratory [address] [place] [address] Medical Director: Selvin Dillon MD MCV (RBC) [Entitic vol] 89.1 fL Normal 80.0-100.0 [facility] Comment on above: Performed By: #### 1 83255, [id number] ####[facility] Laboratory Ohfwmplg98446 [place] [address] Medical Director: Selvin Dillon MD Platelet 202 x10 Normal 150-450 [facility] Comment on above: Performed By: #### 1 79639, 687335 ####[facility] Laboratory Xrolppnj41005 [place], [place] [id number]) [phone] Director: Selvin Dillon MD Platelet mean volume (Bld) [Entitic vol] 8.7 fL Normal 7.4-10.4 [facility] Comment on above: Performed By: #### 1 30298, [id number] ####[facility] Laboratory Amvhedip04048 [place], [place] [id number]) [phone] Director: Selvin Dillon MD RBC 3.68 x10 Low 4.70-6.10 [facility] Comment on above: Result Comment: Note : RBC morphology is normal unless otherwise stated. Evaluation performed only if differential is requested. Performed By: #### 1 61100, 239457 ####[facility] Laboratory [address]ftvhy76[address] [place], [place] [id number]) [phone] Director: Selvin Dillon MD WBC 7.7 x10 Normal 4.5-11.0 [facility] Comment on above: Performed By: #### 1 19992, [id number] ####[facility] Laboratory [address]oo[address] [place] [address] [facility] Director: Selvin Dillon MD HYDROCODONE 5MG/APAP [...] Pantoja LPN - 04/18/2024 13:51 EDT Normal [facility] Comment on above: Order Comment: For p [...] Sharmila Pantoja LPN - 04/18/2024 12:53 EDT Normal [facility] Comment on above: Order Comment: For p [...] Mild Pain Numeric Pain Score : 3 Mervni Kinney RN - 04/18/2024 6:08 EDT [facility] Comment on above: Order Comment: For [...] Mervin Kinney RN - 04/18/2024 2:03 EDT [facility] Comment on above: Order Comment: For [...] Pantoja LPN - 04/18/2024 13:13 EDT Normal [facility] Comment on above: Order Comment: for bessie nflammation x 48 hours. Start after Toradol (Ketoralac) is discontinued Inpatient Patient Summaryon 04-18-2024 Inpatient Patient Summary [facility] Discharge Instructions [id number] [place] [address] (Patient Copy) Name: DALI HUFFMAN : 1970 Diagnosis: Acute post-operative pain; Diabetes; Unilateral primary osteoarthritis, left hip Allergies: Nubain Registration Date: 04/17/[address] [facility]#: [id number] Current Date Time: 04/18/2024 13:16:16 Address: [address] [place] [address] [place] [address] Phone: [phone] Primary Care Provider: Name: Phone: Thank you for choosing [facility] for your care. You are very important to us. Our goal is to demonstrate our high quality medical care and provide you with a very good patient experience. You may receive a survey about our service. Please take the time to complete the survey and return it so we can continue to enhance our service. Thank you again for allowing [facility] to care for your medical needs. If you have any questions about your care or follow up information please contact your doctor. Follow-up Instructions The following Appointments have been made for you: Please Note: the first letters listed in the order is the location code, followed by the appointment date, and scheduled provider Future Appointments VAS Appt. Date: 04/24/2024 2:30 PM Scheduled Provider: [facility] Lab 1 () Phone: -- Fax: -- Provider Follow Ups: With: Address: When: FELIX WRIGHT, Orthopedic Surgery [address], [address] [place] [address] Business (1) Comments: Follow up [...] place on bare skin,) and use breathing audit spec as instructed Continue to follow precautions as [...] Take it Additional Instructions Next Dose Due Fayette 5 mg-325 mg oral tablet * (acetaminophen-hydroco [...] lungs are (more content not included)... Normal [facility] Inpt OT Jnt Replacement Prot ocol-Texton 04-18-2024 Inpt OT Jnt Replacement Protocol-Text Inpatient OT Joint Replacement Protocol Entered On: 04/18/2024 12:05 EDT Performed On: 04/18/2024 10:18 EDT by Sadi MITTAL/Sofi Avery Joint Protocol OT Joint Replacement Protocol OT Session 1 OT Session 2 Date/Time : 04/17/2024 13:28 EDT 04/18/2024 10:18 EDT Pain : 10 410 Weight Bearing : FWB L LE FWB [...] into shorts with supervision while seated using information management specialist to comply with THP. CGA For clothing management up over hips in standing. Thread L LE through pants using information management specialist while seated, hip/knee flexion to thread R, advance over B hips in standing at Mod I using FWW. Doff/don hospital socks at Mod I using information management specialist/sock aid. Doff compression socks at Mod A using information management specialist, don at Max A (Comment: (pt and spouse say plan is for spouse to assist donning/doffing compression socks). [Sofi Velez - 04/18/2024 11:58 EDT] ) Review Precautions : reviewed THP Reviewed Adaptive Equipment : Has: information management specialist, FWW, crutches, toilet and shower grabbars, and ADA toilet. Needs sock aid, long shoe horn, and long handled sponge. Has: information management specialist, FWW, crutches, toilet and shower grabbars, and ADA toilet Provided: Sock aid, LH shoe horn, LH sponge Recommendations : family assist PRN Family Assist OT Plant Guard : Sofi Velez OT Therapist 1 : Zee Rojas Randi - 04/18/2024 11:58 EDT Miriam Velezi - 04/18/2024 11:58 EDT Additional Information OT [...] with ADLs upon home going, pt has vilma. Pt returned to recliner at end of session with call light within reach, ice applied to L hip and all needs met post tx, nursing updated. Miriam Velezi - 04/18/2024 11:58 EDT AM-PAC 6 clicks [...] : None Eating meals? : None Miriam Velezi 04/18/2024 11:58 EDT AM-PAC Raw Score : 22 Sadi BATSITA Sofi - 04/18/2024 11:58 EDT Education OT Responsible Learner/s Present : Living Situation: Home Independently Performed by: Idania PT-Student [facility] 04/17/2024 13:28 Discharge To: Outpatient therapy Performed by: Sharmila Pantoja LPN 04/18/2024 10:00 Home Caregiver Name/Relationship: patient Performed by: Sharmila Pantoja LPN 04/18/2024 10:00 Price Learner/Caregiver Present for Session : Yes Barriers to Learning : None evident TeachBack Methodology : TeachBack, Demonstration, Explanation Sadi BATISTA Sofi 04/18/2024 11:58 EDT Occupational Therapy Education Grid Activity of Daily Living Training : Demonstrates Adaptive Equipment/DME : Demonstrates Home Safety : Verbalizes understanding Plan of Care : Verbalizes understanding Precautions : Verbalizes understanding Surgical Precautions : Verbalizes understanding Toilet Transfers : Demonstrates Tub / Shower Transfers : Needs practice/supervision Weightbearing Precautions : Verbalizes understanding Sadi BATISTASofi 04/18/2024 11:58 EDT Additional Session Learner/s Present : Spouse Miriam Velezi 04/18/2024 11:58 EDT Time Spent with Patient OT Time In : 10:18 EST OT Time Out : 10:56 EST OT Self Care, Home Management Time : 38 minutes 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 Self Care, Home Management Units : 3 units OT Total Timed Code Treatment Units : 3 units OT Total Timed Code Treatment Minutes : 38 minutes 8 Min Rule Unit Check OT IP : 3 units OT Total Treatment Time Rehab : 38 minutes 8 Min Rule Unit Difference OT IP : 0 PMR Chart Review - OT : Yes Miriam Velezi 04/18/2024 12:20 EDT Normal [facility] Intake and Output-Texton Intake and Output-Text Intake and Output Entered On: 04/18/2024 8:32 EDT Performed On: 04/18/2024 8:32 EDT by Joan Kaur I&O Urine Voided : 475 mL Joan Kaur - 04/18/2024 8:32 EDT Normal [facility] KETOROLAC 30MG/1ML INJon KETOROLAC 30MG/1ML INJ PRN [...] Pantoja LPN - 04/18/2024 10:40 EDT Normal [facility] Comment on above: Order Comment: Dose decreased [...] Kinney RN - 04/18/2024 2:02 EDT Normal [facility] Comment on above: Order Comment: Dose decreased [...] Bed Color Feet Grid Left Foot : [place] Right Foot : [place] Sharmila Pantoja LPN - 04/18/2024 12:53 EDT Capillary Refill Feet Grid Left Foot : Less than 2 seconds Right Foot : Less than 2 seconds Sharmila Pantoja LPN - 04/18/2024 12:53 EDT NV Lower Extremity Color Grid Left : [place] Right : [place] Sharmila Pantoja LPN - 04/18/2024 12:53 EDT [...] and Second Toe Right Foot : Intact Sharmila Pantoja LPN - 04/18/2024 12:53 EDT Lower Extremity Strength NV Grid Plantar Flexion Left Foot : Normal 5 Plantar Flexion Right Foot : Normal 5 Dorsiflex Foot/Extend Toes Left : Normal 5 Dorsiflex Foot/Extend Toes Right : Normal 5 Sharmila Pantoja LPN - 04/18/2024 12:53 EDT NV Lower Extremity Edema Grid Pedal Edema Bilateral : None Sharmila Pantoja LPN - 04/18/2024 12:53 EDT Normal [facility] Neurovascular Assessment Lower Extremity Neurovascular Data Lower Extremity Entered On: 04/18/2024 10:43 EDT Performed On: 04/18/2024 9:00 EDT by Luz Pantoja LPNyl Lower Extremity Nail Bed Color Feet Grid Left Foot : [place] Right Foot : [place] Heater Sharmila TELLEZ - 04/18/2024 10:43 EDT Capillary Refill Feet Grid Left Foot : Less than 2 seconds Right Foot : Less than 2 seconds Heater Sharmila TELLEZ - 04/18/2024 10:43 EDT NV Lower Extremity Color Grid Left : [place] Right : [place] Heater Sharmila TELLEZ 04/18/2024 10:43 EDT NV Lower Extremity Temperature Grid Left : Warm Right : Warm Heater ROSALINDA Sharmila 04/18/2024 10:43 EDT Lower Extremity Peripheral Pulses Grid Dorsalis Pedis Pulse, Left : 2+ Normal Dorsalis Pedis Pulse, Right : 2+ Normal Heater Luz TELLEZyl 04/18/2024 10:43 EDT Lower Extremity II Lower Extremity Sensation NV Grid Medial/Lateral Surfaces Sole of Left Foot : Intact Medial/Lateral Surfaces Sole of Right Foot : Intact Web Space Between Great and Second Toe Left Foot : Intact Web Space Between Great and Second Toe Right Foot : Intact Sheltoner ROSALINDA Sharmila 04/18/2024 10:43 EDT Lower Extremity Strength NV Grid Plantar Flexion Left Foot : Normal 5 Plantar Flexion Right Foot : Normal 5 Dorsiflex Foot/Extend Toes Left : Normal 5 Dorsiflex Foot/Extend Toes Right : Normal 5 Heater Luz TELLEZyl - 04/18/2024 10:43 EDT NV Lower Extremity Edema Grid Pedal Edema Bilateral : None Scarlett TELLEZ Sharmila 04/18/2024 10:43 EDT Normal [facility] Neurovascular Assessment Lower Extremity Neurovascular Data Lower Extremity Entered On: 04/18/2024 4:31 EDT Performed On: 04/18/2024 4:31 EDT by Mervin Kinney RN Lower Extremity Nail Bed Color Feet Grid Left Foot : [place] Right Foot : Antionette Kinney RN, Mervin 04/18/2024 4:31 EDT Capillary Refill Feet Grid Left Foot : Less than 2 seconds Right Foot : Less than 2 seconds Nirmal STEVENSON, Mervin - 04/18/2024 4:31 EDT NV Lower Extremity Color Grid Left : [place] Right : Antionette Kinney RN, Mervin 04/18/2024 4:31 EDT NV Lower Extremity Temperature Grid Left : Warm Right : Eyal Kinney RN, [facility] 04/18/2024 4:31 EDT Lower Extremity Peripheral Pulses Grid Dorsalis Pedis Pulse, Left : 2+ Normal Dorsalis Pedis Pulse, Right : 2+ Normal Nirmal STEVENSON, [facility] 04/18/2024 4:31 EDT Lower Extremity II Lower Extremity Sensation NV Grid Medial/Lateral Surfaces Sole of Left Foot : Intact Medial/Lateral Surfaces Sole of Right Foot : Intact Web Space Between Great and Second Toe Left Foot : Intact Web Space Between Great and Second Toe Right Foot : Intact Nirmal STEVENSON, [facility] 04/18/2024 4:31 EDT Lower Extremity Strength NV Grid Plantar Flexion Left Foot : Good 4 Plantar Flexion Right Foot : Normal 5 Dorsiflex Foot/Extend Toes Left : Good 4 Dorsiflex Foot/Extend Toes Right : Normal 5 Nirmal STEVENSON, [facility] 04/18/2024 4:31 EDT Normal [facility] Neurovascular Assessment Lower Extremity Neurovascular Data Lower Extremity Entered On: 04/18/2024 0:54 EDT Performed On: 04/18/2024 0:54 EDT by Mervin Kinney RN Lower Extremity Nail Bed Color Feet Grid Left Foot : [place] Right Foot : [place] Nirmal STEVENSON, [facility] 04/18/2024 0:54 EDT Capillary Refill Feet Grid Left Foot : Less than 2 seconds Right Foot : Less than 2 seconds Nirmal STEVENSON, [facility] 04/18/2024 0:54 EDT NV Lower Extremity Color Grid Left : [place] Right : [place] Nirmal STEVENSON, [facility] 04/18/2024 0:54 EDT NV Lower Extremity Temperature Grid Left : Warm Right : Warm Nirmal STEVENSON, [facility] 04/18/2024 0:54 EDT Lower Extremity Peripheral Pulses Grid Dorsalis Pedis Pulse, Left : 2+ Normal Dorsalis Pedis Pulse, Right : 2+ Normal Nirmal STEVENSON, [facility] 04/18/2024 0:54 EDT Lower Extremity II Lower Extremity Sensation NV Grid Medial/Lateral Surfaces Sole of Left Foot : Intact Medial/Lateral Surfaces Sole of Right Foot : Intact Web Space Between Great and Second Toe Left Foot : Intact Web Space Between Great and Second Toe Right Foot : Intact Nirmal STEVENSON, [facility] 04/18/2024 0:54 EDT Lower Extremity Strength NV Grid Plantar Flexion Left Foot : Good 4 Plantar Flexion Right Foot : Normal 5 Dorsiflex Foot/Extend Toes Left : Good 4 Dorsiflex Foot/Extend Toes Right : Normal 5 Nirmal STEVENSON, [facility] 04/18/2024 0:54 EDT Normal [facility] Nursing Clinical Noteon 03-25 Nursing Clinical Note Rn agrees with MATTING PRESS TENDER assessment. Normal [facility] Nursing Clinical Note c/o of being lightheaded, b/p 112/65 pulse ox 95 r/a concerned about pulse ox due to hx. states had just did inc spir. enc to do slowly and not so fast. safety maintained po fluids enc was up amb with staff in resendiz without dizziness this am Dr. Wright visited notified of earlier dizziness with relief at this time Normal [facility] PT Hip Replacement Protocol- Texton 04-18-2024 PT [...] Yes Yes Recommendation : LOW intensity LOW Plant Guard 1 : Yamila Lafleur PTA Therapist 1 : Hayder PT, DPTMis Therapist 2 : Idania PT-Student, Yamila Ty PTA - 04/18/2024 11:56 EDT Yamila Lafleur PTA 04/18/2024 11:56 EDT Additional Information PT : Patient may be up ad shellie with the WW. Car transfers reviewed. Patient okay for d/c to home today. Yamila Lafleur PTA 04/18/2024 11:56 EDT AM-PAC 6 clicks Basic Mobility How much difficulty does the patient currently have... Turning over in bed(including adjusting bedclothes, sheets and blankets)? : None Sitting down on and Standing up from a chair with arms (e.g., wheelchair, bedside commode) : None Moving from lying on back to sitting on the side of the bed? : None Yamila Lafleur PTA 04/18/2024 11:56 EDT How much help from another person does the patient currently need... Moving to and from a bed to a chair (including a wheelchair)? : None Need to walk in hospital room? : None Climbing 3-5 steps with a railing? : None Yamila Lafleur PTA 04/18/2024 11:56 EDT AM-PAC Raw Score : 24 Yamila Lafleur PTA 04/18/2024 11:56 EDT Education PT Responsible Learner/s [...] PT Therapeutic Exercise Time : 15 minutes ISOTOPE TECHNICIAN Therapeutic Exercise Units : 1 units PT Functional Activity Time : 12 minutes ISOTOPE TECHNICIAN Functional Activity Units : 1 units PT [...] Lafleur PTA - 04/18/2024 11:56 EDT Normal [facility] Progress Note-Julia Progress Note-Physician DALI HUFFMAN :1970 Registration Date:04/17/2024 [...] acetaminophen(Tylenol) , 650 mg= 2 tabs, ORAL, [id number] acetaminophen-hydrocod one(acetaminophen-HYDR Ocodone 325 mg-5 mg oral tablet), 2 tabs, ORAL, [id number], PRN Al hydroxide/Mg hydroxide/simethicone( Mylanta = aluminum hydroxide/magnesium hydroxide/simethicone 200 mg-200 mg-20 mg/5 mL oral susp), 30 mL, ORAL, H0GOSJD, PRN aspirin, 81 mg= 1 tabs, ORAL, DAILY WITH BREAKFAST benzocaine-menthol topical(Cepacol Sore Throat Pain Relief Garcia Lozenge), 1 lozenges, ORAL, [id number], PRN bisacodyl(Dulcolax Laxative), 10 mg= 1 supp, Rectal, DAILY, PRN diphenhydrAMINE(Benadr yl), 25 mg= 0.5 mL, IV Push, N3PWRZB, PRN diphenhydrAMINE(Benadr yl), 25 mg= 1 tabs, ORAL, [id number], PRN docusate-senna(Senokot S (docu 50mg/senna 8.6mg)), 1 tabs, ORAL, BID ibuprofen = Motrin, Advil, 600 mg= 1 tabs, ORAL, J0ADOYA ketorolac = Toradol, 30 mg= 1 mL, IV Push, [id number], PRN losartan, 100 mg= 2 tabs, ORAL, DAILY magnesium hydroxide(Milk of Magnesia Conc 10ml =30ml MOM), 10 mL, ORAL, DAILY, PRN metFORMIN = Glucophage(metFORMIN extended release), 500 mg= 1 tabs, ORAL, DAILY morphine, 2 mg= 1 mL, IV Push, Q1HOUR, PRN ondansetron(Zofran), 8 mg= 4 mL, IV Push, R2IJSNR, PRN oxyCODONE(oxyCODONE 5 mg oral tablet (IR)), 10 mg= 2 tabs, ORAL, M3XEOSZ, PRN pantoprazole, 40 mg= 1 tabs, ORAL, DAILY sodium biphosphate-sodium phosphate(Fleet Phospho Soda Enema), 1 bottles, Rectal, DAILY, PRN sodium chloride(Saline Flush), 3 mL, IV Push, [id number] sodium chloride(Saline Flush), 3 mL, IV Push, PRN, PRN tapentadol(Nucynta), 50 mg= 1 tabs, ORAL, F4WRLTS, PRN traMADol(Ultram), 50 mg= 1 tabs, ORAL, [id number], PRN Lab Results Test Name Test Result [...] MPV 8.7 fL 04/18/2024 05:53 EDT Normal [facility] Rehabilitation Inpt - Assign ment - Texton 04-18-2024 Rehabilitation Inpt - Assignment - Text Rehabilitation Inpatient - Assignment Entered On: 04/18/2024 7:24 EDT Performed On: 04/18/2024 7:24 EDT by Marcie Pereira Rehabilitation Inpatient - Assignment Occupational Therapy : Sadi BATISTA, Marcie Arceo - 04/18/2024 7:24 EDT Normal [facility] Rehabilitation Inpt - Assignment - Text Rehabilitation Inpatient - Assignment Entered On: 04/18/2024 7:15 EDT Performed On: 04/18/2024 7:15 EDT by Mayra Pascual PTA Rehabilitation Inpatient - Assignment Physical Therapy : Yamila Lafleur PTA, PTA, Tammy K. - 04/18/2024 7:15 EDT Normal [facility] Rehabilitation Inpt - Assignment - Text Rehabilitation Inpatient - Assignment Entered On: 04/18/2024 7:05 EDT Performed On: 04/18/2024 7:05 EDT by Terry DUARTE, DPT, Summer Rehabilitation Inpatient - Assignment Physical Therapy : PMRPending , Jerry Stewart PT, DPT, Summer - 04/18/2024 7:05 EDT Normal [facility] Utilization Review Noteon Utilization Review Note 04/03 OUTPT PROC [facility]T REC, matches b slip. EXTENDED RECOVERY DAY 0. SCHEDULED PROCEDURE COMPLETED WITHOUT COMPLICATIONS NOTED. POST OP VSS. EXTENDED RECOVERY IS CORRECT. Discharge planned & written. Day 1 s/p GABE Electronically Signed by: Penny [facility]SON [facility] on 04/18/2024 11:44 EDT Normal [facility] Admission (Data) Adult-Texto n 04-17-2024 Admission (Data) Adult-Text Adult Admission Data Entered On: 04/17/2024 8:08 EDT Performed On: 04/17/2024 8:06 EDT by Venu Thibodeaux RN Patient Safety Grid ID Band on and Verified : Yes Allergy Yarn Weight And Strength Tester : Yes Diabetic Yarn Weight And Strength Tester : Yes Fall Risk Yarn Weight And Strength Tester : Yes Venu Thibodeaux RN - 04/17/2024 [...] Venu Thibodeaux RN - 04/17/2024 8:06 EDT [place] Coma Eye Opening Response Timothy : Spontaneously Best Verbal Response Timothy : Oriented Best Motor Response [place] : Obeys simple commands [place] Coma Score : 15 Venu Thibodeaux RN - 04/17/2024 8:06 EDT Neuro Neurological Strengths Grid [...] RN 04/17/2024 8:36 EDT Venu Thibodeaux RN - 04/17/2024 8:36 EDT Venu Thibodeaux RN 04/17/2024 8:36 EDT Sensory Perception Joseph : No impairment Extremity Movement : Equal Gait : Steady Aspiration Risk : None CN VII Facial Expression and Symmetry : Facial movement symmetrical Venu Thibodeaux RN 04/17/2024 8:36 EDT eVnu Thibodeaux RN 04/17/2024 8:36 EDT Pupil Assessment Grid Pupil, Left Pupil, Right Description : Regular Regular Reaction : Brisk Brisk Size (mm) : 3 mm 3 mm Veun Thibodeaux RN 04/17/2024 8:06 EDT Venu Thibodeaux RN 04/17/2024 [...] Dorsalis Pedis Pulse, Right : 2+ Normal Carlos Eduardo STEVENSON Venu 04/17/2024 8:36 EDT Respiratory Respirations : Unlabored [...] Feeding : Independent (2) Venu Thibodeaux RN 04/17/2024 8:36 EDT ADL Index Score : 12 Venu Thibodeaux RN 04/17/2024 8:36 EDT GI Abdomen Description : Symmetric Abdomen Palpation : Soft Venu Thibodeaux RN - 04/17/2024 8:36 EDT Bowel Sounds Grid LUQ [...] Turgor : Elastic Mucous Membrane Color : [place] Mucous Membrane Description : Moist Skin Description : Dry Venu Thibodeaux RN - 04/17/2024 8:36 EDT Present on Admission Medical Devices : None Medical Devices for Med Administration : None Venu Thibodeaux RN - 04/17/2024 8:36 EDT Education Responsible Learner/s Present : No Data Availab (more content not included)... Normal [facility] Admission Assessment Adulton 04-17-2024 Admission Assessment Adult [...] - 04/17/2024 12:18 EDT Rapid Pain Data [id number] Primary Pain Location : Incisional Numeric Pain Scale : 4 = Moderate Pain Numeric Pain Score : 4 Janice Boucher RN 04/17/2024 12:18 EDT Timothy Coma Eye Opening Response Timothy : Spontaneously Best Verbal Response Timothy : Oriented Best Motor Response [place] : Obeys simple commands Timothy Coma Score [...] Skin Temperature : Warm Skin Color : [place] Skin Turgor : Elastic Mucous Membrane Color : [place] Mucous Membrane Description : Moist Skin Description : Moist Janice Boucher RN 04/17/2024 12:18 EDT Education Responsible Learner/s Present [...] Boucher RN - 04/17/2024 12:18 EDT Normal [facility] Comment on above: Order Comment: Order entered secondary to admission Admission History Adulton Admission History Adult Patient History Model Entered On: 04/17/2024 12:09 EDT Performed On: 04/17/2024 12:07 EDT by Janice Boucher RN Info Preferred Verbal : Nam[place]ian Contact Information : Robyn () [phone] Preferred Written : [place]ian Currently or : Not Applicable Is patient a dialysis patient? : No Janice Boucher RN - 04/17/2024 12:07 EDT Problem List Problem List obtained from : Patient Janice Boucher RN - 04/17/2024 12:07 EDT (As Of: 04/17/2024 12:09:04 EDT) Problems(Active) Diabetes (SNOMED CT :853053271 ) Name of Problem: Diabetes ; Recorder: ASHLEY KELLOGG CNP; Confirmation: Confirmed ; Classification: Medical ; Code: [id number] ; Contributor System: [facility] ; Last Updated: 04/09/2024 11:06 EDT ; Life Cycle Date: 04/09/2024 ; Life Cycle Status: Active ; Responsible Provider: ASHLEY KELLOGG CNP; Vocabulary: SNOMED CT HTN (hypertension) (SNOMED CT :4797612753 ) Name of Problem: HTN (hypertension) ; Recorder: ASHLEY KELLOGG CNP; Confirmation: Confirmed ; Classification: Medical ; Code: 4464916140 ; Contributor System: [facility] ; Last Updated: 04/09/2024 11:04 EDT ; Life Cycle Date: 04/09/2024 ; Life Cycle Status: Active ; Responsible Provider: ASHLEY KELLOGG CNP; Vocabulary: SNOMED CT Unilateral primary osteoarthritis, left hip (SNOMED CT :7725149327 ) Name of Problem: Unilateral primary osteoarthritis, left hip ; Recorder: ASHLEY KELLOGG CNP; Confirmation: Confirmed ; Classification: Medical ; Code: [id number] ; Contributor System: [facility] ; Last Updated: 04/09/2024 10:33 EDT ; [...] 02/06/2024 14:10 EDT - MARCIE MONTALVO CNP Penile yeast infection Anesthesia Minutes: 0 [...] 12:07 EDT Infection Screening Travel outside of [place] within past 21 days? : No Positive COVID test in the last 10 days? : No Exposure to and/or close contact with a person who has a laboratory-confirmed COVID test within the last 48 hours. : No Janice Boucher RN - 04/17/2024 12:07 EDT Normal [facility] Comment on above: Order Comment: Order entered [...] Postoperative hydration status: euvolemic. Notes: normothermia. Normal [facility] Anesthesia Patient: DALI HUFFMAN Age: 54 years [...] of tuberculosis 3. Type 2 diabetes mellitus, [id number] 4. Anxiety/PTSD Health Status Allergies: Allergies (1) Active Severity Reaction Nubain passed out Current medications: Home Medications (5) Active Centrum Silver oral tablet 1 tabs, ORAL, DAILY losartan 100 mg oral tablet 100 mg = 1 tabs, ORAL, DAILY MetFORMIN (Eqv-Glumetza) 500 mg oral tablet, extended release 500 mg = 1 tabs, ORAL, DAILY Fayette 5 mg-325 mg oral tablet 1 tabs, PRN, ORAL, [id number] [place] 7.5 mg-325 mg oral tablet 1 tabs, PRN, ORAL, [id number] LABORATORY DATA Chemistry BMP Plus Mag Glucose: [...] auscultation. Cardiovascular: Normal rate. Assessment and Plan [place] [employer]esthesi[employer] (ASA) physical status classification: [...] MOISE Preanesthesia Assessment: MOISE Diagnosed: No. Normal [facility] Basic Admission Informationo n 04-17-2024 Basic Admission Information Basic Admission Information Entered On: 04/17/2024 12:07 EDT Performed On: 04/17/2024 12:07 EDT by Citlaly STEVENSON, Janice Admission Height/Weight Height/Length Measured : 167.64 cm(Converted [...] Electronic Devices : Cell phone, Cell phone car installations supervisor Velma Souza - 04/17/2024 12:26 EDT Room Orientation/Facility Policy Reviewed : Yes Room Orientation/Policy Reviewed With : Patient Patient Safety : Bed in low position, Call device within reach, Fall commercial drone pilot ID Band, ID band check, Mobility support items readily available, Non-Slip footwear, Personal items within reach, Upper/Half-length side-rails up, Traffic path in room free of clutter, Wheels locked Demonstrates Ability to Use Call Light Successfully : Yes Velma Souza - 04/17/2024 12:26 EDT Normal [facility] Comment on above: Order Comment: Order entered secondary to admission Consult Reporton 04-17-2024 Consult Report MAGEN DALI :1970 Registration Date:04/17/2024 Chief Complaint Left hip [...] acetaminophen(Tylenol) , 650 mg= 2 tabs, ORAL, [id number] acetaminophen-hydrocod one(acetaminophen-HYDR Ocodone 325 mg-5 mg oral tablet), 2 tabs, ORAL, Y1LDLAV, PRN Al hydroxide/Mg hydroxide/simethicone( Mylanta = aluminum hydroxide/magnesium hydroxide/simethicone 200 mg-200 mg-20 mg/5 mL oral susp), 30 mL, ORAL, G6NTKKN, PRN aspirin, 81 mg= 1 tabs, ORAL, DAILY WITH BREAKFAST benzocaine-menthol topical(Cepacol Sore Throat Pain Relief Garcia Lozenge), 1 lozenges, ORAL, Y5PERAY, PRN bisacodyl(Dulcolax Laxative), 10 mg= 1 supp, Rectal, DAILY, PRN cefazolin = Ancef, 2 g= 50 mL, IV Piggyback, [id number] diphenhydrAMINE(Benadr yl), 25 mg= 0.5 mL, IV Push, C0CMBII, PRN diphenhydrAMINE(Benadr yl), 25 mg= 1 tabs, ORAL, J6BPIIX, PRN docusate-senna(Senokot S (docu 50mg/senna 8.6mg)), 1 tabs, ORAL, BID ibuprofen = Motrin, Advil, 600 mg= 1 tabs, ORAL, A1ABCGR ketorolac = Toradol, 30 mg= 1 mL, IV Push, P2FNSEM ketorolac = Toradol, 30 mg= 1 mL, IV Push, W2KFTIX, PRN losartan, 100 mg= 2 tabs, ORAL, DAILY magnesium hydroxide(Milk of Magnesia Conc 10ml =30ml MOM), 10 mL, ORAL, DAILY, PRN metFORMIN = Glucophage(metFORMIN extended release), 500 mg= 1 tabs, ORAL, DAILY morphine, 2 mg= 1 mL, IV Push, Q1HOUR, PRN ondansetron(Zofran), 8 mg= 4 mL, IV Push, C0SOSFK, PRN oxyCODONE(oxyCODONE 5 mg oral tablet (IR)), 10 mg= 2 tabs, ORAL, F7KBEDU, PRN pantoprazole, 40 mg= 1 tabs, ORAL, DAILY sodium biphosphate-sodium phosphate(Fleet Phospho Soda Enema), 1 bottles, Rectal, DAILY, PRN sodium chloride(Saline Flush), 3 mL, IV Push, [id number] sodium chloride(Saline Flush), 3 mL, IV Push, PRN, PRN Sodium Chloride 0.9%(NS) 1,000 mL(NS 1,000 mL), 1000 mL, IV tapentadol(Nucynta), 50 mg= 1 tabs, ORAL, M1UNDWU, PRN traMADol(Ultram), 50 mg= 1 tabs, ORAL, X4ORHNR, PRN Home acetaminophen-hydrocod one(Fayette 5 mg-325 mg oral tablet), 1 tabs, ORAL, Y1EFRMM, PRN acetaminophen-hydrocod one(Fayette 7.5 mg-325 mg oral tablet), 1 tabs, ORAL, M10MMFKV, PRN losartan(losartan 100 mg oral tablet), 100 mg= 1 tabs, ORAL, DAILY metFORMIN = Glucophage(MetFORMIN (Eqv-Glumetza) 500 mg oral tablet, extended release), 500 mg= 1 tabs, ORAL, DAILY multivitamin with minerals(Centrum Silver oral tablet), 1 tabs, ORAL, DAILY Loco (more content not included)... Normal [facility] HYDROCODONE 5MG/APAP 325MGon 04-17-2024 HYDROCODONE 5MG/APAP 325MG [...] Kinney RN - 04/17/2024 22:30 EDT Normal [facility] Comment on above: Order Comment: For p [...] Janice Boucher RN - 04/17/2024 17:26 EDT Normal [facility] Comment on above: Order Comment: For p [...] Janice Boucher RN - 04/17/2024 13:13 EDT [facility] Comment on above: Order Comment: For [...] Boucher RN - 04/17/2024 13:14 EDT Normal [facility] Comment on above: Order Comment: Surge ry [...] EDT Respiratory Therapy Charges Respiratory Therapy Main Julian Charges : Incentive Spirometry Visit Charges Complete? : Yes Cayla Rome RRT - 04/17/2024 13:37 EDT Normal [facility] Inpt OT Jnt Replacement Prot ocol-Texton 04-17-2024 [...] into shorts with supervision while seated using information management specialist to comply with THP. CGA For clothing management up over hips in standing. Review Precautions : reviewed THP Adaptive Equipment : Has: information management specialist, FWW, crutches, toilet and shower grabbars, and [...] : A Little Eating meals? : None Haile PRESCOTT, Zee - 04/17/2024 15:40 EDT AM-PAC Raw Score : 18 Zee Rojas 04/17/2024 15:40 EDT Education OT Responsible Learner/s Present : Living Situation: Home Independently Performed by: Idania PT-Student, [facility] - 04/17/2024 13:28 Home Caregiver Name/Relationship: spouse Performed by: Zee Rojas 04/17/2024 13:28 Barriers to Learning : Other: see lou PRESCOTT, Zee - 04/17/2024 15:40 EDT Time [...] Unit Difference OT IP : 0 Haile DESAI/Zee Avery - 04/17/2024 15:40 EDT Normal [facility] KETOROLAC 30MG/1ML INJon KETOROLAC 30MG/1ML INJ PRN [...] Boucher RN - 04/17/2024 18:13 EDT Normal [facility] Comment on above: Order Comment: Dose decreased [...] Bed Color Feet Grid Left Foot : [place] Right Foot : [place] Mervin Kinney RN - 04/17/2024 22:28 EDT Capillary Refill Feet Grid Left Foot : Less than 2 seconds Right Foot : Less than 2 seconds Mervin Kinney RN - 04/17/2024 22:28 EDT NV Lower Extremity Color Grid Left : [place] Right : [place] Nirmal STEVENSON, [facility] 04/17/2024 22:28 EDT NV Lower Extremity Temperature Grid Left : Warm Right : Warm Nirmal STEVENSON, [facility] 04/17/2024 22:28 EDT Lower Extremity Peripheral Pulses Grid Dorsalis Pedis Pulse, Left : 2+ Normal Dorsalis Pedis Pulse, Right : 2+ Normal Nirmal STEVENSON, [facility] 04/17/2024 22:28 EDT Lower Extremity II Lower Extremity Sensation NV Grid Medial/Lateral Surfaces Sole of Left Foot : Intact Medial/Lateral Surfaces Sole of Right Foot : Intact Web Space Between Great and Second Toe Left Foot : Intact Web Space Between Great and Second Toe Right Foot : Intact Nirmal STEVENSON, [facility] 04/17/2024 22:28 EDT Lower Extremity Strength NV Grid Plantar Flexion Left Foot : Good 4 Plantar Flexion Right Foot : Normal 5 Dorsiflex Foot/Extend Toes Left : Good 4 Dorsiflex Foot/Extend Toes Right : Normal 5 Nirmal STEVENSON, [facility] 04/17/2024 22:28 EDT Normal [facility] Neurovascular Assessment Lower Extremity Neurovascular Data Lower Extremity Entered On: 04/17/2024 16:33 EDT Performed On: 04/17/2024 17:00 EDT by Janice Boucher RN Lower Extremity Nail Bed Color Feet Grid Left Foot : [place] Right Foot : [place] Janice Boucher RN - 04/17/2024 16:32 EDT Capillary Refill Feet Grid Left Foot : Less than 2 seconds Right Foot : Less than 2 seconds Janice Boucher RN - 04/17/2024 16:32 EDT NV Lower Extremity Color Grid Left : [place] Right : [place] Janice Boucher RN 04/17/2024 16:32 EDT NV Lower Extremity Temperature Grid Left : Warm Right : Warm Janice Boucher RN 04/17/2024 16:32 EDT Lower Extremity Peripheral Pulses Grid Dorsalis Pedis Pulse, Left : 2+ Normal Dorsalis Pedis Pulse, Right : 2+ Normal Janice Boucher RN - 04/17/2024 16:32 EDT Normal [facility] Neurovascular Assessment Lower Extremity Neurovascular Data Lower Extremity Entered On: 04/17/2024 12:30 EDT Performed On: 04/17/2024 13:00 EDT by Janice Boucher RN Lower Extremity Nail Bed Color Feet Grid Left Foot : [place] Right Foot : [place] Janice Boucher RN - 04/17/2024 12:30 EDT Capillary Refill Feet Grid Left Foot : Less than 2 seconds Right Foot : Less than 2 seconds Janice Boucher RN - 04/17/2024 12:30 EDT NV Lower Extremity Color Grid Left : [place] Right : [place] Janice Boucher RN - 04/17/2024 12:30 EDT NV Lower Extremity Temperature Grid Left : Warm Right : Warm Janice Boucher RN - 04/17/2024 12:30 EDT Lower Extremity Peripheral Pulses Grid Dorsalis Pedis Pulse, Left : 2+ Normal Dorsalis Pedis Pulse, Right : 2+ Normal Janice Boucher RN - 04/17/2024 12:30 EDT Normal [facility] OR Nursing Record - Main Natali n 04-17-2024 OR Nursing Record - Main OR Normal [facility] Operative Reporton Operative Report Patient: DALI HUFFMAN Age: 54 years Sex: Male : 1970 Associated Diagnoses: None Author: FELIX WRIGHT MD Preop diagnosis: Left osteoarthritis of hip Postop diagnosis: Left osteoarthritis of hip Procedure: Left hip replacement Surgeon: Adriana Garcia.: Kaushal Colón and Lexii Pat Specimen: Bone Given the inherent complexity of this surgery, a second surgeon or a surgically skilled physician electrician assistant was necessary for the successful completion of this entire operative procedure. The operating room surgical technician was present for the entire operative procedure and participated in all aspects of patient care. This included transporting the patient to the operating room and entering room with the patient, assisting with preoperative positioning, first assisting throughout the entire surgical procedure by functioning as a second electrician assistant surgeon, assisting with surgical closure and [...] 55 was performed and a T6 millimeter Wingate sector cup with gription was placed with very secure fixation. One screw was also placed. A 6 millimeter polyethylene liner was placed with good fixation. This was protected. The canal was approached with a box osteotome and canal finder. Sequential rasps performed up to a size 6 high from the Visuuuy Trilock system. With the size 6 high [...] was placed in the operating room. Normal [facility] Pit Shovel Operator Detailson 2023 Pit Shovel Operator Details Pit Shovel Operator Details Entered On: 04/17/2024 22:30 EDT Performed On: 04/17/2024 22:29 EDT by Mervin Kinney RN Pit Shovel Operator Details Transport Mode Order Detail EV : Wheelchair Isolation Precautions RTF : Communication CONSTANT Order, 04/17/2024 07:55:00 EDT, Constant Order, Patients recovering in Critical Care, record vital signs Q10 min or more frequently for patient's condition or as per physician order. Patients do not require a PAR score (post anesthesia recovery)., Discontinued Consult Physician, 04/17/2024 07:55:00 EDT, TARGET WORKER , 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, post op, Completed [facility] Nutrition Task to [...] : No Pacemaker Order Detail : 0 Pit Shovel Operator Details Review Status : Reviewed, changes made Nurse Collects Blood Specimens : No Mervin Kinney RN - 04/17/2024 22:29 EDT Normal [facility] Comment on above: Order Comment: Order entered secondary to admission Pit Shovel Operator Details Pit Shovel Operator Details Entered On: 04/17/2024 12:09 EDT Performed On: 04/17/2024 12:09 EDT by Janice Boucher RN Pit Shovel Operator Details Transport Mode Order Detail EV : Wheelchair Isolation Precautions RTF : Communication CONSTANT Order, 04/17/2024 07:55:00 EDT, Constant Order, Patients recovering in Critical Care, record vital signs Q10 min or more frequently for patient's condition or as per physician order. Patients do not require a PAR score (post anesthesia recovery)., Discontinued Consult Physician, 04/17/2024 07:55:00 EDT, TARGET WORKER , 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, post op, Ordered [...] : No Pacemaker Order Detail : 0 Pit Shovel Operator Details Review Status : Reviewed, changes made Nurse Collects Blood Specimens : Charlotte Boucher RN, Janice - 04/17/2024 12:09 EDT Normal [facility] Comment on above: Order Comment: Order entered secondary to admission PACU Phase I - Main ORon PACU Phase I - Main OR PACU Phase I - Main OR Summary Primary Physician: FELIX WRIGHT MD Finalized Date/Time: 04/17/24 11:43:09 Pt. Name: DALI HUFFMAN/Sex: 1970 Male Med Rec #: [id number] Physician: FELIX WRIGHT MD Financial #: [id number] Pt. Type: E Room/Bed: PA99/14 Admit/Disch: 04/17/24 06:56:21 - Institution: PACU I - Case Times - Main OR Entry 1 In PACU I 04/17/24 10:40:00 Ready for Transfer 04/17/24 11:39:00 Last Modified By: Ammy Husain RN 04/17/24 11:43:04 Finalized By: Ammy Husain RN Document Signatures Signed By: Ammy Husain RN 04/17/24 11:43 Ammy Husain RN 04/17/24 11:43 Normal [facility] POC Glucoseon 04-17-2024 Glucose [Mass/Vol] 200 mg/dL High 72-100 [facility] Comment on above: Performed By: #### 1 [id number] ####[facility] [address] [place] [address] Medical Director: Selvin Dillon MD PT Hip Replacement Protocol- Texton 04-17-2024 PT Hip Replacement Protocol-Text Inpatient PT Hip Replacement Protocol Entered On: 04/17/2024 15:28 EDT Performed On: 04/17/2024 13:28 EDT by Idania PT-StudentAmmy Hip Protocol PT [facility] Hip Replacement Protocol [...] DUARTE DPT, Jacquelyn Therapist 2 : Idania PT-StudentAmmy PT-Student Ammy - 04/17/2024 15:26 EDT AM-PAC 6 clicks Basic Mobility How much difficulty does the patient currently have... Turning over in bed(including adjusting bedclothes, sheets and blankets)? : A Little Sitting down on and Standing up from a chair with arms (e.g., wheelchair, bedside commode) : A Little Moving from lying on back to sitting on the side of the bed? : A Little Idania DUARTE-StudentAmmy - 04/17/2024 15:26 EDT How much help from another person does the patient currently need... Moving to and from a bed to a chair (including a wheelchair)? : A Little Need to walk in hospital room? : A Little Climbing 3-5 steps with a railing? : A Lot Idania PT-Student, [facility] 04/17/2024 15:26 EDT AM-PAC Raw Score : 17 Edisverito PT-Student, [facility] 04/17/2024 15:26 EDT Education PT Responsible Learner/s Present : No Data Available Barriers to Learning : Acuity of illness TeachBack Methodology : Demonstration, Explanation Edisverito PT-Student, [facility] 04/17/2024 15:26 EDT Physical Therapy Education Grid Ambulation with Roller Walker : Needs further teaching, Needs practice/supervision Exercise Program : Needs further teaching, Needs practice/supervision Surgical Precautions : Needs practice/supervision, Needs further teaching Weightbearing Precautions : Needs further teaching, Needs practice/supervision Idania PT-Student, [facility] 04/17/2024 15:26 EDT Additional Session Learner/s Present : Spouse Idania PT-Student, [facility] 04/17/2024 15:26 EDT Time Spent with [...] Difference PT IP : 0 Idania PT-Student, [facility] 04/17/2024 15:26 EDT Normal [facility] Rehabilitation Inpt - Assign ment - Texton 04-17-2024 Rehabilitation Inpt - Assignment - Text Rehabilitation Inpatient - Assignment Entered On: 04/17/2024 7:48 EDT Performed On: 04/17/2024 7:48 EDT by Surya VASQUEZ/Yoli Avery Rehabilitation Inpatient - Assignment Occupational Therapy : Haile PRESCOTT, Zee VASQUEZ/Yoli Avery - 04/17/2024 7:48 EDT Normal [facility] Rehabilitation Inpt - Assignment - Text Rehabilitation Inpatient - Assignment Entered On: 04/17/2024 7:12 EDT Performed On: 04/17/2024 7:12 EDT by ELLA Stewart PTT, [place] Rehabilitation Inpatient - Assignment Physical Therapy : Hayder DUARTE, ELLAT, Mis Stewart PT, DPT, [facility] - 04/17/2024 7:12 EDT Normal [facility] [place] Protocol/Pre-Proc TimeOut-Texton 04-17-2024 [place] Protocol/Pre-Proc TimeOut-Text [place] Protocol Entered On: 04/17/2024 8:07 EDT Performed [...] Site / Side Marked Per Policy Laterality [place] Protocol : Left Site Verification Completed : [...] : 04/17/2024 08:30 EDT Rhona Dinero RN 04/17/2024 9:27 EDT Final Verification Date/Time : 04/17/2024 09:25 EDT Verification : Patient Identified (Name and Date), Correct Procedure, Site / Side Marked & Visible toTeam, All Team Members are in Agreement Laterality : Left Rhona Dinero RN - 04/17/2024 9:27 EDT Normal [facility] ABORHon 04-09-2024 ABORH Interpretation Positive Normal [facility] Comment on above: Performed By: #### C [id number], CD:[id number] ####[facility] [address] [place] [address] Medical Director: Selvin Dillon MD Patient History Check Previous Hx [facility] Comment on above: Performed By: #### C [id number], CD:[id number] ####[facility] [address] [place] [address] [phone]) [phone] Director: Selvin Dillon MD VS 0.8% a cells 3+ [facility] Comment on above: Performed By: #### C [id number], CD:[id number] ####[facility] [address] [place] [address] [phone]) [phone] Director: Selvin Dillon MD VS 0.8% b cells 3+ [facility] Comment on above: Performed By: #### C [id number], CD:[id number] ####[facility] [address] [place] [address] Medical Director: Selvin Dillon MD VS Anti-A Unit 0 [facility] Comment on above: Performed By: #### C [id number], CD:[id number] ####[facility] [address] [place] [address] Medical Director: Selvin Dillon MD VS Anti-B Unit 0 [facility] Comment on above: Performed By: #### C [id number], CD:[id number] ####[facility] [address] [place] [address] Medical Director: Selvin Dillon MD VS Anti-D Unit 4+ [facility] Comment on above: Performed By: #### C [id number], CD:[id number] ####[facility] [address] [place] [address] Medical Director: Selvin Dillon MD ABSCon 04-09-2024 ABSC Final Interp Negative [facility] Comment on above: Performed By: #### C [id number], CD:[id number] ####[facility] [address] [place] [address] Medical Director: Selvin Dillon MD Pt Hx check done? Yes [facility] Comment on above: Performed By: #### C [id number], CD:[id number] ####[facility] [address] [place] [address] Medical Director: Selvin Dillon MD VS SCI Gel 0 [facility] Comment on above: Performed By: #### C [id number], CD:[id number] ####[facility] [address] [place] [address] Medical Director: Selvin Dillon MD VS SCII Gel 0 [facility] Comment on above: Performed By: #### C [id number], CD:[id number] ####[facility] [address] [place] [address] Medical Director: Selvin Dillon MD APTTon 04-09-2024 aPTT Coag (Bld) [Time] 39.1 s High 27.0-38.0 [facility] Comment on above: Result Comment: APTT Interpretation: This test has not been validated to monitor heparin therapy. APTT test is used as an initial test for suspected bleeding disorder. Anti-Xa UFH test is used to monitor heparin therapy. Performed By: #### 1 88561, 388009, 678634, [id number] #### [facility] Services [address] [place] [address] Stage Technician: Selvin Dillon MD BASICMETAon 04-09-2024 Calcium [Mass/Vol] 9.6 mg/dL Normal 8.7-10.4 [facility] Comment on above: Performed By: #### 1 65846, 281094, 079418, 280033 #### [facility] Services [address] [place] [address] Stage Technician: Selvin Dillon MD Chloride [Moles/Vol] 105 mmol/L Normal 98-107 [facility] Comment on above: Performed By: #### 1 88953, 380719, 671441, [id number] #### [facility] Services [address] [place] [address] Stage Technician: Selvin Dillon MD CO2 [Moles/Vol] 28.0 mmol/L Normal 20.0-31.0 [facility] Comment on above: Performed By: #### 1 76993, 012030, 973567, 190769 #### [facility] [address] [place] [address] Stage Technician: Selvin Dillon MD Creatinine [Mass/Vol] 0.8 mg/dL Normal 0.6-1.1 [facility] Comment on above: Performed By: #### 1 35112, 584935, 869950, 885703 #### [facility] [address] [place] [address] Stage Technician: Selvin Dillon MD GFR AA >60 Normal [facility] Comment on above: Result Comment: Afri can Guatemalan GFR Calc Medical judgement is necessary to [...] for drug dosing. Performed By: #### 1 09177, 382585, 970571, 010755 #### [facility] [address] [place] [address] Stage Technician: Selvin Dillon MD Glomerular Filtration Rate >60 Normal [facility] Comment on above: Result Comment: Non- GFR [...] for drug dosing. Performed By: #### 1 63656, 834912, 659274, 703860 #### [facility] [address] [place] [address] Stage Technician: Selvin Dillon MD Glucose [Mass/Vol] 103 mg/dL Normal 74-106 [facility] Comment on above: Performed By: #### 1 09673, 863465, 226798, 618884 #### [facility] [address] [place] [address] Stage Technician: Selvin Dillon MD Osmolality [Osmolality] 282 mosm/kg Normal 275-295 [facility] Comment on above: Performed By: #### 1 26899, 419778, 442826, 985982 #### [facility] [address] [place] [address] Stage Technician: Selvin Dillon MD Potassium [Moles/Vol] 4.4 mmol/L Normal 3.5-5.1 [facility] Comment on above: Performed By: #### 1 12439, 214568, 745294, 440887 #### [facility] [address] [place] [address] Stage Technician: Selvin Dillon MD Sodium [Moles/Vol] 140 mmol/L Normal 135-145 [facility] Comment on above: Performed By: #### 1 46344, 098975, 738441, 560248 #### [facility] [address] [place] [address] Stage Technician: Selvin Dillon MD Urea nitrogen [Mass/Vol] 19 mg/dL Normal 9- [facility] Comment on above: Result Comment: - Ve nipuncture should occur prior to N-Acetyl Cysteine (NAC) or Metamizole (Sulpyrine) administration due to the potential for falsely depressed results. - Blood samples from some patients with monoclonal gammopathies may produce falsely elevated results Performed By: #### 1 66472, 113583, 626681, 209394 #### [facility] [address] [place] [address] Stage Technician: Selvin Dillon MD Urea nitrogen/Creatinine [Mass ratio] 23.8 mg/mg Normal [facility] Comment on above: Performed By: #### 1 33539, 559903, 158363, 129573 #### [facility] [address] [place] [address] Stage Technician: Selvin Dillon MD CBCNDon 04-09-2024 Erythrocyte distribution width (RBC) [Ratio] 14.7 % High 11.5-14.5 [facility] Comment on above: Performed By: #### 1 95939, 530432, 268307, 687577 #### [facility] [address] [place] [address] Stage Technician: Selvin Dillon MD Hematocrit (Bld) [Volume fraction] 41.3 % Normal 41.0-52.0 [facility] Comment on above: Performed By: #### 1 37106, 470581, 903507, 219170 #### [facility] [address] [place] [address] Stage Technician: Selvin Dillon MD Hemoglobin (Bld) [Mass/Vol] 13.9 g/dL Normal 13.5-17.5 [facility] Comment on above: Performed By: #### 1 95966, 542367, 360417, 980054 #### [facility] [address] [place] [address] Stage Technician: Selvin Dillon MD Instr WBC ND 7.1 Normal [facility] Comment on above: Performed By: #### 1 22588, 548156, 255747, 454774 #### [facility] [address] [place] [address] 25146 Stage Technician: Selvin Dillon MD MCH (RBC) [Entitic mass] 29.8 pg Normal 27.0-34.0 [facility] Comment on above: Performed By: #### 1 99511, 952247, 315154, 049503 #### [facility] [address] [place] [address] 42745 Stage Technician: Selvin Dillon MD MCHC (RBC) [Mass/Vol] 33.7 g/dL Normal 32.0-37.0 [facility] Comment on above: Performed By: #### 1 83389, 757054, 771796, 928407 #### [facility] [address] [place] [address] 66229 Stage Technician: Selvin Dillon MD MCV (RBC) [Entitic vol] 88.4 fL Normal 80.0-100.0 [facility] Comment on above: Performed By: #### 1 86989, 971486, 925058, 451778 #### [facility] [address] [place] [address] 79888 Stage Technician: Selvin Dillon MD Platelet 256 x10 Normal 150-450 [facility] Comment on above: Performed By: #### 1 81710, 321474, 144387, 555790 #### [facility] [address] [place] [address] 34777 Stage Technician: Selvin Dillon MD Platelet mean volume (Bld) [Entitic vol] 8.2 fL Normal 7.4-10.4 [facility] Comment on above: Performed By: #### 1 10006, 360696, 062752, 905560 #### [facility] [address] [place] [address] 89957 Stage Technician: Selvin Dillon MD RBC 4.68 x10 Low 4.70-6.10 [facility] Comment on above: Result Comment: Note : RBC morphology is normal unless otherwise stated. Evaluation performed only if differential is requested. Performed By: #### 1 95700, 655691, 084804, 811897 #### [facility] [address] [place] [address] 47878 Stage Technician: Selvin Dillon MD WBC 7.1 x10 Normal 4.5-11.0 [facility] Comment on above: Performed By: #### 1 91208, 686361, 814968, 689164 #### [facility] [address] [place] [address] 81182 Stage Technician: Selvin Dillon MD PT INRon 04-09-2024 INR Coag (PPP) [Relative time] 1.0 {INR} Normal [facility] Comment on above: Result Comment: INR Reference Range: Normal reference range for INR on patients not on anticoagulant therapy: 0.9-1.1 General therapeutic range for patients on anticoagulant therapy: 2.0-3.5 Performed By: #### 1 48024, 654680, 070220, 409341 #### [facility] [address] [place] [address] 68139 Stage Technician: Selvin Dillon MD Protime Patient 11.0 seconds Normal 9.8-12.8 [facility] Comment on above: Performed By: #### 1 25010, 359299, 838846, 786112 #### [facility] [address] [place] [address] 25046 Stage Technician: Selvin Dillon MD Preadmission Testing Progres s [...] must be reported to your surgeon. Normal [facility] UAon 04-09-2024 U MICRO Not Indicated Normal [facility] Comment on above: Performed By: #### 1 45996 #### [facility] [address] [place], [place] [address] Stage Technician: Selvin Dillon MD Appearance, U Clear Normal [facility] Comment on above: Performed By: #### 1 28405 #### [facility] [address] [place] [address] 59742 Stage Technician: Selvin Dillon MD Bilirubin, U Negative Normal Negative [facility] Comment on above: Performed By: #### 1 06770 #### [facility] [address] [place] [address] 88739 Stage Technician: Selvin Dillon MD Blood, U Negative Normal Negative [facility] Comment on above: Performed By: #### 1 55120 #### [facility] [address] [place] [address] 72238 Stage Technician: Selvin Dillon MD Color, U Yellow Normal [facility] Comment on above: Performed By: #### 1 19940 #### [facility] [address] [place] [address] 81270 Stage Technician: Selvin Dillon MD Glucose Qual, U Negative Normal Negative [facility] Comment on above: Performed By: #### 1 68640 #### [facility] [address] [place] [address] Stage Technician: Selvin Dillon MD Ketones, U Trace Abnormal Negative [facility] Comment on above: Performed By: #### 1 77305 #### [facility] [address] [place] [address] Stage Technician: Selvin Dillon MD Leukocyte Esterase, U Negative Normal Negative [facility] Comment on above: Performed By: #### 1 58593 #### [facility] [address] [place] [address] Stage Technician: Selvin Dillon MD Nitrite, U Negative Normal Negative [facility] Comment on above: Performed By: #### 1 02011 #### [facility] [address] [place] [address] Stage Technician: Selvin Dillon MD pH, U 5.0 Normal 4.5-8.0 [facility] Comment on above: Performed By: #### 1 52925 #### [facility] [address] [place] [address] Stage Technician: Selvin Dillon MD Protein, U Negative Normal Negative [facility] Comment on above: Performed By: #### 1 80786 #### [facility] [address] [place] [address] Stage Technician: Selvin Dillon MD Specific [place], U 1.015 Normal 1.001-1.035 [facility] Comment on above: Performed By: #### 1 13147 #### [facility] [address] [place], [place] [address] Stage Technician: Selvin Dillon MD Urobilinogen Qual, U <2.0 mg/dl Normal <2.0 mg/dl [facility] Comment on above: Result Comment: EU/d l and mg/dl are equivalent units. Performed By: #### 1 69764 #### [facility] [address] [place] [address] Stage Technician: eSlvin Dillon MD ABORHon 02-22-2024 ABORH CK Interp Positive Normal [facility] Comment on above: Order Comment: Surge ry canceled. Blood Bank tube in 02/22/24 rack and card filed with 02/23/24 A&D by:SF Performed By: #### C [id number], CD:[id number] #### [facility] [address] [place], [place] [address] Stage Technician: Selvin Dillon MD Anti-A recheck 0 [facility] Comment on above: Order Comment: Surge ry canceled. Blood Bank tube in 02/22/24 rack and card filed with 02/23/24 A&D by:SF Performed By: #### C [id number], CD:[id number] #### [facility] [address] [place] [address] Stage Technician: Selvin Dillon MD Anti-B recheck 0 Normal [facility] Comment on above: Order Comment: Surge ry canceled. Blood Bank tube in 02/22/24 rack and card filed with 02/23/24 A&D by:SF Performed By: #### C D:[id number], CD:[id number] #### [facility] [address] [place], [place] [address] Stage Technician: Selvin Dillon MD Anti-D recheck 4+ Normal [facility] Comment on above: Order Comment: Surge ry canceled. Blood Bank tube in 02/22/24 rack and card filed with 02/23/24 A&D by:SF Performed By: #### C [id number], CD:[id number] #### [facility] [address] [place], [place] [address] Stage Technician: Selvin Dillon MD ABORHon 02-06-2024 ABORH Interpretation Positive Normal [facility] Comment on above: Order Comment: Surge ry canceled. Blood Bank tube in 02/22/24 rack and card filed with 02/23/24 A&D by:HEATHER Performed By: #### C [id number], CD:[id number] #### [facility] [address] [place], [place] [address] Stage Technician: Selvin Dillon MD Patient History Check No Previous Hx Normal [facility] Comment on above: Order Comment: Surge ry canceled. Blood Bank tube in 02/22/24 rack and card filed with 02/23/24 A&D by:HEATHER Result Comment: 01/22 15:10 66987 ABO Recheck to be ordered on admit. Surgery Date: 02/23/24 Performed By: #### C [id number], CD:[id number] #### [facility] [address] [place], [place] [address] Stage Technician: Selvin Dillon MD VS 0.8% a cells 3+ Normal [facility] Comment on above: Order Comment: Surge ry canceled. Blood Bank tube in 02/22/24 rack and card filed with 02/23/24 A&D by:HEATHER Performed By: #### C [id number], CD:[id number] #### [facility] [address] [place], [place] [address] Stage Technician: Selvin Dillon MD VS 0.8% b cells 3+ Normal [facility] Comment on above: Order Comment: Surge ry canceled. Blood Bank tube in 02/22/24 rack and card filed with 02/23/24 A&D by:HEATHER Performed By: #### C [id number], CD:[id number] #### [facility] [address] [place] [address] 44130 Stage Technician: Selvin Dillon MD VS Anti-A Unit 0 Normal [facility] Comment on above: Order Comment: Surge ry canceled. Blood Bank tube in 02/22/24 rack and card filed with 02/23/24 A&D by:SF Performed By: #### C D:[id number], CD:[id number] #### [facility] [address] [place] [address] 06552 Stage Technician: Selvin Dillon MD VS Anti-B Unit 0 [facility] Comment on above: Order Comment: Surge ry canceled. Blood Bank tube in 02/22/24 rack and card filed with 02/23/24 A&D by:SF Performed By: #### C [id number], CD:[id number] #### [facility] [address] [place] [address] 46385 Stage Technician: Selvin Dillon MD VS Anti-D Unit 4+ [facility] Comment on above: Order Comment: Surge ry canceled. Blood Bank tube in 02/22/24 rack and card filed with 02/23/24 A&D by:SF Performed By: #### C [id number], CD:[id number] #### [facility] [address] [place] [address] 19047 Stage Technician: Selvin Dillon MD ABSCon 02-06-2024 ABSC Final Interp Negative Normal [facility] Comment on above: Performed By: #### C [id number], CD:[id number] #### [facility] [address] [place] [address] 07450 Stage Technician: Selvin Dillon MD Pt Hx check done? Yes [facility] Comment on above: Performed By: #### C [id number], CD:[id number] #### [facility] [address] [place] [address] 83589 Stage Technician: Selvin Dillon MD VS SCI Gel 0 [facility] Comment on above: Performed By: #### C [id number], CD:[id number] #### [facility] [address] [place] [address] 15579 Stage Technician: Selvin Dillon MD VS SCII Gel 0 Normal [facility] Comment on above: Performed By: #### C [id number], CD:[id number] #### [facility] [address] [place] [address] 47544 Stage Technician: Selvin Dillon MD APTTon 02-06-2024 aPTT Coag (Bld) [Time] 32.8 s Normal 27.0-38.0 [facility] Comment on above: Result Comment: APTT Interpretation: This test has not been validated to monitor heparin therapy. APTT test is used as an initial test for suspected bleeding disorder. Anti-Xa UFH test is used to monitor heparin therapy. Performed By: #### 1 46032 #### [facility] [place] [id number] Stage Technician: Selvin Dillon MD BASICMETAon 02-06-2024 Calcium [Mass/Vol] 9.6 mg/dL Normal 8.7-10.4 [facility] Comment on above: Performed By: #### 1 60154, 840912, 741894, 912108 #### [facility] [place] [id number] Stage Technician: Selvin Dillon MD Chloride [Moles/Vol] 101 mmol/L Normal 98-107 [facility] Comment on above: Performed By: #### 1 40934, 731457, 555541, 280069 #### [facility] [address] [place] [address] 51928 Stage Technician: Selvin Dillon MD CO2 [Moles/Vol] 26.0 mmol/L Normal 20.0-31.0 [facility] Comment on above: Performed By: #### 1 12455, 639779, 536856, 987710 #### [facility] [address] [place] [address] Stage Technician: Selvin Dillon MD Creatinine [Mass/Vol] 0.9 mg/dL Normal 0.6-1.1 [facility] Comment on above: Performed By: #### 1 81086, 977773, 535171, 610961 #### [facility] [address] [place] [address] Stage Technician: Selvin Dillon MD GFR AA >60 Normal [facility] Comment on above: Result Comment: Afri can [place] GFR Calc Medical judgement is necessary to [...] for drug dosing. Performed By: #### 1 07040, 766176, 160749, 846430 #### [facility] [address] [place] [address] Stage Technician: Selvin Dillon MD Glomerular Filtration Rate >60 Normal [facility] Comment on above: Result Comment: Non- GFR [...] for drug dosing. Performed By: #### 1 97323, 748187, 917242, 917084 #### [facility] [address] [place] [address] Stage Technician: Selvin Dillon MD Glucose [Mass/Vol] 346 mg/dL High 74-106 [facility] Comment on above: Performed By: #### 1 19168, 590723, 984580, 650838 #### [facility] [address] [place] [address] Stage Technician: Selvin Dillon MD Osmolality [Osmolality] 285 mosm/kg Normal 275-295 [facility] Comment on above: Performed By: #### 1 84302, 456481, 061293, 481768 #### [facility] [address] [place] [address] Stage Technician: Selvin Dillon MD Potassium [Moles/Vol] 4.5 mmol/L Normal 3.5-5.1 [facility] Comment on above: Performed By: #### 1 30371, 406883, 004105, 505014 #### [facility] [address] [place] [address] 87566 Stage Technician: Selvin Dillon MD Sodium [Moles/Vol] 134 mmol/L Low 135-145 [facility] Comment on above: Performed By: #### 1 75828, 522695, 320073, 631185 #### [facility] [address] [place] [address] 92302 Stage Technician: Selvin Dillon MD Urea nitrogen [Mass/Vol] 20 mg/dL Normal 9-23 [facility] Comment on above: Result Comment: - Ve nipuncture should occur prior to N-Acetyl Cysteine (NAC) or Metamizole (Sulpyrine) administration due to the potential for falsely depressed results. - Blood samples from some patients with monoclonal gammopathies may produce falsely elevated results Performed By: #### 1 29792, 237133, 873029, 269554 #### [facility] [address] [place] [address] 18180 Stage Technician: Selvin Dillon MD Urea nitrogen/Creatinine [Mass ratio] 22.2 mg/mg Normal [facility] Comment on above: Performed By: #### 1 28576, 979370, 779182, 703423 #### [facility] [address] [place] [address] 67238 Stage Technician: Selvin Dillon MD CBCNDon 02-06-2024 Erythrocyte distribution width (RBC) [Ratio] 13.9 % Normal 11.5-14.5 [facility] Comment on above: Performed By: #### 1 15291 #### [facility] [address] [place] [address] 45638 Stage Technician: Selvin Dillon MD Hematocrit (Bld) [Volume fraction] 44.9 % Normal 41.0-52.0 [facility] Comment on above: Performed By: #### 1 03765 #### [facility] [address] [place], [place] [address] Stage Technician: Selvin Dillon MD Hemoglobin (Bld) [Mass/Vol] 15.2 g/dL Normal 13.5-17.5 [facility] Comment on above: Performed By: #### 1 35223 #### [facility] [place] [id number] Stage Technician: Selvin Dillon MD Instr WBC ND 8.7 Normal [facility] Comment on above: Performed By: #### 1 36990 #### [facility] [address] [place], [place] [address] Stage Technician: Selvin Dillon MD MCH (RBC) [Entitic mass] 29.3 pg Normal 27.0-34.0 [facility] Comment on above: Performed By: #### 1 29591 #### [facility] [address] [place], [place] [address] Stage Technician: Selvin Dillon MD MCHC (RBC) [Mass/Vol] 33.9 g/dL Normal 32.0-37.0 [facility] Comment on above: Performed By: #### 1 01047 #### [facility] [address] [place] [address] 41271 Stage Technician: Selvin Dillon MD MCV (RBC) [Entitic vol] 86.6 fL Normal 80.0-100.0 [facility] Comment on above: Performed By: #### 1 82315 #### [facility] [place] [address] Stage Technician: Selvin Dillon MD Platelet 245 x10 Normal 150-450 [facility] Comment on above: Performed By: #### 1 90617 #### [facility] [address] [place] [address] 81637 Stage Technician: Selvin Dillon MD Platelet mean volume (Bld) [Entitic vol] 8.6 fL Normal 7.4-10.4 [facility] Comment on above: Performed By: #### 1 06482 #### [facility] [address] [place] [address] 89410 Stage Technician: Selvin Dillon MD RBC 5.18 x10 Normal 4.70-6.10 [facility] Comment on above: Result Comment: Note : RBC morphology is normal unless otherwise stated. Evaluation performed only if differential is requested. Performed By: #### 1 15089 #### [facility] [address] [place] [address] 67722 Stage Technician: Selvin Dillon MD WBC 8.7 x10 Normal 4.5-11.0 [facility] Comment on above: Performed By: #### 1 33376 #### [facility] [address] [place] [address] 44661 Stage Technician: Selvin Dillon MD HGB A1Con 02-06-2024 HbA1c (Bld) [Mass fraction] 10.1 % Normal [facility] Comment on above: Result Comment: Refe rence Range: Diabetic Greater than or equal to 6.5 % Prediabetic 5.7?6.4 % Normal Less than 5.7 % Performed By: #### 1 97716 #### [facility] [address] [place] [address] 66805 Stage Technician: MD JOMAR Webb JR. Adult Hip Survey P re-Op - [employer] 02-06-2024 JR. JOMAR Adult Hip Survey Pre-Op - Text JR. JOMAR Adult Hip Survey - Pre-op Entered On: 02/06/2024 16:05 EDT Performed On: 02/06/2024 15:30 EDT by Marcie Pereira JR. Adult Hip Survey 1. Going up or down stairs : Extreme 2. Walking on an uneven surface : Extreme 3. Rising from sitting : Extreme 4. Bending to floor/picker feeder an object : Severe 5. Lying in bed (turning over, maintaining hip position) : Extreme 6. Sitting : Severe HOOS JR Raw Score (ref) : 22 HOOS JR Interval Score : 16 Marcie Pereira 02/06/2024 16:05 EDT Normal [facility] OT PAT Instruction/Education -[employer] 02-06-2024 OT PAT Instruction/Educatio n-Text OT PAT Entered On: 02/06/2024 16:05 EDT Performed On: 02/06/2024 15:30 EDT by Marcie Pereira OT Surgery Date : 02/23/24 Prior Level of Function : Independent Printed Material Given to Patient : Total Hip Replacement Book Responsible Learner(s) : No Data Available Barriers To Learning : None evident [employer] Methodology : Explanation, Printed Material, Video/Educational TV Marcie Pereira 02/06/2024 16:03 EDT OT PAT Education Grid [...] therapy post op. 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 Marcie Pereira 02/06/2024 16:03 EDT Home Environment Living Environment : No Living Environment Information Available *Living Situation : Home with family care *Lives With : Spouse Lives In : Single level home Marcie Pereira 02/06/2024 16:03 EDT Rehabilitation Stairs Grid Inside Stairs Outside Stairs Number of Stairs : 0 3 Stairs Rail : One Rail Marcie Pereira - 02/06/2024 16:03 EDT Marcie Pereira - 02/06/2024 16:03 EDT Primary Bedroom : 1st floor Primary Bathroom : 1st floor Kitchen : 1st floor Laundry : Basement (Comment: n/a [Beto Pereiran 02/06/2024 16:03 EDT] ) Marcie Pereira - 02/06/2024 16:03 EDT Home Environment II Living Environment : No Living Environment Information Available Current Home Treatments : None Home Equipment Rehab : Grab bars, Lift chair Beto Pereiran 02/06/2024 16:03 EDT Time Spent with Patient OT Time In : 14:30 EST OT Time Out : 15:30 EST OT Therapeutic Activities Time : 0 minutes 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 Therapeutic Activities Units : 0 units OT [...] Marcie Pereira - 02/06/2024 16:03 EDT Normal [facility] PT INRon 02-06-2024 INR Coag (PPP) [Relative time] 1.0 {INR} Normal [facility] Comment on above: Result Comment: INR Reference Range: Normal reference range for INR on patients not on anticoagulant therapy: 0.9-1.1 General therapeutic range for patients on anticoagulant therapy: 2.0-3.5 Performed By: #### 1 76105, 904181, 116625, 552498 #### [facility] [address] [place] [address] Stage Technician: Selvin Dillon MD Protime Patient 10.9 seconds Normal 9.8-12.8 [facility] Comment on above: Performed By: #### 1 74297, 632320, 769379, 257374 #### [facility] [address] [place] [address] Stage Technician: Selvin Dillon MD Preadmission Testing Nadeem s Noteon 02-06-2024 Preadmission Testing Progress Note [...] must be reported to your surgeon. Normal [facility] UAon 02-06-2024 U MICRO Indicated Normal [facility] Comment on above: Performed By: #### 1 [id number] #### [facility] Services [address] [place] [id number] Stage Technician: Selvin Dillon MD Appearance, U Clear Normal [facility] Comment on above: Performed By: #### 1 [id number] #### [facility] [address] [place] [address] Stage Technician: Selvin Dillon MD Bilirubin, U Negative Normal Negative [facility] Comment on above: Performed By: #### 1 [id number] #### [facility] Services [address] [place] [address] Stage Technician: Selvin Dillon MD Blood, U Small Abnormal Negative [facility] Comment on above: Performed By: #### 1 [id number] #### [facility] Services [address] [place] [address] [id number] Stage Technician: Selvin Dillon MD Color, U Yellow Normal [facility] Comment on above: Performed By: #### 1 [id number] #### [facility] Laboratory Services [address] [place] [address] Stage Technician: Selvin Dillon MD Glucose Qual, U >=500 mg/dl Abnormal Negative [facility] Comment on above: Performed By: #### 1 [id number] #### [facility] [address] [place] [address] 79017 Stage Technician: Selvin Dillon MD Ketones, U Negative Normal Negative [facility] Comment on above: Performed By: #### 1 [id number] #### [facility] [address] [place] [address] 09[address] Stage Technician: Selvin Dillon MD Leukocyte Esterase, U Negative Normal Negative [facility] Comment on above: Performed By: #### 1 [id number] #### [facility] [address] [place] [address] 15357 Stage Technician: Selvin Dillon MD Nitrite, U Negative Normal Negative [facility] Comment on above: Performed By: #### 1 [id number] #### [facility] [address] [place] [address] 357[address] Stage Technician: Selvin Dillon MD pH, U 5.0 Normal 4.5-8.0 [facility] Comment on above: Performed By: #### 1 [id number] #### [facility] [address] [place] [address] 77688 Stage Technician: Selvin Dillon MD Protein, U Negative Normal Negative [facility] Comment on above: Performed By: #### 1 [id number] #### [facility] [address] [place] [address] 83728 Stage Technician: Selvin Dillon MD RBC/HPF, U 2 #/HPF Normal 0-3 [facility] Comment on above: Performed By: #### 1 [id number] #### [facility] [address] [place] [address] Stage Technician: Selvin Dillon MD Specific [place], U 1.028 Normal 1.001-1.035 [facility] Comment on above: Performed By: #### 1 [id number] #### [facility] Services [address] [place], [place] [id number] Stage Technician: Selvin Dillon MD Urobilinogen Qual, U <2.0 mg/dl Normal <2.0 mg/dl [facility] Comment on above: Result Comment: EU/d l and mg/dl are equivalent units. Performed By: #### 1 [id number] #### [facility] [address] [place] [address] [phone] Stage Technician: Selvin Dillon MD WBC/HPF, U <1 Normal 0-5 [facility] Comment on above: Performed By: #### 1 [id number] #### [facility] [address] [place] [address]130 Stage Technician: Selvin Dillon MD US venous duplex LE LTon US venous duplex LE LT [facility] [place] [address] Ultrasound Report Signed Patient: Dali Huffman MR#: [id number] 11 : 1970 Acct:[id number] Age/Sex: 53 / M ADM Date: 12/19/23 Loc: Room: Type: [facility] Attending Dr: Rocky Lemon DO Ordering [...] Venu Islas MD12/20/2023 2:52 PM Dictation Location: [place] [address] Tech: Laila Hall Transcribed By: CHECO 12/20/23 145 Dictated By: Venu Islas MD 12/20/231451 Signed By: 12/20/23 1452 Normal [facility] GLYCOHEMOGLOBIN A1Con 2020 ADA RECOMMENDATION ADA THERAPEUTIC TARG ET 6.0 - 7.0 ACTION SUGGESTED > 7.0 Normal [facility] Comment on above: Performed By: #### D ATA1C #### [facility] [address] [place] [address] Dr. Ahmet Mcghee Glucose [Mass/Vol] 283 mg/dL Normal [facility] Comment on above: Performed By: #### D ATA1C #### [facility] [address] [place] [address] Dr. Ahmet Mcghee HbA1c (Bld) [Mass fraction] 11.5 % Critically high <=6.0 [facility] Comment on above: Performed By: #### D ATA1C #### [facility] [address] [place] [address] Dr. Ahmet Mcghee CBC AUTO DIFFon 08-10-2021 BASO # 0.1 103/ul Normal 0.0-0.1 [facility] Comment on above: Performed By: #### C BC #### [facility] [address] [place] [address] Dr. Ahmet Mcghee Basophils/100 WBC (Bld) 0.9 % Normal 0.2-2.0 [facility] Comment on above: Performed By: #### C BC #### [facility] [address] [place] [address] Dr. Ahmet Mcghee EO # 0.1 103/ul Normal 0.0-0.7 [facility] Comment on above: Performed By: #### C BC #### [facility] [address] [place] [address] Dr. Ahmet Mcghee Eosinophils/100 WBC (Bld) 1.2 % Normal 0.9-7.0 [facility] Comment on above: Performed By: #### C BC #### [facility] [address] [place] [address] Dr. Ahmet Mcghee Erythrocyte distribution width (RBC) [Ratio] 12.9 % Normal 11.0-15.0 [facility] Comment on above: Performed By: #### C BC #### [facility] [address] [place] [address] Dr. Ahmet Mcghee Hematocrit (Bld) [Volume fraction] 46.7 % Normal 42.0-54.0 [facility] Comment on above: Performed By: #### C BC #### [facility] [address] [place] [address] Dr. Ahmet Mcghee Hemoglobin (Bld) [Mass/Vol] 16.1 g/dL Normal 14.0-18.0 [facility] Comment on above: Performed By: #### C BC #### [facility] [address] [place] [address] Dr. Ahmet Mcghee IG # 0.07 10e3/ul Critically high 0.00-0.03 [facility] Comment on above: Performed By: #### C BC #### [facility] [address] [place] [address] Dr. Ahmet Mcghee IG % 0.9 % Critically high 0.0-0.5 [facility] Comment on above: Performed By: #### C BC #### [facility] [address] [place] [address] Dr. Ahmet Mcghee LYMPH # 2.2 103/ul Normal 1.2-3.8 [facility] Comment on above: Performed By: #### C BC #### [facility] [address] [place] [address] Dr. Ahmet Mcghee Lymphocytes/100 WBC (Bld) 30.3 % Normal 20.5-60.0 [facility] Comment on above: Performed By: #### C BC #### [facility] [address] [place] [address] Dr. Ahmet Mcghee MANUAL DIFF REQ NO Normal [facility] Comment on above: Performed By: #### C BC #### [facility] [address] [place] [address] Dr. Ahmet Mcghee MCH (RBC) [Entitic mass] 29.3 pg Normal 25.9-34.0 [facility] Comment on above: Performed By: #### C BC #### [facility] [address] [place] [address] Dr. Ahmet Mcghee MCHC (RBC) [Mass/Vol] 34.5 g/dL Normal 29.9-35.2 [facility] Comment on above: Performed By: #### C BC #### [facility] [address] [place] [address] Dr. Ahmet Mcghee MCV (RBC) [Entitic vol] 84.9 fL Normal 80.0-94.0 [facility] Comment on above: Performed By: #### C BC #### [facility] [address] [place] [address] Dr. Ahmet Mcghee MONO # 0.6 103/ul Normal 0.3-0.8 [facility] Comment on above: Performed By: #### C BC #### [facility] [address] [place] [address] Dr. Ahmet Mcghee Monocytes/100 WBC (Bld) 8.0 % Normal 1.7-12.0 [facility] Comment on above: Performed By: #### C BC #### [facility] [address] [place] [address] Dr. Ahmet Mcghee NEUT # 4.3 103/ul Normal 1.4-6.5 [facility] Comment on above: Performed By: #### C BC #### [facility] [address] [place] [address] Dr. Ahmet Mcghee Neutrophils/100 WBC (Bld) 58.7 % Normal 43.0-75.0 [facility] Comment on above: Performed By: #### C BC #### [facility] [address] [place] [address] Dr. Ahmet Mcghee Platelet mean volume (Bld) [Entitic vol] 10.7 fL Normal 9.5-13.5 [facility] Comment on above: Performed By: #### C BC #### [facility] [address] [address] [address] Ahmet Mcghee PLT 249 103/ul Normal 150-450 [facility] Comment on above: Performed By: #### C BC #### [facility] [address] [address] [address] Ahmet Mcghee RBC 5.50 106/ul Normal 4.70-6.10 [facility] Comment on above: Performed By: #### C BC #### [facility] [address] [place] [address] [address] Ahmet Mcghee WBC 7.4 103/ul Normal 4.0-11.0 [facility] Comment on above: Performed By: #### C BC #### [facility] [address] [place] [address] Dr. Ahmet Mcghee CPKon 08-10-2021 CK [Catalytic activity/Vol] 49 U/L Critically low 55-170 [facility] Comment on above: Performed By: #### C K #### [facility] [address] [place] HEAD WO CONon [...] YAO STRONG Date: 2021-08-10 18:17 Normal [facility] PROF 14(COMP METB)on 021 Albumin [Mass/Vol] 3.6 g/dL Normal 3.5-5.0 [facility] Comment on above: Performed By: #### C WILFRED HSTROPN #### [facility] [address] [place] [address] Dr. Ahmet Mcghee Albumin/Globulin [Mass ratio] 0.9 {ratio} Normal [facility] Comment on above: Performed By: #### C WILFRED HSTROPN #### [facility] [address] [place] [address] Dr. Ahmet Mcghee ALP [Catalytic activity/Vol] 120 U/L Normal 38-126 [facility] Comment on above: Performed By: #### C WILFRED HSTROPN #### [facility] [address] [place] [address] [address] Ahmet Mcghee ALT [Catalytic activity/Vol] 26 U/L Normal 21-72 [facility] Comment on above: Performed By: #### C WILFRED HSTROPN #### [facility] [address] [place] [address] [address] Ahmet Mcghee Anion gap [Moles/Vol] 13.4 mmol/L Normal [facility] Comment on above: Performed By: #### C WILFRED, HSTROPN #### [facility] [address] [place] [address] [address] Ahmet Mcghee AST [Catalytic activity/Vol] 10 U/L Critically low 17-59 [facility] Comment on above: Performed By: #### C WILFRED, HSTROPN #### [facility] [address] [place] [address] Dr. Ahmet Mcghee Bilirubin [Mass/Vol] 0.3 mg/dL Normal 0.2-1.3 [facility] Comment on above: Performed By: #### C WILFRED, HSTROPN #### [facility] [address] [place] [address] Dr. Ahmet Mcghee Calcium [Mass/Vol] 9.2 mg/dL Normal 8.4-10.2 [facility] Comment on above: Performed By: #### C WILFRED, HSTROPN #### [facility] [address] [place] [address] Dr. Ahmet Mcghee Chloride [Moles/Vol] 98 mmol/L Normal 98-107 [facility] Comment on above: Performed By: #### C WILFRED, HSTROPN #### [facility] [address] [place] [address] Dr. Ahmet Mcghee CO2 [Moles/Vol] 26.6 mmol/L Normal 22.0-30.0 [facility] Comment on above: Performed By: #### C WILFRED, HSTROPN #### [facility] [address] [place] [address] Dr. Ahmet Mcghee Creatinine [Mass/Vol] 0.85 mg/dL Normal 0.66-1.25 [facility] Comment on above: Performed By: #### C WILFRED, HSTROPN #### [facility] [address] [place] [address] Dr. Ahmet Mcghee EGFR-AF ARMENIAN >60 Normal >=60 [facility] Comment on above: Performed By: #### C WILFRED, HSTROPN #### [facility] [address] [place] [address] Dr. Ahmet Mcghee EGFR-NON AF ARMENIAN >60 Normal >=60 [facility] Comment on above: Performed By: #### C WILFRED, HSTROPN #### [facility] [address] [place] [address] Dr. Ahmet Mcghee Globulin (S) [Mass/Vol] 4.1 g/dL Normal [facility] Comment on above: Performed By: #### C MP, HSTROPN #### [facility] [address] [place] [address] [address] Ahmet Mcghee Glucose [Mass/Vol] 392 mg/dL Critically high 74-106 [facility] Comment on above: Performed By: #### C MP, HSTROPN #### [facility] [address] [address] [address] Ahmet Mcghee Potassium [Moles/Vol] 4.0 mmol/L Normal 3.4-5.0 [facility] Comment on above: Performed By: #### C MP, HSTROPN #### [facility] [address] [address] [address] Ahmet Mcghee Protein [Mass/Vol] 7.7 g/dL Normal 6.1-8.2 [facility] Comment on above: Performed By: #### C MP, HSTROPN #### [facility] [address] [place] [address] [address] Ahmet Mcghee Sodium [Moles/Vol] 134 mmol/L Critically low 137-145 [facility] Comment on above: Performed By: #### C MP, HSTROPN #### [facility] [address] [place] [address] Dr. Ahmet Mcghee Urea nitrogen [Mass/Vol] 14.0 mg/dL Normal 9.0-20.0 [facility] Comment on above: Performed By: #### C MP, HSTROPN #### [facility] [address] [place] [address] Dr. Ahmet Mcghee Urea nitrogen/Creatinine [Mass ratio] 16.5 mg/mg Normal [facility] Comment on above: Performed By: #### C MP, HSTROPN #### [facility] [address] [address] [address] Ahmet Mcghee TROPONIN, HIGH SENSITIVITYon 08-10-2021 HSTROP 7.6 pg/mL Normal 4.0-42.2 [facility] Comment on above: Result Comment: CUT- OFF POINTS HAVE BEEN ESTABLISHED BASED ON THE FOURTH UNIVERSAL DEFINITIONS OF MYOCARDIAL INFARCTION. THE UPPER REFERENCE LIMIT (URL) OF TROPONIN, DEFINED THE 99TH PERCENTILE OF cTnI DISTRIBUTION IN A REFERENCE POPULATION, HAS BEEN CONFIRMED THE DECISION THRESHOLD FOR [place] DIAGNOSIS. Performed By: #### C MP, HSTROPN #### [facility] [address] [place], [place] [address] Dr. Ahmet Mcghee Vital Signs Date Time Vital Sign Value Performing Clinician Facility 09-19-2024 08:41-0500 Body height 170.2 cm Claritza Spencer MD Work Phone: [facility] 09-19-2024 08:41-0500 Body mass index (BMI) [Ratio] 37.12 kg/m2 Claritza Spencer MD Work Phone: [facility] 09-19-2024 08:41-0500 Body weight 107.5 kg Claritza Spencer MD Work Phone: [facility] 09-19-2024 08:41-0500 Diastolic blood pressure 78 mm[Hg] Claritza Spencer MD Work Phone: [facility] 09-19-2024 08:41-0500 Systolic blood pressure 126 mm[Hg] Claritza Spencer MD Work Phone: [facility] 09-13-2024 12:29-0500 Body mass index (BMI) [Ratio] 35.6 kg/m2 [facility] 09-13-2024 12:29-0500 Body temperature 97.1 [degF] [facility] 09-13-2024 12:29-0500 Diastolic blood pressure 88 mm[Hg] [facility] 09-13-2024 12:29-0500 Heart rate 88 /min [facility] 09-13-2024 12:29-0500 SaO2% (BldA) [Mass fraction] 96 % [facility] 09-13-2024 12:29-0500 Systolic blood pressure 128 mm[Hg] [facility] 09-13-2024 08:47-0500 Body height 170.18 cm [facility] 09-13-2024 08:47-0500 Body weight 103.41 kg [facility] 08-21-2024 08:19-0400 Body height 170.18 cm [facility] 08-21-2024 08:19-0400 Body mass index (BMI) [Ratio] 37 kg/m2 [facility] 08-21-2024 08:19-0400 Body temperature 97.2 [degF] [facility] 08-21-2024 08:19-0400 Body weight 107.5 kg [facility] 08-21-2024 08:19-0400 Diastolic blood pressure 78 mm[Hg] [facility] 08-21-2024 08:19-0400 Heart rate 84 /min [facility] 08-21-2024 08:19-0400 Systolic blood pressure 132 mm[Hg] [facility] 06-27-2024 13:18-0400 Body height 170.18 cm [facility] 06-27-2024 13:18-0400 Body mass index (BMI) [Ratio] 35.9 kg/m2 [facility] 06-27-2024 13:18-0400 Body temperature 97.8 [degF] [facility] 06-27-2024 13:18-0400 Body weight 103.87 kg [facility] 06-27-2024 13:18-0400 Diastolic blood pressure 86 mm[Hg] [facility] 06-27-2024 13:18-0400 Heart rate 97 /min [facility] 06-27-2024 13:18-0400 SaO2% (BldA) [Mass fraction] 98 % [facility] 06-27-2024 13:18-0400 Systolic blood pressure 130 mm[Hg] [facility] 03-26-2024 17:35-0400 Body height 170.18 cm [facility] 03-26-2024 17:35-0400 Body mass index (BMI) [Ratio] 36.5 kg/m2 [facility] 03-26-2024 17:35-0400 Body temperature 97.2 [degF] [facility] 03-26-2024 17:35-0400 Body weight 105.68 kg [facility] 03-26-2024 17:35-0400 Diastolic blood pressure 88 mm[Hg] [facility] 03-26-2024 17:35-0400 Heart rate 95 /min [facility] 03-26-2024 17:35-0400 SaO2% (BldA) [Mass fraction] 98 % [facility] 03-26-2024 17:35-0400 Systolic blood pressure 138 mm[Hg] [facility] 02-08-2024 09:47-0400 Body height 170.18 cm DO Rocky Lemon Work Phone: [facility] 02-08-2024 09:47-0400 Body mass index (BMI) [Ratio] 36.6 kg/m2 DO Rocky Lemon Work Phone: [facility] 02-08-2024 09:47-0400 Body temperature 97.5 [degF] DO Rocky Lemon Work Phone: [facility] 02-08-2024 09:47-0400 Body weight 106.14 kg DO Rocky Lemon Work Phone: [facility] 02-08-2024 09:47-0400 Diastolic blood pressure 82 mm[Hg] DO Rocky Lemon Work Phone: [facility] 02-08-2024 09:47-0400 Heart rate 84 /min DO Rocky Lemon Work Phone: [facility] 02-08-2024 09:47-0400 SaO2% (BldA) [Mass fraction] 98 % DO Rocky Lemon Work Phone: [facility] 02-08-2024 09:47-0400 Systolic blood pressure 130 mm[Hg] DO Rocky Lemon Work Phone: [facility] 12-12-2023 10:31-0500 Body temperature 98.2 [degF] DO Rocky Lemon Work Phone: [facility] 12-12-2023 10:31-0500 Body weight 109.76 kg DO Rocky Lemon Work Phone: [facility] 12-12-2023 10:31-0500 Diastolic blood pressure 94 mm[Hg] DO Rocky Lemon Work Phone: [facility] 12-12-2023 10:31-0500 SaO2% (BldA) [Mass fraction] 95 % DO Rocky Lemon Work Phone: [facility] 12-12-2023 10:31-0500 Systolic blood pressure 146 mm[Hg] DO Rocky Lemon Work Phone: [facility] 02-10-2023 09:10-0400 Body height 170.18 cm Rocky Lemon Other [facility] Other 02-10-2023 09:10-0400 Body mass index (BMI) [Ratio] 38.82 kg/m2 Rocky Lemon Other [facility] Other 02-10-2023 09:10-0400 Body temperature 97.3 [degF] Rocky Lemon Other [facility] Other 02-10-2023 09:10-0400 Body weight 112.45 kg Rocky Spicerbaldemar Other [facility] Other 02-10-2023 09:10-0400 Diastolic blood pressure 104 mm[Hg] Rocky Lemon Other [facility] Other 02-10-2023 09:10-0400 Respiratory rate 18 /min Rocky Lemon Other [facility] Other 02-10-2023 09:10-0400 SaO2% (BldA) [Mass fraction] 98 % Rocky Lemon Other [facility] Other 02-10-2023 09:10-0400 Systolic blood pressure 148 mm[Hg] Rocky Lemon Other [facility] Other 11-19-2022 13:50-0500 Body height 170.18 cm Rocky Lemon Other [facility] Other 11-19-2022 13:50-0500 Body mass index (BMI) [Ratio] 38.52 kg/m2 Rocky Lemon Other [facility] Other 11-19-2022 13:50-0500 Body temperature 96.9 [degF] Rocky Lemon Other [facility] Other 11-19-2022 13:50-0500 Body weight 111.59 kg Rocky Lemon Other [facility] Other 11-19-2022 13:50-0500 Diastolic blood pressure 100 mm[Hg] Rocky Lemon Other [facility] Other 11-19-2022 13:50-0500 Respiratory rate 18 /min Rocky Lemon Other [facility] Other 11-19-2022 13:50-0500 SaO2% (BldA) [Mass fraction] 99 % Rocky Lemon Other [facility] Other 11-19-2022 13:50-0500 Systolic blood pressure 148 mm[Hg] Rocky Lemon Other [facility] Other 10-08-2022 10:10-0500 Body height 170.18 cm Rocky Lemon Other [facility] Other 10-08-2022 10:10-0500 Body mass index (BMI) [Ratio] 37.9 kg/m2 Rocky Lemon Other [facility] Other 10-08-2022 10:10-0500 Body temperature 96.8 [degF] Rocky Lemon Other [facility] Other 10-08-2022 10:10-0500 Body weight 109.77 kg Rocky Ion Other [facility] Other 10-08-2022 10:10-0500 Diastolic blood pressure 96 mm[Hg] Rocky Lemon Other [facility] Other 10-08-2022 10:10-0500 Respiratory rate 18 /min Rocky Lemon Other [facility] Other 10-08-2022 10:10-0500 SaO2% (BldA) [Mass fraction] 96 % Rocky Lemon Other [facility] Other 10-08-2022 10:10-0500 Systolic blood pressure 144 mm[Hg] Rocky Lemon Other [facility] Other 07-09-2022 09:30-0400 Body height 170.18 cm Orcky Ion Other [facility] Other 10-26-2021 11:00-0500 Body height 170.18 cm Manuelito Arana Other [facility] Other 10-26-2021 11:00-0500 Body mass index (BMI) [Ratio] 38.68 kg/m2 Manuelito Arana Other [facility] Other 10-26-2021 11:00-0500 Body weight 112.04 kg Manuelito Arana Other [facility] Other 10-26-2021 11:00-0500 Diastolic blood pressure 80 mm[Hg] Manuelito Arana Other [facility] [employer] Other 10-26-2021 11:00-0500 Systolic blood pressure 140 mm[Hg] Manuelito Arana Other [facility] [employer] Other Encounters Encounter Date Encounter Type Care Provider Facility Start: 09-19-2024 End: 09-19-2024 Lala Spencer MD Work Phone: [facility] Start: 09-19-2024 End: 09-19-2024 Lala Spencer MD Work Phone: [facility] Start: 09-19-2024 End: 09-19-2024 Office outpatient new 45 minutes Claritza Spencer MD Work Phone: [facility] Comment on above: ETD (Eustachian tube dysfunction), bilateral (Primary Dx); OME (otitis media with effusion), bilateral Start: 09-19-2024 End: 09-19-2024 ambulatory CLARITZA SPENCER Not Available Start: 09-13-2024 End: 09-13-2024 [facility] Work Phone: Start: 09-13-2024 End: 09-13-2024 Patient encounter procedure [facility] Work Phone: Start: 08-21-2024 End: 08-21-2024 ambulatory [facility] Work Phone: Start: 08-21-2024 End: 08-21-2024 Patient encounter procedure [facility] [place] Work Phone: Start: 06-27-2024 End: 06-27-2024 ambulatory [facility] Work Phone: Start: 06-27-2024 End: 06-27-2024 Patient encounter procedure [facility] [place] Work Phone: Start: 04-24-2024 End: 04-24-2024 ambulatory FELIX WRIGHT MD Facility:[id number] Start: 04-17-2024 End: 04-18-2024 ambulatory FELIX WRIGHT MD Facility:[id number] Start: 03-26-2024 End: 03-26-2024 ambulatory [facility] Work Phone: Start: 03-26-2024 End: 03-26-2024 Patient encounter procedure [facility]ly [facility] Physician [facility] [place] Work Phone: Start: 03-24-2024 End: 03-24-2024 ambulatory FELIX WRIGHT MD Facility:[id number] Start: 02-08-2024 Patient encounter status DO Terell Lemon Work Phone: [facility] Start: 02-08-2024 [facility] Start: 02-08-2024 End: 02-08-2024 ambulatory DO Rocky Lemon Work Phone: [facility] Work Phone: Start: 02-08-2024 End: 02-08-2024 Patient encounter procedure DO Rocky Lemon Work Phone: [facility] Physician [facility] [place] Work Phone: Start: 12-19-2023 End: 12-19-2023 Patient encounter procedure DO Rocky Lemon Work Phone: [facility] [place] Work Phone: Start: 12-19-2023 End: 12-19-2023 ambulatory Rocky Lemon Facility:[facility] Start: 12-12-2023 End: 12-12-2023 Patient encounter procedure DO Rocky Lemon Work Phone: [facility] Physician [facility] [place] Work Phone: Start: 11-07-2023 End: 11-07-2023 ambulatory Rocky Lemon Other [employer] Other Start: 11-07-2023 Telephone encounter Rocky Lemon [facility] [place] Start: 09-02-2023 End: 09-02-2023 ambulatory Rocky Lemon Other [employer] Other Start: 09-02-2023 Telephone encounter Rcoky Lemon [facility] [place] Start: 06-17-2023 End: 06-17-2023 ambulatory Rocky Lemon Other [employer] Other Start: 06-17-2023 Telephone encounter Rocky Lemon [facility] [place] Start: 05-27-2023 End: 05-27-2023 ambulatory Rocky Lemon Other [employer] Other Start: 05-27-2023 Telephone encounter Rocky Lemon [facility] [place] Start: 02-23-2023 End: 02-23-2023 ambulatory Rocky Lemon Other [facility] Other Start: 02-23-2023 Telephone encounter Rocky Lemon [facility] [place] Start: 02-10-2023 End: 02-10-2023 ambulatory Rocky Lemon Other [facility] Other Start: 02-10-2023 Office outpatient vi sit 15 minutes Rocky Lemon [facility] [place] Start: 02-04-2023 End: 02-04-2023 ambulatory Rocky Lemon Other [employer] Other Start: 02-04-2023 Telephone encounter Rocky Lemon [facility] [place] Start: 12-29-2022 End: 12-29-2022 ambulatory Rocky Lemon Other [facility] Other Start: 12-29-2022 Telephone encounter Rocky Lemon [facility] [place] Start: 11-29-2022 End: 11-29-2022 ambulatory Rocky Lemon Other [employer] Other Start: 11-29-2022 Telephone encounter Rocky Lemon [facility] [place] Start: 11-19-2022 End: 11-19-2022 ambulatory Rocky Nayanbaldemar Other [facility] Other Start: 11-19-2022 Patient encounter procedure Rocky Lemon [facility] [place] Start: 10-08-2022 End: 10-08-2022 ambulatory Rocky Lemon Other [facility] Other Start: 10-08-2022 Office outpatient vi sit 10 minutes Rocky Lemon [facility] [place] Start: 10-08-2022 Telephone encounter Rocky Lemon [facility] [place] Start: 08-31-2022 End: 08-31-2022 ambulatory Rocky Lemon Other [facility] Other Start: 08-31-2022 Telephone encounter Rocky Spicerbaldemar [facility] [place] Start: 08-09-2022 End: 08-09-2022 ambulatory Rocky Lemon Other [facility] Other Start: 08-09-2022 Telephone encounter Rocky Lemon [facility] [place] Start: 07-09-2022 End: 07-09-2022 ambulatory Rocky Lemon Other [facility] Other Start: 07-09-2022 Telephone encounter Rocky Nayanbaldemar [facility] [place] Start: 06-04-2022 End: 06-04-2022 ambulatory Rocky Lemon Other [facility] Other Start: 06-04-2022 Telephone encounter Rocky Spicerbaldemar [facility] [place] Start: 05-03-2022 End: 05-03-2022 ambulatory Rocky Lemon Other [facility] Other Start: 05-03-2022 Telephone encounter Rocky Lemon [facility] [place] Start: 04-08-2022 End: 04-08-2022 ambulatory Rocky Naynabaldemar Other [facility] Other Start: 04-08-2022 Telephone encounter Rocky Lemon [facility] [place] Start: 03-23-2022 End: 03-23-2022 ambulatory Rocky Ion Other [facility] Other Start: 03-23-2022 Telephone encounter Rocky Lemon [facility] [place] Start: 12-29-2021 End: 12-29-2021 ambulatory Rocky Ion Other [facility] Other Start: 12-29-2021 Telephone encounter Rocky Lemon [facility] [place] Start: 11-30-2021 End: 11-30-2021 ambulatory Rocky Lemon Other [facility] Other Start: 11-30-2021 Telephone encounter Rocky Lemon [facility] [place] Start: 11-19-2021 End: 11-19-2021 ambulatory Rocky Ion Other [facility] Other Start: 11-19-2021 Telephone encounter Rocky Lemon [facility] [place] Start: 11-11-2021 End: 11-11-2021 ambulatory Rocky Lemon Other [facility] Other Start: 11-11-2021 Telephone encounter Rocky Lemon [facility] [place] Start: 10-30-2021 End: 10-30-2021 ambulatory Rocky Lemon Other [facility] Other Start: 10-30-2021 Telephone encounter Rocky Lemon [facility] [place] Start: 10-26-2021 End: 10-26-2021 ambulatory Manuelito Arana Other [facility] Other Start: 10-26-2021 Office consultation new/estab patient 60 min Manuelito Arana [facility] Start: 08-20-2021 End: 08-21-2021 ambulatory NONE LISTED REQUEST Facility:[facility]1 Start: 08-10-2021 End: 08-10-[address] ROCKY LEMON Facility:[facility] Procedures Date Procedure Procedure Detail Performing Clinician Start: 12-19-2023 Duplex scan of lower limb veins DO Rocky Lemon Work Phone: Plan of Treatment Date Care Activity Detail Author Start: 09-19-2024 End: 09-19-2024 Patient encounter procedure 09/19/2024 8:40 AM EST Office Visit [facility] [address] [facility] [address] [place] [address] Claritza Spencer MD [address] [facility] [address] [place] [address] Arrived [facility] Comment on above: Arrived Start: 09-13-2024 Patient referral [facility] Work Phone: Patient Education Low back pain in adults [facility] Work Phone: Patient referral [facility] Work Phone: Payers Date Payer Category Payer Self-pay [id number] 2023 Private Health Insurance [id number] 2023 Unknown [id number] 1970 Unknown [id number] [id number] [id number] 1970 Unknown [id number] 2.16.8 [id number] 1970 Unknown [id number] 2.16.8 [id number] 1970 Unknown [id number] 2.16.8 [id number] 1970 Unknown [id number] 2.16.84 [id number] 1961 Self-pay [id number] Medicaid Medicaid [id number] Unknown [id number] [id number] [id number] Unknown Unknown [id number] [id number] Social History Date Type Detail Facility Unknown if ever smoked [facility] [employer] Other Start: 09-19-2024 Sex Assigned At N [facility] [employer] Other Start: 02-08-2024 End: 09-19-2024 Tobacco smoking status [facility] Never smoked tobacco (finding) [facility] Start: 1970 Sex Assigned At Male F [facility] Start: 09-13-2024 Sex Male (finding) [facility] Tobacco smoking status [facility] Tobacco smoking consumption unknown [facility] Start: 1970 Sex assigned at Not on file [facility] Start: 09-19-2024 Tobacco use and exposure User of smokeless tobacco [facility] History of tobacco use Chews Tobacco [facility] Start: 09-19-2024 Alcoholic beverage intake Lifetime non-drinker (finding) [facility] Start: 09-19-2024 History of Social function [facility] Clinical Notes 10-26-2021 to 09-19-2024 Claritza Spencer MD - 09/19/2024 8:40 AM EST Note Date & Type Note Facility 09-19-2024 History of Presen t illness Narrative Subjective Patient ID: Dali Huffman is a 54 y.o. male who presents for Otitis Media (Ear pain) Pt reports a 1 mo h/o jamie hearing loss. [place] Tx with mult abx. No prior h/o ear problems. Review of Systems All other systems reviewed and are negative. No family history on file. Active Ambulatory Problems Diagnosis Date Noted No Active Ambulatory Problems Resolved Ambulatory Problems Diagnosis Date Noted No Resolved Ambulatory Problems Past Medical History: Diagnosis Date Diabetes (CMS/HCC) Ear problems Past Surgical History: Procedure Laterality Date MULTIPLE TOOTH EXTRACTIONS TOTAL HIP ARTHROPLASTY Left Allergies Allergen Reactions Nalbuphine GI intolerance Other Reaction(s): Other (see Comments) Current Outpatient Medications on File Prior to Visit Medication Sig Dispense Refill losartan (Cozaar) 100 MG tablet Take 100 mg by mouth in the morning. metFORMIN (Glucophage) 500 MG tablet Take 500 mg by mouth in the morning. Take with meals. No current facility-administered medications on file prior to visit. Objective Last Recorded Vitals Vitals: 09/19/24 0841 BP: 126/78 ENT Physical Exam Constitutional Appearance: patient appears well-developed and well-nourished, Head and Face Appearance: head appears normal and face appears atraumatic; Ear Ear comments: Jamie ears ME effusion Nose External Nose: nares patent bilaterally; external nose normal; Internal Nose: nasal mucosa normal; Oral Cavity/Oropharynx Lips: normal; Teeth: normal; Gums: gingiva normal; Tongue: normal; Oral mucosa: normal; Hard palate: normal; Neck Neck: neck normal; neck palpation normal; Thyroid: thyroid normal; Respiratory Inspection: breathing unlabored; normal breathing rate; Auscultation: breath sounds are clear; Cardiovascular Inspection: extremities are warm and well perfused; no peripheral edema present; Auscultation: regular rate and rhythm; Assessment/Plan Diagnoses and all orders for this visit: ETD (Eustachian tube dysfunction), bilateral OME (otitis media with effusion), bilateral Persistent OME after apparent AOM. Tx with prednisone and flonase. Check audio. Tubes if persists documented in this encounter [facility] 06-27-2024 Evaluation note Authored June 27, 2024 2:30pm I performed the above HPI, R OS, and Examination. I formulated and dictated the treatment plan and was present for entire encounter. Rocky Lemon D.O. [facility] Work Phone: 1(305) 131-505809-04-2024 Evaluation note* Author Rocky Lemon [facility] Authored June 27, 2024 1:30pm I performed the above HPI, R OS, and Examination. I formulated and dictated the treatment plan and was present for entire encounter. Rocky Lemon D.O. Author Rocky Lemon [facility] Authored August 21, 2024 8 :27am The above note written by __ _Jane Garcia____ acting as human recorder, note dictated by Dr. Cadena .I performed the above HPI, ROS, and Examination. I formulated and dictated the treatment plan and was present for entire encounter. Rocky Lemon D.O. [facility] Work Phone: 1(251) 652-563207-11-2024 NotePatient: DALI HUFFMAN Age: 54 years Sex: Male : 1970 Associated Diagnoses: None Author: VINCENT ALVARENGA PA-C Results Review Labs (Last four charted values) WBC 7.7 (APR 18) 7.1 (APR 09) Hgb L 11.2 (APR 18) 13.9 (FILOMENA 17) Hct L 32.8 (APR 18) 41.3 (FILOMENA 17) Plt 202 (APR 18) 256 (FILOMENA 17) Na 140 (APR 18) 140 (FILOMENA 17) K 4.2 (APR 18) 4.4 (FILOMENA 17) CO2 25.0 (APR 18) 28.0 (FILOMENA 17) Cl H 108 (APR 18) 105 (FILOMENA 17) Cr 0.8 (APR 18) 0.8 (APR 09) BUN 17 (APR 18) 19 (FILOMENA 17) Glucose Random H 183 (APR 18) 103 (FILOMENA 17) Ca L 8.3 (APR 18) 9.6 (FILOMENA 17) INR 1.0 (APR 09) Subjective Pt reports [...] by: FELIX WRIGHT MD on 05/03/2024 15:03 [facility]06-26-2024 NoteEducation Diabetes Entered On: 04/17/2024 17:26 EDT Performed On: 04/17/2024 17:26 EDT by Barron Castañeda RPh Education Barriers to Learning : None evident TeachBack Methodology : TeachBack TeachBack Notes : no changes to diabetic meds, pt dc today 04/17 dk: a1c from january 31., on metformin. no endo consult as of now Barron Castañeda RPh - 04/18/2024 14:04 [facility] 04-18-2024 NotePatient Education Material Learning About [...] Where can you learn more? Go to https://www.Linkua.net/patientEd Enter B979 in the search box to learn more about Learning About Using an Incentive Spirometer. Current as of: December 30, 2021 Content Version: 13.3 ? [employer]. Care instructions adapted under license by your healthcare professional. If you have questions about a medical condition or this instruction, always ask your healthcare professional. [employer] disclaims any warranty or liability for your [...] you breathe in, the (more content not included)...[facility]06-26-2024 NoteNursing Discharge Summary Entered On: 04/18/2024 12:03 EDT Performed On: 04/18/2024 12:03 EDT by Sharmila Pantoja LPN, [place] Information Discharged to : Home Mode of Discharge : Wheelchair Discharge Transportation : Private vehicle Belongings Sent Home With : clothes and all other personal belongings Reg VTE Warfarin at Discharge : No Sharmila Pantoja LPN - 04/18/2024 13:14 EDT *Home Equipment : Walker Sharmila Pantoja LPN - 04/18/2024 12:03 EDT Education Instructions given to : Patient TeachBack Methodology : TeachBack, Demonstration, Explanation, Printed Material Barriers to Learning : None evident Sharmila Pantoja LPN - 04/18/2024 13:14 EDT Post-Hospital Education Adult Grid Bladder Management : Verbalizes understanding Bowel Management : Verbalizes understanding Diagnostic Results : Verbalizes understanding Disease Process : Verbalizes understanding Equipment/Devices : Verbalizes understanding Importance of Follow-Up Visits : Verbalizes understanding Invasive Line Care : Verbalizes understanding Pain Management : Verbalizes understanding Physical Limitations : Verbalizes understanding Plan of Care : Verbalizes understanding Sharmila Pantoja LPN - 04/18/2024 13:14 EDT Health Maintenance Education Adult Grid Bathing/Hygiene : Verbalizes understanding Diet/Nutrition : Verbalizes understanding Exercise : Verbalizes understanding Sharmila Pantoja LPN - 04/18/2024 13:14 EDT Medication Education Adult Grid Med Generic/Brand Name, Purpose, Action : Verbalizes understanding Sharmila Pantoja LPN - 04/18/2024 13:14 EDT Safety Education Adult Grid Safety, Fall : Verbalizes understanding Scarlett TELLEZ Sharmila - 04/18/2024 13:14 EDT Additional Session Learner/s Present : Spouse Sharmila Pantoja LPN - [facility]24 [facility] Inpatient Evaluation Acute Entered [...] recovery)., Discontinued Consult Physician, 04/17/2024 07:55:00 EDT, [employer] 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[employer] , 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, [facility] op, [facility], 04/17/2024 07:55:00 EDT, [...] Beliefs to Incorporate : No Zee Rojas 04/17/2024 15:21 EDT Pain Assessment Pain Location [...] 04/17/2024 15:21 EDT Patient's Responsibilities 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, 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, 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, 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, 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, Laundry, Leisure/Play/Hobbies, Manage Medications, Meal preparation, Personal ADL, Shopping, Social participation 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 [employer] Haile MOTR/L, 04/17/2024 15:21 EDT Home Environment II Living Environment : Home Environment Sensory Deficits: None Performed By: Venu Thibodeaux RN 04/17/2024 Devices/Equipment at Home : Axillary crutches, Grab bars - shower, Grab bars - toilet, Handheld Shower Head, Lift chair, Boat Pilot, Rolling walker, Shower - walk-in, Toilet - high Haile MOTR/L, 04/17/2024 15:21 EDT Prior Functional Status Grid ADL : Independent Mobility : Independent Instrumental ADL : Independent Cognitive-Communication Skills : Independent Haile MOTR/L, 04/17/2024 15:21 EDT Additional Information : Pt reports spouse is able to assist prn upon d/c. Denies falls. Haile MOTR/L, 04/17/2024 15:21 EDT Basic ADL Basic ADL Grid Eating : Complete I Grooming : Setup (Comment: seated/simulated [Haile MOTR/L, 04/17/2024 15:21 EDT] ) Bathing : Mod A (Comment: without DME [Haile MOTR/L, 04/17/2024 15:21 EDT] ) UE Dressing : Setup LE Dressing : Mod A (Comment: without DME [Haile MOTR/L, 04/17/2024 15:21 EDT] ) Transfer Toilet : CGA (Comment: with FWW [Haile MOTR/L, 04/17/2024 15:21 EDT] ) Haile MOTR/L, 04/17/2024 15:21 EDT Limiting Factors : Motor, Pain Haile MOTR/L, Zee - 04/17/2024 15:21 EDT Balance Balance Tests Performed : [employer] balance scale Sitting Balance Score : 5 Standing Balance Score : 5 Haile MOTR/L, Zee - 04/17/2024 15:21 EDT UE ROM/Strength Overall Range of Motion Left Upper Extremity Active Range : Within functional limits Right Upper Extremity Active Range : Within functional limits Haile KRISTIANR/L, Zee - 04/17/2024 15:21 EDT Lt Upper Extremity Strength OT : With (more content not included)...[facility]06-25-2024 NotePT Inpatient Evaluation Acute Entered On: 04/17/2024 [...] recovery)., Discontinued Consult Physician, 04/17/2024 07:55:00 EDT, [employer]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 , 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, 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, Completed [facility] Nutrition Task to [...] Affect/Behavior : Alert, Calm, Cooperative Idania PT-Student, [facility] 04/17/2024 15:04 EDT History, Problems History of Comorbidities,Personal Factor : 1-2 personal factors and/or comorbidities Idania PT-Student, [facility] 04/17/2024 15:04 EDT Pain Assessment Pain Location : Hip Laterality : Left Self Report Pain : Numeric rating scale Numeric Pain Scale : 5 = Moderate pain Numeric Pain Score : 5 Idania DUARTE-Alicia, [facility] 04/17/2024 15:04 EDT Home Environment Living Environment : Home Environment Sensory Deficits: None Performed By: Venu Thibodeaux RN 04/17/2024 *Living Situation : Home Independently *Lives With : Spouse Lives In : Single level home Idania PT-Student, [facility] 04/17/2024 15:04 EDT Stairs Inside Stairs Outside Stairs Number of Stairs : 0 3 Rail : Rail on right going up Idania PT-Student, [facility] 04/17/2024 15:04 EDT Idania PT-Alicia, [facility] 04/17/2024 15:04 EDT Home Setup Primary Bedroom : 1st floor Primary Bathroom : 1st floor Kitchen : 1st floor Laundry : Basement Idania DUARTE-Alicia, [facility] 04/17/2024 15:04 EDT Stairs - Additional 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 : 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, 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, 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, 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, Personal ADL, Social participation Idania PT-Student, [facility] 04/17/2024 15:04 EDT Home Environment II Living Environment : Home Environment Sensory Deficits: None Performed By: Venu Thibodeaux RN 04/17/2024 Devices/Equipment : Axillary crutches, Grab bars - shower, Grab bars - toilet, Handheld Shower Head, Shower - walk-in, Standard walker, Toilet - standard Idania PT-Alicia, [facility] 04/17/2024 15:04 EDT Prior Functional Status ADL : Independent Mobility : Independent Instrumental ADL : Independent Cognitive-Communication Skills : Independent Idania PT-Student, [facility] 04/17/2024 15:04 EDT Additional Information : [...] off during recovery. Denies recent fall. Idania PT-Student, [facility] 04/17/2024 15:04 EDT LE Range/Strength LE Overall Range of Motion Grid Left Lower Extremity Active Range : Impaired (Comment: D/t acute surgical intervention [Idania PT-Student, [facility] 04/17/2024 15:04 EDT] ) Right Lower Extremity Active Range : Within functional limits Idania PT-Student, [facility] 04/17/2024 15:04 EDT Lt Lower Extremity Strength : Other: Grossly WFL via functional observation, able to ambulate and WB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
--- NOTE | 2024-10-09 21:02 | PC.NURSE ---
this patient complains of right ear pain for months and seen ear dr but today noticed vision changes to right eye, this patient voices no falls, injury or trauma to cause right ear pain and right eye vision changes
[2024-10-09] MEDS: PREDNISONE 20 MG TABLET 40 MG PO (21:15)
[2024-10-09] MEDS: OXYCODONE HCL/ACETAMINOPHEN 5MG/325MG 1 TAB PO (21:15)
[2024-10-09] MEDS: LEVOFLOXACIN 750 MG TABLET PO (21:15)
--- NOTE | 2024-10-09 21:29 | PC.NURSE ---
i gave this patient verbal and paper discharge orders along with 3 e-scripts, this patient voices understanding these. at time of discharge this patient voices no concerns and shows no signs of distress. i informed this patient not to operate a automobile, go to work or operate any machine while taking his pain medication(e-script)
--- NOTE | 2024-10-09 21:31 | ED_ITS ---
HPI HPI - General Adult General Chief complaint: Ear Stated complaint: ear Time Seen by Provider: 10/09/24 20:47 Source: patient Mode of arrival: walk-in History of Present Illness HPI narrative: 54-year-old male to the emergency department with chief complaint of ear pain. Patient reports he has been dealing with some ear and sinus issues on his right side for several months. He reports he has had urgent care, ER, primary care and ENT visits. He is currently being worked up by Dr. Ramos, ENT surgeon, for this. He reports that he gets intermittent blurred vision on his right side, pain and pressure in his right sided sinuses, frequent ear infections on the right side. Patient reports that his insurance is up at the end of this month and he came hoping for an answer as to what is causing his symptoms. Related Data Home Medications ?Medication ?Instructions ?Recorded ?Confirmed metformin 500 mg tablet,extended 500 mg PO Q24H 09/15/23 08/31/24 release 24 hr losartan 100 mg tablet mg 08/31/24 Previous Rx's ?Medication ?Instructions ?Recorded levofloxacin 750 mg tablet 750 mg PO DAILY 10 days #10 tabs 10/09/24 oxycodone-acetaminophen 5 mg-325 1 tab PO Q6H PRN pain 3 days #12 10/09/24 mg tablet (Percocet) tabs prednisone 20 mg tablet 40 mg (2 x 20 mg) PO DAILY 5 days 10/09/24 #10 tabs Allergies Allergy/AdvReac Type Severity Reaction Status Date / Time nalbuphine (From Nubain) Allergy Severe Verified 09/15/23 13:06 Opioid HPI Opioid Management Most Recent Opioid Data: Last Pain Scale 7 08/31/24 18:06 08/31/24 Review of Systems ROS Status of ROS 10 or more systems reviewed and unremark able except as noted in history and below PFSH PFSH Social History Little interest or pleasure in doing things: not at all Feeling down, depressed, or hopeless: not at all Exam Narrative Exam Narrative: VITALS: I have reviewed the triage vital signs. GENERAL: Well developed, well appearing adult in no acute distress. NEURO: Alert and oriented. Moves all extremities. Face is symmetric and expressive. EYES: PERRL. No scleral icterus or conjunctival injection. No discharge. Globes soft. OD 20/50; OS 20/40. HENT: Normocephalic, atraumatic. Hearing is grossly intact. Nares grossly patent and without discharge. Mucous membranes moist. Is bulging, erythematous, purulent fluid posterior. Left TM is bulging, serous effusion. Tenderness with percussion over the right maxillary and frontal sinus. NECK: No JVD. Patient moves neck without restriction. EXTREMITIES: Symmetric muscle bulk. No joint swelling. No clubbing, cyanosis, or deformity. SKIN: Warm and dry. Normal turgor. No rash or lesions appreciated. PSYCH: Mood, affect, and interaction is appropriate to the setting. Constitutional Vital Signs, click to edit/add: Last Vital Signs Temp 97.8 F 10/09/24 20:07 Pulse 94 H 10/09/24 20:07 Resp 18 10/09/24 20:07 BP 177/91 H 10/09/24 20:07 Pulse Ox 97 10/09/24 20:07 O2 Del Method Room Air 10/09/24 20:07 Course Vital Signs Vital signs: Vital Signs Temperature 97.8 F 10/09/24 20:07 Pulse Rate 94 H 10/09/24 20:07 Respiratory Rate 18 10/09/24 20:07 Blood Pressure 177/91 H 10/09/24 20:07 Pulse Oximetry 97 10/09/24 20:07 Oxygen Delivery Method Room Air 10/09/24 20:07 Temperature 97.8 F 10/09/24 20:07 Pulse Rate 94 H 10/09/24 20:07 Respiratory Rate 18 10/09/24 20:07 Blood Pressure 177/91 H 10/09/24 20:07 Pulse Oximetry 97 10/09/24 20:07 Oxygen Delivery Method Room Air 10/09/24 20:07 Medical Decision Making MDM Narrative Medical decision making narrative: 54-year-old male with chronic ear and sinus issues on the right side to the emergency department for the same. Vital stable, the patient is afebrile. Symptoms ongoing for several months currently undergoing specialty workup with ENT surgeon. No new symptoms today. He does have an ear infection on the right side. History and exam are consistent with sinusitis as well. He has been on amoxicillin containing antibiotic recently, will place him on Levaquin. Short course of prednisone. He request pain medication. OARRS was reviewed. Short prescription of Percocet for his discomfort. 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 He requested a second opinion with a different ENT. He was given the information for Dr. Haas. Return precautions were discussed. All questions were answered. The patient was discharged home Medical Records Medical records reviewed: Yes I reviewed the patient's medical records Discharge Plan Discharge Chief Complaint: Ear Clinical Impression: Sinusitis, Otitis media Patient Disposition: Home, Self-Care Time of Disposition Decision: 21:09 Condition: Good Mode of Transportation: Private Vehicle Prescriptions / Home Meds: New oxycodone-acetaminophen [Percocet] 5-325 mg tablet 1 tab PO Q6H PRN (Reason: pain) 3 Days Qty: 12 0RF levofloxacin 750 mg tablet 750 mg PO DAILY 10 Days Qty: 10 0RF prednisone 20 mg tablet 40 mg PO DAILY 5 Days Qty: 10 0RF No Action metformin 500 mg tablet extended release 24 hr 500 mg PO Q24H losartan 100 mg tablet Print Language: Romansh Instructions: Sinusitis (ED), Ear Infection (ED) Additional Instructions: Call the office of your primary care doctor to arrange for follow-up within the above-stated timeframe. Your ED visit was focused on your acute issue and does not replace primary care. You should review your labs, imaging, and diagnoses from this ED visit with your primary care physician. There may be non-emergent/ incidental findings that need further evaluation. You should review your vital signs including blood pressure with your PCP. If you were prescribed medications you should discuss possible side-effects and drug interactions with your pharmacist. Call 911 or go to the nearest Emergency Department if you develop any new or worsening symptoms. Referrals: eri [Other] - 1 week ROCKY LEMON [Primary Care Provider] - 1 week
== END 2024-10-09 21:32 | disposition home or self-care (01) ==
PROVIDERS: Emergency Provider Student in an Organized Health Care Education/Training Program; PCP Family Medicine
DX: H66.91 Otitis media, unspecified, right ear (principal); J32.9 Chronic sinusitis, unspecified
CPT/HCPCS: 99284; J7512